=== PATIENT | female | born 1960 | race Caucasian/White ===

== ENCOUNTER 2020-01-08 10:46 | Emergency (ER) | payer BC, SELFPAY ==
--- NOTE | ~2020-01-08 | XR_ITS ---
EXAMINATION: XR ankle RT min 3V DATE: 01/08/2020 11:02 INDICATION: Right ankle deformity. Fall. TECHNIQUE: 3 views of right ankle were obtained. COMPARISON: None. FINDINGS: There is a comminuted fracture of distal fibula with medial aspect of the fracture line 2.9 cm proximal to the level of the tibial plafond. The main distal fracture fragment demonstrates 3 mm lateral displacement, 9 degrees lateral angulation, 2 mm posterior displacement, and 6 degrees seam stay stitcher ior angulation. There is an oblique fracture of medial malleolus. The distal fracture fragment demons trates 5 mm medial displacement and 7 mm anterior displacement. There is a coronal fracture of seam stay stitcher ior malleolus with 3 mm offset at the articular surface. There is lateral subluxation of talus with r espect to distal tibia. The talar dome is normal. There is ankle soft tissue swelling. IMPRESSION: 1. Fractures of distal fibula, medial malleolus, and posterior malleolus. Reviewed, dictated and finalized at location A. D COORDINATOR
--- NOTE | ~2020-01-08 | XR_ITS ---
EXAMINATION: XR ankle RT min 3V DATE: 01/08/2020 11:44 INDICATION: Right ankle fracture status post reduction. TECHNIQUE: 3 views of right ankle were obtained. COMPARISON: Right ankle radiographs at 10:58 AM FINDINGS: There is a comminuted fracture of distal fibula with medial aspect of the fracture line to 0.5 cm proximal to the level of the tibial plafond. The main distal fracture fragment demonstrates im paction, 9 degrees lateral angulation, 2 mm lateral displacement, and 5 degrees posterior angulation. There is an oblique fracture of medial malleolus. The main distal fracture distal fracture fragment demonstrates 10 mm medial displacement. There is a fracture of posterior malleolus in near-anatomic a lignment. The talar dome is normal. There is ankle soft tissue swelling. Cast material is noted. IMPRESSION: 1. Comminuted fracture of distal fibula and fractures of the medial and posterior malleoli with impro vement in alignment. Reviewed, dictated and finalized at location A. R PRODUCTS MACHINE OPERATOR IMPRESSION: 1. Comminuted fracture of distal fibula and fractures of the medial and posteri or malleoli with improvement in alignment.
--- NOTE | ~2020-01-08 | XR_ITS ---
EXAMINATION: XR tibia fibula RT 2V DATE: 01/08/2020 11:02 INDICATION: Right lower limb deformity. Fall. TECHNIQUE: 2 views of right tibia and fibula on 3 radiographs were obtained. COMPARISON: Right ankle radiographs 01/08/2020 FINDINGS: There is a comminuted fracture of distal fibula. There are fractures of the medial and post erior malleoli. There is normal bone alignment at the ankle joint. There is mild osteoarthritis of pa tellofemoral compartment. No knee joint effusion. IMPRESSION: 1. Comminuted fracture of distal fibula and fractures of the medial and posterior malleoli, which are better described on the ankle radiographs. 2. Mild right knee osteoarthritis. Reviewed, dictated and finalized at location A. COAT SEWER IMPRESSION: 1. Comminuted fracture of distal fibula and fractures of the medial and posteri or malleoli, which are better described on the ankle radiographs. 2. Mild right knee osteoarthritis.
[2020-01-08 10:44] VITALS: BP 159/92; PULSE 86; RESP 18; TEMP 36.6; O2SAT 100
[2020-01-08] MEDS: SODIUM CHLORIDE 0.9% IV 1,000 ML 999 ML IV CONT (11:00)
[2020-01-08] MEDS: ONDANSETRON INJ 4 MG/2 ML VIAL IV PUSH (11:03)
[2020-01-08] MEDS: HYDROMORPHONE HCL 1 MG/ML INJ IV PUSH ×2 (11:06→11:31)
[2020-01-08 11:34] VITALS: BP 144/85; PULSE 82; RESP 18; O2SAT 95
--- NOTE | 2020-01-08 11:42 | ED.FALL ---
HPI - Fall General Chief Complaint: Fall Stated Complaint: fall/right ankle pain Time Seen by Provider: 01/08/20 10:51 Source: patient, family and EMS Mode of arrival: EMS Limitations: no limitations History of Present Illness HPI Narrative: Patient is an 59-year-old female who presents to emergency department for evaluation of ankle injury that occurred just prior to arrival misstepped while ambulating injuring the ankle noting that she now has moderate aching pain of the ankle joint worse with any activity or movement patient presents per EMS. Patient denies other injuries or complaints or any radicular symptoms or paresthesias Related Data Allergies Allergy/AdvReac Type Severity Reaction Status Date / Time Penicillins Allergy Unknown Hives Verified 01/08/20 10:49 Review of Systems Review of Systems: All systems reviewed & are unremarkable except as noted in HPI and below PMFSH Family History Family History (Updated 11/19/17 @ 15:14 by DOCTOR UNKNOWN) Grandparent Asthma Family history of malignant neoplasm of brain Father Family history of Alzheimer's disease Family history of coronary artery disease Social History Social History Smoking status: Former smoker Alcohol intake: current Exam Narrative: Exam Narrative: GENERAL: Well-appearing, well-nourished, and in no acute distress. HEAD: Normocephalic, atraumatic. EYES: PERRLA and EOMI. ENT: Nares clear, no rhinorrhea or epistaxis. Mucous membranes moist. CHEST: Clear to auscultation. No respiratory distress. No wheezes rales or rhonchi HEART: Regular rate and rhythm. No murmur heard. Normal peripheral pulses. EXTREMITIES: Bruising swelling and tenderness involving the right ankle joint SKIN: Warm, dry, no rash. NEURO: No focal deficits. Alert and oriented x3. Neurovascularly intact PSYCH: Normal mood and affect. Course Consultations Consultation #1: Discussed case with orthopedic surgery who will follow the patient in clinic Date: 01/08/20 Vital Signs Vital signs: Vital Signs Temperature 97.9 F 01/08/20 10:44 Pulse Rate 86 01/08/20 10:44 Respiratory Rate 18 01/08/20 10:44 Blood Pressure 159/92 H 01/08/20 10:44 Pulse Oximetry 100 01/08/20 10:44 Temperature 97.9 F 01/08/20 10:44 Pulse Rate 82 01/08/20 11:34 Respiratory Rate 18 01/08/20 11:34 Blood Pressure 144/85 H 01/08/20 11:34 Pulse Oximetry 95 01/08/20 11:34 Procedures Orthopedic Fracture Reduction Fracture #1: Fracture Reduction date: 01/08/20 Fracture Reduction time: 11:44 Time Out Performed: Yes Side: right Fracture Reduction Location: tibia Analgesia: other Pre-Procedure Neuro Vascular Exam: normal Technique: direct manipulation Post Reduction X-rays Demonstrate: acceptable reduction Post-reduction neuro exam: intact Post-reduction vascular exam: intact Splint Applied: Yes Patient Tolerated Procedure: well Orthopedic Splinting/Casting Injury #1: Splinting/Casting Date: 01/08/20 Splinting/Casting Time: 11:44 Lower Extremity Injury Location: lower leg Lower Extremity Immobilizer: posterior splint and stirrup splint Splint: customized in ED OCL: stirrup Pre-Procedure Neuro Vascular Exam: normal Post-Procedure Neuro Vascular Exam: normal Other Orthopedic Equipment: crutches MDM - Fall Imaging Data Radiologist's impression: ITS Impressions Ankle X-Ray 01/08/20 11:09 IMPRESSION: 1. Fractures of distal fibula, medial malleolus, and posterior malleolus. Tibia/Fibula X-Ray 01/08/20 11:13 IMPRESSION: 1. Comminuted fracture of distal fibula and fractures of the medial and posterior malleoli, which are better described on the ankle radiographs. 2. Mild right knee osteoarthritis. Discharge Plan Discharge Clinical Impression: Ankle
[2020-01-08 12:07] VITALS: TEMP 36.6
[2020-01-08 12:23] VITALS: BP 130/71; PULSE 70; RESP 18; O2SAT 96
[2020-01-08 13:07] VITALS: TEMP 36.6
[2020-01-08 14:08] VITALS: BP 96/42; PULSE 70; RESP 18; O2SAT 99
--- NOTE | 2020-01-08 14:09 | PC.NURSE ---
Patient refused crutches at this time.
== END 2020-01-08 14:09 | disposition home or self-care (01) ==
PROVIDERS: Emergency Provider Emergency Medicine; PCP Family Medicine
DX: S82.831A Other fracture of upper and lower end of right fibula, initial encounter for closed fracture (principal); S82.51XA Displaced fracture of medial malleolus of right tibia, initial encounter for closed fracture; Z87.891 Personal history of nicotine dependence; M17.11 Unilateral primary osteoarthritis, right knee; X50.9XXA Other and unspecified overexertion or strenuous movements or postures, initial encounter
CPT/HCPCS: 27762; 27788; 73590; 73610; 96374; 96375; 99285; J1170; J2405; J7030

== ENCOUNTER 2020-01-17 00:23 | Day surgery (SDC) | payer BC, SELFPAY ==
[2020-01-11 10:34] VITALS: BMI 33.2
[2020-01-17] VITALS (7 sets, daily range): BP systolic 122–163; BP diastolic 70–82; PULSE 83–98; RESP 12–20; TEMP 36.8–36.9; O2SAT 96–100
--- NOTE | ~2020-01-17 | XR_ITS ---
EXAMINATION: XR surgery orthopedic EXAM DATE: 01/17/2020 13:50 INDICATION: Right ankle fracture. TECHNIQUE: Fluoroscopy used during right ankle open reduction internal fixation performed by Dr. Micky Yoder MD. The DAP for this procedure was 0.02 mGym2.cGycm2. FINDINGS: There is a fibular plate with supporting screws, 2 screws through the medial malleolus, an d a right tibial distal metaphyseal plate with supporting screws. Hardware overlies expected position on these images. Correlate with procedure note. IMPRESSION: Fluoroscopy used during right ankle ORIF. Reviewed, dictated and finalized at location A.
[2020-01-17] MEDS: LACTATED RINGERS 1,000 ML 30 ML IV CONT ×2 (09:45→13:53)
--- NOTE | 2020-01-17 09:53 | P.PNAN_ITS ---
Anes - Initial Pre Proc Eval Procedure: Operation Date: 01/17/20 11:00 Proposed Procedures p Open Reduction Internal Fixation Right Ankle Fracture - Nate Yoder MD Date/Time: 01/17/20 09:53 Surgeon: Nate Yoder MD Pre Op Diagnosis: Right Trimallolar Ankle Fracture Patient Data Age: 59 Gender: F Height: 5 ft Weight: 77.11 kg Allergies Allergy/AdvReac Type Severity Reaction Status Date / Time Penicillins Allergy Unknown Hives Verified 01/11/20 10:36 Home Medications Medication Instructions Recorded Confirmed Type sertraline 25 mg tablet 25 mg PO DAILY #90 tablet 11/18/19 01/17/20 Rx hydrochlorothiazide 25 mg tablet 25 mg PO DAILY #90 tablet 11/23/19 01/17/20 Rx hydrocodone-acetaminophen 1 tablet PO Q6H PRN #20 tablet 01/08/20 01/17/20 Rx acetaminophen [Tylenol Arthritis 650 mg PO Q6H PRN 01/11/20 01/17/20 History Pain] aspirin 81 mg PO DAILY 01/11/20 01/17/20 History bimatoprost 0.01 % eye drops 1 drop EACH EYE DAILY 01/11/20 01/17/20 History brimonidine 0.2 %-timolol 0.5 % 1 drop EACH EYE Q12H 01/11/20 01/17/20 History eye drops clindamycin HCl 300 mg capsule 300 mg PO Q6H 01/11/20 01/17/20 History ibuprofen [Advil] 600 mg PO Q6H PRN 01/11/20 01/17/20 History losartan 100 mg tablet 100 mg PO DAILY #90 tablet 01/14/20 Rx Patient hx anesthesia problems: none Family hx anesthesia problems: none PMFSH Past Medical History Medical History (Updated 01/17/20 @ 09:53 by Alfredo Centeno MD) Anxiety Depression Hypertension Lung cancer Surgical History Surgical History History of section 1985 History of hysterectomy 2013-[place] History of lobectomy of lung 2015 History of sinus surgery 2002 Family History Family History Grandparent Asthma Family history of malignant neoplasm of brain Father Family history of Alzheimer's disease Family history of coronary artery disease Social History Social History Smoking status: Former smoker Alcohol intake: current Additional occupation/education comments: [employer] Gender identity (if verbalized by the patient): Female Anes - Eval Final PreProcedure Day of Procedure 01/17/20 09:53 Patient weight: obese Heart: regular rate and rhythm Lungs: decreased breath sounds Airway: Mallampati scale class II Neurological: alert and oriented Last oral intake: >/= 8 hours ASA classification: III Emergent: no Anesthetic plan: proceed Anesthesia type and monitoring: general LMA and standard monitoring Informed Consent: The patient's anesthetic plan and its attendant risks and benefits were discussed with the patient/family/POA. Questions were solicited and answers provided to the satisfaction of the patient/family/POA.
--- NOTE | 2020-01-17 09:58 | SUR.PREOP ---
0925- spoke with jatin slaughter in dr. yoder room. Asked if Dr. Yoder would like pt dressing off of right ankle. jatin Slaughter stated yes.
[2020-01-17 10:10] LABS: Blood Urea Nitrogen 28 mg/dL (7-17); Calcium 9.4 mg/dL (8.4-10.2); Carbon Dioxide 27 mmol/L (22-30); Chloride 103 mmol/L (98-107); Estimated CRCL calculation 45 ml/min; Estimated Glomerular Filt Rate 51; Glucose 122 mg/dL (65-105); Potassium 4.1 mmol/L (3.4-5.0); Sodium 139 mmol/L (137-145)
--- NOTE | 2020-01-17 10:53 | SUR.PREOP ---
1045- pt updated that DR. BRAVO RUNNING ABOUT A HOUR BEHIND SCHEDULE. DAUGHTER AND MOTHER IN ROOM.
--- NOTE | 2020-01-17 11:24 | WPDHPUPDATE1 ---
History and Physical Update Update Date/Time: 01/17/20 11:24 History and Physical has been reviewed, including an updated exam of the patient. There are NO changes in the patient's condition. Risks, benefits, and alternatives have been discussed and questions answered. Patient agrees to proceed with procedure.
--- NOTE | 2020-01-17 12:06 | SUR.PREOP ---
1200- spoke with DR MURCIA ABOUT STAT EKG ORDERED. HE STATED HE LOOKED AT EKG FROM 05/2019 AND NO NEED FOR A REPEAT.
[2020-01-17] MEDS: CLINDAMYCIN 900 MG/NS 50 ML 900 MG/50 ML PIGGYBACK 50 MG IVPB (12:09)
[2020-01-17] MEDS: ceFAZolin SODIUM 1 GM VIAL IV PUSH (12:35)
--- NOTE | 2020-01-17 14:15 | PM.PROC ---
Procedure Note - Detailed Date of procedure: 01/17/20 Pre-op diagnosis: Right Trimallolar Ankle Fracture Post-op diagnosis: same Procedure performed: ORIF right trimalleolar ankle fracture Description of procedure: Patient was identified proper side identified. Her dressing was taken down in the preop holding area and the skin inspected. The area of blistering noted last week was inspected and noted to be unremarkable. The anesthesia team performed a right lower extremity block. She was taken the operating room and transferred to the OR table placing her supine taking care to pad her torso and extremities after general anesthetic induction and intubation, a nonsterile tourniquet was placed high in the right thigh. Right lower extremities prepped draped free in usual sterile fashion. Extremities exsanguinated and tourniquet was inflated to 300 mmHg remaining up for about 65 minutes. Longitudinal incision was made medially over the medial malleolus subcutaneous tissue was RO sharply dissected full thickness down to the fracture site taking care to protect neurovascular structures. The fracture site was identified in able to be cleared of debris then reduced anatomically securing it with 24.0 mm cannulated screws and also a three hole 1/3 semi tubular antiglide plate was applied. This gave a really nice a anatomic reduction to the medial malleolus the wound is irrigated with sterile antibiotic solution skin edges reapproximated with three 0 nylon suture. Attention was turned the lateral side and when inspecting this fluoroscopically it was highly comminuted but in good alignment so care was taken not to disrupt the remaining periosteum. A four hole distal fibular locking plate was then applied to the fibula under fluoroscopic visualization stabilized the fracture. Once this was accomplished the ankle mortise was assessed and noted to be stable and the talus was positioned anatomically on the mortise lateral wound was irrigated with sterile antibiotic solution. Skin edges were reapproximated with 2-0 strata fix and then kayla for the skin. Sterile dressing was applied tourniquet was released. A well padded stirrup type ankle splint was applied the ankle in a neutral position. She was awakened, extubated and taken to recovery room in stable condition. There were no known intraoperative complications. Estimated blood loss was negligible. She received perioperative antibiotics. Anesthesia: GLMA Surgeon: Nate Yoder MD Claims Supervisor: Magalys Newell Estimated blood loss (mL): 5 Tourniquet time (min): 65 Drains: No Packing: No Pathology: none sent Complications: No immediate complications Condition: stable Disposition: PACU
--- NOTE | 2020-01-17 14:58 | SUR.PHASEII ---
1455: RN clarified with Dr. Yoder if he wanted patient to take 81mg aspirin instead of/ or in addition to Ecotrin. He said either or is sufficient enough and no need to take both.
== END 2020-01-17 15:30 | disposition home or self-care (01) ==
PROVIDERS: PCP Family Medicine; Visit Provider Orthopaedic Surgery
PROC: (CPT 27822; principal; 2020-01-17 11:00)
DX: S82.851A Displaced trimalleolar fracture of right lower leg, initial encounter for closed fracture (principal); W19.XXXA Unspecified fall, initial encounter; I10 Essential (primary) hypertension; F41.8 Other specified anxiety disorders; Z79.82 Long term (current) use of aspirin; Z85.118 Personal history of other malignant neoplasm of bronchus and lung; Z90.2 Acquired absence of lung [part of]; Z87.891 Personal history of nicotine dependence; E66.9 Obesity, unspecified; Z68.33 Body mass index [BMI] 33.0-33.9, adult
CPT/HCPCS: 27822; 36415; 80048; 86850; 86900; 86901; C1713; C1769; J0690; J1100; J1200; J2250; J2405; J2704; J3010; J7120

== ENCOUNTER 2020-04-13 08:00 | Outpatient (RCR) | payer BC, SELFPAY ==
--- NOTE | 2020-03-07 09:31 | PTOPEVAL ---
INITIAL PHYSICAL THERAPY EVALUATION and PLAN OF CARE Thank you for referring Wendy Land to [facility]. She will be seen in PT 2x/wk x 5 wks. Please review, sign, date and return this plan of care PURA. I agree with and certify that the following plan of care is medically necessary. Referring Physician Date Admitting Provider: Attending Provider: Nate Yoder MD Referring Provider: *PT Outpatient Evaluation Start: 03/07/20 08:12 Freq: Status: Active Protocol: Document 03/07/20 08:05 DEONDRE (Rec: 03/07/20 09:31 DEONDRE [id number]) Therapy Assessment Status Assessment Status Assessment Status Evaluation Outpatient Past Medical History Past Medical History Source of Past Medical History Patient Neurological History Hx Neurological Disorders No Significant History Cardiovascular History Hx Hypertension Yes Respiratory History Hx Chest Surgery Yes: RT LOBECTOMY FOR LUNG CA 2014 Gastrointestinal History Hx Gastrointestinal Disorders No Significant History Genitourinary History Hx Genitourinary Disorders No Significant History Musculoskeletal History Hx Fractures Yes: RT ANKLE FX Hematological History Hx Hematological Disorders No Significant History Endocrine History Hx Endocrine Disorders No Significant History HEENT History Hx Glaucoma Yes Hx Sinus Problems Yes: SINUS SURGERY Hx Dental Problems Yes: PERMANENT CROWNS Hx Other HEENT Disorders Yes: PATTERN DYSTROPHY Integumentary History Hx Eczema Yes Reproductive History Hx Section Yes: X2 Hx Hysterectomy Yes: 2014 Psychosocial History Hx Anxiety Yes Hx Depression Yes Pain History History of Any Previous or Ongoing No Significant History Instance of Pain Anesthesia History Hx Anesthesia Reactions No Significant History Evaluation Information Problem Diagnosis Displaced trimalleolar fx of R LE Onset 01/08/2020 Subjective Information R foot/shoe hit threshold, Query Text:As Reported By Patient/ fell, R foot was really floppy Family ORIF 01/17/2020 Casted - NWB - casted removed 02/29/2020 - went into walking boot Initially with wt bearing - increase discomfort. Sore next day once able to put wt on R foot With wt bearing - feels medial joint pain Hurts to put foot flat With
--- NOTE | 2020-04-13 09:36 | PTOPEVAL ---
PHYSICAL THERAPY DISCHARGE SUMMARY Thank you for referring Wendy Land to [facility]. She was seen for 11 visits. Goals have been met. Thank you for this referral - Geraldine was a pleasure to work with. I agree with Geraldine's discharge from PT. Referring Physician Date Admitting Provider: Attending Provider: Nate Yoder MD Referring Provider: *PT Outpatient Evaluation Start: 03/07/20 08:12 Freq: Status: Active Protocol: Document 04/13/20 08:00 DEONDRE (Rec: 04/13/20 09:35 DEONDRE [email or web address]) Therapy Assessment Status Assessment Status Assessment Status Discharge Evaluation Information Problem Subjective Information Geraldine reports that she is able Query Text:As Reported By Patient/ to do everything - just needs Family to be slow and careful - especially on the basement stairs. Will still have the toe pain with toe extension - especially the big toe - with plantarflexion activities/ motion. Pain Assessment Timing of Pain Assessment Timing of Pain Assessment Assessment Pain Scale Pain Scale Used Numeric (1 - 10) Self Report Pain Assessment Right Ankle(s) Reported Pain Level 0 Lowest Pain Intensity 0 Greatest Pain Intensity 2 Pain Score Pain Score 0: Self Report Lower Extremity Range of Motion Ankle/Foot Range of Motion Right Ankle Dorsiflextion With Knee Extension 5 Range of Motion - Active Ankle Dorsiflextion With Knee Flexed 8 Range of Motion - Active Ankle Plantarflexion Range of Motion - 50 Active Query Text: Ankle Eversion Range of Motion - Active 45 Ankle Inversion Range of Motion - Active 25 Lower Extremity Muscle Strength Testing Ankle Strength Right Ankle Dorsiflexion Strength 5 Normal Ankle Plantarflexion Strength 4 Good Ankle Eversion Strength 5 Normal Ankle Inversion Strength 5 Normal Extremity Circumference Assessment Circumference Assessment Location Right Site Descriptor (Jenks) figure of 8 Circumference Comments R 51 cm Gait Assessment Gait Pattern Assessment Other Gait Observations increased symmetry with stance /swing phases - very mild to no deviation with R LE Stair Climbing Assessment Stair Climbing Assessment Stair Climbing Comments increase use of hands especially with descending stairs - decreased R ankle dorsiflexion when R LE is in s
== END 2020-04-13 14:08 | disposition home or self-care (01) ==
LOC: ANHPT 08:00
PROVIDERS: PCP Family Medicine; Visit Provider Orthopaedic Surgery
DX: S82.851D Displaced trimalleolar fracture of right lower leg, subsequent encounter for closed fracture with routine healing (principal)
CPT/HCPCS: 97110; 97140; 97161

== ENCOUNTER 2023-04-02 11:39 | Inpatient (IN) | payer BC, SELFPAY ==
[2023-04-02] VITALS (47 sets, daily range): BP systolic 114–154; BP diastolic 52–111; PULSE 66–151; RESP 15–37; TEMP 36.6–38.3; O2SAT 91–97; BMI 22.5
--- NOTE | ~2023-04-02 | XR_ITS ---
EXAMINATION: XR chest 1V portable Exam Date/Time: 04/02/2023 14:25 CDT HISTORY: Cough NVD HX LUNG CA Comparison: 06/21/2019. RESULT: Lines, tubes, and devices: None. Lungs and pleura: Slight rotation to the to the right. Considerable opacification of the left hemitho rax, with slight left hemithorax volume loss. Blunting of the lateral costophrenic angle. Persistent lung aeration in the left upper lobe and medial lower lobe. Cardiomediastinal silhouette: Partially obscured, grossly stable. Other: No acute osseous or upper abdominal finding. IMPRESSION: Extensive left lower lobe consolidation/atelectasis. Possible pleural effusion or pleural/chest wall mass. A central pulmonary mass with postobstructive consolidation should also be considered. Comparison to outside studies would be helpful and consider a lateral view of the chest for further c haracterization. Reviewed, dictated and finalized at location K. IMPRESSION: Extensive left lower lobe consolidation/atelectasis. Possible pleural effusion or pleural/chest wall mass. A central pulmonary mass with postobstructive conso lidation should also be considered. Comparison to outside studies would be helpful and consider a lateral view of t he chest for further characterization.
--- NOTE | ~2023-04-02 | CT_ITS ---
EXAMINATION: CT diagnostic chest wo con DATE: 04/02/2023 15:26 INDICATION: History of lung cancer. Pneumonia. TECHNIQUE: Computed tomography (CT) of the chest was performed without intravenous contrast. The dose -length product was 299.16 mGy-cm. Automated exposure control and iterative reconstruction technique were employed. COMPARISON: Chest dated 04/02/2023 FINDINGS: Heart size normal. There is volume loss of the left thorax. Trace left pleural effusion. Th ere is extensive airspace consolidation of the left upper and lower lobe with air bronchograms, consi stent with pneumonia. No pneumothorax. Calcified granuloma present right lower lobe. There is superio r endplate compression fractures of T11 and T12, most likely chronic. There is mediastinal lymph node enlargement, likely reactive. IMPRESSION: 1. Extensive left upper and lower lobe pneumonia. 2: Small left pleural effusion. Reviewed, dictated and finalized at location B.
--- NOTE | ~2023-04-02 | CT_ITS ---
EXAMINATION: CT brain wo con DATE: 04/02/2023 15:23 INDICATION: Status post fall. Head trauma. TECHNIQUE: Computed tomography (CT) of the head was performed without intravenous contrast. The dose- length product was 605.33 mGy-cm. Automated exposure control and iterative reconstruction technique w ere employed. COMPARISON: CT dated 05/17/2019 FINDINGS: Brain parenchymal volume is normal for age. Normal hutchins-white differentiation. No ventricul omegaly or midline shift. Basilar cisterns are patent. Paranasal sinuses and mastoids are pneumatized . No depressed skull fractures. Midline sagittal images demonstrate a normal corpus callosum and cran iovertebral junction. There are scattered mild periventricular and subcortical white matter changes, most likely related to small vessel ischemic disease (microangiopathy). IMPRESSION: 1. No acute intracranial abnormality 2: Chronic age-related findings. Reviewed, dictated and finalized at location B.
--- NOTE | ~2023-04-02 | CT_ITS ---
EXAMINATION: CT cervical spine wo con DATE: 04/02/2023 15:23 INDICATION: Fall with head injury TECHNIQUE: Computed tomography (CT) of the cervical spine was performed without intravenous contrast. Automated exposure control and iterative reconstruction technique were employed. The dose-length pro duct was 431.91 mGy-cm. COMPARISON: 07/10/2017 FINDINGS: Unchanged mild upper cervical dextrocurvature. There is nonfocal reversal of the normal cervical lord osis which may be positional with the patient's head supported by a rolled up blanket. No spondylolis thesis or facet subluxation. Vertebral body heights are normal. No fracture. Mild disc height loss at C4-C5 and C5-C6. Unchanged tiny focus of calcification along the posterior longitudinal ligament at the level of the inferior endplate of C4 resulting in only minimal central canal stenosis. Moderate f acet osteoarthritis on the right at C2-C3 and bilaterally at C3-C4 with mild facet osteoarthritis at several additional levels on both the left and right. There is also multilevel minimal to mild uncove rtebral osteoarthritis. This contributes to only minimal neural foraminal stenosis at a few levels on the left and right. Cervical soft tissues are unremarkable. Posterior layering small left pleural ef fusion. IMPRESSION: 1. Mild cervical spondylosis. No acute osseous abnormality. Reviewed, dictated and finalized at location A.
--- NOTE | 2023-04-02 11:57 | ECG_ITS ---
Measurements Intervals [place] Rate: 145 P: 7 CO: 152 QRS: 73 QRSD: 77 T: 47 QT: 279 QTc: 434 Interpretive Statements SINUS TACHYCARDIA, POSSIBLE ATRIAL FLUTTER LOW QRS VOLTAGE IN PRECORDIAL LEADS ABNORMAL ECG COMPARED TO ECG 05/17/2019 21:26:19 SINUS TACHYCARDIA, POSSIBLE ATRIAL FLUTTER NOW PRESENT Electronically Signed On 04-02-2023 12:08:37 CDT by Darrian Kwan D.O.
[2023-04-02 12:17] LABS: Basophils Percent Auto 0.5 % (0.2-1.2); Eosinophils Percent Auto 0.3 % (0-4.4); Hematocrit 32.5 % (37.0-47.0); Hemoglobin 11.4 g/dL (12.0-15.0); Immature Granulocyte Absolute 0.09 K/mm3 (0.00-0.031); Immature Granulocyte Percent A 1.2 % (0-0.5); Lymphocytes Absolute Auto 0.56 K/mm3 (0.9-3.2); Lymphocytes Percent Auto 7.2 % (18.3-44.2); Mean Corpuscular HGB Conc 35.1 g/dl (32-36); Mean Corpuscular Hemoglobin 31.7 pg (26-34); Mean Corpuscular Volume 90.3 fl (80-100); Mean Platelet Volume 9.5 fl (7.4-10.4); Monocytes Absolute Auto 0.4 K/mm3 (0.1-0.6); Monocytes Percent Auto 4.7 % (2.6-8.5); Neutrophils Absolute Auto 6.7 K/mm3 (1.3-6.7); Neutrophils Percent Auto 86.1 % (45.5-73.1); Platelet Count Result 159 k/mm3 (150-375); Red Cell Distribution Width 13.6 % (11.5-14.5); White Blood Count 7.7 K/mm3 (4.5-10.0)
[2023-04-02 12:24] LABS: Alanine Aminotransferase 30 U/L (6-35); Albumin Level 4.1 g/dL (3.5-5.1); Alkaline Phosphatase 82 U/L (38-126); Anion Gap 15 mmol/L (8-16); Aspartate Amino Transferase 42 U/L (14-36); Bilirubin,Total 0.6 mg/dL (0.2-1.3); Blood Urea Nitrogen 21 mg/dL (7-17); Calcium 8.8 mg/dL (8.4-10.2); Carbon Dioxide 20 mmol/L (22-30); Chloride 86 mmol/L (98-107); Estimated CRCL calculation 32 ml/min; Estimated Glomerular Filt Rate 46; Glucose 150 mg/dL (65-110); Lipase 74 U/L (23-300); Potassium 3.4 mmol/L (3.4-5.0); Sodium 121 mmol/L (137-145)
--- NOTE | 2023-04-02 12:42 | PC.NURSE ---
Pt is wheeled into ER via wheelchair c/o stomach flu like symptoms. States symptoms started Friday. States she has been dealing with n/v/d. Denies any pain. Pt states she threw up 2 recently, with the most recent one being just water. Family states that pt has been confused. Pt at this time is AOx3. States that she feels SOB that also started on Friday. States she was febrile at home, but today pt is afebrile. States that she feels dehydrated and wants IV fluids. Hx of Lung cancer that is in remission and HTN. States she took advil this morning with little relief. States she is starting naproxen at home. States she had a BM this morning that was loose.
--- NOTE | 2023-04-02 14:11 | ED.CHESTPAIN ---
HPI - Chest Pain General Chief Complaint: Chest Pain Stated Complaint: N/V/D sent from dr. burgos Time Seen by Provider: 04/02/23 14:07 Source: patient Limitations: no limitations History of Present Illness HPI narrative: Patient is 62 years old white female came to the emergency room with the chief complaint of body aches, fever, coughing for the last 6 days, lately been vomiting. Patient was seen by her family physician yesterday and was told to go to the ED for IV fluid. Patient could not do it yesterday because she was severely tired. Patient had history of lung cancer 2014, status post lobectomy, never been treated with chemotherapy or radiation therapy, was told by her oncologist at [facility] that she does need any treatment anymore. Patient main complaint at this time is fever and coughing. Patient is DNR, history of hypertension, does not take antiplatelet or anticoagulant medication. The family is telling me that patient been confused off and on today. Related Data Home Medications Medication Instructions Recorded Confirmed bimatoprost 0.01 % eye drops 1 drop ophthalmic (eye) DAILY 01/11/20 04/01/23 ([place]) brimonidine 0.2 %-timolol 0.5 % 1 drop ophthalmic (eye) Q12H 01/11/20 04/01/23 eye drops ([place]) ascorbic acid (vitamin C) 1,000 mg 1 g PO DAILY 01/28/22 04/01/23 tablet [id number] tablet tablet PO .QD 01/28/22 04/01/23 dorzolamide 2 % eye drops 1 drp EACH EYE TID 07/22/22 04/01/23 cholecalciferol (vitamin D3) 25 5,000 unit PO DAILY 02/03/23 04/01/23 mcg (1,000 unit) capsule Allergies Allergy/AdvReac Type Severity Reaction Status Date / Time Penicillins Allergy Unknown Hives Verified 04/02/23 12:41 Review of Systems Review of Systems: All systems reviewed & are unremarkable except as noted in HPI and below PMFSH Past Medical History Medical History Anxiety CKD (chronic kidney disease) stage 3, GFR 30-59 ml/min Depression Hx of cancer of lung (~2014) Follows with Dr Morgansztern - oncology at [facility]. No chemo/radiation. Hypertension Macular degeneration of both eyes Vision loss, bilateral Surgical History Surgical History History of section (~1984) History of hysterectomy (~2013) [place] History of lobectomy of lung (~09/26/15) Right middle lobe removed History of sinus surgery (~2002) Trimalleolar fracture of right ankle (~01/2020) ORIF Dr Yoder Family History Family History Grandparent Asthma Family history of malignant neoplasm of brain Father Family history of Alzheimer's disease Family history of coronary artery disease Social History Social History Social History: Patient is , has 2 adult children. She lives alone with her dog, she has a home in [place]. 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 30 pack-year smoker, she quit in 2012. Smoking packs per day: 1 Smoking cigarettes per day: 20.0 Years smoked: 30 Smoking pack-years: 30.00 Smoking status: Former smoker Tobacco type: cigarettes Smoking end date: 11/10/12 Alcohol intake: current Alcohol use details: Moderate Substance use: never Substance use type: does not use Lack of Transportation: No Lack of Food: Never True Current Housing: I Have Housing Concerned About Future Housing: No Difficulty Paying Gas/Electric Bills: No Difficulty Paying for Meds: No Currently Unemployed: No Education: High School Diploma/GED Difficulty w/ Childcare or Family Care: No Living arrangements: alone Occupation/Education: occupation Additional occupation/education comments: [employer] Gender identity (if verbalized by the patient): Female
[2023-04-02] MEDS: ONDANSETRON INJ 4 MG/2 ML VIAL IV PUSH (14:46)
[2023-04-02] MEDS: SODIUM CHLORIDE 0.9% IV 1,000 ML 999 ML IV CONT (14:46)
--- NOTE | 2023-04-02 14:54 | PC.NURSE ---
EDWINA, daughter Chanel [phone]
--- NOTE | 2023-04-02 15:15 | PC.NURSE ---
RN receives a call from CT that while attempting to obtain a CT, pt fell and hit her head on the CT table. technical services representative obtaining orders. ERP orders for a head and neck CT. Reported orders to CT.
--- NOTE | 2023-04-02 15:31 | PC.NURSE ---
Pt's daughter called and she is the POA and states that pt is a full code.
--- NOTE | 2023-04-02 15:32 | PC.NURSE ---
Pt's POA and daughter, Chanel Land, wants to be notified with any new information. [phone]
[2023-04-02 16:03] LABS: Appearance Urine Cloudy (Clear); Bacteria Urine None Seen /hpf; Bilirubin Urine Negative (Negative); Blood Urine 1+ (Negative); Color Urine Yellow (Yellow); Glucose Urine UA Negative (Negative); Ketones Urine 1+ mg/dL (Negative); Leukocyte Esterase Ur Negative LEU/UL (Negative); Nitrate Urine Negative (Negative); Protein Urine 3+ mg/dL (Negative); Specific Grav Ur 1.021 (1.001-1.035); Squamous Epithelial Cell Urine Few /hpf (Few); WBC Urine 0-5 /hpf
[2023-04-02 16:05] LABS: INR 0.8; Prothrombin Time 11.4 Seconds (11.1-14.7)
[2023-04-02 16:06] LABS: Partial Thromboplastin Time 33.7 SECONDS (22.3-36.8)
[2023-04-02 16:07] LABS: Add Urine Microscopic? YES
[2023-04-02] MEDS: ACETAMINOPHEN 325 MG TABLET 650 MG PO (16:26)
--- NOTE | 2023-04-02 16:40 | ECG_ITS ---
Measurements Intervals [place] Rate: 108 P: -17 HI: 174 QRS: 69 QRSD: 86 T: 28 QT: 342 QTc: 459 Interpretive Statements SINUS TACHYCARDIA LOW QRS VOLTAGE IN PRECORDIAL LEADS ABNORMAL ECG COMPARED TO ECG 04/02/2023 12:00:56 HEART RATE HAS DECREASED Electronically Signed On 04-02-2023 18:57:09 CDT by Darrian Kwan D.O.
[2023-04-02 16:41] LABS: CRP 36.1 mg/dL (<1.0)
[2023-04-02 16:48] LABS: Alveolar/Arterial O2 Gradient 60.8 mmHg; Base Excess ABG -1.3 mEq/l (+/-2.0); Fractional Inspired Oxygen 21 %; HCO3 ABG 20.6 mEq/l (22.0-26.0); Oxyhemoglobin 90.2 % THb (90.0-100.0); PCO2 ABG 26.1 mmHg (35.0-45.0); PO2 ABG 57.7 mmHg (80.0-100.0); PO2 FiO2 Ratio Arterial Blood 2.75 %
[2023-04-02] MEDS: AZITHROMYCIN 500 MG/NS 250 ML 500 MG/250 ML BAG 250 MG IVPB (16:48)
[2023-04-02 16:49] LABS: Device ROOM AIR; Modified Allen's Test Pass; Site Drawn RIGHT RADIAL; pH ABG 7.515 (7.350-7.450)
[2023-04-02 17:00] LABS: Sodium 122 mmol/L (137-145)
[2023-04-02] MEDS: SODIUM CHLORIDE 3% 500 ML 30 ML IV CONT (17:52)
[2023-04-02 18:05] LABS: Thyroid Stimulating Hormone Reflex 0.232 uIU/mL (0.465-4.68)
--- NOTE | 2023-04-02 18:14 | PC.NURSE ---
ERP asks RN how much 3% Saline Solution pt has received. RN updates ERP and he states when pt has received 10mls of IV solution to stop the drip and hold.
[2023-04-02 18:25] LABS: Creatinine Urine 163.6 mg/dL
[2023-04-02 18:59] LABS: Sodium Urine Random < 5 meq/L
[2023-04-02] MEDS: SODIUM CHLORIDE 0.9% IV 1,000 ML 100 ML IV CONT (19:00)
[2023-04-02 19:27] LABS: Total Triiodothyronine (T3) 0.58 NG/ML (0.97-1.69)
--- NOTE | 2023-04-02 19:40 | PM.IMHP ---
H&P: HPI History of Present Illness Date/Time: 04/02/23 19:40 Chief Complaint: 62 years old with past medical history of lung cancer status post lobectomy presented to the hospital with body aches associated with fever intermittent complete associated with chills multiple times a day also complains of cough shortness of breath patient had episodes of confusion chest x-ray showed positive consolidation CT scan of the chest was positive for pneumonia sodium was 122 ECG was equivocal for a flutter repeat EKG shows sinus tachycardia patient was started on empiric IV antibiotic blood culture was sent nephrology was consulted sodium every 6 hours started on IV hydration Review of Systems Review of Systems: 12 system review was done negative except above PMFSH Past Medical History Medical History Anxiety CKD (chronic kidney disease) stage 3, GFR 30-59 ml/min Depression Hx of cancer of lung (~2014) Follows with Dr Adamtern - oncology at [facility]. No chemo/radiation. Hypertension Macular degeneration of both eyes Vision loss, bilateral Surgical History Surgical History History of section (~1984) History of hysterectomy (~2013) Jennifer History of lobectomy of lung (~09/26/15) Right middle lobe removed History of sinus surgery (~2002) Trimalleolar fracture of right ankle (~01/2020) ORIF Dr Yoder Family History Family History Grandparent Asthma Family history of malignant neoplasm of brain Father Family history of Alzheimer's disease Family history of coronary artery disease Social History Social History Social History: Patient is , has 2 adult children. She lives alone with her dog, she has a home in [place]. 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 30 pack-year smoker, she quit in 2012. Smoking packs per day: 1 Smoking cigarettes per day: 20.0 Years smoked: 30 Smoking pack-years: 30.00 Smoking status: Former smoker Tobacco type: cigarettes Smoking end date: 11/10/12 Alcohol intake: current Alcohol use details: Moderate Substance use: never Substance use type: does not use Lack of Transportation: No Lack of Food: Never True Current Housing: I Have Housing Concerned About Future Housing: No Difficulty Paying Gas/Electric Bills: No Difficulty Paying for Meds: No Currently Unemployed: No Education: High School Diploma/GED Difficulty w/ Childcare or Family Care: No Living arrangements: alone Occupation/Education: occupation Additional occupation/education comments: [employer] Gender identity (if verbalized by the patient): Female Agree to blood products: Yes Meds Home Medications and Allergies Home Medications Medication Instructions Recorded Confirmed Type bimatoprost 0.01 % eye drops 1 drop ophthalmic (eye) DAILY 01/11/20 04/01/23 History (Lumigan) brimonidine 0.2 %-timolol 0.5 % 1 drop ophthalmic (eye) Q12H 01/11/20 04/01/23 History eye drops (Combigan) ascorbic acid (vitamin C) 1,000 mg 1 g PO DAILY 01/28/22 04/01/23 History tablet vyoarvx-lidnhunxa-kzso tablet tablet PO .QD 01/28/22 04/01/23 History dorzolamide 2 % eye drops 1 drp EACH EYE TID 07/22/22 04/01/23 History hydrochlorothiazide 25 mg tablet 25 mg PO DAILY #90 tabs 07/22/22 04/01/23 Rx losartan 100 mg tablet 100 mg PO DAILY #90 tabs 07/22/22 04/01/23 Rx sertraline 50 mg tablet 50 mg PO DAILY #90 tabs 07/22/22 04/01/23 Rx cholecalciferol (vitamin D3) 25 5,000 unit PO DAILY 02/03/23 04/01/23 History mcg (1,000 unit) capsule metoprolol succinate 25 mg 12.5 mg PO DAILY #90 tabs 02/10/23 04/01/23 Rx tablet,extended release 24 hr ondansetron 4 mg dis
[2023-04-02] MEDS: ALBUTEROL SULFATE NEB 2.5 MG/3 ML INH INHALATION (20:15)
[2023-04-02 20:23] LABS: Sodium 124 mmol/L (137-145)
[2023-04-02] MEDS: ENOXAPARIN 40 MG/0.4 ML SYRINGE SUB-Q (20:36)
[2023-04-02 20:39] LABS: Troponin I < 0.012 ng/mL (0.000-0.034)
--- NOTE | 2023-04-02 21:08 | ADMGEN ---
This patient, Wendy Land, was admitted to IMU Room 203-01 [id number]. Patient/family oriented to hospital policies and general routines including ID bracelet, bed and alarms, visiting hours, pain management, procedures, bathroom and other care routines, personal items, smoking policy, room service/diet, and visiting hours. Information on how to activate the Rapid Response Team has been discussed. Patient/Family are encouraged to report perceived risks to care and to ask questions if they do not understand what they are told or what they should do.
[2023-04-02 22:49] LABS: Influenza A QL RT-PCR Negative (Negative); Influenza B QL RT-PCR Negative (Negative); RSV RNA, RT-PCR Negative (Negative); SARS-CoV-2 RNA PCR Negative (Negative)
[2023-04-02 23:15] LABS: Sodium 127 mmol/L (137-145)
[2023-04-02] MEDS: FAMOTIDINE 20 MG TABLET PO (23:33)
[2023-04-02] MEDS: guaiFENesin 12 HR 600 MG TABCR PO (23:33)
[2023-04-03] VITALS (20 sets, daily range): BP systolic 127–142; BP diastolic 51–67; PULSE 77–119; RESP 16–24; TEMP 36.4–37.6; O2SAT 89–97
[2023-04-03] MEDS: ALBUTEROL SULFATE NEB 2.5 MG/3 ML INH INHALATION ×4 (01:49→20:25)
[2023-04-03 02:20] LABS: Alanine Aminotransferase 31 U/L (6-35); Albumin Level 3.5 g/dL (3.5-5.1); Alkaline Phosphatase 65 U/L (38-126); Anion Gap 10 mmol/L (8-16); Aspartate Amino Transferase 54 U/L (14-36); Bilirubin,Total 0.5 mg/dL (0.2-1.3); Blood Urea Nitrogen 17 mg/dL (7-17); Calcium 8.2 mg/dL (8.4-10.2); Carbon Dioxide 21 mmol/L (22-30); Chloride 94 mmol/L (98-107); Estimated CRCL calculation 37 ml/min; Estimated Glomerular Filt Rate 56; Glucose 107 mg/dL (65-110); Potassium 3.3 mmol/L (3.4-5.0); Sodium 125 mmol/L (137-145)
[2023-04-03 02:21] LABS: Troponin I < 0.012 ng/mL (0.000-0.034)
[2023-04-03 02:23] LABS: Hematocrit 28.7 % (37.0-47.0); Hemoglobin 10.2 g/dL (12.0-15.0); Mean Corpuscular HGB Conc 35.5 g/dl (32-36); Mean Corpuscular Hemoglobin 32.4 pg (26-34); Mean Corpuscular Volume 91.1 fl (80-100); Red Blood Count 3.15 M/mm3 (4.2-5.4)
[2023-04-03 02:24] LABS: Basophils Percent Auto 0.5 % (0.2-1.2); Immature Granulocyte Absolute 0.02 K/mm3 (0.00-0.031); Immature Granulocyte Percent A 0.5 % (0-0.5); Lymphocytes Percent Auto 13.3 % (18.3-44.2); Mean Platelet Volume 9.3 fl (7.4-10.4); Monocytes Percent Auto 5.8 % (2.6-8.5); Neutrophils Percent Auto 79.9 % (45.5-73.1); Platelet Count Result 119 k/mm3 (150-375); Red Cell Distribution Width 13.8 % (11.5-14.5)
[2023-04-03 02:25] LABS: Lymphocytes Absolute Auto 0.53 K/mm3 (0.9-3.2); Monocytes Absolute Auto 0.2 K/mm3 (0.1-0.6); Neutrophils Absolute Auto 3.2 K/mm3 (1.3-6.7)
[2023-04-03 09:36] LABS: Sodium 125 mmol/L (137-145)
[2023-04-03] MEDS: guaiFENesin 12 HR 600 MG TABCR PO ×2 (11:05→20:27)
[2023-04-03] MEDS: FAMOTIDINE 20 MG TABLET PO ×2 (11:05→20:27)
[2023-04-03] MEDS: SODIUM CHLORIDE 0.9% IV 1,000 ML 75 ML IV CONT (14:02)
[2023-04-03] MEDS: TIMOLOL MALEATE 0.5% OP SOLN 5 ML BOTTLE 1 DROP EACH EYE ×2 (14:03→20:26)
[2023-04-03] MEDS: DORZOLAMIDE HCL 2% OPHTH DROPS 1 DROP EACH EYE ×2 (14:04→17:59)
[2023-04-03] MEDS: BRIMONIDINE TARTRATE 0.2% OP SOLN 5 ML BTL 1 DROP EACH EYE ×2 (14:04→20:26)
[2023-04-03 14:12] LABS: Urea Random Urine 984 MG/DL
--- NOTE | 2023-04-03 14:12 | PM.CNNEP ---
Assessment and Plan Assessment and plan (1) Hyponatremia: Code(s): E87.1 - Hypo-osmolality and hyponatremia Status: Acute Assessment and Plan: normal sodium level 2 months ago admission sodium 121 unclear etiology at this time multiple risk factors noted: pneumonia history of lung cancer (however, in remission since 2014) history of lobectomy SSRI use (sertraline) thiazide diuretic use (HCTZ) holding HCTZ and zoloft s/p bolus of 3% saline by ER evaluation to date: CT of head negative TSH low but FT4 okay urine electrolytes suggest prerenal azotemia goal of correction is 6 - 8meq/L per 24 hours check cortisol, SPEP, UPEP; follow-up on serum/urine osmolality restart normal saline follow trend of repeat sodium levels (2) Community acquired pneumonia: Qualifiers: Laterality: left Lung location: lower lobe of lung Qualified Code(s): J18.9 - Pneumonia, unspecified organism Code(s): J18.9 - Pneumonia, unspecified organism Status: Acute Assessment and Plan: as suggested by admission imaging on antibiotic therapy follow culture data follow respiratory status (3) Altered mental status: Code(s): R41.82 - Altered mental status, unspecified Status: Acute Assessment and Plan: due to infection and low sodium level (?) clinically better at this time follow mentation (4) Hx of cancer of lung: Onset Date: ~2014 Code(s): Z85.118 - Personal history of other malignant neoplasm of bronchus and lung Status: Acute Assessment and Plan: s/p lobectomy and in remission since 2014 I will continue follow patient with you while she remains hospitalized to make further recommendations during her hospital course. Thank you for allowing me to participate in the care of this patient. History of Present Illness Reason for Consult Consult date: 04/03/23 Reason for consult: hyponatremia Chief Complaint Chief complaint: Community Acquired Pneumonia/Hyponatremia/KIA History of Present Illness Narrative: The patient is a 62-year-old female with a past medical history as outlined below who presented to [facility] Emergency room yesterday evening with complaints of body aches, fevers, vomiting, and cough. She apparently saw her primary care physician the day before yesterday with the same complaints it was felt that she probably had some type of viral illness but given her symptoms and progressive worsening of them, it was recommended that she come to the ER for further assessment and possibly IV fluids. Unfortunately, she was unable to do so at that time but came yesterday evening instead. Her family reports that she has had on and off confusion for the last 24 hr as well. Workup and evaluation in the emergency room demonstrated the patient to be hemodynamically stable and her mentation seemed to be appropriate as well. Routine blood test as a worsen if a kid for hyponatremia with a sodium level 121 but with no other critical electrolyte abnormalities or significant leukocytosis. Apparently, a CT scan of her chest was ordered and on route to imaging, she became acutely confused disoriented and lost her balance and apparently fell. Along with a CT of her chest a CT of her head was done as well to rule out any type of trauma or pre-existing brain pathology. The CT of her head was negative but the CT of her chest did demonstrate evidence of pneumonia. Given her hyponatremia, she was given a L of normal saline but with the aforementioned acute confusion, she did receive a bolus of 3% saline on the assumption that the hyponatremia was partly responsible for this. Appropriate cultures were obtained and she was started on IV antibiotic therapy for her pneumonia as well as IV fluids and subsequently admitted to the hospital for further evaluation and therapy. Since admission, her sodium level has improved with IV fluid resu
[2023-04-03 15:02] LABS: Sodium 123 mmol/L (137-145)
--- NOTE | 2023-04-03 16:09 | WPDPN ---
Progress Note: A&P Assessment and Plan (1) Hx of cancer of lung: Onset Date: ~2014 Code(s): Z85.118 - Personal history of other malignant neoplasm of bronchus and lung Status: Acute Assessment and Plan: status post lobectomy in remission since 2014 monitor 04/03/2023 interval history: Patient is found to have pneumonia and being treated azithromycin and ceftriaxone, patient states feeling little better compared to when she arrived cough and shortness of breath has improved, patient is also found to have hyponatremia most likely secondary to SIADH as patient has history of pneumonia and and lung CA, patient is being gently hydrated and will monitor patient's sodium, patient also had a cardiac echo shows preserved LV function with grade 1 diastolic dysfunction will monitor this patient being hydrated, once clinically stable will have a PT OT evaluate the patient. (2) Macular degeneration of both eyes: Code(s): H35.30 - Unspecified macular degeneration Status: Acute Assessment and Plan: resume home medication pending confirmation of home meds (3) Community acquired pneumonia: Qualifiers: Laterality: left Lung location: lower lobe of lung Qualified Code(s): J18.9 - Pneumonia, unspecified organism Code(s): J18.9 - Pneumonia, unspecified organism Status: Acute Assessment and Plan: reviewed CBC CMP started nebulizer treat give IV antibiotics if no improvement consider switching IV antibiotic to vanc and Zosyn currently patient on Rocephin azithromycin patient condition improved in the ER follow culture results (4) Acute hyponatremia: Code(s): E87.1 - Hypo-osmolality and hyponatremia Status: Acute Assessment and Plan: started on IV hydration monitor sodium every 6 hours goal of sodium to improve by 1 point every 3 hours and 9 point in 24 hours nephrology consulted (5) KIA (acute kidney injury): Code(s): N17.9 - Acute kidney failure, unspecified Status: Acute Assessment and Plan: acute and of chronic renal failure stage 3 avoid nephrotoxic medication most likely related to pneumonia and dehydration give IV fluid (6) Acute metabolic encephalopathy: Code(s): G93.41 - Metabolic encephalopathy Status: Acute Assessment and Plan: reviewed CT scan of the head and cervical spine no significant finding most likely related to pneumonia and dehydration continue IV antibiotics significantly improved (7) Abnormal EKG: Code(s): R94.31 - Abnormal electrocardiogram [ECG] [EKG] Status: Acute Assessment and Plan: 1st EKG concern for a flutter repeat EKG shows sinus tachycardia will get troponin and tele monitor Subjective Date/time seen: 04/03/23 16:09 Interval history: Chief Complaint: Cough shortness of breath, fever and chills HPI 62 years old with past medical history of lung cancer status post lobectomy presented to the hospital with body aches associated with fever intermittent complete associated with chills multiple times a day also complains of cough shortness of breath patient had episodes of confusion? chest x-ray showed positive consolidation CT scan of the chest was positive for pneumonia sodium was 122 ECG was equivocal for a flutter repeat EKG shows sinus tachycardia patient was started on empiric IV antibiotic blood culture was sent nephrology was consulted sodium every 6 hours started on IV hydration 04/03/2023 interval history: Patient is found to have pneumonia and being treated azithromycin and ceftriaxone, patient states feeling little better compared to when she arrived cough and shortness of breath has improved, patient is also found to have hyponatremia most likely secondary to SIADH as patient has history of pneumonia and and lung CA, patient is being gently hydrated and will monitor patient's sodium, patient also had a cardiac echo shows preserved LV function with grad
[2023-04-03] MEDS: AZITHROMYCIN 500 MG/NS 250 ML 500 MG/250 ML BAG 250 MG IVPB (17:58)
[2023-04-03 18:33] LABS: Anion Gap 11 mmol/L (8-16); Blood Urea Nitrogen 12 mg/dL (7-17); Calcium 8.4 mg/dL (8.4-10.2); Carbon Dioxide 23 mmol/L (22-30); Chloride 91 mmol/L (98-107); Estimated CRCL calculation 46 ml/min; Estimated Glomerular Filt Rate > 60; Glucose 109 mg/dL (65-110); Potassium 3.3 mmol/L (3.4-5.0); Sodium 125 mmol/L (137-145)
--- NOTE | 2023-04-03 18:39 | PC.NURSE ---
Called Dr. Shore with 17:55 sodium level. Recheck sodium level at 22:00. Call dr Shore with sodium results.
--- NOTE | 2023-04-03 19:39 | ECHO_ITS ---
Patient Info Name: Wendy Land Age: 62 years : 1960 Gender: Female Ht: 60 in Wt: 150 lbs BSA: 1.72 m2 HR: 99 bpm BP: 129 / 58 mmHg Heart Rhythm: Sinus Rhythm Technical Quality: Fair Exam Date: 04/03/2023 10:51 AM Exam Location: [facility] Card Pulmonary Patient Status: Inpatient Admit Date: 04/02/2023 Staff Ordering Physician: Sheldon Rodriguez M.A., MD Pigment Processor: Paris Barnhart RDCS Attending Provider: Delroy Villanueva MD Referring Physician: Javad JUNIOR; Exam Type: CA echo doppler color flow Study Info Indications - syncope Complete two-dimensional, color flow and Doppler transthoracic echocardiogram is performed. Summary 1. Complete two-dimensional, color flow and Doppler transthoracic echocardiogram is performed. 2. Left ventricular chamber dimension is normal. 3. Left ventricular systolic function is normal, estimated at 60-65%. 4. There is mild concentric increased left ventricular wall thickness. 5. The left ventricular diastolic function is grade I diastolic dysfunction. 6. E/e '10 is mildly elevated. 7. No pulmonary hypertension, estimated pulmonary arterial systolic pressure is 20 mmHg. Left Ventricle E/e '10 is mildly elevated. Left ventricular chamber dimension is normal. Left ventricular systolic function is normal, estimated at 60-65%. There is mild concentric increased left ventricular wall thickness. The left ventricular diastolic function is grade I diastolic dysfunction. Right Ventricle Right ventricular systolic function is normal and with normal TAPSE 2.9 cm. Right ventricular chamber dimension is normal. Left Atria Left atrial chamber dimension is normal. Right Atria Right atrial chamber dimension is normal. Aortic Valve The aortic valve is trileaflet. There is no aortic valve stenosis. There is no aortic valve regurgitation. Pulmonic Valve There is no pulmonic regurgitation. Mitral Valve There is no mitral valve stenosis. There is no mitral valve regurgitation. Tricuspid Valve There is no tricuspid valve regurgitation. No pulmonary hypertension, estimated pulmonary arterial systolic pressure is 20 mmHg. Pericardium/Pleural There is no pericardial effusion. Inferior Vena Cava Normal inferior vena cava with >50% collapse upon inspiration consistent with normal right atrial pressure, 5 mmHg. Aorta The aortic root size at the sinus of Valsalva is normal. Left Ventricular Outflow Tract Name Value Normal LVOT 2D LVOT Diameter 2.2 cm LVOT Doppler LVOT Peak Gradient 3 mmHg LVOT Mean Gradient 1 mmHg LVOT VTI 16 cm LVOT VTI/AV VTI Ratio 0.6 LVOT Stroke Volume 63 ml LVOT CO 5.3 l/min LVOT CI 3.1 l/min/m2 Pulmonic Valve Name Value Normal RVOT Doppler RVOT Peak Gradient
[2023-04-03] MEDS: LATANOPROST 0.005% OP SOLN 2.5 ML BTL 1 DROP EACH EYE (20:26)
[2023-04-03 22:36] LABS: Sodium 128 mmol/L (137-145)
[2023-04-04] VITALS (24 sets, daily range): BP systolic 104–140; BP diastolic 57–93; PULSE 54–107; RESP 16–20; TEMP 36.1–36.6; O2SAT 89–100
[2023-04-04] MEDS: ALBUTEROL SULFATE NEB 2.5 MG/3 ML INH INHALATION ×4 (02:19→20:25)
[2023-04-04 04:23] LABS: Basophils Percent Auto 0.4 % (0.2-1.2); Hematocrit 27.9 % (37.0-47.0); Hemoglobin 9.3 g/dL (12.0-15.0); Immature Granulocyte Absolute 0.01 K/mm3 (0.00-0.031); Immature Granulocyte Percent A 0.4 % (0-0.5); Lymphocytes Absolute Auto 0.66 K/mm3 (0.9-3.2); Lymphocytes Percent Auto 25.3 % (18.3-44.2); Mean Corpuscular HGB Conc 33.3 g/dl (32-36); Mean Corpuscular Hemoglobin 31.5 pg (26-34); Mean Corpuscular Volume 94.6 fl (80-100); Mean Platelet Volume 9.7 fl (7.4-10.4); Monocytes Absolute Auto 0.3 K/mm3 (0.1-0.6); Monocytes Percent Auto 12.3 % (2.6-8.5); Neutrophils Absolute Auto 1.6 K/mm3 (1.3-6.7); Neutrophils Percent Auto 61.6 % (45.5-73.1); Platelet Count Result 108 k/mm3 (150-375); Red Blood Count 2.95 M/mm3 (4.2-5.4); Red Cell Distribution Width 13.8 % (11.5-14.5); White Blood Count 2.6 K/mm3 (4.5-10.0)
[2023-04-04 04:35] LABS: Alanine Aminotransferase 64 U/L (6-35); Albumin Level 3.1 g/dL (3.5-5.1); Alkaline Phosphatase 61 U/L (38-126); Anion Gap 6 mmol/L (8-16); Aspartate Amino Transferase 115 U/L (14-36); Bilirubin,Total 0.4 mg/dL (0.2-1.3); Blood Urea Nitrogen 10 mg/dL (7-17); Calcium 8.2 mg/dL (8.4-10.2); Carbon Dioxide 27 mmol/L (22-30); Chloride 98 mmol/L (98-107); Estimated CRCL calculation 41 ml/min; Estimated Glomerular Filt Rate > 60; Glucose 99 mg/dL (65-110); Magnesium 1.8 mg/dL (1.6-2.3); Sodium 131 mmol/L (137-145)
[2023-04-04] MEDS: guaiFENesin 12 HR 600 MG TABCR PO ×2 (09:49→20:15)
[2023-04-04] MEDS: METOPROLOL SUCCINATE EXT REL 12.5 MG TABCR PO (09:49)
[2023-04-04] MEDS: LOSARTAN POTASSIUM 100 MG TABLET PO (09:49)
[2023-04-04] MEDS: TIMOLOL MALEATE 0.5% OP SOLN 5 ML BOTTLE 1 DROP EACH EYE ×2 (09:49→20:15)
[2023-04-04] MEDS: DORZOLAMIDE HCL 2% OPHTH DROPS 1 DROP EACH EYE ×3 (09:50→16:35)
[2023-04-04] MEDS: CHOLECALCIFEROL 1,000 UNITS TABLET 5000 UNITS PO (09:50)
[2023-04-04] MEDS: FAMOTIDINE 20 MG TABLET PO ×2 (09:50→20:15)
--- NOTE | 2023-04-04 09:50 | P.PNNP_ITS ---
Progress Note: A&P Assessment and Plan (1) Hyponatremia: Code(s): E87.1 - Hypo-osmolality and hyponatremia Status: Acute Assessment and Plan: * normal sodium level two months ago * admission sodium 121 * unclear etiology at this time * multiple risk factors noted: * pneumonia * history of lung cancer (however, in remission since 2014) * history of lobectomy * SSRI use (sertraline) * thiazide diuretic use (HCTZ) * holding HCTZ currentl;y * s/p bolus of 3% saline by ER * evaluation to date: * CT of head negative * TSH low but FT4 okay * urine electrolytes suggest prerenal azotemia * goal of correction is 6 - 8meq/L per 24 hours - this was achieved * check cortisol, SPEP, UPEP; follow-up on serum/urine osmolality * holding further IVFs for now * follow trend of repeat sodium levels (2) Community acquired pneumonia: Qualifiers: Laterality: left Lung location: lower lobe of lung Qualified Code(s): J18.9 - Pneumonia, unspecified organism Code(s): J18.9 - Pneumonia, unspecified organism Status: Acute Assessment and Plan: * as suggested by admission imaging * on antibiotic therapy * follow culture data * follow respiratory status (3) Altered mental status: Code(s): R41.82 - Altered mental status, unspecified Status: Acute Assessment and Plan: * due to infection and low sodium level (?) * clinically better at this time * follow mentation (4) Hx of cancer of lung: Onset Date: ~2014 Code(s): Z85.118 - Personal history of other malignant neoplasm of bronchus and lung Status: Acute Assessment and Plan: * s/p lobectomy and in remission since 2014 Will continue to follow. Subjective Date/time seen: 04/04/23 09:50 Interval history: Follow-up regarding acute hyponatremia. She appears to be doing reasonably well at this time; no apparent distress n oted; sodium level has slowly improved with ongoing interventions/therapy; no other issues/events overnight or earlier thsi morning; daughter at bedside and we discussed the situation. Exam Narrative: General: WD/WN female in NAD Heart: normal S1 and S2; no rub Lungs: clear to auscultation Abdomen: soft, nontender, nondistended, positive bowel sounds Extremities: no cyanosis or clubbing; no edema Skin: warm and dry Objective Data Vital Signs Vital Signs: Vital Signs Temp Pulse Resp BP Pulse Ox O2 Del Method 04/04/23 09:30 82 04/04/23 08:00 70 04/04/23 09:49 77 04/04/23 08:00 97 F L 76 16 140/76 98 04/04/23 08:50 61 20 04/04/23 08:40 67 20 04/04/23 06:00 70 04/04/23 04:00 70 04/04/23 04:00 97.6 F 70 20 122/57 L 100 04/04/23 02:00 72 04/04/23 02:25 78 18 04/04/23 02:19 76 18 04/04/23 00:00 73 04/04/23 00:00 97.5 F L 54 L 20 128/62 95 04/03/23 22:00 77 04/03/23 20:00 89 04/03/23 20:00 97.7 F 89 20 127/51 L 94 04/03/23 20:27 88 18 04/03/23 18:00 92 Intake/Output Intake/Output: Intake & Output 04/01/23 04/02/23 04/03/23 04/04/23 23:59 23:59 23:59 23
--- NOTE | 2023-04-04 09:50 | PM.PNNEP ---
Progress Note: A&P Assessment and Plan (1) Hyponatremia: Code(s): E87.1 - Hypo-osmolality and hyponatremia Status: Acute Assessment and Plan: normal sodium level two months ago admission sodium 121 unclear etiology at this time multiple risk factors noted: pneumonia history of lung cancer (however, in remission since 2014) history of lobectomy SSRI use (sertraline) thiazide diuretic use (HCTZ) holding HCTZ currentl;y s/p bolus of 3% saline by ER evaluation to date: CT of head negative TSH low but FT4 okay urine electrolytes suggest prerenal azotemia goal of correction is 6 - 8meq/L per 24 hours - this was achieved check cortisol, SPEP, UPEP; follow-up on serum/urine osmolality holding further IVFs for now follow trend of repeat sodium levels (2) Community acquired pneumonia: Qualifiers: Laterality: left Lung location: lower lobe of lung Qualified Code(s): J18.9 - Pneumonia, unspecified organism Code(s): J18.9 - Pneumonia, unspecified organism Status: Acute Assessment and Plan: as suggested by admission imaging on antibiotic therapy follow culture data follow respiratory status (3) Altered mental status: Code(s): R41.82 - Altered mental status, unspecified Status: Acute Assessment and Plan: due to infection and low sodium level (?) clinically better at this time follow mentation (4) Hx of cancer of lung: Onset Date: ~2014 Code(s): Z85.118 - Personal history of other malignant neoplasm of bronchus and lung Status: Acute Assessment and Plan: s/p lobectomy and in remission since 2014 Will continue to follow. Subjective Date/time seen: 04/04/23 09:50 Interval history: Follow-up regarding acute hyponatremia. She appears to be doing reasonably well at this time; no apparent distress noted; sodium level has slowly improved with ongoing interventions/therapy; no other issues/events overnight or earlier thsi morning; daughter at bedside and we discussed the situation. Exam Narrative: General: WD/WN female in NAD Heart: normal S1 and S2; no rub Lungs: clear to auscultation Abdomen: soft, nontender, nondistended, positive bowel sounds Extremities: no cyanosis or clubbing; no edema Skin: warm and dry Objective Data Vital Signs Vital Signs: Vital Signs Temp Pulse Resp BP Pulse Ox O2 Del Method 04/04/23 09:30 82 04/04/23 08:00 70 04/04/23 09:49 77 04/04/23 08:00 97 F L 76 16 140/76 98 04/04/23 08:50 61 20 04/04/23 08:40 67 20 04/04/23 06:00 70 04/04/23 04:00 70 04/04/23 04:00 97.6 F 70 20 122/57 L 100 04/04/23 02:00 72 04/04/23 02:25 78 18 04/04/23 02:19 76 18 04/04/23 00:00 73 04/04/23 00:00 97.5 F L 54 L 20 128/62 95 04/03/23 22:00 77 04/03/23 20:00 89 04/03/23 20:00 97.7 F 89 20 127/51 L 94 04/03/23 20:27 88 18 04/03/23 18:00 92 Intake/Output Intake/Output: Intake & Output 04/01/23 04/02/23 04/03/23 04/04/23 23:59 23:59 23:59 23:59 Intake Total 1310 4225 1240 Output Total 700 200 Balance 1310 3525 1040 Meds/Results Medications: Active Medications Generic Name Dose Route Start Last Admin Trade Name Freq PRN Reason Stop Dose Admin Acetaminophen 650 mg 04/02/23 19:38 Acetaminophen 325 Mg Tablet PO Q6H PRN Mild Pain (1-3) Hydrocodone Bitart/Acetaminophen 1 tab 04/02/23 19:38 Hydrocodone/Acetaminophen (*Crx) 5-325 Mg Tablet PO Q6H PRN Pain Rated 4-6 Albuterol 2.5 mg 04/02/23 20:00 04/04/23 14:07 Albuterol Sulfate Neb 2.5 Mg/3 Ml Inh INHALATION 2.5 mg Q6HRT LILA Administration Ascorbic Acid 1,000 mg 04/04/23 09:00 04/04/23 09:51 Ascorbic Acid 500 Mg Tablet PO 1,000 mg DAILY LILA Administration Brimonidine Tartrate 1 drop 04/03/23 14:
[2023-04-04] MEDS: BRIMONIDINE TARTRATE 0.2% OP SOLN 5 ML BTL 1 DROP EACH EYE ×2 (09:51→20:15)
[2023-04-04] MEDS: POTASSIUM CHLORIDE 20 MEQ TABLET 40 MEQ PO (09:51)
[2023-04-04] MEDS: ASCORBIC ACID 500 MG TABLET 1000 MG PO (09:51)
[2023-04-04 11:56] LABS: Anion Gap 6 mmol/L (8-16); Blood Urea Nitrogen 11 mg/dL (7-17); Calcium 8.7 mg/dL (8.4-10.2); Carbon Dioxide 28 mmol/L (22-30); Chloride 99 mmol/L (98-107); Estimated CRCL calculation 46 ml/min; Estimated Glomerular Filt Rate > 60; Glucose 112 mg/dL (65-110); Potassium 3.3 mmol/L (3.4-5.0); Sodium 133 mmol/L (137-145)
--- NOTE | 2023-04-04 12:02 | WPDPN ---
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 (2) Macular degeneration of both eyes: Code(s): H35.30 - Unspecified macular degeneration Status: Acute Assessment and Plan: resume home medication pending confirmation of home meds (3) Community acquired pneumonia: Qualifiers: Laterality: left Lung location: lower lobe of lung Qualified Code(s): J18.9 - Pneumonia, unspecified organism Code(s): J18.9 - Pneumonia, unspecified organism Status: Acute Assessment and Plan: reviewed CBC CMP started nebulizer treat give IV antibiotics if no improvement consider switching IV antibiotic to vanc and Zosyn currently patient on Rocephin azithromycin patient condition improved in the ER follow culture results (4) Acute hyponatremia: Code(s): E87.1 - Hypo-osmolality and hyponatremia Status: Acute Assessment and Plan: started on IV hydration monitor sodium every 6 hours goal of sodium to improve by 1 point every 3 hours and 9 point in 24 hours nephrology consulted (5) KIA (acute kidney injury): Code(s): N17.9 - Acute kidney failure, unspecified Status: Acute Assessment and Plan: acute and of chronic renal failure stage 3 avoid nephrotoxic medication most likely related to pneumonia and dehydration give IV fluid (6) Acute metabolic encephalopathy: Code(s): G93.41 - Metabolic encephalopathy Status: Acute Assessment and Plan: reviewed CT scan of the head and cervical spine no significant finding most likely related to pneumonia and dehydration continue IV antibiotics significantly improved (7) Abnormal EKG: Code(s): R94.31 - Abnormal electrocardiogram [ECG] [EKG] Status: Acute Assessment and Plan: 1st EKG concern for a flutter repeat EKG shows sinus tachycardia will get troponin and tele monitor Subjective Date/time seen: 04/04/23 12:02 Interval history: Chief Complaint: Cough shortness of breath, fever and chills HPI 62 years old with past medical history of lung cancer status post lobectomy presented to the hospital with body aches associated with fever intermittent complete associated with chills multiple times a day also complains of cough shortness of breath patient had episodes of confusion? 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
[2023-04-04] MEDS: LATANOPROST 0.005% OP SOLN 2.5 ML BTL 1 DROP EACH EYE (12:06)
[2023-04-04] MEDS: SERTRALINE HCL 50 MG TABLET PO (13:27)
--- NOTE | 2023-04-04 14:10 | PCCCNOTE ---
On 04/04/23, the student, [Radha Syed], provided care and completed [facility] documentation on this patient. I have reviewed the student's documentation and agree with the findings.
[2023-04-04] MEDS: AZITHROMYCIN 500 MG/NS 250 ML 500 MG/250 ML BAG 250 MG IVPB (16:33)
--- NOTE | 2023-04-04 18:53 | PC.NURSE ---
This patient, Wendy Land, was received from IMU on 04/04/23 at 1853. Patient/family oriented to unit policies and routines
--- NOTE | 2023-04-04 18:57 | PC.NURSE ---
This patient, eWndy Land, was transferred to [facility] on 04/04/23 at 1857. Personal belongings sent with patient. Report given to MAIKOL Urias. Appropriate documentation sent with patient.
[2023-04-04 19:10] LABS: Creatinine Urine 84.2 mg/dL; Total Protein Urine Random 58 mg/dL; Ur Ttl Prot Creatinine Ratio 0.69 mg/mg (0-0.20)
--- NOTE | 2023-04-04 19:40 | PC.NURSE ---
This patient, Wendy Land, was transferred to [facility] Surg Room 323-01 from IMU 203. Patient/family oriented to hospital policies and general routines including ID bracelet, bed and alarms, visiting hours, pain management, procedures, bathroom and other care routines, personal items, smoking policy, room service/diet, and visiting hours. Information on how to activate the Rapid Response Team has been discussed. Patient/Family are encouraged to report perceived risks to care and to ask questions if they do not understand what they are told or what they should do.
[2023-04-05] VITALS (8 sets, daily range): BP systolic 144; BP diastolic 68; PULSE 70–82; RESP 18–20; TEMP 36.4; O2SAT 94–96
[2023-04-05] MEDS: ALBUTEROL SULFATE NEB 2.5 MG/3 ML INH INHALATION ×2 (02:45→08:09)
[2023-04-05 07:15] LABS: Basophils Percent Auto 0.5 % (0.2-1.2); Eosinophils Percent Auto 0.5 % (0-4.4); Hematocrit 29.4 % (37.0-47.0); Immature Granulocyte Absolute 0.03 K/mm3 (0.00-0.031); Immature Granulocyte Percent A 0.8 % (0-0.5); Lymphocytes Percent Auto 20.6 % (18.3-44.2); Mean Corpuscular Hemoglobin 31.6 pg (26-34); Monocytes Absolute Auto 0.3 K/mm3 (0.1-0.6); Monocytes Percent Auto 8.8 % (2.6-8.5); Neutrophils Absolute Auto 2.7 K/mm3 (1.3-6.7); Neutrophils Percent Auto 68.8 % (45.5-73.1); Platelet Count Result 131 k/mm3 (150-375); Red Blood Count 3.16 M/mm3 (4.2-5.4); Red Cell Distribution Width 13.8 % (11.5-14.5); White Blood Count 3.9 K/mm3 (4.5-10.0)
[2023-04-05 07:27] LABS: Alanine Aminotransferase 98 U/L (6-35); Alkaline Phosphatase 63 U/L (38-126); Anion Gap 9 mmol/L (8-16); Aspartate Amino Transferase 124 U/L (14-36); Bilirubin,Total 0.4 mg/dL (0.2-1.3); Blood Urea Nitrogen 9 mg/dL (7-17); Calcium 8.6 mg/dL (8.4-10.2); Carbon Dioxide 26 mmol/L (22-30); Chloride 99 mmol/L (98-107); Estimated CRCL calculation 52 ml/min; Estimated Glomerular Filt Rate > 60; Glucose 96 mg/dL (65-110); Magnesium 1.5 mg/dL (1.6-2.3); Potassium 3.2 mmol/L (3.4-5.0); Sodium 134 mmol/L (137-145)
[2023-04-05] MEDS: TIMOLOL MALEATE 0.5% OP SOLN 5 ML BOTTLE 1 DROP EACH EYE (08:03)
[2023-04-05] MEDS: LATANOPROST 0.005% OP SOLN 2.5 ML BTL 1 DROP EACH EYE (08:04)
[2023-04-05] MEDS: DORZOLAMIDE HCL 2% OPHTH DROPS 1 DROP EACH EYE (08:04)
[2023-04-05] MEDS: FAMOTIDINE 20 MG TABLET PO (08:04)
[2023-04-05] MEDS: BRIMONIDINE TARTRATE 0.2% OP SOLN 5 ML BTL 1 DROP EACH EYE (08:04)
[2023-04-05] MEDS: guaiFENesin 12 HR 600 MG TABCR PO (08:04)
[2023-04-05] MEDS: METOPROLOL SUCCINATE EXT REL 12.5 MG TABCR PO (08:05)
[2023-04-05] MEDS: LOSARTAN POTASSIUM 100 MG TABLET PO (08:05)
[2023-04-05] MEDS: SERTRALINE HCL 50 MG TABLET PO (08:05)
[2023-04-05] MEDS: ASCORBIC ACID 500 MG TABLET 1000 MG PO (08:05)
[2023-04-05] MEDS: CHOLECALCIFEROL 1,000 UNITS TABLET 5000 UNITS PO (08:06)
[2023-04-05] MEDS: POTASSIUM CHLORIDE 20 MEQ TABLET 40 MEQ PO (09:23)
[2023-04-05] MEDS: MAGNESIUM SULF 2 GM/WATER 50ML 2 GM/50 ML BAG IVPB (09:23)
--- NOTE | 2023-04-05 09:48 | P.PNNP_ITS ---
Progress Note: A&P Assessment and Plan (1) Hyponatremia: Code(s): E87.1 - Hypo-osmolality and hyponatremia Status: Acute Assessment and Plan: * improving since admission * normal sodium level two months ago * admission sodium 121 * suspect more related to volume depletion given favorable response of normal saline IVFs * multiple risk factors noted: * pneumonia * history of lung cancer (however, in remission since 2014) * history of lobectomy * SSRI use (sertraline) * thiazide diuretic use (HCTZ) * holding HCTZ currently * s/p bolus of 3% saline by ER * evaluation to date: * CT of head negative * TSH low but FT4 okay; cortisol okahy * urine electrolytes suggest prerenal azotemia * goal of correction is 6 - 8meq/L per 24 hours - this has been achieved * follow-up on SPEP, UPEP as well as serum/urine osmolality * holding further IVFs for now * follow trend of repeat sodium levels (2) Community acquired pneumonia: Qualifiers: Laterality: left Lung location: lower lobe of lung Qualified Code(s): J18.9 - Pneumonia, unspecified organism Code(s): J18.9 - Pneumonia, unspecified organism Status: Acute Assessment and Plan: * as suggested by admission imaging * on antibiotic therapy * follow culture data * follow respiratory status (3) Altered mental status: Code(s): R41.82 - Altered mental status, unspecified Status: Acute Assessment and Plan: * due to infection and low sodium level (?) * clinically better at this time * follow mentation (4) Hx of cancer of lung: Onset Date: ~2014 Code(s): Z85.118 - Personal history of other malignant neoplasm of bronchus and lung Status: Acute Assessment and Plan: * s/p lobectomy and in remission since 2014 Will continue to follow. Subjective Date/time seen: 04/05/23 09:48 Interval history: Follow-up regarding acute hyponatremia. Sodium levels continue to improve with ongoing therapy/interventions; eating and drinking reasonably well; no apparent distress noted; no issues/events overnight or earlier this morning; overal, states she is feeling quite well at the time of my visit. Exam Narrative: General: WD/WN female in NAD Heart: normal S1 and S2; no rub Lungs: clear to auscultation Abdomen: soft, nontender, nondistended, positive bowel sounds Extremities: no cyanosis or clubbing; no edema Skin: warm and intact Objective Data Vital Signs Vital Signs: Vital Signs Temp Pulse Resp BP Pulse Ox O2 Del Method 04/05/23 08:00 Room Air 04/05/23 08:00 70 04/05/23 08:18 82 18 04/05/23 08:09 94 Room Air 04/05/23 08:09 78 18 04/05/23 08:05 73 04/05/23 06:00 97.6 F 73 20 144/68 H 96 04/05/23 04:00 81 04/05/23 02:45 79 18 04/05/23 00:00 80 04/04/23 22:28 107 H 04/04/23 21:48 98 F 100 20 104/93 H 89 L 04/04/23 20:00 98 F 100 20 104/93 H 89 L 04/04/23 20:00 93 Room Air 04/04/23 20:37 93 Room Air 04/04/23 20:36 78 18 04/04/23 20:25 77 18 04/04/23 18:00 84 04/04/23 16:00 77 04/04/23 14:00 99 04/04/23 14:18 72 18
--- NOTE | 2023-04-05 09:48 | PM.PNNEP ---
Progress Note: A&P Assessment and Plan (1) Hyponatremia: Code(s): E87.1 - Hypo-osmolality and hyponatremia Status: Acute Assessment and Plan: improving since admission normal sodium level two months ago admission sodium 121 suspect more related to volume depletion given favorable response of normal saline IVFs multiple risk factors noted: pneumonia history of lung cancer (however, in remission since 2014) history of lobectomy SSRI use (sertraline) thiazide diuretic use (HCTZ) holding HCTZ currently s/p bolus of 3% saline by ER evaluation to date: CT of head negative TSH low but FT4 okay; cortisol okahy urine electrolytes suggest prerenal azotemia goal of correction is 6 - 8meq/L per 24 hours - this has been achieved follow-up on SPEP, UPEP as well as serum/urine osmolality holding further IVFs for now follow trend of repeat sodium levels (2) Community acquired pneumonia: Qualifiers: Laterality: left Lung location: lower lobe of lung Qualified Code(s): J18.9 - Pneumonia, unspecified organism Code(s): J18.9 - Pneumonia, unspecified organism Status: Acute Assessment and Plan: as suggested by admission imaging on antibiotic therapy follow culture data follow respiratory status (3) Altered mental status: Code(s): R41.82 - Altered mental status, unspecified Status: Acute Assessment and Plan: due to infection and low sodium level (?) clinically better at this time follow mentation (4) Hx of cancer of lung: Onset Date: ~2014 Code(s): Z85.118 - Personal history of other malignant neoplasm of bronchus and lung Status: Acute Assessment and Plan: s/p lobectomy and in remission since 2014 Will continue to follow. Subjective Date/time seen: 04/05/23 09:48 Interval history: Follow-up regarding acute hyponatremia. Sodium levels continue to improve with ongoing therapy/interventions; eating and drinking reasonably well; no apparent distress noted; no issues/events overnight or earlier this morning; overal, states she is feeling quite well at the time of my visit. Exam Narrative: General: WD/WN female in NAD Heart: normal S1 and S2; no rub Lungs: clear to auscultation Abdomen: soft, nontender, nondistended, positive bowel sounds Extremities: no cyanosis or clubbing; no edema Skin: warm and intact Objective Data Vital Signs Vital Signs: Vital Signs Temp Pulse Resp BP Pulse Ox O2 Del Method 04/05/23 08:00 Room Air 04/05/23 08:00 70 04/05/23 08:18 82 18 04/05/23 08:09 94 Room Air 04/05/23 08:09 78 18 04/05/23 08:05 73 04/05/23 06:00 97.6 F 73 20 144/68 H 96 04/05/23 04:00 81 04/05/23 02:45 79 18 04/05/23 00:00 80 04/04/23 22:28 107 H 04/04/23 21:48 98 F 100 20 104/93 H 89 L 04/04/23 20:00 98 F 100 20 104/93 H 89 L 04/04/23 20:00 93 Room Air 04/04/23 20:37 93 Room Air 04/04/23 20:36 78 18 04/04/23 20:25 77 18 04/04/23 18:00 84 04/04/23 16:00 77 04/04/23 14:00 99 04/04/23 14:18 72 18 04/04/23 14:11 91 Room Air 04/04/23 14:07 75 18 04/04/23 12:00 79 Intake/Output Intake/Output: Intake & Output 04/02/23 04/03/23 04/04/23 04/05/23 23:59 23:59 23:59 23:59 Intake Total 1310 4225 2580 490 Output Total 700 400 Balance 1310 3525 2180 490 Meds/Results Radiology Results: ITS Impressions Chest X-Ray 04/02/23 14:38 IMPRESSION: Extensive left lower lobe consolidation/atelectasis. Possible pleural effusion or pleural/chest wall mass. A central pulmonary mass with postobstructive consolidation should also be considered. Comparison to outside studies would be helpful and consider a lateral view of the chest for further characterization. Head CT 04/02/23 15:29 IMPRESSIO
--- NOTE | 2023-04-05 09:58 | PM.DS ---
DS: Admitting Diagnosis Discharge Date 04/05/2023 Admitting Diagnosis Cough, shortness of breath and fever DS: Discharge Diagnosis Discharge Diagnosis (1) Hx of cancer of lung: Onset Date: ~2014 Code(s): Z85.118 - Personal history of other malignant neoplasm of bronchus and lung Status: Acute Assessment and Plan: status post lobectomy in remission since 2014 monitor 04/04/2023 interval history: Patient is found to have pneumonia and being treated azithromycin and ceftriaxone, patient states feeling little better compared to when she arrived cough and shortness of breath has improved, patient is also found to have 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 (2) Macular degeneration of both eyes: Code(s): H35.30 - Unspecified macular degeneration Status: Acute Assessment and Plan: resume home medication pending confirmation of home meds (3) Community acquired pneumonia: Qualifiers: Laterality: left Lung location: lower lobe of lung Qualified Code(s): J18.9 - Pneumonia, unspecified organism Code(s): J18.9 - Pneumonia, unspecified organism Status: Acute Assessment and Plan: reviewed CBC CMP started nebulizer treat give IV antibiotics if no improvement consider switching IV antibiotic to vanc and Zosyn currently patient on Rocephin azithromycin patient condition improved in the ER follow culture results (4) Acute hyponatremia: Code(s): E87.1 - Hypo-osmolality and hyponatremia Status: Acute Assessment and Plan: started on IV hydration monitor sodium every 6 hours goal of sodium to improve by 1 point every 3 hours and 9 point in 24 hours nephrology consulted (5) KIA (acute kidney injury): Code(s): N17.9 - Acute kidney failure, unspecified Status: Acute Assessment and Plan: acute and of chronic renal failure stage 3 avoid nephrotoxic medication most likely related to pneumonia and dehydration give IV fluid (6) Acute metabolic encephalopathy: Code(s): G93.41 - Metabolic encephalopathy Status: Acute Assessment and Plan: reviewed CT scan of the head and cervical spine no significant finding most likely related to pneumonia and dehydration continue IV antibiotics significantly improved (7) Abnormal EKG: Code(s): R94.31 - Abnormal electrocardiogram [ECG] [EKG] Status: Acute Assessment and Plan: 1st EKG concern for a flutter repeat EKG shows sinus tachycardia will get troponin and tele monitor DS: Summary Hospital Course Reason for hospitalization: Chief Complaint: 62 years old with past medical history of lung cancer status post lobectomy presented to the hospital with body aches associated with fever intermittent complete associated with chills multiple times a day also complains of cough shortness of breath patient had episodes of confusion? chest x-ray showed positive consolidation CT scan of the chest was positive for pneumonia sodium was 122 ECG was equivocal for a flutter repeat EKG shows sinus tachycardia patient was started on empiric IV antibiotic blood culture was sent nephrology was consulted sodium every 6 hours started on IV hydration Hospital Course: ?Patient is found to have pneumonia and being treated azithromycin and ceftriaxone, patient states feeling little better compared to when she arrived cough and shortness of breath has improved, patient is also found to have hyponatremia most likely secondary to SIADH as patient has history of pneumonia and and lung CA, patient is being gently hydrated her sodium is trending u
[2023-04-05] MEDS: MAGNESIUM OXIDE 400 MG TABLET PO (10:00)
[2023-04-06 11:38] LABS: Osmolality, Urine 548 mOsm/kg (50-1200)
[2023-04-10 14:19] LABS: Creatinine, Random Urine 87 mg/dL (20-275); Total Protein/Creatinine Ratio 874 mg/g creat (24-184)
[2023-04-10 16:36] LABS: Albumin 2.4 g/dL (3.8-4.8); Alpha 1 Globulin 0.6 g/dL (0.2-0.3); Beta 1 Globulin 0.4 g/dL (0.4-0.6); Gamma Globulin 0.8 g/dL (0.8-1.7); Protein, Total 5.5 g/dL (6.1-8.1)
== END 2023-04-05 10:32 | disposition home or self-care (01) | DRG 193 ==
LOC: ANHED 16:15 → ANHIMU 04-03 09:11 → ANH3MEDSUR 04-05 09:57 → ANHIMU 04-08 14:23
PROVIDERS: Emergency Medicine; Internal Medicine; Internal Medicine Nephrology; Physician Assistant; Admitting Provider Internal Medicine; Emergency Provider Emergency Medicine; PCP Family Medicine; Visit Provider Family Medicine
DX: J18.9 Pneumonia, unspecified organism (principal); G93.41 Metabolic encephalopathy; E87.1 Hypo-osmolality and hyponatremia; N17.9 Acute kidney failure, unspecified; I12.9 Hypertensive chronic kidney disease with stage 1 through stage 4 chronic kidney disease, or unspecified chronic kidney disease; N18.30 Chronic kidney disease, stage 3 unspecified; H35.30 Unspecified macular degeneration; R94.31 Abnormal electrocardiogram [ECG] [EKG]; F32.A Depression, unspecified; F41.9 Anxiety disorder, unspecified; Z20.822 Contact with and (suspected) exposure to COVID-19; Z85.118 Personal history of other malignant neoplasm of bronchus and lung; Z87.891 Personal history of nicotine dependence; W19.XXXA Unspecified fall, initial encounter
CPT/HCPCS: 36415; 36600; 70450; 71045; 71250; 72125; 80048; 80053; 81001; 81025; 81050; 82533; 82570; 82805; 83605; 83690; 83735; 83930; 83935; 84155; 84156; 84165; 84166; 84295; 84300; 84439; 84443; 84480; 84484; 84540; 85025; 85610; 85730; 86140; 87040; 87637; 93005; 93306; 94640; 96361; 96365; 96367; 96375; 99285; A9270; J0456; J0696; J1650; J2405; J3475; J7030; J7131

== ENCOUNTER 2023-04-08 10:00 | Outpatient (CLI) | payer BC, SELFPAY ==
[2023-04-08 10:49] LABS: Anion Gap 10 mmol/L (8-16); Blood Urea Nitrogen 10 mg/dL (7-17); Calcium 9.7 mg/dL (8.4-10.2); Carbon Dioxide 25 mmol/L (22-30); Chloride 104 mmol/L (98-107); Estimated Glomerular Filt Rate > 60; Glucose 107 mg/dL (65-110); Magnesium 1.6 mg/dL (1.6-2.3); Sodium 139 mmol/L (137-145)
== END 2023-04-08 10:01 | disposition home or self-care (01) ==
LOC: ANHLAB 10:01
PROVIDERS: PCP Family Medicine; Visit Provider Family Medicine
DX: E87.1 Hypo-osmolality and hyponatremia (principal)
CPT/HCPCS: 36415; 80048; 83735

== ENCOUNTER → 2023-04-21 13:19 | Outpatient (CLI) | payer BC, SELFPAY ==
--- NOTE | ~2023-04-21 | MM_ITS ---
EXAMINATION: MM screening cheyanne BI w rachid HISTORY: Screening mammogram TECHNIQUE: Craniocaudal and mediolateral oblique 3-D tomosynthesis images were obtained and synthetic 2-D images were generated. CAD analysis was submitted and interpreted. COMPARISON: No prior mammogram is available for comparison at this institution. BREAST PARENCHYMAL COMPOSITION: There are scattered areas of fibroglandular density. FINDINGS: There is no evidence of suspicious mass, calcification, or architectural distortion to sugg est malignancy in either breast. There has been no suspicious interval change. IMPRESSION: 1. No mammographic evidence of malignancy. 2. Recommend routine screening mammography in one year. BI-RADS Category 1: Negative Reviewed, dictated and finalized at location A.
== END ==
PROVIDERS: PCP Family Medicine; Visit Provider Nurse Practitioner Family
DX: Z12.31 Encounter for screening mammogram for malignant neoplasm of breast (principal)
CPT/HCPCS: 77063; 77067

== ENCOUNTER → 2023-05-19 14:29 | Outpatient (CLI) | payer BC, SELFPAY ==
--- NOTE | ~2023-05-19 | XR_ITS ---
EXAMINATION: XR humerus RT DATE: 05/19/2023 14:44 INDICATION: Right humerus fracture. TECHNIQUE: 2 views of right humerus were obtained. COMPARISON: Right humerus radiographs 04/16/2023 FINDINGS: There is oblique fracture of proximal humeral diaphysis. The distal fracture fragment demon strates 14 degrees lateral angulation, 18 degrees posterior angulation, and 14 mm shortening. Nonbrid ging callus formation is noted. The glenohumeral joint is normal. There is mild osteoarthritis of acr omioclavicular joint. IMPRESSION: 1. Healing oblique fracture of proximal humeral diaphysis. Reviewed, dictated and finalized at location E.
== END ==
PROVIDERS: PCP Family Medicine; Visit Provider Family Medicine
DX: S42.301D Unspecified fracture of shaft of humerus, right arm, subsequent encounter for fracture with routine healing (principal); X58.XXXD Exposure to other specified factors, subsequent encounter
CPT/HCPCS: 73060

== ENCOUNTER 2023-08-27 14:46 | Outpatient (CLI) | payer BC, SELFPAY ==
[2023-08-27 18:54] LABS: Basophils Absolute Auto 0.1 K/mm3 (0.0-0.1); Basophils Percent Auto 0.8 % (0.2-1.2); Eosinophils Absolute Auto 0.1 K/mm3 (0-0.3); Eosinophils Percent Auto 1.8 % (0-4.4); Hematocrit 35.8 % (37.0-47.0); Hemoglobin 11.6 g/dL (12.0-15.0); Immature Granulocyte Absolute 0.01 K/mm3 (0.00-0.031); Immature Granulocyte Percent A 0.2 % (0-0.5); Lymphocytes Absolute Auto 3.21 K/mm3 (0.9-3.2); Lymphocytes Percent Auto 49.2 % (18.3-44.2); Mean Corpuscular HGB Conc 32.4 g/dl (32-36); Mean Corpuscular Hemoglobin 32.2 pg (26-34); Mean Corpuscular Volume 99.4 fl (80-100); Mean Platelet Volume 10.6 fl (7.4-10.4); Monocytes Absolute Auto 0.5 K/mm3 (0.1-0.6); Monocytes Percent Auto 7.5 % (2.6-8.5); Neutrophils Absolute Auto 2.7 K/mm3 (1.3-6.7); Neutrophils Percent Auto 40.5 % (45.5-73.1); Platelet Count Result 148 k/mm3 (150-375); Red Cell Distribution Width 14.3 % (11.5-14.5); White Blood Count 6.5 K/mm3 (4.5-10.0)
[2023-08-27 19:59] LABS: Alanine Aminotransferase 48 U/L (6-35); Albumin Level 4.8 g/dL (3.5-5.1); Alkaline Phosphatase 62 U/L (38-126); Anion Gap 11 mmol/L (8-16); Aspartate Amino Transferase 47 U/L (14-36); Bilirubin,Total 0.5 mg/dL (0.2-1.3); Blood Urea Nitrogen 17 mg/dL (7-17); Carbon Dioxide 28 mmol/L (22-30); Chloride 99 mmol/L (98-107); Estimated Glomerular Filt Rate > 60; Glucose 102 mg/dL (65-110); Sodium 138 mmol/L (137-145)
== END 2023-08-27 14:47 | disposition home or self-care (01) ==
LOC: ANHGOSHLAB 14:47
PROVIDERS: PCP Family Medicine; Visit Provider Family Medicine
DX: I10 Essential (primary) hypertension (principal); D64.9 Anemia, unspecified; R79.89 Other specified abnormal findings of blood chemistry
CPT/HCPCS: 36415; 80053; 84443; 85025

== ENCOUNTER → 2023-11-05 13:19 | Outpatient (CLI) | payer BC, SELFPAY ==
--- NOTE | ~2023-11-05 | XR_ITS ---
EXAMINATION: XR chest 2V DATE: 11/05/2023 13:42 INDICATION: Localized swelling, mass and lump, right side. TECHNIQUE: Frontal and lateral views of the chest were obtained. COMPARISON: Chest single view 04/02/2023 FINDINGS: There is no pneumonia, pleural effusion, or pneumothorax. The heart size is normal. There i s an old healed fracture of right humerus. There is mild chronic anterior wedging of lower thoracic v ertebral bodies. IMPRESSION: 1. No acute cardiopulmonary disease. Reviewed, dictated and finalized at location E. [employer]
== END ==
PROVIDERS: PCP Family Medicine; Visit Provider Nurse Practitioner Family
DX: R22.2 Localized swelling, mass and lump, trunk (principal); Z85.118 Personal history of other malignant neoplasm of bronchus and lung
CPT/HCPCS: 71046

== ENCOUNTER 2024-04-15 07:53 | Outpatient (CLI) | payer BC, SELFPAY ==
[2024-04-15 20:29] LABS: Basophils Absolute Auto 0.1 K/mm3 (0.0-0.1); Basophils Percent Auto 1.1 % (0.2-1.2); Eosinophils Absolute Auto 0.1 K/mm3 (0-0.3); Eosinophils Percent Auto 1.8 % (0-4.4); Hematocrit 35.4 % (37.0-47.0); Immature Granulocyte Absolute 0.01 K/mm3 (0.00-0.031); Immature Granulocyte Percent A 0.1 % (0-0.5); Lymphocytes Absolute Auto 2.82 K/mm3 (0.9-3.2); Lymphocytes Percent Auto 38.1 % (18.3-44.2); Mean Corpuscular HGB Conc 31.1 g/dl (32-36); Mean Corpuscular Hemoglobin 32.9 pg (26-34); Mean Platelet Volume 10.3 fl (7.4-10.4); Monocytes Absolute Auto 0.8 K/mm3 (0.1-0.6); Monocytes Percent Auto 10.1 % (2.6-8.5); Neutrophils Absolute Auto 3.6 K/mm3 (1.3-6.7); Neutrophils Percent Auto 48.8 % (45.5-73.1); Platelet Count Result 183 k/mm3 (150-375); Red Blood Count 3.34 M/mm3 (4.2-5.4); Red Cell Distribution Width 15.8 % (11.5-14.5); White Blood Count 7.4 K/mm3 (4.5-10.0)
[2024-04-15 21:09] LABS: Anisocytosis 1+; Hypochromasia 1+; Platelet Estimate Adequate (Adequate); Schistocytes None Seen
[2024-04-15 22:15] LABS: LDL Cholesterol Direct 91 mg/dL
[2024-04-15 22:27] LABS: Alanine Aminotransferase 28 U/L (6-35); Albumin Level 4.9 g/dL (3.5-5.1); Alkaline Phosphatase 66 U/L (38-126); Anion Gap 11 mmol/L (4-12); Aspartate Amino Transferase 37 U/L (14-36); Bilirubin,Total 0.5 mg/dL (0.2-1.3); Blood Urea Nitrogen 13 mg/dL (7-17); Calcium 9.9 mg/dL (8.4-10.2); Carbon Dioxide 26 mmol/L (22-30); Chloride 100 mmol/L (98-107); Cholesterol 250 mg/dL (0-200); Estimated Glomerular Filt Rate > 60; Glucose 103 mg/dL (65-110); Potassium 4.2 mmol/L (3.4-5.0); Sodium 137 mmol/L (137-145); Triglycerides 86 mg/dL (<150)
[2024-04-15 22:50] LABS: HDL Direct 129 mg/dL
[2024-04-16 00:11] LABS: Thyroid Stimulating Hormone Reflex 0.823 uIU/mL (0.465-4.68)
[2024-04-16 02:44] LABS: Hemoglobin A1C 4.5 % (<5.7)
[2024-04-16 02:54] LABS: Iron 54 ug/dL (37-170)
[2024-04-16 03:03] LABS: Percent Iron Saturation 16 % (20-50)
== END 2024-04-15 07:54 | disposition home or self-care (01) ==
LOC: ANHGOSHLAB 07:54
PROVIDERS: PCP Family Medicine; Visit Provider Family Medicine
DX: Z00.00 Encounter for general adult medical examination without abnormal findings (principal); D64.9 Anemia, unspecified; E78.5 Hyperlipidemia, unspecified; R73.9 Hyperglycemia, unspecified; E55.9 Vitamin D deficiency, unspecified; E87.1 Hypo-osmolality and hyponatremia; Z13.29 Encounter for screening for other suspected endocrine disorder; I10 Essential (primary) hypertension
CPT/HCPCS: 36415; 80053; 80061; 82306; 82728; 83036; 83540; 83550; 84443; 85025

== ENCOUNTER 2024-04-26 12:37 | Outpatient (CLI) | payer BC, SELFPAY ==
--- NOTE | ~2024-04-26 | CT_ITS ---
EXAMINATION:CT lung screening DATE: 04/26/2024 13:04 INDICATION: Personal history of nicotine dependence. Smoker who quit 9 years ago with 34 pack year hi story. TECHNIQUE: Computed tomography (CT) of the chest was performed without intravenous contrast. Automate d exposure control and iterative reconstruction technique were employed. The dose-length product (DLP ) was 82.28 mGy-cm. COMPARISON: Chest CT 04/02/2023, CT abdomen and pelvis 05/18/2019 FINDINGS: There is mild emphysema. There are changes of right middle lobectomy. There is mild scarrin g in paraspinal right lower lobe. A calcified right lung nodule is consistent with old granulomatous disease. There is mild atelectasis bilaterally. There is a stable 5 mm nodule in right lower lobe. Th ere is a new 6 mm nodule in right lower lobe. No pleural effusion. The heart size is normal. There ar e coronary artery calcifications. No pericardial effusion. There is mild atrophy of left kidney. Ther e is moderate left hydronephrosis. IMPRESSION: 1. Lung-RADS category 4A: Suspicious. Noncontrast low-dose chest CT is recommended in 3 months. 2. Chronic moderate left hydronephrosis. Mild left kidney atrophy. Reviewed, dictated and finalized at location E. IMPRESSION: 1. Lung-RADS category 4A: Suspicious. Noncontrast low-dose chest CT is recommen ded in 3 months. 2. Chronic moderate left hydronephrosis. Mild left kidney atrophy.
== END 2024-04-26 12:38 ==
PROVIDERS: PCP Family Medicine; Visit Provider Family Medicine
DX: Z12.2 Encounter for screening for malignant neoplasm of respiratory organs (principal); N13.30 Unspecified hydronephrosis; N26.1 Atrophy of kidney (terminal); Z87.891 Personal history of nicotine dependence
CPT/HCPCS: 71271

== ENCOUNTER 2024-09-29 10:26 | Outpatient (CLI) | payer BC, SELFPAY ==
--- NOTE | ~2024-09-29 | MM_ITS ---
EXAMINATION: MM screening cheyanne BI w rachid HISTORY: Screening mammogram TECHNIQUE: Craniocaudal and mediolateral oblique 3-D tomosynthesis images were obtained and synthetic 2-D images were generated. CAD analysis was submitted and interpreted. COMPARISON: 04/21/2023 BREAST PARENCHYMAL COMPOSITION:Dense: The breasts are heterogeneously dense, which may obscure small masses. FINDINGS: Possible developing subcentimeter low-density mass in the lower right breast. Stable parenc hymal appearance of the left breast. No suspicious microcalcifications in either breast. IMPRESSION: Possible small developing right breast mass at the lower aspect. Spot compression views and possibly ultrasound are recommended for further evaluation. BI-RADS Category 0: Incomplete: Needs additional imaging evaluation. Reviewed, dictated and finalized at location . F CONSULTANT IMPRESSION: Possible small developing right breast mass at the lower aspect. Spot compress ion views and possibly ultrasound are recommended for further evaluation. BI-RADS Category 0: Incomplete: Needs additional imaging evaluation.
== END 2024-09-29 10:27 | disposition home or self-care (01) ==
LOC: MICIMG 10:26
PROVIDERS: PCP Family Medicine; Visit Provider Family Medicine
DX: Z12.31 Encounter for screening mammogram for malignant neoplasm of breast (principal); R92.8 Other abnormal and inconclusive findings on diagnostic imaging of breast
CPT/HCPCS: 77063; 77067

== ENCOUNTER 2025-02-21 10:27 | Outpatient (CLI) | payer BC, SELFPAY ==
[2025-02-21 11:01] LABS: Immature Reticulocyte Fraction 3.3 % (3.0-15.9); Reticulocyte Percent 1.62 % (0.7-4.3); Reticulocytes Absolute 0.06 10^6/uL (0.02-0.10)
[2025-02-21 11:13] LABS: Alanine Aminotransferase 79 U/L (6-35); Albumin Level 5.1 g/dL (3.5-5.1); Alkaline Phosphatase 88 U/L (38-126); Anion Gap 25 mmol/L (4-12); Aspartate Amino Transferase 113 U/L (14-36); Bilirubin,Total 0.7 mg/dL (0.2-1.3); Blood Urea Nitrogen 17 mg/dL (7-17); Calcium 9.9 mg/dL (8.4-10.2); Carbon Dioxide 19 mmol/L (22-30); Chloride 81 mmol/L (98-107); Estimated Glomerular Filt Rate 48; Glucose 82 mg/dL (65-110); Potassium 4.6 mmol/L (3.4-5.0); Sodium 125 mmol/L (137-145)
--- OUTSIDE RECORDS SUMMARY | 2025-02-21 11:50 | XMS_ITS | Encounter Summary ---
Author Organization [facility] Address [address] [place] [address] Phone Care Team Providers Care Air Pollution Engineer Name Role Phone Chino Mora MD Primary Care Provider Kameron Jeff MD Unavailable Kameron Jeff MD Unavailable [phone] Constantin Kumar MD Unavailable [phone] Encounter Details Date Type Department Care Team (Late st Contact Info) Description 04/27/2024 Telephone [facility] Oncology [address] [facility] 7[address] [place] [address] Bettye Su Social History Tobacco Use Types Packs/Day Years Used Date Smoking Tobacco: Former Smokeless Tobacco: Never Alcohol Use Standard Drinks/Week Comments Yes 0 (1 standard drink = 0.6 oz pur e alcohol) Comments Unknown Sex and Gender Information Value Date Recorded Sex Assigned at Not on file 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 Gender Identity Not on file Sexual Orientation Not on file documented as of this encounter Plan of Treatment Not on file documented as of this encounter Visit Diagnoses Not on filedocumented in this encounter Care Teams Air Pollution Engineer Relationship Specialty Start Date End Date Chino Mora MD PCP - General Family Practice 01/02/21 Kameron Jeff MD [address] [place] [address] Medical Oncologist/Ip Counsel Medical Oncology 01/02/21 Kameron Jeff MD [address] [facility], [address] [place] [address] Medical Oncologist/Ip Counsel Medical Oncology 04/28/24 Constantin Kumar MD [address] [place] [address] Medical Oncologist/Ip Counsel Medical Oncology 02/01/25 documented as of this encounter
--- OUTSIDE RECORDS SUMMARY | 2025-02-21 11:50 | XMS_ITS | Referral Summary ---
Author Organization [facility] Address [address] [place] [address] Care Team Providers Care Software Support Specialist Name Role Phone Chino Mora MD Primary Care Provider Kameron Jeff MD Unavailable Kameron Jeff MD Unavailable [phone] Constantin Kumar MD Unavailable [phone] Encounters Date Type Department Care Team Description 02/16/2025 12:30 PM CDT Lab [facility] - Lab Collection [address] [place] [address] 6 [place] [address] Extranodal marginal zone B-cell lymphoma 02/16/2025 12:00 PM CDT Lab [facility] [address] [place] [address] 6 [place] [address] Arrived 02/16/2025 1:00 PM CDT Office Visit [facility] [address] [place] [address] 6 [place] [phone] Constantin Kumar MD Extranodal marginal zone B-cell lymphoma (Primary Dx); Lymphoma involving lung (HCC); Anemia, unspecified type 02/01/2025 11:00 AM CDT Office Visit [facility] [address] [place] [address] Floor 5 [place] [address] Adalberto Ngo MD Lymphoma involving lung (HCC) (Primary Dx) 01/13/2025 9:56 AM RURAL ELECTRIFICATION ENGINEER - 01/17/2025 1:31 PM CDT Hospital Encounter [facility] [address] [place] [address] Adalberto Ngo MD Lung nodule Discharge Disposition: Discharge to home or self care 01/14/2025 Orders Only [facility] Floor 5 [place] [phone] Adalberto Ngo MD Lung nodule (Primary Dx) 01/13/2025 1:05 PM RURAL ELECTRIFICATION ENGINEER - 01/13/2025 6:15 PM RURAL ELECTRIFICATION ENGINEER Surgery [facility] Operating Room [address] [place] [phone] Adalberto Ngo MD XI ROBOTIC LOBECTOMY RIGHT LOWER LOBE 01/13/2025 1:53 PM RURAL ELECTRIFICATION ENGINEER Anesthesia Event [facility] Operating Room [address] [place] [phone] Halima Olson MD Montgomery, Andrea J., NP 01/12/2025 Telephone [facility] Floor 5 [place] [phone] Lukas Francis NP 12/30/2024 Orders Only [facility] [address] [place] [address] Floor 5 [place] [phone] Lukas Francis NP Gingivitis (Primary Dx) 12/30/2024 8:30 AM RURAL ELECTRIFICATION ENGINEER Lab [facility] [address] [place] [address] [address] [place] [address] Preoperative testing 12/30/2024 8:01 AM RURAL ELECTRIFICATION ENGINEER - 12/30/2024 11:59 PM RURAL ELECTRIFICATION ENGINEER Hospital Encounter [facility] Radiology at [address] [address] Lung nodule Discharge Disposition: Discharge to home or self care 12/30/2024 8:00 AM RURAL ELECTRIFICATION ENGINEER Pre-Admission Testing [facility] Pre Anesthesia Testing [address] [place] [address] Preoperative testing (Primary Dx) 12/10/2024 Telephone [facility] [address] [place] [address] Leatha Ferro RN 12/06/2024 Orders Only [facility] [address] [facility] Floor 5 [place] [address] Lukas Francis NP Lung nodule (Primary Dx) 12/06/2024 9:30 AM RURAL ELECTRIFICATION ENGINEER Office Visit [facility] [address] [place] [address] Adalberto Ngo MD Malignant neoplasm of middle lobe of right lung (HCC) (Primary Dx); Lung nodule; Primary cancer of right middle lobe of lung (HCC) from Last 3 Months Allergies Active Allergy Reactions Criticality Noted Date Comments Penicillins Hives Medium 07/01/2015 Medications losartan (COZAAR) 100 mg tabletIndication s:hypertension Take 1 tablet (100 mg total) by mouth every morning 0 01/27/20 19 Active bimatoprost (LUMIGAN) 0.03 % ophthalmic dropsIndications :ocular hypertension Administer 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 eyes every morning Active Combigan 0.2-0.5 % ophthalmic solutionIndicati ons:ocular hypertension Administer 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 eyes care consultant before breakfast 06/25/20 20 Active hydroCHLOROthiaz kaden (HYDRODIURIL) 25 mg tabletIndication s:hypertension Take 1 tablet (25 mg total) by mouth every morning 05/09/20 20 Active sertraline (ZOLOFT) 100 mg tabletIndication s:Anxiety with Depression Take 1 tablet (100 mg total) by mouth every morning Active dorzolamide (TRUSOPT) 2 % ophthalmic solutionIndicati ons:ocular hypertension Administer 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 eyes 2 (two) times a day 07/04/20 24 Active metoprolol XL (TOPROL-XL) 25 mg extended release tabletIndication s:hypertension Take 0.5 tablets (12.5 mg total) by mouth every morning 10/08/20 24 Active ascorbic acid (vitamin C) 1,000 mg tabletIndication s:supplement Take 1 tablet (1,000 mg total) by mouth every morning Active magnesium oxide 400 mg magnesium capsuleIndicatio ns:supplement Take 1 capsule by mouth every morning Active cholecalciferol (Vitamin D3) 2000 unit tabletIndication s:Vitamin D Deficiency Take 1 tablet (2,000 Units total) by mouth every morning Active acetaminophen 500 mg capsule Take 2 capsules (1,000 mg total) by mouth every 6 (six) hours 01/18/20 25 Active oxyCODONE (ROXICODONE) 5 mg immediate release tabletIndication s:Pain Take 1 tablet (5 mg total) by mouth every 4 (four) hours as needed for pain 20 tablet 01/18/20 25 025 Discontinu ed(Therapy completed) methocarbamoL (ROBAXIN) 750 mg tabletIndication s:Muscle Spasm Take 1 tablet (750 mg total) by mouth 3 (three) times a day for 5 days 15 tablet 01/18/20 25 025 sertraline (ZOLOFT) 50 mg tablet Take 1 tablet (50 mg total) by mouth daily 01/02/20 25 025 Discontinu ed(Therapy completed) Active Problems Patient Care Coordination No te Formatting of this note migh t be different from the original. This is a 63 year old female presenting to us at the request of Dr. Kameron Jeff for an evaluation of a newly diagnosed lung cancer. She has a history significant for severe macular degeneration, uterine cyst status post hysterectomy and hypertension. She is a former smoker. She also has a history significant for stage I B adenocarcinoma that was treated with a right middle lobectomy on 09/26/2015 pathology showed a visceral pleural involvement, negative surgical margins and no lymph node involvement. Patient was followed on surveillance since that time and was discharged from the oncology clinic in December of 2020. Her primary care provider ordered a CT scan that was performed on 04/26/2024 that showed 3 subcentimeter lung nodules in the right lower lobe including a stable 0.5 cm, a calcified lesion and a new 0.6 cm nodule. She has had several CT scans since then. Her last CT was performed on 10/20/2024. This showed postsurgical changes of a right middle lobectomy, unchanged. There has been interval increase in size in the solid soft tissue nodule with lobulated margins in the right lower lobe, which now measures 1.1 cm in greatest dimension. Additional 6 mm pulmonary nodule. Calcified granuloma in the posterior right lower lobe, unchanged. There is a proximally 4 mm area of focal peribronchial thickening is additionally indeterminate but may represent a prominent intrapulmonary lymph node. Scattered ground-glass opacity and tree-in-bud nodularity in the posterior left lung and lingula likely represent sequela of infectious bronchiolitis. Scattered hypoattenuating lesions in the imaged liver too small to characterize. She underwent a PET scan on 10/27/2024. Again seen is a 1.1 cm right lower lobe solid pulmonary nodule with an SUV of 2.8. Unchanged 6 mm right lower lobe pulmonary nodule. Evaluation of the previously noted focal peribronchial thickening is limited due to respiratory motion artifact. Minimally FDG avid lingular ground-glass opacities. The most FDG avid lesion in the right lower lobe pulmonary nodule, has a maximum SUV of 2.8 and is 1.1 x 0.8 cm. Postsurgical changes from a right middle lobectomy. Healing right anterior 4th, 5th and 6th rib fractures. Healing left 4th through 8th rib fractures. Healed right proximal humerus fracture. Chronic diverticulosis. She underwent pulmonary function testing on 11/22/2024. Her FEV1 is 102 % of predicted, TLC is 115% of predicted and DLCO was 64% of predicted. She is here for further surgical evaluation and discussion. 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 She has central geographic atrophy which is unusual for her age. She also has surrounding deposits which appeared drusen oil but also have confluent characteristics suggestive of pseudo patella form or moses like material. This is why of classified it under the spectrum of pattern dystrophy as it has clearly features suggestive of a genetic macular dystrophy. Does not have any evidence of choroidal neovascularization. She reports having an aunt with macular degeneration but no family members with known history of macular dystrophy Assessment & Plan (07/25/2020 10:02 AM CDT): Bilateral subretinal deposits with central GA OU Peripapillary sparing OU No h/o PPS Discussed genetic testing Assessment & Plan (02/09/2019 12:19 PM CDT): Remote h/o antiVEGF, there is loss of the vitelliform material with atrophy OS > OD No CNV OU Needs low vision eval Ocular hypertension, bilateral 02/09/2019 Assessment & Plan (07/25/2020 10:03 AM CDT): can follow locally Assessment & Plan (02/09/2019 12:19 PM CDT): DR Rivero in [facility] evaluating Vitreous syneresis of both eyes 02/09/2019 Age-related cataract 07/18/2017 Exudative age-related macular degeneration 07/18 Axillary lymphadenopathy 06/10/2016 Retroperitoneal lymphadenopathy 06/10/2016 Lung nodule 07/01/2015 Overview (12/06/2024): New and growing lung nodule in the RLL with mild FDG avidity. Adjacent lesion in the RLL is smaller and not apparently growing. Assessment & Plan (01/16/2025 7:47 AM CDT): -s/p RLL lobectomy w/ Ngo -CT removed yesterday, f/u CXR looked good -pain: multimodal POPMs, PRN oxy, dIVP -DVT PPX: Daily lovenox, SCDs -PT to eval and treat -on regular diet -voiding ok -wean O2 as able Pneumonia 07/01/2015 Resolved Problems Problem Noted Date Diagnosed Date Resolved Date Malignant neoplasm of middle lobe of right lung 10/13/2015 12/06/2024 Overview (12/06/2024): Resected 10 years ago. 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 Histoplasmosis 10/13/2015 12/06/2024 Immunizations Immunization Administration Dates Next Due Influenza, Quadrivalent, Spl it, Intramuscular 09/16/2019 Influenza, Quadrivalent, Spl it, Preservative Free, Intramuscular 07/03/2020,09/16/2019,09/13/2018,09/12 Tdap 05/03/2020 Social History Tobacco Use Types Packs/Day Years Used Date Smoking Tobacco: Former Cigarettes Q uit: 1973 Passive Smoke Exposure: Past Smokeless Tobacco: Never Tobacco Cessation:Counseling Given: Not Answered Alcohol Use Standard Drinks/Week Comments Yes 0 (1 standard drink = 0.6 oz pur e alcohol) AUDIT-C Answer Date Recorded Q1: How often do you have a drink containing alcohol? 4 or more times a week 01/13/2025 Q2: How many drinks containi ng alcohol do you have on a typical day when you are drinking? 1 or 2 Q3: How often do you have si x or more drinks on one occasion? Never 01/13/2025 Personal Safety Answer Date Recorded Have you ever been in or are you currently in a harmful physical or emotional relationship or is someone making you feel afraid or unsafe? Denies 01/13/2025 Comments No Sex and Gender Information Value Date Recorded Sex Assigned at Not on file Legal Sex Female 11:57 PM RURAL ELECTRIFICATION ENGINEER Gender Identity Not on file Sexual Orientation Not on file Last Filed Vital Signs Vital Sign Reading Time Taken Comments Blood Pressure 111/72 02/16/2025 12:06 PM CDT Pulse 103 02/16/2025 12:06 PM CDT Temperature 36.9 C (98.4 F) 02/16/2025 12:06 PM CDT Respiratory Rate 18 02/16/2025 12:0 6 PM CDT Oxygen Saturation 100% 02/16/2025 12: 06 PM CDT Inhaled Oxygen Concentration - - Weight 57.1 kg (125 lb 12.8 oz) 025 12:06 PM CDT Height 152.4 cm (5') 01/13/2025 8:25 PM RURAL ELECTRIFICATION ENGINEER Body Mass Index 24.57 01/13/2025 8:25 PM RURAL ELECTRIFICATION ENGINEER Plan of Treatment Not on file Procedures Procedure Name Priority Date/Time Associated Diagnosis Comments IMMUNOTYPING Routine 02/16/2025 11:58 AM CDT Extranodal marginal zone B-cell lymphoma EGFR Routine 02/16/2025 11:58 AM CDT Extranodal marginal zone B-cell lymphoma DIFFERENTIAL AUTO Routine 02/16/2025 11: 58 AM CDT Extranodal marginal zone B-cell lymphoma BETA 2 MICROGLOBULIN SERUM Routine 02/16/2025 11:58 AM CDT Extranodal marginal zone B-cell lymphoma CBC WITH AUTO DIFFERENTIAL Routine 02/16/2025 11:58 AM CDT Extranodal marginal zone B-cell lymphoma COMPREHENSIVE METABOLIC PANEL Routine 02/16/2025 11:58 AM CDT Extranodal marginal zone B-cell lymphoma LACTATE DEHYDROGENASE Routine 02/16/2025 11:58 AM CDT Extranodal marginal zone B-cell lymphoma PROTEIN ELECTROPHORESIS, WITH REFLEX, SERUM Routine 02/16/2025 11:58 AM CDT Extranodal marginal zone B-cell lymphoma HEPATITIS B CORE ANTIBODY, TOTAL Routine 02/16/2025 11:58 AM CDT Extranodal marginal zone B-cell lymphoma HEPATITIS B SURFACE ANTIBODY (IMMUNE STATUS) Routine 02/16/2025 11:58 AM CDT Extranodal marginal zone B-cell lymphoma HEPATITIS B SURFACE ANTIGEN Routine 02/16/2025 11:58 AM CDT Extranodal marginal zone B-cell lymphoma HEPATITIS C ANTIBODY Routine 02/16/2025 11:58 AM CDT Extranodal marginal zone B-cell lymphoma HIV 1/2 ANTIBODY PLUS P24 ANTIGEN Routine 02/16/2025 11:58 AM CDT Extranodal marginal zone B-cell lymphoma PEP THERAPY Routine 01/16/2025 8:00 AM CDT EGFR Timed 01/15/2025 11:18 PM RURAL ELECTRIFICATION ENGINEER BASIC METABOLIC PANEL Timed 01/15/2025 11:18 PM RURAL ELECTRIFICATION ENGINEER SODIUM, URINE, RANDOM Routine 01/15/2025 9:10 PM RURAL ELECTRIFICATION ENGINEER OSMOLALITY, BLOOD Timed 01/15/2025 9:0 9 PM RURAL ELECTRIFICATION ENGINEER PEP THERAPY Routine 01/15/2025 8:00 PM RURAL ELECTRIFICATION ENGINEER URINALYSIS, MICROSCOPIC ONLY Routine 01/15/2025 6:55 PM RURAL ELECTRIFICATION ENGINEER URINALYSIS AND REFLEX TO MICROSCOPIC AND CULTURE Routine 01/15/2025 6:55 PM RURAL ELECTRIFICATION ENGINEER EGFR Timed 01/15/2025 6:28 PM RURAL ELECTRIFICATION ENGINEER PHOSPHORUS Timed 01/15/2025 6:28 PM RURAL ELECTRIFICATION ENGINEER MAGNESIUM Timed 01/15/2025 6:28 PM RURAL ELECTRIFICATION ENGINEER BASIC METABOLIC PANEL Timed 01/15/2025 6:28 PM RURAL ELECTRIFICATION ENGINEER CBC WITHOUT DIFFERENTIAL Timed 01/15/2025 6:28 PM RURAL ELECTRIFICATION ENGINEER XR CHEST PA LATERAL 2 VIEWS Timed 01/15/2025 4:29 PM RURAL ELECTRIFICATION ENGINEER PEP THERAPY Routine 01/15/2025 3:39 PM RURAL ELECTRIFICATION ENGINEER PEP THERAPY Routine 01/15/2025 3:39 PM RURAL ELECTRIFICATION ENGINEER PEP THERAPY Routine 01/15/2025 3:39 PM RURAL ELECTRIFICATION ENGINEER RESPIRATORY PATHOGEN PANEL Routine 01/15/2025 1:18 PM RURAL ELECTRIFICATION ENGINEER CHEST PHYSIO THERAPY Routine 01/15/2025 11:01 AM RURAL ELECTRIFICATION ENGINEER XR CHEST 1 VIEW IP Routine 01/15/2025 5:07 AM RURAL ELECTRIFICATION ENGINEER EGFR Routine 01/14/2025 8:34 PM RURAL ELECTRIFICATION ENGINEER CBC WITHOUT DIFFERENTIAL Routine 01/14/2025 8:34 PM RURAL ELECTRIFICATION ENGINEER BASIC METABOLIC PANEL Routine 01/14/2025 8:34 PM RURAL ELECTRIFICATION ENGINEER ECG 12-LEAD Routine 01/14/2025 11:55 AM RURAL ELECTRIFICATION ENGINEER EGFR Timed 01/13/2025 8:46 PM RURAL ELECTRIFICATION ENGINEER BASIC METABOLIC PANEL Timed 01/13/2025 8:46 PM RURAL ELECTRIFICATION ENGINEER CBC WITHOUT DIFFERENTIAL Timed 01/13/2025 8:46 PM RURAL ELECTRIFICATION ENGINEER XR CHEST 1 VIEW ED Urgent/IP Urgent 01/13/2025 6:35 PM RURAL ELECTRIFICATION ENGINEER CYTOGENETICS Routine 01/13/2025 5:02 PM RURAL ELECTRIFICATION ENGINEER SURGICAL PATHOLOGY Routine 01/13/2025 2: 59 PM RURAL ELECTRIFICATION ENGINEER Lung nodule PERIPHERAL LINE Routine 01/13/2025 2:28 PM RURAL ELECTRIFICATION ENGINEER ANESTHESIA INTUBATION Routine 01/13/2025 2:25 PM RURAL ELECTRIFICATION ENGINEER XI ROBOTIC LOBECTOMY 01/13/2025 1:55 PM RURAL ELECTRIFICATION ENGINEER Lung nodule B CHECK SAMPLE STAT 01/13/2025 1:37 PM RURAL ELECTRIFICATION ENGINEER CT CHEST WO CONTRAST Schedule PURA, Read PURA (Appt Today, Awaiting Results) 12/30/2024 9:01 AM RURAL ELECTRIFICATION ENGINEER Lung nodule EGFR Routine 12/30/2024 8:47 AM RURAL ELECTRIFICATION ENGINEER Preoperative testing BASIC METABOLIC PANEL Routine 12/30/2024 8:47 AM RURAL ELECTRIFICATION ENGINEER Preoperative testing CBC WITHOUT DIFFERENTIAL Routine 12/30/2024 8:47 AM RURAL ELECTRIFICATION ENGINEER Preoperative testing TYPE AND SCREEN 14 DAY Routine 12/30/2024 8:47 AM RURAL ELECTRIFICATION ENGINEER Preoperative testing from Last 3 Months Results * Immunotyping, serum with interpretation (02/16/2025 11:58 AM CDT) Immunosubtraction Please see comment Comment: NO PARAPROTEIN DETECTED Reviewed and signed by Matthew Coffman MD, PhD 02/18/2025 Blood 02/16/2025 11:5 8 AM CDT 02/16/2025 4:31 PM CDT Narrative [facility] - 02/19/2025 8:55 AM CDT Reflex Immunotyping, Ser Heather Lidia Rene LAB BLOOD ORDE RABLES Final Result [facility] Department [place] [address] * (ABNORMAL) eGFR (02/16/2025 11:58 AM CDT) Pathologist [facility] eGFR 52(L) >=60 mL/min/1. 73 m2 Comment: Interpretive Data Reference Interval Normal >/= 90 mL/min/1.73m2 Mildly decreased* 60 - 89 mL/min/1.73m2 Mildly to moderately decreased 45 - 59 mL/min/1.73m2 Moderately to severely decreased 30 - 44 mL/min/1.73m2 Severely decreased 15 - 29 mL/min/1.73m2 Kidney Failure < 15 mL/min/1.73m2 *Relative to young adult level Estimated glomerular filtration rate is determined by the 2020 CKD-EPI equation recommended by the National Kidney Foundation (A Unifying Approach to GFR Estimation: Recommendations of the NKF-ASK Task Force on Reassessing the Inclusion of Race in Diagnosing Kidney Disease, JASN 2020). The CKD-EPI equation should not be used for patients with unstable renal function and has not been validated in children and those over 70. Current interpretive data was last reviewed 2021. Blood 02/16/2025 11:5 8 AM CDT 02/16/2025 12:24 PM CDT Heather Rene HOMOGENIZER OPERATOR LAB BLOOD ORDE RABLES Final Result [facility] Department [place] [address] * (ABNORMAL) Differential, auto (02/16/2025 11:58 AM CDT) Neutrophil abs 7.85(H) 1.50 - 6.50 K/cumm Comment:Testing performed by : [facility], [address] [place] [address] Lymphocyte abs 2.28 0.80 - 3.30 K/cumm CERNER [facility]J Comment:Testing performed by : [facility], [address] [place] [address] Monocyte abs 0.74 0.20 - 0.80 K/cumm [facility]ER [facility]J Comment:Testing performed by : [facility], [address] [place] [address] Eosinophil abs 0.01 0.00 - 0.50 K/cumm CERNER [facility]J Comment:Testing performed by : [facility], [address] [place] [address] Basophil abs 0.06 0.00 - 0.10 K/cumm [facility]ER [facility]J Comment:Testing performed by : [facility], [address] [place] [phone] Neutrophil pct 71.8 % [facility]ER [facility] Comment: Interpretive Data Percent cell count reference ranges are not reported, since discordance with absolute values may lead to misinterpretation of CBC data. Current Interpretive Data was last revised on 2018. Testing performed by: [facility], [address] [place] [phone] Lymphocyte pct 20.8 % [facility] Comment: Interpretive Data Percent cell count reference ranges are not reported, since discordance with absolute values may lead to misinterpretation of CBC data. Current Interpretive Data was last revised on 2018. Testing performed by: [facility], [address] [place] [phone] Monocyte pct 6.7 % [facility] Comment: Interpretive Data Percent cell count reference ranges are not reported, since discordance with absolute values may lead to misinterpretation of CBC data. Current Interpretive Data was last revised on 2018. Testing performed by: [facility], [address] [place] [phone] Eosinophil pct 0.1 % [facility] Comment: Interpretive Data Percent cell count reference ranges are not reported, since discordance with absolute values may lead to misinterpretation of CBC data. Current Interpretive Data was last revised on 2018. Testing performed by: [facility], [address] [place] [phone] Basophil pct 0.5 % [facility] Comment: Interpretive Data Percent cell count reference ranges are not reported, since discordance with absolute values may lead to misinterpretation of CBC data. Current Interpretive Data was last revised on 2018. Testing performed by: [facility], [address] [place] [phone] Blood 02/16/2025 11:5 8 AM CDT 02/16/2025 12:15 PM CDT Heather Rene HOMOGENIZER OPERATOR LAB BLOOD ORDE RABLES Final Result [facility] Department [place] [address] * HIV 1/2 Antibody plus p24 Antigen Blood (02/16/2025 11:58 AM CDT) HIV 1/2 ab + p24 ag Nonreactive Nonreactive Comment:Nonreactive for HIV- 1 antigen and HIV-1/HIV-2 antibodies. No laboratory evidence of HIV infection. If acute HIV infection is suspected, consider testing for HIV-1 RNA. Current interpretive data was last revised on 22. Blood 02/16/2025 11:5 8 AM CDT 02/16/2025 1:02 PM CDT Heather Rene HOMOGENIZER OPERATOR LAB MICROBIOLO GY - GENERAL ORDERABLES Final Result [facility] Department [place] [address] * (ABNORMAL) CBC with auto differential (02/16/2025 11:58 AM CDT) WBC 10.93(H) 3.80 - 9.90 K/cumm Comment:Testing performed by : [facility], [address] [place] [address] Hgb 11.6(L) 11.9 - 15.5 g/dL [facility] Comment:Testing performed by : [facility], [address] [place] [address] Hct 34.7(L) 35.6 - 45.5 % CERLIANNA [facility]A Comment:Testing performed by : [facility], [address] [place] [address] Plt 208 150 - 400 K/cumm CERLIANNA GURROLA Comment:Testing performed by : [facility], [address] [place] [address] MPV 7.1 6.8 - 10.4 fL CERLIANNA BJ Comment:Testing performed by : [facility], [address] [place] [address] RBC 3.71(L) 3.90 - 5.20 M/cumm CERLIANNA BJ Comment:Testing performed by : [facility], [address] [place] [address] MCV 93.5 81.3 - 96.4 fL CERLIANNA BJ Comment:Testing performed by : [facility], [address] [place] [address] MCH 31.4 27.1 - 33.3 pg CERLIANNA BJ Comment:Testing performed by : [facility], [address] [place] [address] MCHC 33.5 32.3 - 35.7 g/dL CERLIANNA BJ Comment:Testing performed by : [facility], [address] [place] [address] RDW CV 16.5(H) 11.1 - 14.9 % [facility] Comment:Testing performed by : [facility], [address] [place] [phone] NRBC abs 0.00 0.00 - 0.01 K/cumm [facility] Comment:Testing performed by : [facility] [facility], [address] [place] [id number] Blood 02/16/2025 11:5 8 AM CDT 02/16/2025 12:15 PM CDT Heather Rene HOMOGENIZER OPERATOR LAB BLOOD ORDE RABLES Final Result Performing Organization Address City/[facility] Co de Phone Number [facility] Department [place] [address] * Hepatitis C antibody Blood (02/16/2025 11:58 AM CDT) Hep C Ab Nonreactive Nonreactive Comment:Antibodies to HCV no t detected. Does NOT exclude the possibility of recent exposure to HCV. Current interpretive data was last revised on 22 Blood 02/16/2025 11:5 8 AM CDT 02/16/2025 1:02 PM CDT Heather Rene HOMOGENIZER OPERATOR LAB MICROBIOLO GY - GENERAL ORDERABLES Final Result Performing Organization Address City/[facility]/ZIP Co de Phone Number [facility] Department [place] [address] * Hepatitis B core antibody, total Blood (02/16/2025 11:58 AM CDT) Hep B core IgG/IgM Nonreactive Nonreactive Blood 02/16/2025 11:5 8 AM CDT 02/16/2025 1:02 PM CDT Heather Lidia Rene HOMOGENIZER OPERATOR LAB MICROBIOLO GY - GENERAL ORDERABLES Final Result Performing Organization Address [facility] de Phone Number [facility] [place] [address] * Hepatitis B surface antibody (immune status) Blood (02/16/2025 11:58 AM CDT) Pathologist [facility] HBsAb (immune status) Nonreactive Comment:This result is consi stent with a lack of immunity to Hepatitis B Virus when used in the setting of routine screening. Current interpretative data was last revised on 22 Blood 02/16/2025 11:5 8 AM CDT 02/16/2025 1:02 PM CDT Heather Rene NP LAB MICROBIOLO GY - GENERAL ORDERABLES Final Result Performing Organization Address [facility] de Phone Number [facility] [place] [address] * Hepatitis B Surface Antigen Blood (02/16/2025 11:58 AM CDT) [facility] HepBsAg Nonreactive Nonreactive Blood 02/16/2025 11:5 8 AM CDT 02/16/2025 1:02 PM CDT Heather Rene NP LAB MICROBIOLO GY - GENERAL ORDERABLES Final Result Performing Organization Address [facility] de Phone Number [facility] [place] [address] * (ABNORMAL) Protein electrophoresis with reflex, serum with interpretation (02/16/2025 11:58 AM CDT) [facility] Protein, sr 8.5(H) 6.2 - 8.2 g/dL Albumin 4.4 3.2 - 5.0 g/dL [facility] Alpha-1 globulin 0.5(H) 0.2 - 0.4 g/dL [facility] Alpha-2 globulin 0.9 0.5 - 1.0 g/dL [facility] Beta-1 globulin 0.6 0.3 - 0.6 g/dL [facility] Beta-2 globulin 0.6 0.2 - 0.6 g/dL [facility] Gamma globulin 1.4 0.5 - 1.7 g/dL [facility] SPEP interp Please see comment [facility] Comment: Possible abnormal restricted peak in gamma region See immunotyping for further information Reviewed and signed by Matthew Coffman MD, PhD 02/18/2025 Immunotyping See Immunotyping Results [facility] Blood 02/16/2025 11:5 8 AM CDT 02/16/2025 1:41 PM CDT Heather Lidia Rene LAB [facility] Final Result Performing Organization Address City/[facility]/ZIP Co de Phone Number [facility] Department of [place] [address] * Lactate dehydrogenase (LD) (02/16/2025 11:58 AM CDT) Pathologist [facility] Lactate dehydrogenase (LDH) 180 100 - 250 Units/L Blood 02/16/2025 11:5 8 AM CDT 02/16/2025 12:24 PM CDT [facility] Final Result Performing Organization Address City/State/[facility] Co de Phone Number [facility] Department of [place] [address] * (ABNORMAL) Beta 2 microglobulin, serum (02/16/2025 11:58 AM CDT) Pathologist [facility] Beta 2 Microglobulin, Serum 3.20(H) 1.00 - 2.50 mg/L Comment: Interpretive Data The Wang Beta-2 microglobulin assay procedure was used. Results from different manufacturers or methods may not be comparable. Serial testing should be performed using the same method. Blood 02/16/2025 11:5 8 AM CDT 02/16/2025 12:50 PM CDT Heather Yenickprabhu HOMOGENIZER OPERATOR LAB BLOOD ORDAlicia ANDERS Final Result [facility] Department [place] [address] * (ABNORMAL) Comprehensive metabolic panel (02/16/2025 11:58 AM CDT) Sodium 131(L) 135 - 145 mmol/L Potassium, pl 4.9 3.3 - 4.9 mmol/L [facility] Chloride 89(L) 97 - 110 mmol/L [facility] CO2 25 22 - 32 mmol/L [facility] Anion gap 17(H) 2 - 15 mmol/L [facility] BUN 18 6 - 25 mg/dL [facility] Creatinine 1.17(H) 0.60 - 1.10 mg/dL [facility] Glucose 123 70 - 199 mg/dL [facility] Comment: Interpretive Data Fasting glucose >/= 126 mg/dl is diagnostic for diabetes. Fasting is defined as no caloric intake for at least 8 hours. Fasting glucose between 100 mg/dl to 125 mg/dl is diagnostic of prediabetes. In a patient with classic symptoms of hyperglycemia or hyperglycemic crisis, a random glucose >/= 200 mg/dl is diagnostic for diabetes. In the absence of unequivocal hyperglycemia, results should be confirmed by repeat testing. The classification and Diagnosis of Diabetes Diabetes Care 2021; 46: S19-S40. Current interpretive data was last revised 2022. Calcium 10.1 8.5 - 10.3 mg/dL [facility] Bilirubin, total 0.8 0.1 - 1.2 mg/dL [facility] Protein, pl 8.9(H) 6.5 - 8.5 g/dL [facility] Albumin 4.7 3.5 - 5.0 g/dL [facility] Alk phos 93 40 - 130 Units/L [facility] ALT 23 7 - 45 Units/L [facility] AST 21 10 - 45 Units/L [facility] Blood 02/16/2025 11:5 8 AM CDT 02/16/2025 12:24 PM CDT Heather Rene NP LAB BLOOD ORDE CHAGO Final Result Performing Organization Address [facility] Co de Phone Number [facility] of [place] [address] * eGFR (01/15/2025 11:18 PM RURAL ELECTRIFICATION ENGINEER) eGFR 66 >=60 mL/min/1. 73 m2 Comment: Interpretive Data Reference Interval Normal >/= 90 mL/min/1.73m2 Mildly decreased* 60 - 89 mL/min/1.73m2 Mildly to moderately decreased 45 - 59 mL/min/1.73m2 Moderately to severely decreased 30 - 44 mL/min/1.73m2 Severely decreased 15 - 29 mL/min/1.73m2 Kidney Failure < 15 mL/min/1.73m2 *Relative to young adult level Estimated glomerular filtration rate is determined by the 2020 CKD-EPI equation recommended by the National Kidney Foundation (A Unifying Approach to GFR Estimation: Recommendations of the NKF-ASK Task Force on Reassessing the Inclusion of Race in Diagnosing Kidney Disease, JASN 2020). The CKD-EPI equation should not be used for patients with unstable renal function and has not been validated in children and those over 70. Current interpretive data was last reviewed 2021. Blood 01/15/2025 11:1 8 PM RURAL ELECTRIFICATION ENGINEER 01/15/2025 11:40 PM RURAL ELECTRIFICATION ENGINEER us Adalberto Ngo MD LAB BLOOD ORDERABLES Final Re sult Performing Organization Address City/[facility]/ZIP Co de Phone Number [facility] Department of [place] [address] * (ABNORMAL) Basic metabolic panel (01/15/2025 11:18 PM RURAL ELECTRIFICATION ENGINEER) Sodium 138 135 - 145 mmol/L Potassium, pl 3.3 3.3 - 4.9 mmol/L [facility] Chloride 105 97 - 110 mmol/L [facility] Comment:Repeated and Verifie d CO2 24 22 - 32 mmol/L [facility] Anion gap 9 2 - 15 mmol/L [facility] Comment:Repeated and Verifie d BUN 20 6 - 25 mg/dL [facility] Creatinine 0.97 0.60 - 1.10 mg/dL [facility] Glucose 109 70 - 199 mg/dL [facility] Comment: Interpretive Data Fasting glucose >/= 126 mg/dl is diagnostic for diabetes. Fasting is defined as no caloric intake for at least 8 hours. Fasting glucose between 100 mg/dl to 125 mg/dl is diagnostic of prediabetes. In a patient with classic symptoms of hyperglycemia or hyperglycemic crisis, a random glucose >/= 200 mg/dl is diagnostic for diabetes. In the absence of unequivocal hyperglycemia, results should be confirmed by repeat testing. The classification and Diagnosis of Diabetes Diabetes Care 2021; 46: S19-S40. Current interpretive data was last revised 2022. Calcium 7.6(L) 8.5 - 10.3 mg/dL [facility] Blood 01/15/2025 11:1 8 PM RURAL ELECTRIFICATION ENGINEER 01/15/2025 11:40 PM RURAL ELECTRIFICATION ENGINEER us Adalberto Ngo MD LAB BLOOD ORDERABLES Final Re sult Performing Organization Address [facility] Co de Phone Number [facility] One [facility] Department [place] [address] * Sodium, urine, random (01/15/2025 9:10 PM RURAL ELECTRIFICATION ENGINEER) Sodium, ur <20 mmol/L Comment: Interpretive Data No reference range established. Current interpretive data was last revised 2019. Urine 01/15/2025 9:10 PM RURAL ELECTRIFICATION ENGINEER 01/15/2025 9:22 PM RURAL ELECTRIFICATION ENGINEER us Adalberto Ngo MD LAB URINE ORDERABLES Final Re sult [facility] Department [place] [address] * Osmolality, blood (01/15/2025 9:09 PM RURAL ELECTRIFICATION ENGINEER) Osmo 280 275 - 300 mOsm/kg Blood 01/15/2025 9:09 PM RURAL ELECTRIFICATION ENGINEER 01/15/2025 9:23 PM RURAL ELECTRIFICATION ENGINEER Chris Khan MD LAB BLOOD ORDERABLES Final Resul t [facility] [place] [address] * (ABNORMAL) Urinalysis reflex to microscopic and culture Urine (01/15/2025 6:55 PM RURAL ELECTRIFICATION ENGINEER) Pathologist [facility] Color, ur Straw Yellow Clarity, ur Clear Clear [facility] Specific gravity, ur 1.014 1.003 - 1.030 [facility] pH, urine 6.0 [facility] Comment: Interpretive Data U rine pH is affected by diet, medications, systemic acid-base disturbances, and renal tubular function. pH may affect urinary stone formation. For example, urine pH below 6.0 may help reduce the tendency for calcium phosphate stones and pH greater than 6.0 may reduce the tendency for uric acid stone formation. Source: [facility] Current Interpretive Data was last revised on 2017 Protein, ur ql 1+(A) Negative [facility] Glucose, ur ql Negative Negative [facility] Ketones, ur Negative Negative [facility] Bilirubin, ur Negative Negative [facility] Blood, ur Negative Negative [facility] Urobilinogen, ur <2.0 <2.0 mg/dL [facility] Nitrite, ur Negative Negative [facility] Leukocyte esterase, ur Negative Negative [facility] UA reflex comment Reflex to microscopic UA will be performed. [facility] Urine 01/15/2025 6:55 PM RURAL ELECTRIFICATION ENGINEER 01/15/2025 7:01 PM RURAL ELECTRIFICATION ENGINEER Adalberto Ngo MD LAB MICROBIOLOGY - GENERAL OR DERABLES Final Result Performing Organization Address [facility] Co de Phone Number [facility] [place] [address] * Urinalysis, microscopic only (01/15/2025 6:55 PM RURAL ELECTRIFICATION ENGINEER) WBC, ur 0-5 0 - 5 /HPF RBC, ur 0-2 0 - 2 /HPF [facility] Epithelial cells, squamous, ur 1-5 0 - 5 /HPF [facility] Culture Reflex Comment Reflex conditions for urine culture (WBC >10) not met. [facility] Urine 01/15/2025 6:55 PM RURAL ELECTRIFICATION ENGINEER 01/15/2025 7:01 PM RURAL ELECTRIFICATION ENGINEER us Adalberto Ngo MD LAB URINE ORDERABLES Final Re sult Performing Organization Address [facility] de Phone Number [facility] Department [place] [address] * (ABNORMAL) eGFR (01/15/2025 6:28 PM RURAL ELECTRIFICATION ENGINEER) eGFR 51(L) >=60 mL/min/1. 73 m2 Comment: Interpretive Data Reference Interval Normal >/= 90 mL/min/1.73m2 Mildly decreased* 60 - 89 mL/min/1.73m2 Mildly to moderately decreased 45 - 59 mL/min/1.73m2 Moderately to severely decreased 30 - 44 mL/min/1.73m2 Severely decreased 15 - 29 mL/min/1.73m2 Kidney Failure < 15 mL/min/1.73m2 *Relative to young adult level Estimated glomerular filtration rate is determined by the 2020 CKD-EPI equation recommended by the National Kidney Foundation (A Unifying Approach to GFR Estimation: Recommendations of the NKF-ASK Task Force on Reassessing the Inclusion of Race in Diagnosing Kidney Disease, JASN 2020). The CKD-EPI equation should not be used for patients with unstable renal function and has not been validated in children and those over 70. Current interpretive data was last reviewed 2021. Blood 01/15/2025 6:28 PM RURAL ELECTRIFICATION ENGINEER 01/15/2025 6:47 PM RURAL ELECTRIFICATION ENGINEER us Adalberto Ngo MD LAB BLOOD ORDERABLES Final Re sult Performing Organization Address [facility] Co de Phone Number [facility] Department [place] [address] * (ABNORMAL) CBC without differential (01/15/2025 6:28 PM RURAL ELECTRIFICATION ENGINEER) WBC 10.4(H) 3.8 - 9.9 K/cumm Hgb 9.3(L) 11.9 - 15.5 g/dL [facility] Hct 27.7(L) 35.6 - 45.5 % [facility] Plt 165 150 - 400 K/cumm [facility] MPV 9.4 9.1 - 12.3 fL [facility] RBC 2.75(L) 3.90 - 5.20 M/cumm [facility] MCV 100.7(H) 81.3 - 96.4 fL [facility] MCH 33.8(H) 27.1 - 33.3 pg [facility] MCHC 33.6 32.3 - 35.7 g/dL [facility] RDW CV 13.7 11.1 - 14.9 % [facility] RDW SD 50.2(H) 35.7 - 48.1 fL [facility] NRBC abs 0.00 0.00 - 0.01 K/cumm [facility] Blood 01/15/2025 6:28 PM RURAL ELECTRIFICATION ENGINEER 01/15/2025 6:47 PM RURAL ELECTRIFICATION ENGINEER us Adalberto Ngo MD LAB BLOOD ORDERABLES Final Re sult Performing Organization Address [facility] Co de Phone Number [facility] of [place] [address] * Phosphorus (01/15/2025 6:28 PM RURAL ELECTRIFICATION ENGINEER) Phosphorus, pl 2.7 2.3 - 4.5 mg/dL Blood 01/15/2025 6:28 PM RURAL ELECTRIFICATION ENGINEER 01/15/2025 6:47 PM RURAL ELECTRIFICATION ENGINEER Adalberto Ngo MD LAB BLOOD ORDERABLES Final Re sult Performing Organization Address City/[facility]/ZIP Co de Phone Number [facility] [place] [address] * Magnesium (01/15/2025 6:28 PM RURAL ELECTRIFICATION ENGINEER) Pathologist [facility] Magnesium 1.7 1.4 - 2.5 mg/dL Blood 01/15/2025 6:28 PM RURAL ELECTRIFICATION ENGINEER 01/15/2025 6:47 PM RURAL ELECTRIFICATION ENGINEER Adalberto Ngo MD LAB BLOOD ORDERABLES Final Re sult Performing Organization Address [facility] de Phone Number [facility] [place] [address] * (ABNORMAL) Basic metabolic panel (01/15/2025 6:28 PM RURAL ELECTRIFICATION ENGINEER) Pathologist [facility] Sodium 130(L) 135 - 145 mmol/L Potassium, pl 4.0 3.3 - 4.9 mmol/L [facility] Chloride 94(L) 97 - 110 mmol/L [facility] CO2 25 22 - 32 mmol/L [facility] Anion gap 11 2 - 15 mmol/L [facility] BUN 23 6 - 25 mg/dL [facility] Creatinine 1.19(H) 0.60 - 1.10 mg/dL [facility] Glucose 140 70 - 199 mg/dL [facility] Comment: Interpretive Data Fasting glucose >/= 126 mg/dl is diagnostic for diabetes. Fasting is defined as no caloric intake for at least 8 hours. Fasting glucose between 100 mg/dl to 125 mg/dl is diagnostic of prediabetes. In a patient with classic symptoms of hyperglycemia or hyperglycemic crisis, a random glucose >/= 200 mg/dl is diagnostic for diabetes. In the absence of unequivocal hyperglycemia, results should be confirmed by repeat testing. The classification and Diagnosis of Diabetes Diabetes Care 2021; 46: S19-S40. Current interpretive data was last revised 2022. Calcium 8.6 8.5 - 10.3 mg/dL [facility] Blood 01/15/2025 6:28 PM RURAL ELECTRIFICATION ENGINEER 01/15/2025 6:47 PM RURAL ELECTRIFICATION ENGINEER Adalberto Ngo MD LAB BLOOD ORDERABLES Final Re sult [facility] Department [place] [address] * XR Chest Pa Lateral 2 Views (01/15/2025 4:29 PM RURAL ELECTRIFICATION ENGINEER) Anatomical Region Laterality Modality Body, Chest N/A Computed Radiogr aphy 01/15/2025 10:0 8 PM RURAL ELECTRIFICATION ENGINEER Impressions 01/15/2025 10:08 PM RURAL ELECTRIFICATION ENGINEER There has been removal of a right-sided chest tube. 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 There is persistent elevation of the right hemidiaphragm. There is a new small right pleural effusion with increased right basilar atelectasis. No pneumothorax is identified. The cardiomediastinal silhouette is unchanged. Electronically signed by: Luis F Knight M.D. Narrative 01/15/2025 10:08 PM RURAL ELECTRIFICATION ENGINEER EXAMINATION: XR CHEST PA LATERAL 2 VIEWS COMPARISON: 01/15/2025 4:51 AM Procedure Note Luis F Knight MD PhD - 01/15/2025 EXAMINATION: XR CHEST PA LATERAL 2 VIEWS COMPARISON: 01/15/2025 4:51 AM IMPRESSION: There has been removal of a right-sided chest tube. 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 There is persistent elevation of the right hemidiaphragm. There is a new small right pleural effusion with increased right basilar atelectasis. No pneumothorax is identified. The cardiomediastinal silhouette is unchanged. Electronically signed by: Luis F Nish Bugenhagen, M.D. us Adalberto Ngo MD IMG XR PROCEDURES Final Resul t * Respiratory pathogen panel Nasopharyngeal (01/15/2025 1:18 PM RURAL ELECTRIFICATION ENGINEER) Pathologist [facility] Influenza A RNA Not Detected Not Detected Influenza B RNA Not Detected Not Detected [facility] RSV RNA Not Detected Not Detected [facility] COVID-19 RNA Not Detected Not Detected [facility] Coronavirus 229E RNA Not Detected Not Detected [facility] Coronavirus HKU1 RNA Not Detected Not Detected [facility] Coronavirus NL63 RNA Not Detected Not Detected [facility] Coronavirus OC43 RNA Not Detected Not Detected [facility] Adenovirus DNA Not Detected Not Detected [facility] Metapneumovirus RNA Not Detected Not Detected [facility] Rhinovirus/Enterov irus RNA Not Detected Not Detected [facility] Parainfluenza 1 RNA Not Detected Not Detected [facility] Parainfluenza 2 RNA Not Detected Not Detected [facility] Parainfluenza 3 RNA Not Detected Not Detected [facility] Parainfluenza 4 RNA Not Detected Not Detected [facility] B. pertussis DNA Not Detected Not Detected [facility] B. parapertussis DNA Not Detected Not Detected [facility] C. pneumoniae DNA Not Detected Not Detected [facility] M. pneumoniae DNA Not Detected Not Detected [facility] Nasopharyngeal 01/15/2025 1: 18 PM RURAL ELECTRIFICATION ENGINEER 01/15/2025 1:47 PM RURAL ELECTRIFICATION ENGINEER Narrative [facility] - 01/15/2025 2:53 PM RURAL ELECTRIFICATION ENGINEER Is the Patient experiencing symptoms consistent with COVID?->No Surveillance testing for transplant patient?->No Interpretive Data The [employer] FilmArray Respiratory Panel (RP2.1) assay is a multiplexed real-time PCR based nucleic acid test capable of simultaneous qualitative detection and identification of multiple respiratory viral and bacterial nucleic acids, including SARS Coronavirus 2 (the causative agent of COVID-19). The following bacteria, viruses and virus subtypes can be identified using the FilmArray RP2.1 assay: Bordetella pertussis, Bordetella parapertussis, Chlamydia pneumoniae, Mycoplasma pneumoniae, Adenovirus, SARS Coronavirus 2, seasonal coronaviruses (Coronavirus HKU1, Coronavirus NL63, Coronavirus 229E, and Coronavirus OC43), Influenza A, Influenza A subtype H1, Influenza A subtype H3, Influenza A subtype 2009 H1, Influenza B, Metapneumovirus, Parainfluenza 1, Parainfluenza 2, Parainfluenza 3, Parainfluenza 4, RSV, Rhinovirus/Enterovirus. Due to the genetic similarity between human Rhinovirus and Enterovirus, the FilmArray RP2.1 assay cannot reliably differentiate them. Coronavirus OC43 may cross-react with some isolates of Coronavirus HKU1. A dual positive result may be due to cross-reactivity or may indicate a co- infection. The detection and identification of specific viral and bacterial nucleic acids from individuals exhibiting signs and symptoms of a respiratory infection aids in the diagnosis of respiratory infection if used in conjunction with other clinical and epidemiological information. The results of this test should not be used as the sole basis for diagnosis, treatment, or other management decisions. Negative results in the setting of a respiratory illness may be due to infection with pathogens that are not detected by this test. Positive results do not rule out infection/co-infection with other organisms. The agent(s) detected by the FilmArray RP2.1 may not be the definite cause of disease. Additional testing (lab, imaging, etc.) may be necessary when evaluating a patient with possible respiratory tract infection. The FilmArray RP2.1 assay has FDA clearance for testing of HOMOGENIZER OPERATOR swabs. The performance of additional specimen types has been assessed by the performing laboratory. The performance characteristics of this assay have been determined by [facility]. Current interpretive data was last revised on 22. Adalberto Ngo MD LAB MICROBIOLOGY - GENERAL OR DERABLES Final Result [facility] One [facility] Department [place] [address] * XR Chest 1 View (01/15/2025 5:07 AM RURAL ELECTRIFICATION ENGINEER) Anatomical Region Laterality Modality Body, Chest N/A Digital Radiogra phy 01/15/2025 7:40 AM RURAL ELECTRIFICATION ENGINEER Impressions 01/15/2025 7:50 AM RURAL ELECTRIFICATION ENGINEER The current study is compared with the prior radiograph dated 01/13/2025 6:25 PM The cardiomediastinal silhouette is stable. There remains slight prominence of the right paratracheal and right hilar region compatible with contusion/hematoma from recent surgery. 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 Interval elevation of the right hemidiaphragm. There is mild right basilar atelectasis, possibly with a small right pleural effusion. Lucency in the medial right lung base may represent a component of small right basilar pneumothorax. There is minimal left basilar atelectasis. The left lung is otherwise clear. No left pleural effusion. No left pneumothorax. Dictated by: Brian Altamirano MD The radiology attending physician has personally reviewed this study, and had reviewed and/or edited this written report and agrees with it. Electronically signed by: Geetha Ross M.D. Narrative 01/15/2025 7:50 AM RURAL ELECTRIFICATION ENGINEER EXAMINATION: 1 view chest radiograph Procedure Note Geetha Ross MD - 01/15/2025 EXAMINATION: 1 view chest radiograph IMPRESSION: The current study is compared with the prior radiograph dated 01/13/2025 6:25 PM The cardiomediastinal silhouette is stable. There remains slight prominence of the right paratracheal and right hilar region compatible with contusion/hematoma from recent surgery. 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 Interval elevation of the right hemidiaphragm. There is mild right basilar atelectasis, possibly with a small right pleural effusion. Lucency in the medial right lung base may represent a component of small right basilar pneumothorax. There is minimal left basilar atelectasis. The left lung is otherwise clear. No left pleural effusion. No left pneumothorax. Dictated by: Brian Altamirano MD The radiology attending physician has personally reviewed this study, and had reviewed and/or edited this written report and agrees with it. Electronically signed by: Geetha Ross M.D. Jeimy Jones HOMOGENIZER OPERATOR IMG XR PROCEDURES Final Result * (ABNORMAL) eGFR (01/14/2025 8:34 PM RURAL ELECTRIFICATION ENGINEER) [facility] eGFR 42(L) >=60 mL/min/1. 73 m2 Comment: Interpretive Data Reference Interval Normal >/= 90 mL/min/1.73m2 Mildly decreased* 60 - 89 mL/min/1.73m2 Mildly to moderately decreased 45 - 59 mL/min/1.73m2 Moderately to severely decreased 30 - 44 mL/min/1.73m2 Severely decreased 15 - 29 mL/min/1.73m2 Kidney Failure < 15 mL/min/1.73m2 *Relative to young adult level Estimated glomerular filtration rate is determined by the 2020 CKD-EPI equation recommended by the National Kidney Foundation (A Unifying Approach to GFR Estimation: Recommendations of the NKF-ASK Task Force on Reassessing the Inclusion of Race in Diagnosing Kidney Disease, JASN 2020). The CKD-EPI equation should not be used for patients with unstable renal function and has not been validated in children and those over 70. Current interpretive data was last reviewed 2021. Blood 01/14/2025 8:34 PM RURAL ELECTRIFICATION ENGINEER 01/14/2025 8:40 PM RURAL ELECTRIFICATION ENGINEER us Jeimy Jones HOMOGENIZER OPERATOR LAB BLOOD ORDERABLES [facility] Result [facility] Department [place] [address] * (ABNORMAL) CBC without differential (01/14/2025 8:34 PM RURAL ELECTRIFICATION ENGINEER) WBC 9.7 3.8 - 9.9 K/cumm Hgb 9.8(L) 11.9 - 15.5 g/dL [facility] Hct 29.9(L) 35.6 - 45.5 % [facility] Plt 144(L) 150 - 400 K/cumm [facility] MPV 9.4 9.1 - 12.3 fL [facility] RBC 2.95(L) 3.90 - 5.20 M/cumm [facility] MCV 101.4(H) 81.3 - 96.4 fL [facility] MCH 33.2 27.1 - 33.3 pg [facility] MCHC 32.8 32.3 - 35.7 g/dL [facility] RDW CV 14.1 11.1 - 14.9 % [facility] RDW SD 51.8(H) 35.7 - 48.1 fL [facility] NRBC abs 0.00 0.00 - 0.01 K/cumm [facility] Blood 01/14/2025 8:34 PM RURAL ELECTRIFICATION ENGINEER 01/14/2025 8:40 PM RURAL ELECTRIFICATION ENGINEER Jeimy Jones HOMOGENIZER OPERATOR LAB BLOOD ORDERABLES nal Result [facility] One [facility] Department [place] [address] * (ABNORMAL) Basic metabolic panel (01/14/2025 8:34 PM RURAL ELECTRIFICATION ENGINEER) Sodium 133(L) 135 - 145 mmol/L Potassium, pl 4.2 3.3 - 4.9 mmol/L [facility] Chloride 97 97 - 110 mmol/L [facility] CO2 25 22 - 32 mmol/L [facility] Anion gap 11 2 - 15 mmol/L [facility] BUN 21 6 - 25 mg/dL [facility] Creatinine 1.40(H) 0.60 - 1.10 mg/dL [facility] Glucose 141 70 - 199 mg/dL [facility] Comment: Interpretive Data Fasting glucose >/= 126 mg/dl is diagnostic for diabetes. Fasting is defined as no caloric intake for at least 8 hours. Fasting glucose between 100 mg/dl to 125 mg/dl is diagnostic of prediabetes. In a patient with classic symptoms of hyperglycemia or hyperglycemic crisis, a random glucose >/= 200 mg/dl is diagnostic for diabetes. In the absence of unequivocal hyperglycemia, results should be confirmed by repeat testing. The classification and Diagnosis of Diabetes Diabetes Care 2021; 46: S19-S40. Current interpretive data was last revised 2022. Calcium 9.0 8.5 - 10.3 mg/dL [facility] Blood 01/14/2025 8:34 PM RURAL ELECTRIFICATION ENGINEER 01/14/2025 8:40 PM RURAL ELECTRIFICATION ENGINEER Jeimy Jones NP LAB BLOOD ORDERABLES Fi nal Result [facility] One [facility] Department [place] [address] * ECG 12 lead (01/14/2025 11:55 AM RURAL ELECTRIFICATION ENGINEER) Ventricular Rate EKG/Min 85 BPM [facility] Atrial Rate 85 BPM [facility] NE-Interval (MSEC) 178 ms [facility] QRS-Interval (MSEC) 78 ms [facility] QT-Interval (MSEC) 382 ms [facility] QTc 454 ms [facility] P [place] 52 degrees [facility] R [place] 41 degrees [facility] T [place] 35 degrees [facility] Diagnosis Normal sinus rhythm Low voltage QRS Nonspecific ST abnormality Abnormal ECG No previous ECGs available Confirmed by LORENZO REYES M.D ([id number]) on 01/17/2025 7:21:58 PM [facility] 01/14/2025 11:5 5 AM RURAL ELECTRIFICATION ENGINEER 01/17/2025 7:21 PM CDT Jeimy Jones HOMOGENIZER OPERATOR ECG ORDERABLES Final R esult [facility] * eGFR (01/13/2025 8:46 PM RURAL ELECTRIFICATION ENGINEER) eGFR 79 >=60 mL/min/1. 73 m2 Comment: Interpretive Data Reference Interval Normal >/= 90 mL/min/1.73m2 Mildly decreased* 60 - 89 mL/min/1.73m2 Mildly to moderately decreased 45 - 59 mL/min/1.73m2 Moderately to severely decreased 30 - 44 mL/min/1.73m2 Severely decreased 15 - 29 mL/min/1.73m2 Kidney Failure < 15 mL/min/1.73m2 *Relative to young adult level Estimated glomerular filtration rate is determined by the 2020 CKD-EPI equation recommended by the National Kidney Foundation (A Unifying Approach to GFR Estimation: Recommendations of the NKF-ASK Task Force on Reassessing the Inclusion of Race in Diagnosing Kidney Disease, JASN 2020). The CKD-EPI equation should not be used for patients with unstable renal function and has not been validated in children and those over 70. Current interpretive data was last reviewed 2021. Blood 01/13/2025 8:46 PM RURAL ELECTRIFICATION ENGINEER 01/13/2025 8:58 PM RURAL ELECTRIFICATION ENGINEER us Adalberto Ngo MD LAB BLOOD ORDERABLES Final Re sult Performing Organization Address City/[facility]/ZIP Co de Phone Number [facility] Department [place] [address] * (ABNORMAL) CBC without differential (01/13/2025 8:46 PM RURAL ELECTRIFICATION ENGINEER) WBC 8.6 3.8 - 9.9 K/cumm Hgb 10.6(L) 11.9 - 15.5 g/dL [facility] Hct 32.5(L) 35.6 - 45.5 % [facility] Plt 144(L) 150 - 400 K/cumm [facility] MPV 9.4 9.1 - 12.3 fL [facility] RBC 3.23(L) 3.90 - 5.20 M/cumm [facility] MCV 100.6(H) 81.3 - 96.4 fL [facility] MCH 32.8 27.1 - 33.3 pg [facility] MCHC 32.6 32.3 - 35.7 g/dL [facility] RDW CV 14.2 11.1 - 14.9 % [facility] RDW SD 51.8(H) 35.7 - 48.1 fL [facility] NRBC abs 0.00 0.00 - 0.01 K/cumm [facility] Blood 01/13/2025 8:46 PM RURAL ELECTRIFICATION ENGINEER 01/13/2025 8:58 PM RURAL ELECTRIFICATION ENGINEER us Adalberto Ngo MD LAB BLOOD ORDERABLES Final Re sult Performing Organization Address City/[facility]/ZIP Co de Phone Number [facility] Department [place] [address] * Basic metabolic panel (01/13/2025 8:46 PM RURAL ELECTRIFICATION ENGINEER) Sodium 138 135 - 145 mmol/L Potassium, pl 4.3 3.3 - 4.9 mmol/L [facility] Chloride 99 97 - 110 mmol/L [facility] CO2 25 22 - 32 mmol/L [facility] Anion gap 14 2 - 15 mmol/L [facility] BUN 17 6 - 25 mg/dL [facility] Creatinine 0.83 0.60 - 1.10 mg/dL [facility] Glucose 163 70 - 199 mg/dL [facility] Comment: Interpretive Data Fasting glucose >/= 126 mg/dl is diagnostic for diabetes. Fasting is defined as no caloric intake for at least 8 hours. Fasting glucose between 100 mg/dl to 125 mg/dl is diagnostic of prediabetes. In a patient with classic symptoms of hyperglycemia or hyperglycemic crisis, a random glucose >/= 200 mg/dl is diagnostic for diabetes. In the absence of unequivocal hyperglycemia, results should be confirmed by repeat testing. The classification and Diagnosis of Diabetes Diabetes Care 2021; 46: S19-S40. Current interpretive data was last revised 2022. Calcium 9.0 8.5 - 10.3 mg/dL [facility] Blood 01/13/2025 8:46 PM RURAL ELECTRIFICATION ENGINEER 01/13/2025 8:58 PM RURAL ELECTRIFICATION ENGINEER us Adalberto Ngo MD LAB BLOOD ORDERABLES Final Re sult [facility] Department [place] [address] * XR Chest 1 View - in ICU (01/13/2025 6:35 PM RURAL ELECTRIFICATION ENGINEER) Anatomical Region Laterality Modality Body, Chest N/A Digital Radiogra phy 01/14/2025 9:57 AM RURAL ELECTRIFICATION ENGINEER Impressions 01/14/2025 2:16 PM RURAL ELECTRIFICATION ENGINEER Findings of right lower lobectomy. Right chest tube is in place with possible minuscule right apical pneumothorax. No right effusion.Linear scarring in the left lower lobe. No left effusion or pneumothorax. Unchanged cardiomediastinal silhouette. Dictated by: Rita Ellison MD The radiology attending physician has personally reviewed this study, and had reviewed and/or edited this written report and agrees with it. Electronically signed by: Supa Vu M.D. Narrative 01/14/2025 2:16 PM RURAL ELECTRIFICATION ENGINEER EXAMINATION: XR CHEST 1 VIEW HISTORY: postop COMPARISON:CT on 12/30/2024 Procedure Note Supa Vu MD - 01/14/2025 EXAMINATION: XR CHEST 1 VIEW HISTORY: postop COMPARISON:CT on 12/30/2024 IMPRESSION: Findings of right lower lobectomy. Right chest tube is in place with possible minuscule right apical pneumothorax. No right effusion.Linear scarring in the left lower lobe. No left effusion or pneumothorax. Unchanged cardiomediastinal silhouette. Dictated by: Rita Ellison MD The radiology attending physician has personally reviewed this study, and had reviewed and/or edited this written report and agrees with it. Electronically signed by: Supa Vu M.D. us Adalberto Ngo MD IMG XR PROCEDURES Final Resul t * Cytogenetics (01/13/2025 5:02 PM RURAL ELECTRIFICATION ENGINEER) Miscellaneous 01/13/2025 5:0 2 PM RURAL ELECTRIFICATION ENGINEER 01/20/2025 2:09 PM CDT Narrative 01/24/2025 4:35 PM CDT EPIC results best viewed via link to PDF [facility] Department of Pathol [address] [place] [id number] Patient Information Name: AP LAND Gender: F : 1960 (Age: 64) Tissue: FFPE FISH Visit Information Hospital #: [id number] Facility: [facility] Service: [facility] Location: [place] [address] Patient Type: [facility] Inpatient Specimen Information: Culture #: [id number] Date Collected: 01/13/2025 Date Accessioned: 01/21/2025 Date Ordered: 01/20/2025 Physician(s): Adalberto Ngo M.D. Processing: FFPE FISH - lung, right lower lobe Indication: The patient is a 64-year-old woman with history of lung cancer of the right middle lobe. She has new and growing pulmonary nodules in the right lower lobe. Operative procedure: Right lower lobe lobectomy and lymph node sampling Specimen Quality: Adequate FISH: FFPE CLINICAL REPORT PARAFFIN EMBEDDED FISH Fluorescence In-situ hybridization (FISH) Results: Specimen # [id number] POSITIVE - FISH result for IGH gene rearrangement nuc bindu (3'IGHx2~3,5'IGHx2~3)(3'IGH con 5'IGH)x1[35/200]/(3'IGHx1,5'IGHx1~2)(3'IGH con 5'IGH)x0[3/200] Chromosome analysis and Fluorescence In Situ Hybridization (FISH) analysis are performed using the [employer] Imaging System. Comments IGH -BA FISH FISH was performed utilizing Vysis IGH (14q32) Dual Color, Break Apart Rearrangement probe set ([employer], [place], [place]). 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 The above test was developed and its performance characteristics determined by [facility]. It has not been cleared or approved by the FDA. The laboratory is regulated under CLIA as qualified to perform high- complexity testing. This test is used for clinical purposes. It should not be regarded as investigational or for research. Note: The interphase nuclei analyzed in this case were obtained in the area(s) designated on a marked H&E stained slide, provided by the ordering pathologist. Report Electronically Reviewed and Signed Out By Sedrick Reese M.D. Date Reported: 01/24/2025 us Adalberto Ngo MD LAB GENETIC TESTING Final Res ult * Surgical pathology (01/13/2025 2:59 PM RURAL ELECTRIFICATION ENGINEER) Tissue specimen (specimen) (Lymph Node, Single excision) 01/13/2025 2:59 PM RURAL ELECTRIFICATION ENGINEER Tissue specimen (specimen) (Lymph node, dissection/region al resection) 01/13/2025 3:22 PM RURAL ELECTRIFICATION ENGINEER Tissue specimen (specimen) (Lymph node, dissection/region al resection) 01/13/2025 3:26 PM RURAL ELECTRIFICATION ENGINEER Tissue specimen (specimen) (Lymph Node, Single excision) 01/13/2025 3:27 PM RURAL ELECTRIFICATION ENGINEER Tissue specimen (specimen) (Lymph Node, Single excision) 01/13/2025 3:30 PM RURAL ELECTRIFICATION ENGINEER Tissue specimen (specimen) (Lymph Node, Single excision) 01/13/2025 3:43 PM RURAL ELECTRIFICATION ENGINEER Tissue specimen (specimen) (Lymph Node, Single excision) 01/13/2025 3:58 PM RURAL ELECTRIFICATION ENGINEER Tissue specimen (specimen) (Lymph Node, Single excision) 01/13/2025 4:41 PM RURAL ELECTRIFICATION ENGINEER Tissue specimen (specimen) (Lung, total / lobe / segmental, tumor) 01/13/2025 5:02 PM RURAL ELECTRIFICATION ENGINEER Narrative PATHOLOGY [facility] - 01/24/2025 5:24 PM CDT EPIC results best viewed via link to PDF [facility] of [place] [address] Note to Patients: This report may contain a detailed description of human tissue sent by a health care provider to the laboratory for pathologic evaluation. The content of this report is essential for diagnosis and may provide important critical findings. This information may be unfamiliar to patients to review without a medical professional present. It is advised that the patient review this report in the presence of a health care provider who can answer questions and explain the details. SURGICAL PATHOLOGY REPORT FINAL WITH ADDENDUM Patient Name: AP LAND Gender: F : 1960 (Age: 64) Address: [address] [place] [id number] Hospital #: [id number] Taken:01/13/2025 Received:01/14/2025 Reported: 01/24/2025 Patient Type: [facility] Inpatient Service: Cardiothoracic Location: [place] [address] Physician(s): Adalberto F. Ngo, M.D. MD Adalberto Turcios M.D. Diagnosis: A. Lymph node, level 9, dissection - No evidence of malignancy in three lymph nodes (0/3) B. Lymph node, level 7 bundle, dissection - No evidence of malignancy in six lymph nodes (0/6) C. Lymph node, level 10 bundle, dissection - No evidence of malignancy in two lymph nodes (0/2) D. Lymph node, level 11, excision - No evidence of malignancy in one lymph node (0/1) E. Lymph node, level 11B, excision - Benign fragment of blood and fibrin - No evidence of malignancy F. Lymph node, level 4R, excision - No evidence of malignancy in one lymph node (0/1) - Hyalinized granuloma G. Lymph node, level 11C, excision - No evidence of malignancy in one lymph node (0/1) H. Lymph node, level 12, excision - No evidence of malignancy in two lymph nodes (0/2) - Hyalinized granuloma I. Lung, right lower lobe, lobectomy (IFR1- IFR2) - Findings most consistent with low grade B-cell lymphoma (see comment) - No evidence of malignancy in four lymph nodes (0/4) - No evidence of carcinoma 01/18/2025 15:47 By this signature, I attest that the above diagnosis is based upon my personal examination of the slides(and/or other material indicated in the diagnosis). Clifford Samson M.D. Report Electronically Reviewed and Signed Out By Clifford Samson M.D. 01/24/2025 17:23:59 Diagnosis Comment Sections of the lung show an atypical lymphoid infiltrate with B-cell predominance. Studies for B-cell clonality (IGH-BA by FISH ) are positive for IGH gene rearrangement. 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 The surgical pathology part was reviewed by Dr Osman Main, who agrees with the above interpretation. Intraoperative Consultation: Frozen Section Diagnosis IFR1..IFR2: Right lower lobe - Lymphoid aggregates with giant cells favor granuloma - No evidence of malignancy By Liana Yin M.D. Gross Consultation I: Right lower lobe Received fresh for intraoperative consult is a 215 g lung lobe measuring 19 x 12 x 2 cm. Palpation reveals three possible nodules. Surface of the two largest nodules were inked blue. Two nodules measures 1.1 x 1 cm and 0.6 x 0.4 cm. The 3rd nodule was calcified. Representatively submitted per surgeon's request as IFR1- largest nodule, rep, IFR2- smaller nodule. By Liana Yin M.D. Microscopic Description and Comment: Microscopic examination substantiates the above cited diagnosis. Permanent sections confirm the frozen section diagnosis. Histology: Hematoxylin and eosin sections show lung parenchyma with an ill-defined lymphoid proliferation with vaguely nodular morphology, comprised of a small to medium sized mature appearing lymphocytes and plasma cells, in a background of fibrosis. There is no evidence of necrosis, apoptosis, or overt large cells. An intraparenchymal lymph node (I10) appears histologically unremarkable with scattered follicles and normal intrafollicular T-cell zone. There are no large cells, apoptosis, or necrosis. Immunohistochemistry: Immunohistochemical stains (with appropriate controls) were performed on block I5 to further characterize the parenchymal lymphoid infiltrate, and assess the cellularity. CD19, CD20, and PAX5 highlights B-cell predominance within the infiltrate with no aberrant co-expression of BCL-2 or CD43 in the B-cells. CD21 and CD23 highlight expanded follicular dendritic cell meshwworks. CD138 is positive in scattered plasma cells that are polytypic by kappa and lambda BINDU studies (kappa:lambda ratio of 1:1). CD3, CD5, CD43, and BCL-2 all highlight admixed small, mature T-cells. Cyclin D1, CD10 and BCL6 are negative. Total IgG4/IgG ratio is not increased. Additional immunohistochemical stains (with appropriate controls) were performed on I10 to further characterize the intraparenchymal lymph node and shows a normal immunophenotype. CD20 highlights scattered unremarkable follicles. CD3, CD43 and BCL2 are co- expressed in interfollicular small T-cells. Fluorescence in-situ hybridization: Ancillary fluorescence in-situ hybridization (FISH) testing for IGH- BA was performed and is positive for IGH gene rearrangement. Liana Junior M.D., PhD History: The patient is a 64-year-old woman with history of lung cancer of the right middle lobe. She has a new and growing pulmonary nodules in the right lower lobe. Operative procedure: Right lower lobe lobectomy and lymph node sampling Specimen(s) Received: A: Level 9 lymph node B: Level 7 sub carinal lymph node bundle C: Level 10 lymph node bundle D: Level 11 lymph node E: Level 11 b lymph node F: 4 r level G: Level 11 c H: Level 12 lymph node I: Right lower lobe Gross Description: Received in nine formalin jars labeled with the patient's identifiers. A. Labeled level 9 Lymph node is a 1.6 x 0.4 x 0.2 cm pink-red lymph node entirely submitted within A1. Jar 0. B. Labeled level 7 Subcarinal lymph node bundle is a hutchins-brown lymph node bundle that measures 4.2 x 2.3 x 0.6 cm. On palpation, five putative lymph nodes are identified that range from 0.3-.6 cm. Bundled fragments are submitted between B1-B3. Jar 0 C. Labeled level 10 Lymph node bundle is a 1.8 x 1.0 x 0.2 cm pink-dark brown fragment of tissue. One putative lymph node is identified that measures 0.6 x 0.2 cm. The tissue is submitted entirely within C1. Jar 0 D. Labeled level 11 lymph node are two fragments of tissue that range from 0.5- 0.6 cm. One hutchins-chamberlain lymph node is identified that measures 0.5 x 0.3 x 0.1 cm. Both fragments are submitted entirely within D1. Jar 0 E. Labeled level 11 B lymph node is a scant fragment of black tissue that measures 0.4 x 0.2 by less than 0.1 cm. Entirely submitted within E1. Jar 0 F. Labeled 4R level is a fragmented fibrofatty tissue that ranges 2.5 x 1.3 x 1.1 cm in aggregate. Three putative lymph node fragments are identified that range from 0.6-1.2 cm. Entirely submitted within F1. Jar 1 G. Labeled level 11 C is a 0.5 x 0.3 x 0.2 cm hutchins-black lymph node periods entirely submitted within G1. Jar 0 H. Labeled level 12 Lymph node is a 0.6 x 0.5 x 0.3 cm hutchins-black lymph node. Entirely submitted within H1. Jar 0. I. Labeled right lower lobe is a previously described, measured, and sampled lung lobe. The visceral pleura is pink-chamberlain/dark brown/blue, smooth and glistening. There are three black silk sutures outlining the areas of concern, with blue ink corresponding the two largest nodules. There is a Y shaped bronchial vascular margin, that measures greater than 4 cm in length, that is carefully removed. Adjacent, is a 5.2 cm linear parenchymal staple margin (inked black). After removing the hilar margin, one putative lymph node is identified that measures 0.3 x 0.2 cm. Sectioning through lung reveals three nodules. The first is the largest well-circumscribed nodule is white-pink, previously measured as 1.1 x 1.0 x 0.5 cm. It is located greater than 4.2 cm away from bronchovascular margin, greater than 5.0 cm away from parenchymal margin. The second nodule that is previously measured as 0.6 x 0.4 x 0.1 cm is identified, and is located roughly 8.5 cm away from nodule 1, and is located at least 7.0 cm away from bronchovascular margin and at least 5 cm away from parenchymal margin. The third nodule is identified and measures 0.4 x 0.3 x 0.2 cm and is calcified. The third nodule is in between nodules one and two, and is located at least 5.5 cm away from bronchial vascular margin and 4 cm away from parenchymal margin. Additional intrapulmonary lymph nodes are identified that range from 0.5-0.8 cm. The rest of the lung parenchyma is red-brown and unremarkable. Also within the container are two frozen section cassettes labeled a IFR1-IFR2. I1 IFR1 frozen section remnant of largest nodule I2 IFR2 frozen section remnant of smaller nodule I3 Bronchovascular margin, shaved I4 Putative hilar lymph node I5-I6 Largest nodule (#1), entirely submitted I7 Second nodule (#2), entirely submitted I8 Third calcified nodule (#3), entirely submitted after decalcification I I9-I10 Intrapulmonary lymph nodes (I9-two lymph nodes, I10-one lymph node) I11 Uninvolved lung parenchyma Jar 2. juro/01/14/2025 15:25 Gross Resident:Rita Mcbride D.O. By this signature, I attest that the above diagnosis is based upon my personal examination of the slides(and/or other material). Rafael Lund M.D. Addenda/Procedures Addendum Ordered:3/18/2025Status:Signed OutAddendum Complete:01/25/2025y:Salvador Marx MDAddendum Signed Out:01/25/2025 Addendum Diagnosis A digital scan of the original reference lab report will begin on page two of this addendum. By this signature, I attest that the above diagnosis is based upon my personal examination of the slides(and/or other material indicated in the diagnosis). Salvador Marx MDReport Electronically Reviewed and Signed Out By Salvador Marx MD 01/25/2025 21:36:05 The performance characteristics of some immunohistochemical stains, fluorescence in-situ hybridization tests and immunophenotyping by flow cytometry cited in this report (if any) were determined by the Surgical Pathology and Flow Cytometry Departments at [facility] as part of an ongoing quality control tech program and in compliance with federally mandated regulations drawn from the Clinical Laboratory Improvement Act of 1988 (CLIA '88). Some of these tests rely on the use of analyte specific reagents and are subject to specific labeling requirements by the US Food and Drug Administration. Such diagnostic tests may only be performed in a facility that is certified by the Department of Health and Human Services as a high complexity laboratory under CLIA '88. The FDA has determined that such clearance or approval is not necessary. This test is used for clinical purposes. It should not be regarded as investigational or for research. Nevertheless, federal rules concerning the medical use of analyte specific reagents require that the following disclaimer be attached to the report: This test was developed and its performance characteristics determined by the Surgical Pathology and Flow Cytometry Departments of [facility]. It has not been cleared or approved by the U. S. Food and Drug Administration. IMAGES AND SCANNED DOCUMENTS, IF INCLUDED, ONLY VIEWABLE IN PDF VERSION OF REPORT us Adalberto Ngo MD LAB PATHOLOGY ORDERABLES Salma roy Result PATHOLOGY [facility] 3rd Floor [place], [place] [phone] * Peripheral IV Catheter (01/13/2025 2:28 PM RURAL ELECTRIFICATION ENGINEER) Narrative Monie Segura MD - 01/13/2025 2:28 PM RURAL ELECTRIFICATION ENGINEER Monie Segura MD 01/13/2025 2:39 PM Peripheral IV Catheter Patient location: OR Staff: Supervising provider: Kelsie Padilla MD Placed by: Resident: Monie Segura MD Preprocedure prep: Prep solution: alcohol PPE: gloves and provider hat/mask PIV line: Laterality: right Site: hand Catheter size: 18 g Technique: direct visualization and palpatation Number of attempts: 1 Assessment: Events: patient tolerated procedure well with no complications us Monie Nagel MD ANESTHESIA ORDERABLES Final Result * Airway (01/13/2025 2:25 PM RURAL ELECTRIFICATION ENGINEER) Narrative Monie Segura MD - 01/13/2025 2:25 PM RURAL ELECTRIFICATION ENGINEER Monie Segura MD 01/13/2025 2:37 PM Airway Patient location: OR Urgency: elective Indications for airway management: anesthesia Difficult airway: no Staff: Supervising provider: Kelsie Padilla MD Placed by: Resident: Monie Segura MD Emergent airway documentation: Risks and benefits discussed: yes Consent obtained: yes Consent given by: patient Airway prep: Preoxygenated: yes Patient position: sniffing Mask difficulty assessment: 1 - vent by mask Sedation level during airway: GA Final airway details: Final airway type: endotracheal airway Tube type: ETT - double lumen left ETT double lumen: 35 fr Technique used for successful ETT placement: video laryngoscopy Devices/Methods used in placement: stylet Insertion site: oral Blade type: Karla Video blade type: Davies Blade size: 3 Cormack-Lehane (video): grade I - full view of glottis Placement verified by: auscultation and CO2 detection Airway secured with: silk tape Number of attempts: 1 Planned trial extubation: yes us Monie Nagel MD ANESTHESIA ORDERABLES Final Result * Check Sample (01/13/2025 1:37 PM RURAL ELECTRIFICATION ENGINEER) ABO Rh A Negative [facility] OTHER 01/13/2025 1:37 PM RURAL ELECTRIFICATION ENGINEER 01/13/2025 1:47 PM RURAL ELECTRIFICATION ENGINEER us Adalberto Ngo MD LAB BLOOD ORDERABLES Final Re sult MICHELLE [facility] One [facility] Department [place] [address] [facility] * CT chest without contrast (12/30/2024 9:01 AM RURAL ELECTRIFICATION ENGINEER) Anatomical Region Laterality Modality Body N/A Computed Tomogra phy 12/30/2024 9:29 AM RURAL ELECTRIFICATION ENGINEER Impressions 12/30/2024 9:47 AM RURAL ELECTRIFICATION ENGINEER 1. Unchanged spiculated microlobulated 1.1 cm right lower lobe nodule, which was hypermetabolic on the prior PET/CT and is suspicious for malignancy. 2. Additional 0.5 cm right lower lobe nodule is also unchanged compared to 10/27/2024 but is new compared to 2020. Dictated by: Marco A Acharya MD The radiology attending physician has personally reviewed this study, and had reviewed and/or edited this written report and agrees with it. Electronically signed by: Wood Whatley M.D. 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 Right lower lobe pulmonary nodule seen on prior imaging. TECHNIQUE: Transaxial computed tomographic images of the chest were obtained without intravenous contrast according to the standard protocol. COMPARISON: PET/CT 10/27/2024 FINDINGS: Spiculated and microlobulated 1.1 cm right lower lobe nodule, unchanged in size compared to 10/27/2024. This nodule was hypermetabolic on the prior PET/CT. 0.7 cm right lower lobe ground glass nodule located more peripherally to the previously mentioned nodule, stable in size dating back to 2016 and likely benign (series 4, image 74). 0.5 cm right lower lobe solid nodule, stable in size to 10/27/2024 but which appears new compared to 2020 (series 4, image 111). No suspicious left-sided pulmonary nodule. No pleural effusion. No pneumothorax. Normal heart size. Coronary artery calcifications. No pericardial effusion. The supraclavicular, axillary, or mediastinal lymphadenopathy. 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 No suspicious osseous lesion. Degenerative disc disease. Mild anterior wedging of lower thoracic vertebral body, unchanged. Procedure Note Wood Whatley MD - 12/30/2024 EXAMINATION: Computed tomography of the chest without intravenous contrast HISTORY: History of right middle lobe adenocarcinoma status post right middle lobectomy in 2015. Right lower lobe pulmonary nodule seen on prior imaging. TECHNIQUE: Transaxial computed tomographic images of the chest were obtained without intravenous contrast according to the standard protocol. COMPARISON: PET/CT 10/27/2024 FINDINGS: Spiculated and microlobulated 1.1 cm right lower lobe nodule, unchanged in size compared to 10/27/2024. This nodule was hypermetabolic on the prior PET/CT. 0.7 cm right lower lobe ground glass nodule located more peripherally to the previously mentioned nodule, stable in size dating back to 2015 and likely benign (series 4, image 74). 0.5 cm right lower lobe solid nodule, stable in size to 10/27/2024 but which appears new compared to 2020 (series 4, image 111). No suspicious left-sided pulmonary nodule. No pleural effusion. No pneumothorax. Normal heart size. Coronary artery calcifications. No pericardial effusion. The supraclavicular, axillary, or mediastinal lymphadenopathy. 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 No suspicious osseous lesion. Degenerative disc disease. Mild anterior wedging of lower thoracic vertebral body, unchanged. IMPRESSION: 1. Unchanged spiculated microlobulated 1.1 cm right lower lobe nodule, which was hypermetabolic on the prior PET/CT and is suspicious for malignancy. 2. Additional 0.5 cm right lower lobe nodule is also unchanged compared to 10/27/2024 but is new compared to 2020. Dictated by: Marco A Acharya MD The radiology attending physician has personally reviewed this study, and had reviewed and/or edited this written report and agrees with it. Electronically signed by: Wood Whatley M.D. us Lukas Francis HOMOGENIZER OPERATOR IMG CT PROCEDURES Final Res ult * TYPE AND SCREEN 14 DAY (12/30/2024 8:47 AM RURAL ELECTRIFICATION ENGINEER) ABO Rh A Negative Zohra, indirect Negative [facility] Blood 12/30/2024 8:47 AM RURAL ELECTRIFICATION ENGINEER 12/30/2024 11:57 AM RURAL ELECTRIFICATION ENGINEER Narrative MICHELLE GURROLA - 12/30/2024 12:49 PM RURAL ELECTRIFICATION ENGINEER Has the patient had Daratumumab or Isatuximab in the past 6 months?->Unknown Is this test being ordered in advance for a procedure?->Yes Expected date of procedure:->01/04/25 Has the patient been transfused in the past 3 months?->No Has the patient been in the past 3 months?->No Cathy Jerez HOMOGENIZER OPERATOR LAB BLOOD BANK TEST ORDER AMANDA Final Result [facility] One [facility] Department [place] [address] * eGFR (12/30/2024 8:47 AM RURAL ELECTRIFICATION ENGINEER) eGFR 79 >=60 mL/min/1. 73 m2 Comment: Interpretive Data Reference Interval Normal >/= 90 mL/min/1.73m2 Mildly decreased* 60 - 89 mL/min/1.73m2 Mildly to moderately decreased 45 - 59 mL/min/1.73m2 Moderately to severely decreased 30 - 44 mL/min/1.73m2 Severely decreased 15 - 29 mL/min/1.73m2 Kidney Failure < 15 mL/min/1.73m2 *Relative to young adult level Estimated glomerular filtration rate is determined by the 2020 CKD-EPI equation recommended by the National Kidney Foundation (A Unifying Approach to GFR Estimation: Recommendations of the NKF-ASK Task Force on Reassessing the Inclusion of Race in Diagnosing Kidney Disease, JASN 2020). The CKD-EPI equation should not be used for patients with unstable renal function and has not been validated in children and those over 70. Current interpretive data was last reviewed 2021. Blood 12/30/2024 8:47 AM RURAL ELECTRIFICATION ENGINEER 12/30/2024 12:11 PM RURAL ELECTRIFICATION ENGINEER Cathy Jerez HOMOGENIZER OPERATOR LAB BLOOD ORDERABLES Salma l Result Performing Organization Address [facility]/ZIP Co de Phone Number [facility] Department of [place] [address] * (ABNORMAL) CBC without differential (12/30/2024 8:47 AM RURAL ELECTRIFICATION ENGINEER) [facility] WBC 6.1 3.8 - 9.9 K/cumm Hgb 11.4(L) 11.9 - 15.5 g/dL [facility] Hct 35.1(L) 35.6 - 45.5 % [facility] Plt 158 150 - 400 K/cumm [facility] MPV 9.6 9.1 - 12.3 fL [facility] RBC 3.45(L) 3.90 - 5.20 M/cumm [facility] MCV 101.7(H) 81.3 - 96.4 fL [facility] MCH 33.0 27.1 - 33.3 pg [facility] MCHC 32.5 32.3 - 35.7 g/dL [facility] RDW CV 14.4 11.1 - 14.9 % [facility] RDW SD 53.6(H) 35.7 - 48.1 fL [facility] NRBC abs 0.00 0.00 - 0.01 K/cumm [facility] Blood 12/30/2024 8:47 AM RURAL ELECTRIFICATION ENGINEER 12/30/2024 11:54 AM RURAL ELECTRIFICATION ENGINEER Cathy Jerez HOMOGENIZER OPERATOR LAB BLOOD ORDERABLES Salma l Result Performing Organization Address City/[facility]/ZIP Co de Phone Number [facility] of [place] [address] * Basic metabolic panel (12/30/2024 8:47 AM RURAL ELECTRIFICATION ENGINEER) Pathologist [facility] Sodium 141 135 - 145 mmol/L Potassium, pl 4.2 3.3 - 4.9 mmol/L [facility] Chloride 102 97 - 110 mmol/L [facility] CO2 27 22 - 32 mmol/L [facility] Anion gap 12 2 - 15 mmol/L [facility] BUN 19 6 - 25 mg/dL [facility] Creatinine 0.83 0.60 - 1.10 mg/dL [facility] Glucose 104 70 - 199 mg/dL [facility] Comment: Interpretive Data Fasting glucose >/= 126 mg/dl is diagnostic for diabetes. Fasting is defined as no caloric intake for at least 8 hours. Fasting glucose between 100 mg/dl to 125 mg/dl is diagnostic of prediabetes. In a patient with classic symptoms of hyperglycemia or hyperglycemic crisis, a random glucose >/= 200 mg/dl is diagnostic for diabetes. In the absence of unequivocal hyperglycemia, results should be confirmed by repeat testing. The classification and Diagnosis of Diabetes Diabetes Care 202; 46: S19-S40. Current interpretive data was last revised 2022. Calcium 10.0 8.5 - 10.3 mg/dL [facility] Blood 12/30/2024 8:47 AM RURAL ELECTRIFICATION ENGINEER 12/30/2024 11:55 AM RURAL ELECTRIFICATION ENGINEER Cathy Jerez NP LAB BLOOD ORDERABLES Salma roy Result [facility] Department [place] [address] from Last 3 Months Insurance [facility] Address: 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 Expl anation ADVANCE DIRECTIVE 01/13/2025 1:36 PM Power of Stretcher Helper-Medical * Full Code (Latest Code Status on File) Date Activated Date Inactivated Comments 01/13/2025 8:21 PM 01/17/2025 5:31 PM Healthcare Agents on File Name Relationship Healthcare Agent [facility] Communication Chanel Land Daughter Health Care Agent Care Teams Software Support Specialist Relationship Specialty Start Date End Date Chino Mora MD PCP - General Family Practice 01/02/21 Kameron Jeff MD [address] [place] [address] Medical Oncologist/Cleaner Industrial Medical Oncology 01/02/21 Kameron Jeff MD [address] DIV IM MEDICAL ONCOLOGY, [address] [place] [address] Medical Oncologist/Cleaner Industrial Medical Oncology 04/28/24 Constantin Kumar MD [address] [place] [address] Medical Oncologist/Cleaner Industrial Medical Oncology 02/01/25
--- OUTSIDE RECORDS SUMMARY | 2025-02-21 11:50 | XMS_ITS | Encounter Summary ---
Author Organization [facility] Address [address] [place] [address] Phone Care Team Providers Care Auto Vinyl Top Installer Name Role Phone Chino Mora MD Primary Care Provider Kameron Jeff MD Unavailable Kameron Jeff MD Unavailable [phone] Constantin Kumar MD Unavailable [phone] Encounter Details Date Type Department Care Team (Latest Contact Info) Description 09/29/2024 Orders Only [facility] Scanning, Provider Social History Tobacco Use Types Packs/Day Years Used Date Smoking Tobacco: Former Passive Smoke Exposure: Past Smokeless Tobacco: Never Alcohol Use Standard Drinks/Week Comments Yes 0 (1 standard drink = 0.6 oz pur e alcohol) Comments Unknown Sex and Gender Information Value Date Recorded Sex Assigned at Not on file Legal Sex Female 11:57 PM 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 Gender Identity Not on file Sexual Orientation Not on file documented as of this encounter Plan of Treatment Not on file documented as of this encounter Procedures Procedure Name Priority Date/Time Associated Diagnosis Comments SCAN - RADIOLOGY/IMAGING 09/29/2024 documented in this encounter Results * SCAN - RADIOLOGY/IMAGING (09/29/2024) Anatomical Region Laterality Modality Other us Provider Scanning Final Result documented in this encounter Visit Diagnoses Not on filedocumented in this encounter Care Teams Auto Vinyl Top Installer Relationship Specialty Start Date End Date Chino Mora MD PCP - General Family Practice 01/02/21 Kameron Jeff MD [address] [place] [address] Medical Oncologist/Obstetrics/Gynecology Nurse Medical Oncology 01/02/21 Kameron Jeff MD [email or web address] DIV IM MEDICAL ONCOLOGY, [address] [place] [address] Medical Oncologist/Obstetrics/Gynecology Nurse Medical Oncology 04/28/24 Constantin Kumar MD [email or web address] [place] [address] Medical Oncologist/Obstetrics/Gynecology Nurse Medical Oncology 02/01/25 documented as of this encounter
--- OUTSIDE RECORDS SUMMARY | 2025-02-21 11:50 | XMS_ITS | Clinical Summary ---
Author Organization [facility] Address [address] [place] [address] Care Team Providers Care Biodiesel Process Control Technician Name Role Phone Chino Mora MD Primary Care Provider Kameron Jeff MD Unavailable Kameron Jeff MD Unavailable Constantin Kumar MD Unavailable [phone] Allergies Active Allergy Reactions Criticality Noted Date Comments Penicillins Hives Medium 07/01/2015 Medications losartan (COZAAR) 100 mg tabletIndication s:hypertension Take 1 tablet (100 mg total) by mouth every morning 0 01/27/20 19 Active bimatoprost (LUMIGAN) 0.03 % ophthalmic dropsIndications :ocular hypertension Administer 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 eyes every morning Active Combigan 0.2-0.5 % ophthalmic solutionIndicati ons:ocular hypertension Administer 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 eyes monkey breeder before breakfast 06/25/20 20 Active hydroCHLOROthiaz kaden [...] (02/09/2019 12:19 PM CDT): DR Rivero in [facility] evaluating Vitreous syneresis of both eyes 02/09/2019 [...] 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 Histoplasmosis 10/13/2015 12/06/2024 Encounters Date Type Department Care Team Description 02/16/2025 1:00 PM CDT Office Visit [facility] Oncology [address] [place] [address] 6 [place] [address] Constantin Kumar MD Extranodal marginal zone B-cell lymphoma (Primary Dx); Lymphoma involving lung (HCC); Anemia, unspecified type 02/16/2025 12:30 PM CDT Lab [facility] - Lab Collection [address] [place] [address] Floor 6 [place] [address] Extranodal marginal zone B-cell lymphoma 02/16/2025 12:00 PM CDT Lab [facility] Oncology Lab [address] [place] [address] 6 [place] [address] Arrived 02/01/2025 11:00 AM CDT Office Visit [facility] Surgery [address] [place] [address] Floor 5 [place] [address] Adalberto Ngo MD Lymphoma involving lung (HCC) (Primary Dx) 01/14/2025 Orders Only [facility] Surgery [address] [place] [address] 5 [place] [address] Adalberto Ngo MD Lung nodule (Primary Dx) 01/13/2025 1:53 PM ROBOTIC WELD TECHNICIAN Anesthesia Event [facility] Operating Room [address] [place] [address] Halima Olson MD Montgomery, Andrea J., NP 01/13/2025 1:05 PM ROBOTIC WELD TECHNICIAN - 01/13/2025 6:15 PM ROBOTIC WELD TECHNICIAN Surgery [facility] Operating Room [address] [place] [address] Adalberto Ngo MD XI ROBOTIC LOBECTOMY RIGHT LOWER LOBE 01/13/2025 9:56 AM ROBOTIC WELD TECHNICIAN - 01/17/2025 1:31 PM CDT Hospital Encounter [facility] [address] [place] [address] Adalberto Ngo MD Lung nodule Discharge Disposition: Discharge to home or self care 01/12/2025 Telephone [facility] Surgery [address] [facility] 5 [place] [address] Lukas Francis NP 12/30/2024 8:30 AM ROBOTIC WELD TECHNICIAN Lab [facility] [address] [facility] [address] [place] [address] Preoperative testing 12/30/2024 8:01 AM ROBOTIC WELD TECHNICIAN - 12/30/2024 11:59 PM ROBOTIC WELD TECHNICIAN Hospital Encounter [facility] Radiology at [facility] [address] [place] [address] Lung nodule Discharge Disposition: Discharge to home or self care 12/30/2024 8:00 AM ROBOTIC WELD TECHNICIAN Pre-Admission Testing [facility] Pre Anesthesia Testing [address] [place] [address] Preoperative testing (Primary Dx) 12/30/2024 Orders Only [facility] Surgery [address] [place] [phone] Lukas Francis, REMI Gingivitis (Primary Dx) 12/10/2024 Telephone [facility] Oncology [address] [place] [phone] Leatha Ferro RN 12/06/2024 9:30 AM ROBOTIC WELD TECHNICIAN Office Visit [facility] Surgery [address] [place] [phone] Adalberto Ngo MD Malignant neoplasm of middle lobe of right lung (HCC) (Primary Dx); Lung nodule; Primary cancer of right middle lobe of lung (HCC) 12/06/2024 Orders Only [facility] Surgery [address] [place] [address] 5 [place] [address] Lukas Francis NP Lung nodule (Primary Dx) from Last 3 Months Immunizations Immunization Administration Dates Next Due Influenza, Quadrivalent, Spl it, Intramuscular 09/16/2019 Influenza, Quadrivalent, Spl it, Preservative Free, Intramuscular 07/03/2020,09/16/2019,09/13/2018,09/12 Tdap 05/03/2020 Surgical History Surgery Date Site/Laterality Comments ANKLE SURGERY Right Broken/shattered right ankle, now with hardware s/p surgical repair LUNG SURGERY 11/10/2014 - 11/09/2015 Right R middle lobectomy BRONCHOSCOPY 11/10/2014 - 11/09/2015 HYSTERECTOMY SINUS SURGERY SECTION x2 Medical History Medical History Date Comments Hypertension Histoplasmosis 10/13/2015 Malignant neoplasm of middle lobe of right lung (HCC) 10/13/2015 Glaucoma Family History Medical History Relation Name Comments Brain tumor Brother 1 Family history of malignant neoplasm of brain - (Added by TW Conv) Glaucoma Brother 1 Lung cancer Brother 1 No Known Problems Brother 2 brain tumor Brother 3 Alzheimer's disease Father Glaucoma Father Heart disease Father altzheimers Father glaucoma Father Hypertension Mother brain tumor Mother Macular degeneration Mother's Sister Glaucoma Sister heart issues Sister Relation Name Status Comments Brother 1 Brother 2 Alive Brother 3 Alive Father Mother Alive Mother's Sister Sister Alive Social History Tobacco Use Types Packs/Day Years [...] on file Legal Sex Female 11:57 PM ROBOTIC WELD TECHNICIAN Gender Identity Not on file Sexual Orientation Not on file Obstetrics History Last Filed Vital Signs Vital Sign Reading [...] Height 152.4 cm (5') 01/13/2025 8:25 PM ROBOTIC WELD TECHNICIAN Body Mass Index 24.57 01/13/2025 8:25 PM ROBOTIC WELD TECHNICIAN Plan of Treatment Health Maintenance Due Date Last Done Comments Breast Cancer Screening-Mammogram 1961 Colon Cancer Screening-Colonoscopy 1961 Depression Screening 1961 Regular Well Visit/Exam 18-64 1979 Pneumococcal vaccine <65 (1 of 2 - PCV) 1980 Zoster Vaccine (1 of 2) 1980 Influenza Vaccine (Season Ended) 2025 07/03/2020, 09/16/2019, 09/16/2019, Additional history exists DTaP/Tdap/Td Vaccine (2 - Td or Tdap) 05/03/2030 05/03/2020 Hepatitis B Screening Completed 02/16/2025 Hepatitis C Screening Completed 02/16/2025 Procedures Procedure Name Priority Date/Time Associated Diagnosis [...] AM CDT EGFR Timed 01/15/2025 11:18 PM ROBOTIC WELD TECHNICIAN BASIC METABOLIC PANEL Timed 01/15/2025 11:18 PM ROBOTIC WELD TECHNICIAN SODIUM, URINE, RANDOM Routine 01/15/2025 9:10 PM ROBOTIC WELD TECHNICIAN OSMOLALITY, BLOOD Timed 01/15/2025 9:0 9 PM ROBOTIC WELD TECHNICIAN PEP THERAPY Routine 01/15/2025 8:00 PM ROBOTIC WELD TECHNICIAN URINALYSIS, MICROSCOPIC ONLY Routine 01/15/2025 6:55 PM ROBOTIC WELD TECHNICIAN URINALYSIS AND REFLEX TO MICROSCOPIC AND CULTURE Routine 01/15/2025 6:55 PM ROBOTIC WELD TECHNICIAN EGFR Timed 01/15/2025 6:28 PM ROBOTIC WELD TECHNICIAN PHOSPHORUS Timed 01/15/2025 6:28 PM ROBOTIC WELD TECHNICIAN MAGNESIUM Timed 01/15/2025 6:28 PM ROBOTIC WELD TECHNICIAN BASIC METABOLIC PANEL Timed 01/15/2025 6:28 PM ROBOTIC WELD TECHNICIAN CBC WITHOUT DIFFERENTIAL Timed 01/15/2025 6:28 PM ROBOTIC WELD TECHNICIAN XR CHEST PA LATERAL 2 VIEWS Timed 01/15/2025 4:29 PM ROBOTIC WELD TECHNICIAN PEP THERAPY Routine 01/15/2025 3:39 PM ROBOTIC WELD TECHNICIAN PEP THERAPY Routine 01/15/2025 3:39 PM ROBOTIC WELD TECHNICIAN PEP THERAPY Routine 01/15/2025 3:39 PM ROBOTIC WELD TECHNICIAN RESPIRATORY PATHOGEN PANEL Routine 01/15/2025 1:18 PM ROBOTIC WELD TECHNICIAN CHEST PHYSIO THERAPY Routine 01/15/2025 11:01 AM ROBOTIC WELD TECHNICIAN XR CHEST 1 VIEW IP Routine 01/15/2025 5:07 AM ROBOTIC WELD TECHNICIAN EGFR Routine 01/14/2025 8:34 PM ROBOTIC WELD TECHNICIAN CBC WITHOUT DIFFERENTIAL Routine 01/14/2025 8:34 PM ROBOTIC WELD TECHNICIAN BASIC METABOLIC PANEL Routine 01/14/2025 8:34 PM ROBOTIC WELD TECHNICIAN ECG 12-LEAD Routine 01/14/2025 11:55 AM ROBOTIC WELD TECHNICIAN EGFR Timed 01/13/2025 8:46 PM ROBOTIC WELD TECHNICIAN BASIC METABOLIC PANEL Timed 01/13/2025 8:46 PM ROBOTIC WELD TECHNICIAN CBC WITHOUT DIFFERENTIAL Timed 01/13/2025 8:46 PM ROBOTIC WELD TECHNICIAN XR CHEST 1 VIEW ED Urgent/IP Urgent 01/13/2025 6:35 PM ROBOTIC WELD TECHNICIAN CYTOGENETICS Routine 01/13/2025 5:02 PM ROBOTIC WELD TECHNICIAN SURGICAL PATHOLOGY Routine 01/13/2025 2: 59 PM ROBOTIC WELD TECHNICIAN Lung nodule PERIPHERAL LINE Routine 01/13/2025 2:28 PM ROBOTIC WELD TECHNICIAN ANESTHESIA INTUBATION Routine 01/13/2025 2:25 PM ROBOTIC WELD TECHNICIAN XI ROBOTIC LOBECTOMY 01/13/2025 1:55 PM ROBOTIC WELD TECHNICIAN Lung nodule B CHECK SAMPLE STAT 01/13/2025 1:[address] CHEST WO CONTRAST Schedule PURA, Read PURA (Appt Today, Awaiting Results) 12/30/2024 9:01 AM ROBOTIC WELD TECHNICIAN Lung nodule EGFR Routine 12/30/2024 8:47 AM ROBOTIC WELD TECHNICIAN Preoperative testing BASIC METABOLIC PANEL Routine 12/30/2024 8:47 AM ROBOTIC WELD TECHNICIAN Preoperative testing CBC WITHOUT DIFFERENTIAL Routine 12/30/2024 8:47 AM ROBOTIC WELD TECHNICIAN Preoperative testing TYPE AND SCREEN 14 DAY Routine 12/30/2024 8:47 AM ROBOTIC WELD TECHNICIAN Preoperative testing from Last 3 Months Results * Immunotyping, serum with interpretation (02/16/2025 11:58 AM CDT) Immunosubtraction Please see comment Comment: NO PARAPROTEIN DETECTED Reviewed and signed by Matthew Coffman MD, PhD 02/18/2025 Blood 02/16/2025 11:5 8 AM CDT 02/16/2025 4:31 PM CDT Narrative MICHELLE GURROLA - 02/19/2025 8:55 AM CDT Reflex Immunotyping, Ser Heather Rene NP LAB BLOOD ORDE CHAGO Final Result MICHELLE GURROLA [facility] [place] [address] * (ABNORMAL) eGFR (02/16/2025 11:58 AM CDT) [...] CDT 02/16/2025 12:24 PM CDT Heather Rene WATER MANAGER LAB BLOOD ARI ANDERS Final Result MICHELLE GURROLA [facility] [place] [address] * (ABNORMAL) Differential, auto (02/16/2025 11:58 AM CDT) Pathologist [facility] Neutrophil abs 7.85(H) 1.50 - 6.50 K/cumm Comment:Testing performed by : [facility] Heme Lab, [address] [place] [phone] Lymphocyte abs 2.28 0.80 - 3.30 K/cumm [facility] Comment:Testing performed by : [facility]e [facility], [address] [place] [phone] Monocyte abs 0.74 0.20 - 0.80 K/cumm [facility] Comment:Testing performed by : [facility] Heme Lab, [address] [place] [phone] Eosinophil abs 0.01 0.00 - 0.50 K/cumm [facility] Comment:Testing performed by : [facility] Heme Lab, [address] [place] [phone] Basophil abs 0.06 0.00 - 0.10 K/cumm [facility] Comment:Testing performed by : [facility]e Lab, [address] [place] [phone] Neutrophil pct 71.8 % [facility] Comment: Interpretive Data Percent cell count reference ranges are not reported, since discordance with absolute values may lead to misinterpretation of CBC data. Current Interpretive Data was last revised on 2018. Testing performed by: [facility], [address] [place] [phone] Lymphocyte pct 20.8 % [facility] Comment: Interpretive Data Percent cell count reference ranges are not reported, since discordance with absolute values may lead to misinterpretation of CBC data. Current Interpretive Data was last revised on 2018. Testing performed by: [facility] Heme Lab, [address] [place] [phone] Monocyte pct 6.7 % [facility] Comment: Interpretive Data Percent cell count reference ranges are not reported, since discordance with absolute values may lead to misinterpretation of CBC data. Current Interpretive Data was last revised on 2018. Testing performed by: [facility]e Lab, [address] [place] [phone] Eosinophil pct 0.1 % [facility] Comment: Interpretive Data Percent cell count reference ranges are not reported, since discordance with absolute values may lead to misinterpretation of CBC data. Current Interpretive Data was last revised on 2018. Testing performed by: [facility] Heme Lab, [address] [place] [phone] Basophil pct 0.5 % [facility] Comment: Interpretive Data Percent cell count reference ranges are not reported, since discordance with absolute values may lead to misinterpretation of CBC data. Current Interpretive Data was last revised on 2018. Testing performed by: [facility] Heme Lab, [address] [place] [phone] Blood 02/16/2025 11:5 8 AM CDT 02/16/2025 12:15 PM CDT [facility] Lidia Rene LAB BLOOD ORDE RABLES Final Result Performing Organization Address [facility] Co de Phone Number [facility] [place] [address] * HIV 1/2 Antibody plus p24 Antigen Blood (02/16/2025 11:58 AM CDT) Pathologist [facility] HIV 1/2 ab + p24 ag Nonreactive Nonreactive Comment:Nonreactive for HIV- 1 antigen and HIV-1/HIV-2 antibodies. No laboratory evidence of HIV infection. If acute HIV infection is suspected, consider testing for HIV-1 RNA. Current interpretive data was last revised on 22. Blood 02/16/2025 11:5 8 AM CDT 02/16/2025 1:02 PM CDT Heather Lidia Rene LAB MICROBIOLO GY - GENERAL ORDERABLES Final Result Performing Organization Address [facility] Co de Phone Number [facility] [place] [address] * (ABNORMAL) CBC with auto differential (02/16/2025 11:58 AM CDT) Pathologist [facility] WBC 10.93(H) 3.80 - 9.90 K/cumm Comment:Testing performed by : [facility] Heme Lab, [address] [place] [phone] Hgb 11.6(L) 11.9 - 15.5 g/dL [facility] Comment:Testing performed by : [facility] Heme Lab, [address] [place], [place] [phone] Hct 34.7(L) 35.6 - 45.5 % [facility] Comment:Testing performed by : [facility] Heme Lab, [address] [place], [place] [phone] Plt 208 150 - 400 K/cumm [facility] Comment:Testing performed by : [facility] Heme Lab, [address] [place], [place] [phone] MPV 7.1 6.8 - 10.4 fL [facility] Comment:Testing performed by : [facility]e Lab, [address] [place], [place] [phone] RBC 3.71(L) 3.90 - 5.20 M/cumm [facility] Comment:Testing performed by : [facility]e Lab, [address] [place], [place] [phone] MCV 93.5 81.3 - 96.4 fL [facility] Comment:Testing performed by : [facility]e Lab, [address] [place], [place] [phone] MCH 31.4 27.1 - 33.3 pg [facility] Comment:Testing performed by : [facility] Heme Lab, [address] [place] [address] MCHC 33.5 32.3 - 35.7 g/dL [facility] Comment:Testing performed by : [facility]e Lab, [address] [place] [address] RDW CV 16.5(H) 11.1 - 14.9 % [facility] Comment:Testing performed by : [facility]e Lab, [address] [place] [address] NRBC abs 0.00 0.00 - 0.01 K/cumm [facility] Comment:Testing performed by : [facility]e Lab, [address] [place] [address] Blood 02/16/2025 11:5 8 AM CDT 02/16/2025 12:15 PM CDT Heather Muñozmidt LAB BLOOD ORDE RABLES Final Result Performing Organization Address [facility] Co de Phone Number [facility] [place] [address] * Hepatitis C antibody Blood (02/16/2025 11:58 AM CDT) Pathologist [facility] Hep C Ab Nonreactive Nonreactive Comment:Antibodies to HCV no t detected. Does NOT exclude the possibility of recent exposure to HCV. Current interpretive data was last revised on 22 Blood 02/16/2025 11:5 8 AM CDT 02/16/2025 1:02 PM CDT Heather Lidia Rene LAB MICROBIOLO GY - GENERAL ORDERABLES Final Result Performing Organization Address [facility] Co de Phone Number [facility] [place] [address] * Hepatitis B core antibody, total Blood (02/16/2025 11:58 AM CDT) Pathologist [facility] Hep B core IgG/IgM Nonreactive Nonreactive Blood 02/16/2025 11:5 8 AM CDT 02/16/2025 1:02 PM CDT Heather Lidia Rene LAB MICROBIOLO GY - GENERAL ORDERABLES Final Result Performing Organization Address [facility] Co de Phone Number [facility] [place] [address] * Hepatitis B surface antibody (immune status) Blood (02/16/2025 11:58 AM CDT) Pathologist [facility] HBsAb (immune status) Nonreactive Comment:This result is consi stent with a lack of immunity to Hepatitis B Virus when used in the setting of routine screening. Current interpretative data was last revised on 22 Blood 02/16/2025 11:5 8 AM CDT 02/16/2025 1:02 PM CDT Heather Rene WATER MANAGER LAB MICROBIOLO GY - GENERAL ORDERABLES Final Result [facility] Department [place] [address] * Hepatitis B Surface Antigen Blood (02/16/2025 11:58 AM CDT) [facility] HepBsAg Nonreactive Nonreactive Blood 02/16/2025 11:5 8 AM CDT 02/16/2025 1:02 PM CDT Heather Lidia Rene WATER MANAGER LAB MICROBIOLO GY - GENERAL ORDERABLES Final Result Performing Organization Address [facility] de Phone Number [facility] [place] [address] * (ABNORMAL) Protein electrophoresis with reflex, serum with interpretation (02/16/2025 11:58 AM CDT) [facility] Protein, sr 8.5(H) 6.2 - 8.2 g/dL Albumin 4.4 3.2 - 5.0 g/dL [facility] Alpha-1 globulin 0.5(H) 0.2 - 0.4 g/dL [facility] Alpha-2 globulin 0.9 0.5 - 1.0 g/dL [facility] Beta-1 globulin 0.6 0.3 - 0.6 g/dL [facility] Beta-2 globulin 0.6 0.2 - 0.6 g/dL [facility] Gamma globulin 1.4 0.5 - 1.7 g/dL [facility] SPEP interp Please see comment [facility] Comment: Possible abnormal restricted peak in gamma region See immunotyping for further information Reviewed and signed by Matthew Coffman MD, PhD 02/18/2025 Immunotyping See Immunotyping Results [facility] Blood 02/16/2025 11:5 8 AM CDT 02/16/2025 1:41 PM CDT Heather Murillo Ridgeandrewjudith WATER MANAGER LAB BLOOD ORDE CHAGO Final Result Performing Organization Address [facility] de Phone Number [facility] [place] [address] * Lactate dehydrogenase (LD) (02/16/2025 11:58 AM CDT) Lactate dehydrogenase (LDH) 180 100 - 250 Units/L Blood 02/16/2025 11:5 8 AM CDT 02/16/2025 12:24 PM CDT Heather Murillo Ridgesixtoprabhu LAB BLOOD ORDE CHAGO Final Result Performing Organization Address [facility] [place] [address] * (ABNORMAL) Beta 2 microglobulin, serum (02/16/2025 11:58 AM CDT) Beta 2 Microglobulin, Serum 3.20(H) 1.00 - 2.50 mg/L Comment: Interpretive Data The Wang Beta-2 microglobulin assay procedure was used. Results from different manufacturers or methods may not be comparable. Serial testing should be performed using the same method. Blood 02/16/2025 11:5 8 AM CDT 02/16/2025 12:50 PM CDT Heather Murillo Ridgesixtoprabhu LAB BLOOD ORDE CHAGO Final Result Performing Organization Address [facility] [place] [address] * (ABNORMAL) Comprehensive metabolic panel (02/16/2025 11:58 AM CDT) Sodium 131(L) 135 - 145 mmol/L Potassium, pl 4.9 3.3 - 4.9 mmol/L [facility] Chloride 89(L) 97 - 110 mmol/L [facility] CO2 25 22 - 32 mmol/L [facility] Anion gap 17(H) 2 - 15 mmol/L [facility] BUN 18 6 - 25 mg/dL [facility] Creatinine 1.17(H) 0.60 - 1.10 mg/dL [facility] Glucose 123 70 - 199 mg/dL [facility] Comment: Interpretive Data Fasting glucose >/= 126 [...] 2022. Calcium 10.1 8.5 - 10.3 mg/dL [facility] Bilirubin, total 0.8 0.1 - 1.2 mg/dL [facility] Protein, pl 8.9(H) 6.5 - 8.5 g/dL [facility] Albumin 4.7 3.5 - 5.0 g/dL [facility] Alk phos 93 40 - 130 Units/L [facility] ALT 23 7 - 45 Units/L [facility] AST 21 10 - 45 Units/L [facility] Blood 02/16/2025 11:5 8 AM CDT 02/16/2025 12:24 PM CDT Heather Rene NP LAB BLOOD ORDAlicia ANDERS Final Result [facility] [place] [address] * eGFR (01/15/2025 11:18 PM ROBOTIC WELD TECHNICIAN) Pathologist [facility] eGFR 66 >=60 mL/min/1. 73 m2 Comment: [...] reviewed 2021. Blood 01/15/2025 11:1 8 PM ROBOTIC WELD TECHNICIAN 01/15/2025 11:40 PM ROBOTIC WELD TECHNICIAN us Adalberto Ngo MD LAB BLOOD ORDERABLES Final Re sult [facility] [place] [address] * (ABNORMAL) Basic metabolic panel (01/15/2025 11:18 PM ROBOTIC WELD TECHNICIAN) [facility] Sodium 138 135 - 145 mmol/L Potassium, pl 3.3 3.3 - 4.9 mmol/L [facility] Chloride 105 97 - 110 mmol/L [facility] Comment:Repeated and Verifie d CO2 24 22 - 32 mmol/L [facility] Anion gap 9 2 - 15 mmol/L [facility] Comment:Repeated and Verifie d BUN 20 6 - 25 mg/dL [facility] Creatinine 0.97 0.60 - 1.10 mg/dL [facility] Glucose 109 70 - 199 mg/dL [facility] Comment: Interpretive Data Fasting glucose >/= 126 [...] 2022. Calcium 7.6(L) 8.5 - 10.3 mg/dL [facility] Blood 01/15/2025 11:1 8 PM ROBOTIC WELD TECHNICIAN 01/15/2025 11:40 PM ROBOTIC WELD TECHNICIAN us Adalberto Ngo MD LAB BLOOD ORDERABLES Final Re sult Performing Organization Address [facility] de Phone Number [facility] [place] [address] * Sodium, urine, random (01/15/2025 9:10 PM ROBOTIC WELD TECHNICIAN) Sodium, ur <20 mmol/L Comment: Interpretive Data No reference range established. Current interpretive data was last revised 2019. Urine 01/15/2025 9:10 PM ROBOTIC WELD TECHNICIAN 01/15/2025 9:22 PM ROBOTIC WELD TECHNICIAN us Adalberto Ngo MD LAB URINE ORDERABLES Final Re sult Performing Organization Address [facility] de Phone Number [facility] [place] [address] * Osmolality, blood (01/15/2025 9:09 PM ROBOTIC WELD TECHNICIAN) Osmo 280 275 - 300 mOsm/kg Blood 01/15/2025 9:09 PM ROBOTIC WELD TECHNICIAN 01/15/2025 9:23 PM ROBOTIC WELD TECHNICIAN us Chris Khan MD LAB BLOOD ORDERABLES Final Resul t Performing Organization Address [facility]/ZIP Co de Phone Number [facility] [facility] [place] [address] * (ABNORMAL) Urinalysis reflex to microscopic and culture Urine (01/15/2025 6:55 PM ROBOTIC WELD TECHNICIAN) Color, ur Straw Yellow Clarity, ur Clear Clear [facility] Specific gravity, ur 1.014 1.003 - 1.030 [facility] pH, urine 6.0 [facility] Comment: Interpretive Data U rine pH is affected by diet, medications, systemic acid-base disturbances, and renal tubular function. pH may affect urinary stone formation. For example, urine pH below 6.0 may help reduce the tendency for calcium phosphate stones and pH greater than 6.0 may reduce the tendency for uric acid stone formation. Source: [facility] Current Interpretive Data was last revised on 2017 Protein, ur ql 1+(A) Negative [facility] Glucose, ur ql Negative Negative [facility] Ketones, ur Negative Negative [facility] Bilirubin, ur Negative Negative [facility] Blood, ur Negative Negative [facility] Urobilinogen, ur <2.0 <2.0 mg/dL [facility] Nitrite, ur Negative Negative [facility] Leukocyte esterase, ur Negative Negative [facility] UA reflex comment Reflex to microscopic UA will be performed. [facility] Urine 01/15/2025 6:55 PM ROBOTIC WELD TECHNICIAN 01/15/2025 7:01 PM ROBOTIC WELD TECHNICIAN Adalberto Ngo MD LAB MICROBIOLOGY - GENERAL OR DERABLES Final Result [facility] [place] [address] * Urinalysis, microscopic only (01/15/2025 6:55 PM ROBOTIC WELD TECHNICIAN) WBC, ur 0-5 0 - 5 /HPF RBC, ur 0-2 0 - 2 /HPF [facility] Epithelial cells, squamous, ur 1-5 0 - 5 /HPF [facility] Culture Reflex Comment Reflex conditions for urine culture (WBC >10) not met. [facility] Urine 01/15/2025 6:55 PM ROBOTIC WELD TECHNICIAN 01/15/2025 7:01 PM ROBOTIC WELD TECHNICIAN Adalberto Ngo MD LAB URINE ORDERABLES Final Re sult Performing Organization Address [facility] Co de Phone Number [facility] [place] [address] * (ABNORMAL) eGFR (01/15/2025 6:28 PM ROBOTIC WELD TECHNICIAN) eGFR 51(L) >=60 mL/min/1. 73 m2 Comment: [...] last reviewed 2021. Blood 01/15/2025 6:28 PM ROBOTIC WELD TECHNICIAN 01/15/2025 6:47 PM ROBOTIC WELD TECHNICIAN Adalberto gNo MD LAB BLOOD ORDERABLES Final Re sult Performing Organization Address City/[facility]/ZIP Co de Phone Number [facility] [place] [address] * (ABNORMAL) CBC without differential (01/15/2025 6:28 PM ROBOTIC WELD TECHNICIAN) WBC 10.4(H) 3.8 - 9.9 K/cumm Hgb 9.3(L) 11.9 - 15.5 g/dL [facility] Hct 27.7(L) 35.6 - 45.5 % [facility] Plt 165 150 - 400 K/cumm [facility] MPV 9.4 9.1 - 12.3 fL [facility] RBC 2.75(L) 3.90 - 5.20 M/cumm [facility] MCV 100.7(H) 81.3 - 96.4 fL [facility] MCH 33.8(H) 27.1 - 33.3 pg [facility] MCHC 33.6 32.3 - 35.7 g/dL [facility] RDW CV 13.7 11.1 - 14.9 % [facility] RDW SD 50.2(H) 35.7 - 48.1 fL [facility] NRBC abs 0.00 0.00 - 0.01 K/cumm [facility] Blood 01/15/2025 6:28 PM ROBOTIC WELD TECHNICIAN 01/15/2025 6:47 PM ROBOTIC WELD TECHNICIAN Adalberto Ngo MD LAB BLOOD ORDERABLES Final Re sult Performing Organization Address City/[facility] Co de Phone Number [facility] [place] [place] [address] * Phosphorus (01/15/2025 6:28 PM ROBOTIC WELD TECHNICIAN) Phosphorus, pl 2.7 2.3 - 4.5 mg/dL Blood 01/15/2025 6:28 PM ROBOTIC WELD TECHNICIAN 01/15/2025 6:47 PM ROBOTIC WELD TECHNICIAN Adalberto Ngo MD LAB BLOOD ORDERABLES Final Re sult [facility] [place] [address] * Magnesium (01/15/2025 6:28 PM ROBOTIC WELD TECHNICIAN) Magnesium 1.7 1.4 - 2.5 mg/dL Blood 01/15/2025 6:28 PM ROBOTIC WELD TECHNICIAN 01/15/2025 6:47 PM ROBOTIC WELD TECHNICIAN Adalberto Ngo MD LAB BLOOD ORDERABLES Final Re sult [facility] [place] [address] * (ABNORMAL) Basic metabolic panel (01/15/2025 6:28 PM ROBOTIC WELD TECHNICIAN) [facility] Sodium 130(L) 135 - 145 mmol/L Potassium, pl 4.0 3.3 - 4.9 mmol/L [facility] Chloride 94(L) 97 - 110 mmol/L [facility] CO2 25 22 - 32 mmol/L [facility] Anion gap 11 2 - 15 mmol/L [facility] BUN 23 6 - 25 mg/dL [facility] Creatinine 1.19(H) 0.60 - 1.10 mg/dL [facility] Glucose 140 70 - 199 mg/dL [facility] Comment: Interpretive Data Fasting glucose >/= 126 [...] 2022. Calcium 8.6 8.5 - 10.3 mg/dL [facility] Blood 01/15/2025 6:28 PM ROBOTIC WELD TECHNICIAN 01/15/2025 6:47 PM ROBOTIC WELD TECHNICIAN Adalberto Ngo MD LAB BLOOD ORDERABLES Final Re sult Performing Organization Address City/[facility]/ZIP Co de Phone Number [facility] [place] [address] * XR Chest Pa Lateral 2 Views (01/15/2025 4:29 PM ROBOTIC WELD TECHNICIAN) Anatomical Region Laterality Modality Body, Chest N/A Computed Radiogr aphy 01/15/2025 10:0 8 PM ROBOTIC WELD TECHNICIAN Impressions 01/15/2025 10:08 PM ROBOTIC WELD TECHNICIAN There has been removal of a right-sided chest tube. 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 There is persistent elevation of the right hemidiaphragm. There is a new small right pleural effusion with increased right basilar atelectasis. No pneumothorax is identified. The cardiomediastinal silhouette is unchanged. Electronically signed by: Luis F Knight M.D. Narrative 01/15/2025 10:08 PM ROBOTIC WELD TECHNICIAN EXAMINATION: XR CHEST PA LATERAL 2 VIEWS [...] Electronically signed by: Luis F Knight M.D. Adalberto Ngo MD IM XR PROCEDURES Final Resul t * Respiratory pathogen panel Nasopharyngeal (01/15/2025 1:18 PM ROBOTIC WELD TECHNICIAN) Influenza A RNA Not Detected Not Detected Influenza B RNA Not Detected Not Detected [facility] RSV RNA Not Detected Not Detected [facility] COVID-19 RNA Not Detected Not Detected [facility] Coronavirus 229E RNA Not Detected Not Detected [facility] Coronavirus HKU1 RNA Not Detected Not Detected [facility] Coronavirus NL63 RNA Not Detected Not Detected [facility] Coronavirus OC43 RNA Not Detected Not Detected [facility] Adenovirus DNA Not Detected Not Detected [facility] Metapneumovirus RNA Not Detected Not Detected [facility] Rhinovirus/Enterov irus RNA Not Detected Not Detected [facility] Parainfluenza 1 RNA Not Detected Not Detected [facility] Parainfluenza 2 RNA Not Detected Not Detected [facility] Parainfluenza 3 RNA Not Detected Not Detected [facility] Parainfluenza 4 RNA Not Detected Not Detected [facility] B. pertussis DNA Not Detected Not Detected [facility] B. parapertussis DNA Not Detected Not Detected [facility] C. pneumoniae DNA Not Detected Not Detected [facility] M. pneumoniae DNA Not Detected Not Detected [facility] Nasopharyngeal 01/15/2025 1: 18 PM ROBOTIC WELD TECHNICIAN 01/15/2025 1:47 PM ROBOTIC WELD TECHNICIAN Narrative [facility] - 01/15/2025 2:53 PM ROBOTIC WELD TECHNICIAN Is the Patient experiencing symptoms consistent with COVID?->No Surveillance testing for transplant patient?->No Interpretive Data [employer] FilmArray Respiratory Panel (RP2.1) assay is a [...] assay has FDA clearance for testing of WATER MANAGER swabs. The performance of additional specimen types has been assessed by the performing laboratory. The performance characteristics of this assay have been determined by [facility] Molecular Infectious Disease Laboratory. Current interpretive data was last revised on 22. us Adalberto Ngo MD LAB MICROBIOLOGY - GENERAL OR DERABLES Final Result [facility] [place] [address] * XR Chest 1 View (01/15/2025 5:07 AM ROBOTIC WELD TECHNICIAN) Anatomical Region Laterality Modality Body, Chest N/A Digital Radiogra phy 01/15/2025 7:40 AM ROBOTIC WELD TECHNICIAN Impressions 01/15/2025 7:50 AM ROBOTIC WELD TECHNICIAN The current study is compared with the [...] Geetha Ross M.D. Narrative 01/15/2025 7:50 AM ROBOTIC WELD TECHNICIAN EXAMINATION: 1 view chest radiograph Procedure Note [...] signed by: Geetha Ross M.D. Jeimy Jones WATER MANAGER IMG XR PROCEDURES Final Result * (ABNORMAL) eGFR (01/14/2025 8:34 PM ROBOTIC WELD TECHNICIAN) eGFR 42(L) >=60 mL/min/1. 73 m2 Comment: [...] last reviewed 2021. Blood 01/14/2025 8:34 PM ROBOTIC WELD TECHNICIAN 01/14/2025 8:40 PM ROBOTIC WELD TECHNICIAN Jeimy Jones WATER MANAGER LAB BLOOD ORDERABLES Fi nal Result Performing Organization Address City/[facility]/ZIP Co de Phone Number [facility] [place] [address] * (ABNORMAL) CBC without differential (01/14/2025 8:34 PM ROBOTIC WELD TECHNICIAN) WBC 9.7 3.8 - 9.9 K/cumm Hgb 9.8(L) 11.9 - 15.5 g/dL [facility] Hct 29.9(L) 35.6 - 45.5 % [facility] Plt 144(L) 150 - 400 K/cumm [facility] MPV 9.4 9.1 - 12.3 fL [facility] RBC 2.95(L) 3.90 - 5.20 M/cumm [facility] MCV 101.4(H) 81.3 - 96.4 fL [facility] MCH 33.2 27.1 - 33.3 pg [facility] MCHC 32.8 32.3 - 35.7 g/dL [facility] RDW CV 14.1 11.1 - 14.9 % [facility] RDW SD 51.8(H) 35.7 - 48.1 fL [facility] NRBC abs 0.00 0.00 - 0.01 K/cumm [facility] Blood 01/14/2025 8:34 PM ROBOTIC WELD TECHNICIAN 01/14/2025 8:40 PM ROBOTIC WELD TECHNICIAN Jeimy Jones WATER MANAGER LAB BLOOD ORDERABLES Fi nal Result Performing Organization Address City/[facility]/ZIP Co de Phone Number [facility] [place] [address] * (ABNORMAL) Basic metabolic panel (01/14/2025 8:34 PM ROBOTIC WELD TECHNICIAN) Sodium 133(L) 135 - 145 mmol/L Potassium, pl 4.2 3.3 - 4.9 mmol/L [facility] Chloride 97 97 - 110 mmol/L [facility] CO2 25 22 - 32 mmol/L [facility] Anion gap 11 2 - 15 mmol/L [facility] BUN 21 6 - 25 mg/dL [facility] Creatinine 1.40(H) 0.60 - 1.10 mg/dL [facility] Glucose 141 70 - 199 mg/dL [facility] Comment: Interpretive Data Fasting glucose >/= 126 [...] 2022. Calcium 9.0 8.5 - 10.3 mg/dL [facility] Blood 01/14/2025 8:34 PM ROBOTIC WELD TECHNICIAN 01/14/2025 8:40 PM ROBOTIC WELD TECHNICIAN Jeimy Jones WATER MANAGER LAB BLOOD ORDERABLES Fi nal Result [facility] [place] [address] * ECG 12 lead (01/14/2025 11:55 AM ROBOTIC WELD TECHNICIAN) Ventricular Rate EKG/Min 85 BPM [facility] Atrial Rate [address] [facility] MI-Interval (MSEC) [address] [facility] QRS-Interval (MSEC) [address] [facility] QT-Interval (MSEC) 382 ms [facility] QTc 454 ms [facility] P [place] 52 degrees [facility] R [place] 41 degrees [facility] T [place] 35 degrees [facility] Diagnosis Normal sinus rhythm Low voltage QRS Nonspecific ST abnormality Abnormal ECG No previous ECGs available Confirmed by LORENZO REYES M.D ([id number]) on 01/17/2025 7:21:58 PM [facility] 01/14/2025 11:5 5 AM ROBOTIC WELD TECHNICIAN 01/17/2025 7:21 PM CDT us Jeimy Jones WATER MANAGER ECG ORDERABLES Final R esult [facility] * eGFR (01/13/2025 8:46 PM ROBOTIC WELD TECHNICIAN) eGFR 79 >=60 mL/min/1. 73 m2 Comment: [...] last reviewed 2021. Blood 01/13/2025 8:46 PM ROBOTIC WELD TECHNICIAN 01/13/2025 8:58 PM ROBOTIC WELD TECHNICIAN us Adalberto Ngo MD LAB BLOOD ORDERABLES Final Re sult [facility] [place] [address] * (ABNORMAL) CBC without differential (01/13/2025 8:46 PM ROBOTIC WELD TECHNICIAN) [facility] WBC 8.6 3.8 - 9.9 K/cumm Hgb 10.6(L) 11.9 - 15.5 g/dL [facility] Hct 32.5(L) 35.6 - 45.5 % [facility] Plt 144(L) 150 - 400 K/cumm [facility] MPV 9.4 9.1 - 12.3 fL [facility] RBC 3.23(L) 3.90 - 5.20 M/cumm [facility] MCV 100.6(H) 81.3 - 96.4 fL [facility] MCH 32.8 27.1 - 33.3 pg [facility] MCHC 32.6 32.3 - 35.7 g/dL [facility] RDW CV 14.2 11.1 - 14.9 % [facility] RDW SD 51.8(H) 35.7 - 48.1 fL [facility] NRBC abs 0.00 0.00 - 0.01 K/cumm [facility] Blood 01/13/2025 8:46 PM ROBOTIC WELD TECHNICIAN 01/13/2025 8:58 PM ROBOTIC WELD TECHNICIAN us Adalberto Ngo MD LAB BLOOD ORDERABLES Final Re sult [facility] [place] [address] * Basic metabolic panel (01/13/2025 8:46 PM ROBOTIC WELD TECHNICIAN) [facility] Sodium 138 135 - 145 mmol/L Potassium, pl 4.3 3.3 - 4.9 mmol/L [facility] Chloride 99 97 - 110 mmol/L [facility] CO2 25 22 - 32 mmol/L [facility] Anion gap 14 2 - 15 mmol/L [facility] BUN 17 6 - 25 mg/dL [facility] Creatinine 0.83 0.60 - 1.10 mg/dL [facility] Glucose 163 70 - 199 mg/dL [facility] Comment: Interpretive Data Fasting glucose >/= 126 [...] 2022. Calcium 9.0 8.5 - 10.3 mg/dL [facility] Blood 01/13/2025 8:46 PM ROBOTIC WELD TECHNICIAN 01/13/2025 8:58 PM ROBOTIC WELD TECHNICIAN us Adalberto Ngo MD LAB BLOOD ORDERABLES Final Re sult [facility] [place] [address] * XR Chest 1 View - in ICU (01/13/2025 6:35 PM ROBOTIC WELD TECHNICIAN) Anatomical Region Laterality Modality Body, Chest N/A Digital Radiogra phy 01/14/2025 9:57 AM ROBOTIC WELD TECHNICIAN Impressions 01/14/2025 2:16 PM ROBOTIC WELD TECHNICIAN Findings of right lower lobectomy. Right chest [...] Supa Vu M.D. Narrative 01/14/2025 2:16 PM ROBOTIC WELD TECHNICIAN EXAMINATION: XR CHEST 1 VIEW HISTORY: postop [...] Resul t * Cytogenetics (01/13/2025 5:02 PM ROBOTIC WELD TECHNICIAN) Miscellaneous 01/13/2025 5:0 2 PM ROBOTIC WELD TECHNICIAN 01/20/2025 2:09 PM CDT Narrative 01/24/2025 4:35 PM CDT EPIC results best viewed via link to PDF [facility] Department of Pathol [address] [place] [id number] Patient Information Name: AP LAND Gender: F : 1960 (Age: 64) Tissue: FFPE FISH Visit Information Hospital #: [id number] Facility: [facility] Service: [facility] Location: [place] [address] Patient Type: [facility] Inpatient Specimen Information: Culture #: [id number] Date Collected: 01/13/2025 Date Accessioned: 01/21/2025 Date [...] Fluorescence In-situ hybridization (FISH) Results: Specimen # [id number] POSITIVE - FISH result for IGH gene rearrangement nuc bindu (3'IGHx2~3,5'IGHx2~3)(3'IGH con 5'IGH)x1[35/200]/(3'IGHx1,5'IGHx1~2)(3'IGH con 5'IGH)x0[3/200] Chromosome analysis and Fluorescence In Situ Hybridization (FISH) analysis are performed using the [employer] Cytovision Imaging System. Comments IGH -BA FISH FISH was performed utilizing [employer] IGH (14q32) Dual Color, Break Apart Rearrangement probe set ([employer], [place], [place]). 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 The above test was developed and its performance characteristics determined by [facility] [employer]. It has not been [...] ult * Surgical pathology (01/13/2025 2:59 PM ROBOTIC WELD TECHNICIAN) Tissue specimen (specimen) (Lymph Node, Single excision) 01/13/2025 2:59 PM ROBOTIC WELD TECHNICIAN Tissue specimen (specimen) (Lymph node, dissection/region al resection) 01/13/2025 3:22 PM ROBOTIC WELD TECHNICIAN Tissue specimen (specimen) (Lymph node, dissection/region al resection) 01/13/2025 3:26 PM ROBOTIC WELD TECHNICIAN Tissue specimen (specimen) (Lymph Node, Single excision) 01/13/2025 3:27 PM ROBOTIC WELD TECHNICIAN Tissue specimen (specimen) (Lymph Node, Single excision) 01/13/2025 3:30 PM ROBOTIC WELD TECHNICIAN Tissue specimen (specimen) (Lymph Node, Single excision) 01/13/2025 3:43 PM ROBOTIC WELD TECHNICIAN Tissue specimen (specimen) (Lymph Node, Single excision) 01/13/2025 3:58 PM ROBOTIC WELD TECHNICIAN Tissue specimen (specimen) (Lymph Node, Single excision) 01/13/2025 4:41 PM ROBOTIC WELD TECHNICIAN Tissue specimen (specimen) (Lung, total / lobe / segmental, tumor) 01/13/2025 5:02 PM ROBOTIC WELD TECHNICIAN Narrative PATHOLOGY [facility] - 01/24/2025 5:24 PM CDT EPIC results best viewed via link to PDF [facility] [place] [address] Note to Patients: This report may contain [...] Gender: F : 1960 (Age: 64) Address: [address] [place], [place] [id number] Hospital #: [id number] Taken:01/13/2025 Received:01/14/2025 Reported: 01/24/2025 Patient Type: [facility] Inpatient Service: Cardiothoracic Location: [place] [address] Physician(s): Rafael Ortega MD Bryan F. Meyers, M.D. Diagnosis: A. Lymph node, level 9, [...] nodes (0/4) - No evidence of carcinoma ma01/18/2025 15:47 By this signature, I attest that [...] other material). Rafael Lund M.D. Addenda/Procedures Addendum Ordered:01/25/2025Status:Signed OutAddendum Complete:01/25/2025y:Salvador Marx MDAddendum Signed Out:01/25/2025 Addendum [...] Surgical Pathology and Flow Cytometry Departments at [facility] as part of an ongoing housing quality standard inspector program and in compliance with federally mandated [...] Surgical Pathology and Flow Cytometry Departments of [facility]. It has not been cleared or approved by the U. S. Food and Drug Administration. IMAGES AND SCANNED DOCUMENTS, IF INCLUDED, ONLY VIEWABLE IN PDF VERSION OF REPORT us Adalberto Ngo MD LAB PATHOLOGY ORDERABLES Salma roy Result PATHOLOGY [facility] [address] Floor [place], [place] [phone] * Peripheral IV Catheter (01/13/2025 2:28 PM ROBOTIC WELD TECHNICIAN) Narrative Monie Segura MD - 01/13/2025 2:28 PM ROBOTIC WELD TECHNICIAN Monie Segura MD 01/13/2025 2:39 PM Peripheral IV Catheter Patient location: OR Staff: Supervising provider: Kelsie Padilla MD Placed by: Resident: Monie Segura MD Preprocedure prep: Prep solution: alcohol PPE: gloves and provider hat/mask PIV line: Laterality: right Site: hand Catheter size: 18 g Technique: direct visualization and palpatation Number of attempts: 1 Assessment: Events: patient tolerated procedure well with no complications Monie Nagel MD ANESTHESIA ORDERABLES Final Result * Airway (01/13/2025 2:25 PM ROBOTIC WELD TECHNICIAN) Narrative Monie Segura MD - 01/13/2025 2:25 PM ROBOTIC WELD TECHNICIAN Monie Segura MD 01/13/2025 2:37 PM Airway [...] oral Blade type: Karla Video blade type: Mapluck Blade size: 3 Cormack-Lehane (video): grade I - full view of glottis Placement verified by: auscultation and CO2 detection Airway secured with: silk tape Number of attempts: 1 Planned trial extubation: yes us Monie Nagel MD ANESTHESIA ORDERABLES Final Result * Check Sample (01/13/2025 1:37 PM ROBOTIC WELD TECHNICIAN) ABO Rh A Negative [facility] OTHER 01/13/2025 1:37 PM ROBOTIC WELD TECHNICIAN 01/13/2025 1:47 PM ROBOTIC WELD TECHNICIAN us Adalberto Ngo MD LAB BLOOD ORDERABLES Final Re sult [facility] Department [place] [address] [facility] * CT chest without contrast (12/30/2024 9:01 AM ROBOTIC WELD TECHNICIAN) Anatomical Region Laterality Modality Body N/A Computed Tomogra phy 12/30/2024 9:29 AM ROBOTIC WELD TECHNICIAN Impressions 12/30/2024 9:47 AM ROBOTIC WELD TECHNICIAN 1. Unchanged spiculated microlobulated 1.1 cm right [...] Wood Whatley M.D. Narrative 12/30/2024 9:47 AM ROBOTIC WELD TECHNICIAN EXAMINATION: Computed tomography of the chest without [...] 10/27/2024 but which appears new compared to 202 (series 4, image 111). No suspicious left-sided [...] to 10/27/2024 but is new compared to 202. Dictated by: Marco A Acharya MD The radiology attending physician has personally reviewed this study, and had reviewed and/or edited this written report and agrees with it. Electronically signed by: Wood Whatley M.D. us Lukas Francis WATER MANAGER IMG CT PROCEDURES Final Res ult * TYPE AND SCREEN 14 DAY (12/30/2024 8:47 AM ROBOTIC WELD TECHNICIAN) ABO Rh A Negative Zohra, indirect Negative [facility] Blood 12/30/2024 8:47 AM ROBOTIC WELD TECHNICIAN 12/30/2024 11:57 AM ROBOTIC WELD TECHNICIAN Narrative MICHELLE [facility] - 12/30/2024 12:49 PM ROBOTIC WELD TECHNICIAN Has the patient had Daratumumab or Isatuximab in the past 6 months?->Unknown Is this test being ordered in advance for a procedure?->Yes Expected date of procedure:->01/04/25 Has the patient been transfused in the past 3 months?->No Has the patient been in the past 3 months?->No Cathy Jerez NP LAB BLOOD BANK TEST ORDER AMANDA Final Result Performing Organization Address [facility] de Phone Number [facility] [place] [address] * eGFR (12/30/2024 8:47 AM ROBOTIC WELD TECHNICIAN) Pathologist [facility] eGFR 79 >=60 mL/min/1. 73 m2 Comment: [...] last reviewed 2021. Blood 12/30/2024 8:47 AM ROBOTIC WELD TECHNICIAN 12/30/2024 12:11 PM ROBOTIC WELD TECHNICIAN Cathy Jerez NP LAB BLOOD ORDERABLES Salma l Result Performing Organization Address [facility] [place] [address] * (ABNORMAL) CBC without differential (12/30/2024 8:47 AM ROBOTIC WELD TECHNICIAN) [facility] WBC 6.1 3.8 - 9.9 K/cumm Hgb 11.4(L) 11.9 - 15.5 g/dL [facility] Hct 35.1(L) 35.6 - 45.5 % [facility] Plt 158 150 - 400 K/cumm [facility] MPV 9.6 9.1 - 12.3 fL [facility] RBC 3.45(L) 3.90 - 5.20 M/cumm [facility] MCV 101.7(H) 81.3 - 96.4 fL [facility] MCH 33.0 27.1 - 33.3 pg [facility] MCHC 32.5 32.3 - 35.7 g/dL [facility] RDW CV 14.4 11.1 - 14.9 % [facility] RDW SD 53.6(H) 35.7 - 48.1 fL [facility] NRBC abs 0.00 0.00 - 0.01 K/cumm [facility] Blood 12/30/2024 8:47 AM ROBOTIC WELD TECHNICIAN 12/30/2024 11:54 AM ROBOTIC WELD TECHNICIAN Cathy Jerez WATER MANAGER LAB BLOOD ORDERABLES Salma roy Result [facility] [place] [address] * Basic metabolic panel (12/30/2024 8:47 AM ROBOTIC WELD TECHNICIAN) Pathologist [facility] Sodium 141 135 - 145 mmol/L Potassium, pl 4.2 3.3 - 4.9 mmol/L [facility] Chloride 102 97 - 110 mmol/L [facility] CO2 27 22 - 32 mmol/L [facility] Anion gap 12 2 - 15 mmol/L [facility] BUN 19 6 - 25 mg/dL [facility] Creatinine 0.83 0.60 - 1.10 mg/dL [facility] Glucose 104 70 - 199 mg/dL [facility] Comment: Interpretive Data Fasting glucose >/= 126 [...] 2022. Calcium 10.0 8.5 - 10.3 mg/dL [facility] Blood 12/30/2024 8:47 AM ROBOTIC WELD TECHNICIAN 12/30/2024 11:55 AM ROBOTIC WELD TECHNICIAN us Cathy Jerez WATER MANAGER LAB BLOOD ORDERABLES Salma l Result [facility] [place] [address] from Last 3 Months Insurance [employer] ANTHEM ACCESS BLUE [employer] OOS BLUE ACCESS OOS Advance Directives For more information, please contact: [phone] Documents on File Type Date Recorded Patient Relief Pharmacist Expl anation ADVANCE DIRECTIVE 01/13/2025 1:36 PM Power of Php Architect-Medical * Full Code (Latest Code Status on File) Date Activated Date Inactivated Comments 01/13/2025 8:21 PM 01/17/2025 5:31 PM Healthcare Agents on File Name Relationship Healthcare Agent Relationshi p Communication Chanel Land Daughter Health Care Agent Care Teams Biodiesel Process Control Technician Relationship Specialty Start Date End Date Chino Mora MD PCP - General Family Practice 01/02/21 Kameron Jeff MD [address] [place] [address] Medical Oncologist/Head Screen Worker Medical Oncology 01/02/21 Kameron Jeff MD [address] DIV IM MEDICAL ONCOLOGY, [address], [address] [place] [address] Medical Oncologist/Head Screen Worker Medical Oncology 04/28/24 Constantin Kumar MD [address] [place] [address] Medical Oncologist/Head Screen Worker Medical Oncology 02/01/25
--- OUTSIDE RECORDS SUMMARY | 2025-02-21 11:50 | XMS_ITS ---
Author Organization [facility] Address [address] [place] [address] Care Team Providers Care Laborer Livestock Name Role Phone Chino Mora MD Primary Care Provider Kameron Jeff MD Unavailable [phone] Kameron Jeff MD Unavailable [phone] Constantin Kumar MD Unavailable [phone] Active Problems Patient Care Coordination No te [...] (02/09/2019 12:19 PM CDT): DR Rivero in [facility] evaluating Vitreous syneresis of both eyes 02/09/2019 [...] ok -wean O2 as able Pneumonia 07/01/2015 Current Treatment and Therapy Plans No current plan information found. Past Treatment and Therapy Plans No past plan information found. Lifetime Dose Tracking * Chemical Lifetime Dose Automatic Entry Manual Entr y DLP 1,872 mGycm 1,872 mGycm 0 mGycm Resolved Problems Problem Noted Date Diagnosed Date Resolved Date Malignant neoplasm of middle lobe of right lung 10/13/2015 12/06/2024 Overview (12/06/2024): Resected 10 years ago. 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 Histoplasmosis 10/13/2015 12/06/2024
[2025-02-23 02:43] LABS: Haptoglobin 165 mg/dL (43-212)
== END 2025-02-21 10:28 | disposition home or self-care (01) ==
PROVIDERS: PCP Family Medicine
DX: D64.9 Anemia, unspecified (principal); C85.99 Non-Hodgkin lymphoma, unspecified, extranodal and solid organ sites; C88.40 Extranodal marginal zone B-cell lymphoma of mucosa-associated lymphoid tissue [MALT-lymphoma] not having achieved remission
CPT/HCPCS: 36415; 80053; 83010; 85046

== ENCOUNTER 2025-02-25 10:48 | Inpatient (IN) | payer BC, SELFPAY ==
[2025-02-25] VITALS (13 sets, daily range): BP systolic 110–137; BP diastolic 59–81; PULSE 75–104; RESP 16–18; TEMP 36.6–36.8; O2SAT 98–100; BMI 24.4
--- NOTE | ~2025-02-25 | CT_ITS ---
Non-contrast Head CT History: Altered mental status COMPARISON: 04/02/2023 Technique: Axial non-contrast imaging of the brain was performed. Dose reduction technique was used on this scan by utilizing automated exposure control and iterative reconstruction technique. The dose -length product (DLP) was 605.33 mGy-cm. Findings: There is no evidence of intracranial hemorrhage, mass lesion, or acute infarct. Brain par enchyma appears normal. The ventricles and subarachnoid spaces are normal in size. The calvarium ap pears normal. The visualized paranasal sinuses and mastoid air cells are clear. Impression: No significant abnormality seen. Reviewed, dictated and finalized at location . Impression: No significant abnormality seen.
--- NOTE | ~2025-02-25 | CT_ITS ---
EXAMINATION: CT chest abdomen pelvis wo con DATE: 02/25/2025 14:43 INDICATION: Hyponatremia TECHNIQUE: Computed tomography (CT) of the chest, abdomen, and pelvis was performed with 100 mL Omnip aque-350 intravenous contrast. Automated exposure control and iterative reconstruction technique were employed. The dose-length product was 292.27 mGy-cm. COMPARISON: FINDINGS: CHEST CT: Volume loss in the right hemithorax with postoperative change of prior right middle lobectomy and mor e recent right lower lobectomy new since the prior study. Small right pleural effusion. Small band of discoid atelectasis and unchanged 3 mm nodule in the anterobasilar segment of the left lower. No new or enlarging pulmonary nodules. No pneumonia, pulmonary edema or left-sided pleural effusion. Heart size is normal. Atherosclerotic coronary artery calcification. No pericardial effusion. Vascular is n ormal in caliber. No pathologically enlarged thoracic lymphadenopathy. And moderate to severe thoraci c spondylosis with chronic T11 compression fracture with 20% anterior vertebral body height loss. ABDOMEN/PELVIS CT: Diffuse hepatic steatosis. Gallbladder, spleen, pancreas, bilateral adrenal glands and right kidney a re normal. Chronic left UPJ obstruction with obstructing stone or mass and with moderate hydronephros is which has been present dating back to CT dated 05/18/2019. Likely secondary unchanged mild left ena l atrophy. There is mild distal predominant colonic diverticulosis without adjacent from trace strand ing to suggest appendicitis. Small bowel and appendix are normal. Bladder is normal. The uterus is no t identified and has likely been surgically resected. No free intraperitoneal gas or fluid. No pathol ogically enlarged abdominal or pelvic lymphadenopathy. Mild lumbar spondylosis. IMPRESSION: 1. Prior right middle lobectomy with interval right lower lobectomy and new small right pleural effus ion. No other acute cardiopulmonary disease. 2. Diffuse hepatic steatosis. 3. Chronic left UPJ obstruction with unchanged mild left renal atrophy and moderate hydronephrosis. 4. Mild diverticulosis. Reviewed, dictated and finalized at location A. IMPRESSION: 1. Prior right middle lobectomy with interval right lower lobectomy and new sma ll right pleural effusion. No other acute cardiopulmonary disease. 2. Diffuse hepatic steatosis. 3. Chronic left UPJ obstruction with unchanged mild left renal atrophy and mode rate hydronephrosis. 4. Mild diverticulosis.
--- OUTSIDE RECORDS SUMMARY | 2025-02-25 10:53 | XMS_ITS | Encounter Summary ---
Author Organization [facility] Address [address] [place] [address] Phone Care Team Providers Care Door Fitter Name Role Phone Chino Mora MD Primary Care Provider Kameron Jfef MD Unavailable [phone] Kameron Jeff MD Unavailable [phone] Constantin Kumar MD Unavailable [phone] Encounter Details Date Type Department Care Team (Late st Contact Info) Description 04/27/2024 Telephone [facility] Oncology [address] [facility] 7th [place] [address] Bettye Su Social History Tobacco Use Types Packs/Day Years Used Date Smoking Tobacco: Former Smokeless Tobacco: Never Alcohol Use Standard Drinks/Week Comments Yes 0 (1 standard drink = 0.6 oz pur e alcohol) Comments Unknown Sex and Gender Information Value Date Recorded Sex Assigned at Not on file Legal Sex Female 11:57 PM 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 AND 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 Gender Identity Not on file Sexual Orientation Not on file documented as of this encounter Plan of Treatment Not on file documented as of this encounter Visit Diagnoses Not on filedocumented in this encounter Care Teams Door Fitter Relationship Specialty Start Date End Date Chino Mora MD PCP - General Family Practice 01/02/21 Kameron Jeff MD [address] [place] [address] Medical Oncologist/Assembler Erector Medical Oncology 01/02/21 Kameron Jeff MD [address] IM MEDICAL ONCOLOGY, [address] [place] [address] Medical Oncologist/Assembler Erector Medical Oncology 04/28/24 Constantin Kumar MD [address] [place] [address] Medical Oncologist/Assembler Erector Medical Oncology 02/01/25 documented as of this encounter
--- OUTSIDE RECORDS SUMMARY | 2025-02-25 10:53 | XMS_ITS | Clinical Summary ---
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 Name Role Phone Chino Mora MD Primary Care Provider Kameron Jeff MD Unavailable Kameron Jeff MD Unavailable Constantin Kumar MD Unavailable [phone] Allergies Active Allergy Reactions Criticality Noted Date Comments Penicillins Hives Medium 07/01/2015 Medications losartan (COZAAR) 100 mg tabletIndication s:hypertension Take 1 tablet (100 mg total) by mouth every morning 0 9 Active bimatoprost (LUMIGAN) 0.03 % ophthalmic dropsIndications :ocular hypertension Administer 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 eyes every morning Active Combigan 0.2-0.5 % ophthalmic solutionIndicati ons:ocular hypertension Administer 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 eyes 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 0 Active hydroCHLOROthiaz kaden (HYDRODIURIL) 25 mg tabletIndication s:hypertension Take 1 tablet (25 mg total) by mouth every morning 0 Active sertraline (ZOLOFT) 100 mg tabletIndication s:Anxiety with Depression Take 1 tablet (100 mg total) by mouth every morning Active dorzolamide (TRUSOPT) 2 % ophthalmic solutionIndicati ons:ocular hypertension Administer 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 eyes 2 (two) times a day 4 Active metoprolol XL (TOPROL-XL) 25 mg extended release tabletIndication s:hypertension Take 0.5 tablets (12.5 mg total) by mouth every morning 4 Active ascorbic acid (vitamin C) 1,000 mg [...] total) by mouth every 6 (six) hours 5 Active oxyCODONE (ROXICODONE) 5 mg immediate release tabletIndication s:Pain Take 1 tablet (5 mg total) by mouth every 4 (four) hours as needed for pain 20 tablet 5 025 Discontin ued(Thera py completed ) sertraline (ZOLOFT) 50 mg tablet Take 1 tablet (50 mg total) by mouth daily 5 025 Discontin ued(Thera py completed ) Active Problems Patient Care Coordination No te [...] (02/09/2019 12:19 PM CDT): DR Rivero in [facility] evaluating Vitreous syneresis of both eyes [...] Encounters Date Type Department Care Team Description 02/24/2025 Orders Only [facility] [address] [place] [phone] Constantin Kumar MD SIADH (syndrome of inappropriate ADH production) (Primary Dx) 02/24/2025 Telephone [facility] [address] [place] [phone] Radha White RN 02/23/2025 Documentation [facility] [address] [place] [phone] Alla Schreiber, [facility] 02/23/2025 Documentation [facility] [address] [place] [phone] Alla Schreiber, [facility] 02/16/2025 1:00 PM CDT Office Visit [facility] [address] [place] [phone] Constantin Kumar MD Extranodal marginal zone B-cell lymphoma (Primary Dx); Lymphoma involving lung (HCC); Anemia, unspecified type 02/16/2025 12:30 PM CDT Lab [facility] Center - Lab Collection [address] [place] [id number] Extranodal marginal zone B-cell lymphoma 02/16/2025 12:00 PM CDT Lab [facility] Lab [address] [place] [phone] 02/01/2025 11:00 AM CDT Office Visit [facility] [address] [place] [phone] Adalberto Ngo MD Lymphoma involving lung (HCC) (Primary Dx) 01/14/2025 Orders Only [facility] [address] [place] [phone] Adalberto Ngo MD Lung nodule (Primary Dx) 01/13/2025 1:53 PM FLAVOR MAKER Anesthesia Event [facility] Operating Room [address] [place] [address] Halima Olson MD Montgomery, Andrea J., NP 01/13/2025 1:05 PM FLAVOR MAKER - 01/13/2025 6:15 PM FLAVOR MAKER Surgery [facility] Operating Room [address] [place] [address] Adalberto Ngo MD XI ROBOTIC LOBECTOMY RIGHT LOWER LOBE 01/13/2025 9:56 AM FLAVOR MAKER - 01/17/2025 1:31 PM CDT Hospital Encounter [facility] [address] [place] [address] Adalberto Ngo MD Lung nodule Discharge Disposition: Discharge to home or self care 01/12/2025 Telephone [facility] Floor [address] [place] [address] Lukas Francis NP 12/30/2024 8:30 AM FLAVOR MAKER Lab [facility] [address] [place] [address] [address] [place] [address] Preoperative testing 12/30/2024 8:01 AM FLAVOR MAKER - 12/30/2024 11:59 PM FLAVOR MAKER Hospital Encounter [facility] Radiology at [facility] [address] [place] [address] Lung nodule Discharge Disposition: Discharge to home or self care 12/30/2024 8:00 AM FLAVOR MAKER Pre-Admission Testing [facility] Pre Anesthesia Testing [address] [place] [address] Preoperative testing (Primary Dx) 12/30/2024 Orders Only [facility] [address] [facility] Floor 5 [place] [address] Lukas Francis NP Gingivitis (Primary Dx) 12/10/2024 Telephone [facility] [address] [place] [address] Leatha Ferro RN 12/06/2024 9:30 AM FLAVOR MAKER Office Visit [facility] [address] [facility] [place] [address] Adalberto Ngo MD Malignant neoplasm of middle lobe of right lung (HCC) (Primary Dx); Lung nodule; Primary cancer of right middle lobe of lung (HCC) 12/06/2024 Orders Only [facility] [address] [facility] Floor [address] [place] [address] Lukas Francis NP Lung nodule (Primary Dx) [...] on file Legal Sex Female 11:57 PM FLAVOR MAKER Gender Identity Not on file Sexual Orientation [...] Height 152.4 cm (5') 01/13/2025 8:25 PM FLAVOR MAKER Body Mass Index 24.57 01/13/2025 8:25 PM FLAVOR MAKER Plan of Treatment Health Maintenance Due Date [...] AM CDT EGFR Timed 01/15/2025 11:18 PM FLAVOR MAKER BASIC METABOLIC PANEL Timed 01/15/2025 11:18 PM FLAVOR MAKER SODIUM, URINE, RANDOM Routine 01/15/2025 9:10 PM FLAVOR MAKER OSMOLALITY, BLOOD Timed 01/15/2025 9:0 9 PM FLAVOR MAKER PEP THERAPY Routine 01/15/2025 8:00 PM FLAVOR MAKER URINALYSIS, MICROSCOPIC ONLY Routine 01/15/2025 6:55 PM FLAVOR MAKER URINALYSIS AND REFLEX TO MICROSCOPIC AND CULTURE Routine 01/15/2025 6:55 PM FLAVOR MAKER EGFR Timed 01/15/2025 6:28 PM FLAVOR MAKER PHOSPHORUS Timed 01/15/2025 6:28 PM FLAVOR MAKER MAGNESIUM Timed 01/15/2025 6:28 PM FLAVOR MAKER BASIC METABOLIC PANEL Timed 01/15/2025 6:28 PM FLAVOR MAKER CBC WITHOUT DIFFERENTIAL Timed 01/15/2025 6:28 PM FLAVOR MAKER XR CHEST PA LATERAL 2 VIEWS Timed 01/15/2025 4:29 PM FLAVOR MAKER PEP THERAPY Routine 01/15/2025 3:39 PM FLAVOR MAKER PEP THERAPY Routine 01/15/2025 3:39 PM FLAVOR MAKER PEP THERAPY Routine 01/15/2025 3:39 PM FLAVOR MAKER RESPIRATORY PATHOGEN PANEL Routine 01/15/2025 1:18 PM FLAVOR MAKER CHEST PHYSIO THERAPY Routine 01/15/2025 11:01 AM FLAVOR MAKER XR CHEST 1 VIEW IP Routine 01/15/2025 5:07 AM FLAVOR MAKER EGFR Routine 01/14/2025 8:34 PM FLAVOR MAKER CBC WITHOUT DIFFERENTIAL Routine 01/14/2025 8:34 PM FLAVOR MAKER BASIC METABOLIC PANEL Routine 01/14/2025 8:34 PM FLAVOR MAKER ECG 12-LEAD Routine 01/14/2025 11:55 AM FLAVOR MAKER EGFR Timed 01/13/2025 8:46 PM FLAVOR MAKER BASIC METABOLIC PANEL Timed 01/13/2025 8:46 PM FLAVOR MAKER CBC WITHOUT DIFFERENTIAL Timed 01/13/2025 8:46 PM FLAVOR MAKER XR CHEST 1 VIEW ED Urgent/IP Urgent 01/13/2025 6:35 PM FLAVOR MAKER CYTOGENETICS Routine 01/13/2025 5:02 PM FLAVOR MAKER SURGICAL PATHOLOGY Routine 01/13/2025 2: 59 PM FLAVOR MAKER Lung nodule PERIPHERAL LINE Routine 01/13/2025 2:28 PM FLAVOR MAKER ANESTHESIA INTUBATION Routine 01/13/2025 2:25 PM FLAVOR MAKER XI ROBOTIC LOBECTOMY 01/13/2025 1:55 PM FLAVOR MAKER Lung nodule B CHECK SAMPLE STAT 01/13/2025 1:[address] CHEST WO CONTRAST Schedule PURA, Read PURA (Appt Today, Awaiting Results) 12/30/2024 9:01 AM FLAVOR MAKER Lung nodule EGFR Routine 12/30/2024 8:47 AM FLAVOR MAKER Preoperative testing BASIC METABOLIC PANEL Routine 12/30/2024 8:47 AM FLAVOR MAKER Preoperative testing CBC WITHOUT DIFFERENTIAL Routine 12/30/2024 8:47 AM FLAVOR MAKER Preoperative testing TYPE AND SCREEN 14 DAY Routine 12/30/2024 8:47 AM FLAVOR MAKER Preoperative testing from Last 3 Months Results * Immunotyping, serum with interpretation (02/16/2025 11:58 AM CDT) Immunosubtraction Please see comment Comment: NO PARAPROTEIN DETECTED Reviewed and signed by Matthew Coffman MD, PhD 02/18/2025 Blood 02/16/2025 11:5 8 AM CDT 02/16/2025 4:31 PM CDT Narrative [facility] - 02/19/2025 8:55 AM CDT Reflex Immunotyping, Ser Heather Lidia Rene LAB BLOOD ORDE RABLES Final Result [facility] Department [place] [address] * (ABNORMAL) eGFR (02/16/2025 11:58 AM CDT) eGFR 52(L) >=60 mL/min/1. 73 m2 Comment: [...] CDT 02/16/2025 12:24 PM CDT Heather Rene [facility] LAB BLOOD ORDE RABLES Final Result [facility] Department [place] [address] * (ABNORMAL) Differential, auto (02/16/2025 11:58 AM CDT) Neutrophil abs 7.85(H) 1.50 - 6.50 K/cumm Comment:Testing performed by : [facility], [address] [place], [place] [id number] Lymphocyte abs 2.28 0.80 - 3.30 K/cumm [facility] Comment:Testing performed by : [facility], [address] [place] [address] Monocyte abs 0.74 0.20 - 0.80 K/cumm [facility] Comment:Testing performed by : [facility], [address] [place], [place] [id number] Eosinophil abs 0.01 0.00 - 0.50 K/cumm [facility] Comment:Testing performed by : [facility], [address] [place] [address] Basophil abs 0.06 0.00 - 0.10 K/cumm [facility] Comment:Testing performed by : [facility], [address] [place] [address] Neutrophil pct 71.8 % [facility] Comment: Interpretive Data Percent cell count reference ranges are not reported, since discordance with absolute values may lead to misinterpretation of CBC data. Current Interpretive Data was last revised on 2018. Testing performed by: [facility], [address] [place] [phone] Lymphocyte pct 20.8 % [facility] Comment: Interpretive Data Percent cell count reference ranges are not reported, since discordance with absolute values may lead to misinterpretation of CBC data. Current Interpretive Data was last revised on 2018. Testing performed by: [facility], [address] [place] [address] Monocyte pct 6.7 % [facility] Comment: Interpretive Data Percent cell count reference ranges are not reported, since discordance with absolute values may lead to misinterpretation of CBC data. Current Interpretive Data was last revised on 2018. Testing performed by: [facility], [address] [place] [phone] Eosinophil pct 0.1 % [facility] Comment: Interpretive Data Percent cell count reference ranges are not reported, since discordance with absolute values may lead to misinterpretation of CBC data. Current Interpretive Data was last revised on 2018. Testing performed by: [facility], [address] [place] [phone] Basophil pct 0.5 % [facility] Comment: Interpretive Data Percent cell count reference ranges are not reported, since discordance with absolute values may lead to misinterpretation of CBC data. Current Interpretive Data was last revised on 2018. Testing performed by: [facility], [address] [place] [phone] Blood 02/16/2025 11:5 8 AM CDT 02/16/2025 12:15 PM CDT Heather Rene [facility] LAB BLOOD ORDE RABLES Final Result [facility] Department [place] [address] * HIV 1/2 Antibody plus p24 Antigen [...] 02/16/2025 1:02 PM CDT Heather Lidia Rene [facility] LAB MICROBIOLO GY - GENERAL ORDERABLES Final Result [facility] Department [place] [address] * (ABNORMAL) CBC with auto differential (02/16/2025 11:58 AM CDT) WBC 10.93(H) 3.80 - 9.90 K/cumm Comment:Testing performed by : [facility], [address] [place] [address] Hgb 11.6(L) 11.9 - 15.5 g/dL [facility] Comment:Testing performed by : [facility], [address] [place] [address] Hct 34.7(L) 35.6 - 45.5 % [facility] Comment:Testing performed by : [facility], [address] [place] [address] Plt 208 150 - 400 K/cumm [facility] Comment:Testing performed by : [facility], [address] [place] [address] MPV 7.1 6.8 - 10.4 fL [facility] Comment:Testing performed by : [facility], [address] [place] [address] RBC 3.71(L) 3.90 - 5.20 M/cumm [facility] Comment:Testing performed by : [facility], [address] [place] [address] MCV 93.5 81.3 - 96.4 fL [facility] Comment:Testing performed by : [facility], [address] [place] [address] MCH 31.4 27.1 - 33.3 pg [facility] Comment:Testing performed by : [facility], [address] [place] [address] MCHC 33.5 32.3 - 35.7 g/dL [facility] Comment:Testing performed by : [facility], [address] [place] [address] RDW CV 16.5(H) 11.1 - 14.9 % [facility] Comment:Testing performed by : [facility], [address] [place] [phone] NRBC abs 0.00 0.00 - 0.01 K/cumm [facility] Comment:Testing performed by : [facility], [address] [place] [phone] Blood 02/16/2025 11:5 8 AM CDT 02/16/2025 12:15 PM CDT Heather Rene [facility] LAB BLOOD ORDE RABLES Final Result Performing Organization Address City/[facility]/ZIP Co de Phone Number [facility] [place] [address] * Hepatitis C antibody Blood (02/16/2025 11:58 AM CDT) Hep C Ab Nonreactive Nonreactive Comment:Antibodies to HCV no t detected. Does NOT exclude the possibility of recent exposure to HCV. Current interpretive data was last revised on 22 Blood 02/16/2025 11:5 8 AM CDT 02/16/2025 1:02 PM CDT us Heather Rene [facility] LAB MICROBIOLO GY - GENERAL ORDERABLES Final Result Performing Organization Address City/[facility]/ZIP Co de Phone Number [facility] Department [place] [address] * Hepatitis B core antibody, total Blood (02/16/2025 11:58 AM CDT) Hep B core IgG/IgM Nonreactive Nonreactive Blood 02/16/2025 11:5 8 AM CDT 02/16/2025 1:02 PM CDT Heather Sabillonselsjudith [facility] LAB MICROBIOLO GY - GENERAL ORDERABLES Final Result [facility] [place] [address] * Hepatitis B surface antibody (immune status) Blood (02/16/2025 11:58 AM CDT) Pathologist [facility] HBsAb (immune status) Nonreactive Comment:This result is consi stent with a lack of immunity to Hepatitis B Virus when used in the setting of routine screening. Current interpretative data was last revised on 22 Blood 02/16/2025 11:5 8 AM CDT 02/16/2025 1:02 PM CDT Heather Rene [facility] LAB MICROBIOLO GY - GENERAL ORDERABLES Final Result Performing Organization Address [facility] de Phone Number [facility] [place] [address] * Hepatitis B Surface Antigen Blood (02/16/2025 11:58 AM CDT) [facility] HepBsAg Nonreactive Nonreactive Blood 02/16/2025 11:5 8 AM CDT 02/16/2025 1:02 PM CDT Heather Rene NP LAB MICROBIOLO GY - GENERAL ORDERABLES Final Result Performing Organization Address [facility] de Phone Number [facility] Department [place] [address] * (ABNORMAL) Protein electrophoresis with reflex, serum with interpretation (02/16/2025 11:58 AM CDT) [facility] Protein, sr 8.5(H) 6.2 - 8.2 g/dL Albumin 4.4 3.2 - 5.0 g/dL [facility] Alpha-1 globulin 0.5(H) 0.2 - 0.4 g/dL [facility] Alpha-2 globulin 0.9 0.5 - 1.0 g/dL [facility] Beta-1 globulin 0.6 0.3 - 0.6 g/dL [facility] Beta-2 globulin 0.6 0.2 - 0.6 g/dL [facility] Gamma globulin 1.4 0.5 - 1.7 g/dL [facility] SPEP interp Please see comment [facility] Comment: Possible abnormal restricted peak in gamma region See immunotyping for further information Reviewed and signed by Matthew Coffman MD, PhD 02/18/2025 Immunotyping See Immunotyping Results [facility] Blood 02/16/2025 11:5 8 AM CDT 02/16/2025 1:41 PM CDT Heather Lidia Rene [facility] Final Result Performing Organization Address City/[facility]/ZIP Co de Phone Number [facility] [place] [address] * Lactate dehydrogenase (LD) (02/16/2025 11:58 AM CDT) Lactate dehydrogenase (LDH) 180 100 - 250 Units/L Blood 02/16/2025 11:5 8 AM CDT 02/16/2025 12:24 PM CDT [facility] Final Result [facility] [place] [address] * (ABNORMAL) Beta 2 microglobulin, serum (02/16/2025 11:58 AM CDT) Beta 2 Microglobulin, Serum 3.20(H) 1.00 - 2.50 mg/L Comment: Interpretive Data The Wang Beta-2 microglobulin assay procedure was used. Results from different manufacturers or methods may not be comparable. Serial testing should be performed using the same method. Blood 02/16/2025 11:5 8 AM CDT 02/16/2025 12:50 PM CDT Heather Murillo Anju [facility] LAB BLOOD ORDAlicia ANDERS Final Result [facility] Department [place] [address] * (ABNORMAL) Comprehensive metabolic panel (02/16/2025 11:58 AM CDT) [facility] Sodium 131(L) 135 - 145 mmol/L Potassium, pl 4.9 3.3 - 4.9 mmol/L [facility] Chloride 89(L) 97 - 110 mmol/L [facility] CO2 25 22 - 32 mmol/L [facility] Anion gap 17(H) 2 - 15 mmol/L [facility] BUN 18 6 - 25 mg/dL [facility] Creatinine 1.17(H) 0.60 - 1.10 mg/dL [facility] Glucose 123 70 - 199 mg/dL [facility] Comment: Interpretive Data Fasting glucose >/= [...] Calcium 10.1 8.5 - 10.3 mg/dL [facility] Bilirubin, total 0.8 0.1 - 1.2 mg/dL [facility] Protein, pl 8.9(H) 6.5 - 8.5 g/dL [facility] Albumin 4.7 3.5 - 5.0 g/dL [facility] Alk phos 93 40 - 130 Units/L [facility] ALT 23 7 - 45 Units/L [facility] AST 21 10 - 45 Units/L [facility] Blood 02/16/2025 11:5 8 AM CDT 02/16/2025 12:24 PM CDT Heather Rene NP LAB BLOOD ORDE HCAGO Final Result Performing Organization Address [facility] Co de Phone Number [facility] [place] [address] * eGFR (01/15/2025 11:18 PM FLAVOR MAKER) eGFR 66 >=60 mL/min/1. 73 m2 Comment: [...] reviewed 2021. Blood 01/15/2025 11:1 8 PM FLAVOR MAKER 01/15/2025 11:40 PM FLAVOR MAKER us Adalberto Ngo MD LAB BLOOD ORDERABLES Final Re sult Performing Organization Address City/[facility]/ZIP Co de Phone Number [facility] Department [place] [address] * (ABNORMAL) Basic metabolic panel (01/15/2025 11:18 PM FLAVOR MAKER) Sodium 138 135 - 145 mmol/L Potassium, pl 3.3 3.3 - 4.9 mmol/L [facility] Chloride 105 97 - 110 mmol/L [facility] Comment:Repeated and Verifie d CO2 24 22 - 32 mmol/L [facility] Anion gap 9 2 - 15 mmol/L [facility] Comment:Repeated and Verifie d BUN 20 6 - 25 mg/dL [facility] Creatinine 0.97 0.60 - 1.10 mg/dL [facility] Glucose 109 70 - 199 mg/dL [facility] Comment: Interpretive Data Fasting glucose >/= [...] Calcium 7.6(L) 8.5 - 10.3 mg/dL [facility] Blood 01/15/2025 11:1 8 PM FLAVOR MAKER 01/15/2025 11:40 PM FLAVOR MAKER Adalberto Ngo MD LAB BLOOD ORDERABLES Final Re sult Performing Organization Address [facility] Co de Phone Number [facility] Department [place] [address] * Sodium, urine, random (01/15/2025 9:10 PM FLAVOR MAKER) Sodium, ur <20 mmol/L Comment: Interpretive Data No reference range established. Current interpretive data was last revised 2019. Urine 01/15/2025 9:10 PM FLAVOR MAKER 01/15/2025 9:22 PM FLAVOR MAKER Adalberto Ngo MD LAB URINE ORDERABLES Final Re sult [facility] [place] [address] * Osmolality, blood (01/15/2025 9:09 PM FLAVOR MAKER) Osmo 280 275 - 300 mOsm/kg Blood 01/15/2025 9:09 PM FLAVOR MAKER 01/15/2025 9:23 PM FLAVOR MAKER us Chris Khan MD LAB BLOOD ORDERABLES Final Resul t [facility] [place] [address] * (ABNORMAL) Urinalysis reflex to microscopic and culture Urine (01/15/2025 6:55 PM FLAVOR MAKER) Color, ur Straw Yellow Clarity, ur Clear Clear [facility] Specific gravity, ur 1.014 1.003 - 1.030 [facility] pH, urine 6.0 [facility] Comment: Interpretive Data U rine pH is affected by diet, medications, systemic acid-base disturbances, and renal tubular function. pH may affect urinary stone formation. For example, urine pH below 6.0 may help reduce the tendency for calcium phosphate stones and pH greater than 6.0 may reduce the tendency for uric acid stone formation. Source: [facility] Current Interpretive Data was last revised on 2017 Protein, ur ql 1+(A) Negative [facility] Glucose, ur ql Negative Negative [facility] Ketones, ur Negative Negative [facility] Bilirubin, ur Negative Negative [facility] Blood, ur Negative Negative [facility] Urobilinogen, ur <2.0 <2.0 mg/dL [facility] Nitrite, ur Negative Negative [facility] Leukocyte esterase, ur Negative Negative [facility] UA reflex comment Reflex to microscopic UA will be performed. [facility] Urine 01/15/2025 6:55 PM FLAVOR MAKER 01/15/2025 7:01 PM FLAVOR MAKER Adalberto Ngo MD LAB MICROBIOLOGY - GENERAL OR DERABLES Final Result Performing Organization Address [facility]/ZIP Co de Phone Number [facility] [place] [address] * Urinalysis, microscopic only (01/15/2025 6:55 PM FLAVOR MAKER) WBC, ur 0-5 0 - 5 /HPF RBC, ur 0-2 0 - 2 /HPF [facility] Epithelial cells, squamous, ur 1-5 0 - 5 /HPF [facility] Culture Reflex Comment Reflex conditions for urine culture (WBC >10) not met. [facility] Urine 01/15/2025 6:55 PM FLAVOR MAKER 01/15/2025 7:01 PM FLAVOR MAKER Adalberto Ngo MD LAB URINE ORDERABLES Final Re sult Performing Organization Address [facility] Co de Phone Number [facility] [place] [address] * (ABNORMAL) eGFR (01/15/2025 6:28 PM FLAVOR MAKER) eGFR 51(L) >=60 mL/min/1. 73 m2 Comment: [...] last reviewed 2021. Blood 01/15/2025 6:28 PM FLAVOR MAKER 01/15/2025 6:47 PM FLAVOR MAKER Adalberto Ngo MD LAB BLOOD ORDERABLES Final Re sult Performing Organization Address [facility] Co de Phone Number [facility] Department [place] [address] * (ABNORMAL) CBC without differential (01/15/2025 6:28 PM FLAVOR MAKER) WBC 10.4(H) 3.8 - 9.9 K/cumm Hgb 9.3(L) 11.9 - 15.5 g/dL [facility] Hct 27.7(L) 35.6 - 45.5 % [facility] Plt 165 150 - 400 K/cumm [facility] MPV 9.4 9.1 - 12.3 fL [facility] RBC 2.75(L) 3.90 - 5.20 M/cumm [facility] MCV 100.7(H) 81.3 - 96.4 fL [facility] MCH 33.8(H) 27.1 - 33.3 pg [facility] MCHC 33.6 32.3 - 35.7 g/dL [facility] RDW CV 13.7 11.1 - 14.9 % [facility] RDW SD 50.2(H) 35.7 - 48.1 fL [facility] NRBC abs 0.00 0.00 - 0.01 K/cumm [facility] Blood 01/15/2025 6:28 PM FLAVOR MAKER 01/15/2025 6:47 PM FLAVOR MAKER Adalberto Ngo MD LAB BLOOD ORDERABLES Final Re sult [facility] Department [place] [address] * Phosphorus (01/15/2025 6:28 PM FLAVOR MAKER) Phosphorus, pl 2.7 2.3 - 4.5 mg/dL Blood 01/15/2025 6:28 PM FLAVOR MAKER 01/15/2025 6:47 PM FLAVOR MAKER Adalberto Ngo MD LAB BLOOD ORDERABLES Final Re sult Performing Organization Address City/[facility] Co de Phone Number [facility] [place] [address] * Magnesium (01/15/2025 6:28 PM FLAVOR MAKER) [facility] Magnesium 1.7 1.4 - 2.5 mg/dL Blood 01/15/2025 6:28 PM FLAVOR MAKER 01/15/2025 6:47 PM FLAVOR MAKER Adalberto Ngo MD LAB BLOOD ORDERABLES Final Re sult Performing Organization Address [facility] de Phone Number [facility] [place] [address] * (ABNORMAL) Basic metabolic panel (01/15/2025 6:28 PM FLAVOR MAKER) [facility] Sodium 130(L) 135 - 145 mmol/L Potassium, pl 4.0 3.3 - 4.9 mmol/L [facility] Chloride 94(L) 97 - 110 mmol/L [facility] CO2 25 22 - 32 mmol/L [facility] Anion gap 11 2 - 15 mmol/L [facility] BUN 23 6 - 25 mg/dL [facility] Creatinine 1.19(H) 0.60 - 1.10 mg/dL [facility] Glucose 140 70 - 199 mg/dL [facility] Comment: Interpretive Data Fasting glucose >/= [...] Calcium 8.6 8.5 - 10.3 mg/dL [facility] Blood 01/15/2025 6:28 PM FLAVOR MAKER 01/15/2025 6:47 PM FLAVOR MAKER Adalberto Ngo MD LAB BLOOD ORDERABLES Final Re sult [facility] Department [place] [address] * XR Chest Pa Lateral 2 Views (01/15/2025 4:29 PM FLAVOR MAKER) Anatomical Region Laterality Modality Body, Chest N/A Computed Radiogr aphy 01/15/2025 10:0 8 PM FLAVOR MAKER Impressions 01/15/2025 10:08 PM FLAVOR MAKER There has been removal of a right-sided chest tube. 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 There is persistent elevation of the right hemidiaphragm. There is a new small right pleural effusion with increased right basilar atelectasis. No pneumothorax is identified. The cardiomediastinal silhouette is unchanged. Electronically signed by: Luis F Knight M.D. Narrative 01/15/2025 10:08 PM FLAVOR MAKER EXAMINATION: XR CHEST PA LATERAL 2 VIEWS [...] Electronically signed by: Luis F Knight M.D. us Adalberto Ngo MD IMG XR PROCEDURES Final Resul t * Respiratory pathogen panel Nasopharyngeal (01/15/2025 1:18 PM FLAVOR MAKER) Pathologist [facility] Influenza A RNA Not Detected Not Detected Influenza B RNA Not Detected Not Detected [facility] RSV RNA Not Detected Not Detected [facility] COVID-19 RNA Not Detected Not Detected [facility] Coronavirus 229E RNA Not Detected Not Detected [facility] Coronavirus HKU1 RNA Not Detected Not Detected [facility] Coronavirus NL63 RNA Not Detected Not Detected [facility] Coronavirus OC43 RNA Not Detected Not Detected [facility] Adenovirus DNA Not Detected Not Detected [facility] Metapneumovirus RNA Not Detected Not Detected [facility] Rhinovirus/Enterov irus RNA Not Detected Not Detected [facility] Parainfluenza 1 RNA Not Detected Not Detected [facility] Parainfluenza 2 RNA Not Detected Not Detected [facility] Parainfluenza 3 RNA Not Detected Not Detected [facility] Parainfluenza 4 RNA Not Detected Not Detected [facility] B. pertussis DNA Not Detected Not Detected [facility] B. parapertussis DNA Not Detected Not Detected [facility] C. pneumoniae DNA Not Detected Not Detected [facility] M. pneumoniae DNA Not Detected Not Detected [facility] Nasopharyngeal 01/15/2025 1: 18 PM FLAVOR MAKER 01/15/2025 1:47 PM FLAVOR MAKER Narrative [facility] - 01/15/2025 2:53 PM FLAVOR MAKER Is the Patient experiencing symptoms consistent with COVID?->No Surveillance testing for transplant patient?->No Interpretive Data The [employer] FilmArray Respiratory Panel (RP2.1) assay is a [...] assay has FDA clearance for testing of [facility] swabs. The performance of additional specimen types has been assessed by the performing laboratory. The performance characteristics of this assay have been determined by [facility] Molecular Infectious Disease Laboratory. Current interpretive data was last revised on 22. Adalberto Ngo MD LAB MICROBIOLOGY - GENERAL OR DERABLES Final Result [facility] Department [place] [address] * XR Chest 1 View (01/15/2025 5:07 AM FLAVOR MAKER) Anatomical Region Laterality Modality Body, Chest N/A Digital Radiogra phy 01/15/2025 7:40 AM FLAVOR MAKER Impressions 01/15/2025 7:50 AM FLAVOR MAKER The current study is compared with the [...] Geetha Ross M.D. Narrative 01/15/2025 7:50 AM FLAVOR MAKER EXAMINATION: 1 view chest radiograph Procedure Note [...] signed by: Geetha Ross M.D. Jeimy Jones NP IMG XR PROCEDURES Final Result * (ABNORMAL) eGFR (01/14/2025 8:34 PM FLAVOR MAKER) eGFR 42(L) >=60 mL/min/1. 73 m2 Comment: [...] last reviewed 2021. Blood 01/14/2025 8:34 PM FLAVOR MAKER 01/14/2025 8:40 PM FLAVOR MAKER us Jeimy Jones NP LAB BLOOD ORDERABLES nal Result [facility] Department [place] [address] * (ABNORMAL) CBC without differential (01/14/2025 8:34 PM FLAVOR MAKER) WBC 9.7 3.8 - 9.9 K/cumm Hgb 9.8(L) 11.9 - 15.5 g/dL [facility] Hct 29.9(L) 35.6 - 45.5 % [facility] Plt 144(L) 150 - 400 K/cumm [facility] MPV 9.4 9.1 - 12.3 fL [facility] RBC 2.95(L) 3.90 - 5.20 M/cumm [facility] MCV 101.4(H) 81.3 - 96.4 fL [facility] MCH 33.2 27.1 - 33.3 pg [facility] MCHC 32.8 32.3 - 35.7 g/dL [facility] RDW CV 14.1 11.1 - 14.9 % [facility] RDW SD 51.8(H) 35.7 - 48.1 fL [facility] NRBC abs 0.00 0.00 - 0.01 K/cumm [facility] Blood 01/14/2025 8:34 PM FLAVOR MAKER 01/14/2025 8:40 PM FLAVOR MAKER Jeimy Jones [facility] LAB BLOOD ORDERABLES Fi nal Result [facility] Department [place] [address] * (ABNORMAL) Basic metabolic panel (01/14/2025 8:34 PM FLAVOR MAKER) Sodium 133(L) 135 - 145 mmol/L Potassium, pl 4.2 3.3 - 4.9 mmol/L [facility] Chloride 97 97 - 110 mmol/L [facility] CO2 25 22 - 32 mmol/L [facility] Anion gap 11 2 - 15 mmol/L [facility] BUN 21 6 - 25 mg/dL [facility] Creatinine 1.40(H) 0.60 - 1.10 mg/dL [facility] Glucose 141 70 - 199 mg/dL [facility] Comment: Interpretive Data Fasting glucose >/= [...] Calcium 9.0 8.5 - 10.3 mg/dL [facility] Blood 01/14/2025 8:34 PM FLAVOR MAKER 01/14/2025 8:40 PM FLAVOR MAKER Jeimy Jones NP LAB BLOOD ORDERABLES Fi nal Result [facility] [place] [address] * ECG 12 lead (01/14/2025 11:55 AM FLAVOR MAKER) Ventricular Rate EKG/Min 85 BPM [facility] Atrial Rate 85 BPM [facility] FL-Interval (MSEC) 178 ms [facility] QRS-Interval (MSEC) 78 ms [facility] QT-Interval (MSEC) 382 ms [facility] QTc 454 ms [facility] P [place] 52 degrees [facility] R [place] 41 degrees [facility] T [place] 35 degrees [facility] Diagnosis Normal sinus rhythm Low voltage QRS Nonspecific ST abnormality Abnormal ECG No previous ECGs available Confirmed by LORENZO REYES M.D ([id number]) on 01/17/2025 7:21:58 PM [facility] 01/14/2025 11:5 5 AM FLAVOR MAKER 01/17/2025 7:21 PM CDT Jeimy Jones NP ECG ORDERABLES Final R esult Performing Organization Address City/[facility]/ZIP Co de Phone Number [facility] * eGFR (01/13/2025 8:46 PM FLAVOR MAKER) eGFR 79 >=60 mL/min/1. 73 m2 Comment: [...] last reviewed 2021. Blood 01/13/2025 8:46 PM FLAVOR MAKER 01/13/2025 8:58 PM FLAVOR MAKER Adalberto Ngo MD LAB BLOOD ORDERABLES Final Re sult Performing Organization Address City/[facility]/ZIP Co de Phone Number [facility] [place] [address] * (ABNORMAL) CBC without differential (01/13/2025 8:46 PM FLAVOR MAKER) WBC 8.6 3.8 - 9.9 K/cumm Hgb 10.6(L) 11.9 - 15.5 g/dL [facility] Hct 32.5(L) 35.6 - 45.5 % [facility] Plt 144(L) 150 - 400 K/cumm [facility] MPV 9.4 9.1 - 12.3 fL [facility] RBC 3.23(L) 3.90 - 5.20 M/cumm [facility] MCV 100.6(H) 81.3 - 96.4 fL [facility] MCH 32.8 27.1 - 33.3 pg [facility] MCHC 32.6 32.3 - 35.7 g/dL [facility] RDW CV 14.2 11.1 - 14.9 % [facility] RDW SD 51.8(H) 35.7 - 48.1 fL [facility] NRBC abs 0.00 0.00 - 0.01 K/cumm [facility] Blood 01/13/2025 8:46 PM FLAVOR MAKER 01/13/2025 8:58 PM FLAVOR MAKER Adalberto Ngo MD LAB BLOOD ORDERABLES Final Re sult [facility] Department [place] [address] * Basic metabolic panel (01/13/2025 8:46 PM FLAVOR MAKER) [facility] Signature Sodium 138 135 - 145 mmol/L Potassium, pl 4.3 3.3 - 4.9 mmol/L [facility] Chloride 99 97 - 110 mmol/L [facility] CO2 25 22 - 32 mmol/L [facility] Anion gap 14 2 - 15 mmol/L [facility] BUN 17 6 - 25 mg/dL [facility] Creatinine 0.83 0.60 - 1.10 mg/dL [facility] Glucose 163 70 - 199 mg/dL [facility] Comment: Interpretive Data Fasting glucose >/= [...] Calcium 9.0 8.5 - 10.3 mg/dL [facility] Blood 01/13/2025 8:46 PM FLAVOR MAKER 01/13/2025 8:58 PM FLAVOR MAKER us Adalberto Ngo MD LAB BLOOD ORDERABLES Final Re sult [facility] [place] [address] * XR Chest 1 View - in ICU (01/13/2025 6:35 PM FLAVOR MAKER) Anatomical Region Laterality Modality Body, Chest N/A Digital Radiogra phy 01/14/2025 9:57 AM FLAVOR MAKER Impressions 01/14/2025 2:16 PM FLAVOR MAKER Findings of right lower lobectomy. Right chest [...] Supa Vu M.D. Narrative 01/14/2025 2:16 PM FLAVOR MAKER EXAMINATION: XR CHEST 1 VIEW HISTORY: postop [...] Resul t * Cytogenetics (01/13/2025 5:02 PM FLAVOR MAKER) Miscellaneous 01/13/2025 5:0 2 PM FLAVOR MAKER 01/20/2025 2:09 PM CDT Narrative 01/24/2025 4:35 PM CDT [facility] results best viewed via link to PDF [facility] Department of Pathol [address] [place] [address] Patient Information Name: AP LAND Gender: F : 1960 (Age: 64) Tissue: FFPE FISH Visit Information Hospital #: [id number] Facility: [facility] Service: [facility] Location: [place] [address] Patient Type: [facility] Inpatient Specimen Information: Culture #: [id number] Date Collected: 01/13/2025 Date Accessioned: 01/21/2025 Date [...] Fluorescence In-situ hybridization (FISH) Results: Specimen # [id number] POSITIVE - FISH result for IGH gene rearrangement nuc bindu (3'IGHx2~3,5'IGHx2~3)(3'IGH con 5'IGH)x1[/200]/(3'IGHx1,5'IGHx1~2)(3'IGH con 5'IGH)x0[200] Chromosome analysis and Fluorescence In Situ Hybridization (FISH) analysis are performed using the [employer] Cont[employer] Imaging System. Comments IGH -BA FISH FISH was performed utilizing Vysis IGH (14q32) Dual Color, Break Apart Rearrangement probe set ([employer], [place], [place]). 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 The above test was developed and its performance characteristics determined by [facility]. It has not [...] ult * Surgical pathology (01/13/2025 2:59 PM FLAVOR MAKER) Tissue specimen (specimen) (Lymph Node, Single excision) 01/13/2025 2:59 PM FLAVOR MAKER Tissue specimen (specimen) (Lymph node, dissection/region al resection) 01/13/2025 3:22 PM FLAVOR MAKER Tissue specimen (specimen) (Lymph node, dissection/region al resection) 01/13/2025 3:26 PM FLAVOR MAKER Tissue specimen (specimen) (Lymph Node, Single excision) 01/13/2025 3:27 PM FLAVOR MAKER Tissue specimen (specimen) (Lymph Node, Single excision) 01/13/2025 3:30 PM FLAVOR MAKER Tissue specimen (specimen) (Lymph Node, Single excision) 01/13/2025 3:43 PM FLAVOR MAKER Tissue specimen (specimen) (Lymph Node, Single excision) 01/13/2025 3:58 PM FLAVOR MAKER Tissue specimen (specimen) (Lymph Node, Single excision) 01/13/2025 4:41 PM FLAVOR MAKER Tissue specimen (specimen) (Lung, total / lobe / segmental, tumor) 01/13/2025 5:02 PM FLAVOR MAKER Narrative PATHOLOGY [facility] - 01/24/2025 5:24 PM CDT EPIC results best viewed via link to PDF [facility] of [place] [address] Note to Patients: This report may contain [...] Gender: F : 1960 (Age: 64) Address: [address] [place] [id number] Hospital #: [id number] Taken:01/13/2025 Received:01/14/2025 Reported: 01/24/2025 Patient Type: [facility] Inpatient Service: Cardiothoracic Location: [place] [address] Physician(s): Rafael Ortega MD Adalberto F. Ngo, M.D. Diagnosis: A. Lymph node, level 9, [...] personal examination of the slides(and/or other material). Osman Akers M.D. Garrison Mccann M.D. Addenda/Procedures Addendum Ordered:01/25/2025Status:Signed OutAddendum Complete:01/25/2025y:Salvador Marx [...] Surgical Pathology and Flow Cytometry Departments at [facility] as part of an ongoing quality control program and in compliance with federally mandated [...] Surgical Pathology and Flow Cytometry Departments of [facility]. It has not been cleared or approved by the U. S. Food and Drug Administration. IMAGES AND SCANNED DOCUMENTS, IF INCLUDED, ONLY VIEWABLE IN PDF VERSION OF REPORT us Adalberto Ngo MD LAB PATHOLOGY ORDERABLES Salma roy Result PATHOLOGY [facility] 3rd Floor [place], [place] [phone] * Peripheral IV Catheter (01/13/2025 2:28 PM FLAVOR MAKER) Narrative Monie Segura MD - 01/13/2025 2:28 PM FLAVOR MAKER Monie Segura MD 01/13/2025 2:39 PM Peripheral [...] Final Result * Airway (01/13/2025 2:25 PM FLAVOR MAKER) Narrative Monie Segura MD - 01/13/2025 2:25 PM FLAVOR MAKER Monie Segura MD 01/13/2025 2:37 PM Airway [...] Result * Check Sample (01/13/2025 1:37 PM FLAVOR MAKER) ABO Rh A Negative [facility] OTHER 01/13/2025 1:37 PM FLAVOR MAKER 01/13/2025 1:47 PM FLAVOR MAKER Adalberto Ngo MD LAB BLOOD ORDERABLES Final Re sult [facility] Department [place] [address] [facility] * CT chest without contrast (12/30/2024 9:01 AM FLAVOR MAKER) Anatomical Region Laterality Modality Body N/A Computed Tomogra phy 12/30/2024 9:29 AM FLAVOR MAKER Impressions 12/30/2024 9:47 AM FLAVOR MAKER 1. Unchanged spiculated microlobulated 1.1 cm right lower lobe nodule, which was hypermetabolic on the prior PET/CT and is suspicious for malignancy. 2. Additional 0.5 cm right lower lobe nodule is also unchanged compared to 10/27/2024 but is new compared to 2020. Dictated by: Marco A Ahcarya MD The radiology attending physician has personally reviewed this study, and had reviewed and/or edited this written report and agrees with it. Electronically signed by: Wood Whatley M.D. Narrative 12/30/2024 9:47 AM FLAVOR MAKER EXAMINATION: Computed tomography of the chest without [...] by: Wood Whatley M.D. us Lukas Francis [facility] IMG CT PROCEDURES Final Res ult * TYPE AND SCREEN 14 DAY (12/30/2024 8:47 AM FLAVOR MAKER) ABO Rh A Negative Zohra, indirect Negative [facility] Blood 12/30/2024 8:47 AM FLAVOR MAKER 12/30/2024 11:57 AM FLAVOR MAKER Narrative [facility] - 12/30/2024 12:49 PM FLAVOR MAKER Has the patient had Daratumumab or Isatuximab in the past 6 months?->Unknown Is this test being ordered in advance for a procedure?->Yes Expected date of procedure:->01/04/25 Has the patient been transfused in the past 3 months?->No Has the patient been in the past 3 months?->No Cathy Jerez [facility] LAB BLOOD BANK TEST ORDER AMANDA Final Result [facility] [place] [address] * eGFR (12/30/2024 8:47 AM FLAVOR MAKER) eGFR 79 >=60 mL/min/1. 73 m2 Comment: [...] last reviewed 2021. Blood 12/30/2024 8:47 AM FLAVOR MAKER 12/30/2024 12:11 PM FLAVOR MAKER Cathy Jerez [facility] LAB BLOOD ORDERABLES Salma l Result Performing Organization Address [facility] Co de Phone Number [facility] [place] [address] * (ABNORMAL) CBC without differential (12/30/2024 8:47 AM FLAVOR MAKER) [facility] WBC 6.1 3.8 - 9.9 K/cumm Hgb 11.4(L) 11.9 - 15.5 g/dL [facility] Hct 35.1(L) 35.6 - 45.5 % [facility] Plt 158 150 - 400 K/cumm [facility] MPV 9.6 9.1 - 12.3 fL [facility] RBC 3.45(L) 3.90 - 5.20 M/cumm [facility] MCV 101.7(H) 81.3 - 96.4 fL [facility] MCH 33.0 27.1 - 33.3 pg [facility] MCHC 32.5 32.3 - 35.7 g/dL [facility] RDW CV 14.4 11.1 - 14.9 % [facility] RDW SD 53.6(H) 35.7 - 48.1 fL [facility] NRBC abs 0.00 0.00 - 0.01 K/cumm [facility] Blood 12/30/2024 8:47 AM FLAVOR MAKER 12/30/2024 11:54 AM FLAVOR MAKER Cathy Jerez [facility] LAB BLOOD ORDERABLES Salma l Result Performing Organization Address [facility]/ZIP Co de Phone Number [facility] [place] [address] * Basic metabolic panel (12/30/2024 8:47 AM FLAVOR MAKER) Pathologist [facility] Sodium 141 135 - 145 mmol/L Potassium, pl 4.2 3.3 - 4.9 mmol/L [facility] Chloride 102 97 - 110 mmol/L [facility] CO2 27 22 - 32 mmol/L [facility] Anion gap 12 2 - 15 mmol/L [facility] BUN 19 6 - 25 mg/dL [facility] Creatinine 0.83 0.60 - 1.10 mg/dL [facility] Glucose 104 70 - 199 mg/dL [facility] Comment: Interpretive Data Fasting glucose >/= [...] Calcium 10.0 8.5 - 10.3 mg/dL [facility] Blood 12/30/2024 8:47 AM FLAVOR MAKER 12/30/2024 11:55 AM FLAVOR MAKER us Cathy Jerez NP LAB BLOOD ORDERABLES Salma roy Result [facility] [place] [address] from Last 3 Months Insurance [employer]or[employer] OOS [facility] ACC[facility] [employer] ACCESS OOS [employer] ACCESS OOS Member Subscriber Plan / Payer (Ef fective 2020-Present) Name:Ap Land Relation to Subscriber:Self Name:Ap Land Payer ID:[id number] ([facility]) Type:SANDRA SYED Address: [facility] [address] [place] [id number] Advance Directives For more information, please contact: [phone] Documents on File Type Date Recorded Patient Management Technician Expl anation ADVANCE DIRECTIVE 01/13/2025 1:36 PM Power of Flight Superintendent-Medical * Full Code (Latest Code Status on File) Date Activated Date Inactivated Comments 01/13/2025 8:21 PM 01/17/2025 5:31 PM Healthcare Agents on File Name Relationship Healthcare Agent [facility] p Communication Chanel Land Daughter Health Care Agent Care Teams Marble Cutter Operator Relationship Specialty Start Date End Date Chino Mora MD PCP - General Family Practice 01/02/21 Kameron Jeff MD [address] [place] [address] Medical Oncologist/Web Page Developer Medical Oncology 01/02/21 Kameron Jeff MD [address] DIV IM MEDICAL ONCOLOGY, [address] [place] [address] Medical Oncologist/Web Page Developer Medical Oncology 04/28/24 Constantin Kumar MD [address] [place] [address] Medical Oncologist/Web Page Developer Medical Oncology 02/01/25
--- OUTSIDE RECORDS SUMMARY | 2025-02-25 10:53 | XMS_ITS ---
Author Organization [facility] Address [address] [place] [address] Care Team Providers Care Rotary Machine Operator Name Role Phone Chino Mora MD Primary Care Provider Kameron Jeff MD Unavailable [phone] Kameron Jeff MD Unavailable Constantin Kumar MD Unavailable [phone] Active Problems Patient Care Coordination No te [...] (02/09/2019 12:19 PM CDT): DR Rivero in [facility] evaluating Vitreous syneresis of both eyes [...]
--- OUTSIDE RECORDS SUMMARY | 2025-02-25 10:53 | XMS_ITS | Referral Summary ---
Author Organization [facility] Address [address] [place] [address] Care Team Providers Care Proc Tech Name Role Phone Chino Mora MD Primary Care Provider Kameron Jeff MD Unavailable [phone] Kameron Jeff MD Unavailable Constantin Kumar MD Unavailable [phone] Encounters Date Type Department Care Team Description 02/24/2025 Orders Only [facility] Oncology [address] [place] [phone] Constantin Kumar MD SIADH (syndrome of inappropriate ADH production) (Primary Dx) 02/24/2025 Telephone [facility] Oncology [address] [place] [phone] Radha White RN 02/23/2025 Documentation [facility] Oncology [address] [place] [address] [phone] Alla Schreiber RMA 02/23/2025 Documentation [facility] Oncology [address] [place] [phone] Alla Schreiber RMA 02/16/2025 12:30 PM CDT Lab [facility] - Lab Collection [facility] Floor [address] [place] [address] Extranodal marginal zone B-cell lymphoma 02/16/2025 12:00 PM CDT Lab [facility] Oncology Lab [address] [place] [phone] 02/16/2025 1:00 PM CDT Office Visit [facility] Oncology [address] [place] [phone] Constantin Kumar MD Extranodal marginal zone B-cell lymphoma (Primary Dx); Lymphoma involving lung (HCC); Anemia, unspecified type 02/01/2025 11:00 AM CDT Office Visit [facility] Surgery [address] [place] [phone] Adalberto Ngo MD Lymphoma involving lung (HCC) (Primary Dx) 01/13/2025 9:56 AM AUTOMATION ARCHITECT - 01/17/2025 1:31 PM CDT Hospital Encounter [address] [phone] Adalberto Ngo MD Lung nodule Discharge Disposition: Discharge to home or self care 01/14/2025 Orders Only [facility] Surgery [address] [place] [phone] Adalberto Ngo MD Lung nodule (Primary Dx) 01/13/2025 1:05 PM AUTOMATION ARCHITECT - 01/13/2025 6:15 PM AUTOMATION ARCHITECT Surgery [facility] Operating Room [address] [place] [address] Adalberto Ngo MD XI ROBOTIC LOBECTOMY RIGHT LOWER LOBE 01/13/2025 1:53 PM AUTOMATION ARCHITECT Anesthesia Event [facility] Operating Room [address] [place] [address] Halima Olson MD Montgomery, Andrea J., NP 01/12/2025 Telephone [facility] Surgery [address] [place] [phone] Lukas Francis NP 12/30/2024 Orders Only [facility] Surgery [address] [facility] Floor [address] [place] [phone] Lukas Francis NP Gingivitis (Primary Dx) 12/30/2024 8:30 AM AUTOMATION ARCHITECT Lab [facility] [address] [facility] [address] [place] [address] Preoperative testing 12/30/2024 8:01 AM AUTOMATION ARCHITECT - 12/30/2024 11:59 PM AUTOMATION ARCHITECT Hospital Encounter [facility] Radiology at [facility] [address] [place] [address] Lung nodule Discharge Disposition: Discharge to home or self care 12/30/2024 8:00 AM AUTOMATION ARCHITECT Pre-Admission Testing [facility] CAM Pre Anesthesia Testing [address] [place] [address] Preoperative testing (Primary Dx) 12/10/2024 Telephone [facility] Oncology [address] [place] [phone] Leatha Ferro RN 12/06/2024 Orders Only [facility] Surgery [address] [facility] Floor [address] [place] [phone] Lukas Francis NP Lung nodule (Primary Dx) 12/06/2024 9:30 AM AUTOMATION ARCHITECT Office Visit 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 0 Active hydroCHLOROthiaz kaden (HYDRODIURIL) [...] (02/09/2019 12:19 PM CDT): DR Rivero in [facility] evaluating Vitreous syneresis of both eyes [...] on file Legal Sex Female 11:57 PM AUTOMATION ARCHITECT Gender Identity Not on file Sexual Orientation [...] Height 152.4 cm (5') 01/13/2025 8:25 PM AUTOMATION ARCHITECT Body Mass Index 24.57 01/13/2025 8:25 PM AUTOMATION ARCHITECT Plan of Treatment Not on file Procedures [...] AM CDT EGFR Timed 01/15/2025 11:18 PM AUTOMATION ARCHITECT BASIC METABOLIC PANEL Timed 01/15/2025 11:18 PM AUTOMATION ARCHITECT SODIUM, URINE, RANDOM Routine 01/15/2025 9:10 PM AUTOMATION ARCHITECT OSMOLALITY, BLOOD Timed 01/15/2025 9:0 9 PM AUTOMATION ARCHITECT PEP THERAPY Routine 01/15/2025 8:00 PM AUTOMATION ARCHITECT URINALYSIS, MICROSCOPIC ONLY Routine 01/15/2025 6:55 PM AUTOMATION ARCHITECT URINALYSIS AND REFLEX TO MICROSCOPIC AND CULTURE Routine 01/15/2025 6:55 PM AUTOMATION ARCHITECT EGFR Timed 01/15/2025 6:28 PM AUTOMATION ARCHITECT PHOSPHORUS Timed 01/15/2025 6:28 PM AUTOMATION ARCHITECT MAGNESIUM Timed 01/15/2025 6:28 PM AUTOMATION ARCHITECT BASIC METABOLIC PANEL Timed 01/15/2025 6:28 PM AUTOMATION ARCHITECT CBC WITHOUT DIFFERENTIAL Timed 01/15/2025 6:28 PM AUTOMATION ARCHITECT XR CHEST PA LATERAL 2 VIEWS Timed 01/15/2025 4:29 PM AUTOMATION ARCHITECT PEP THERAPY Routine 01/15/2025 3:39 PM AUTOMATION ARCHITECT PEP THERAPY Routine 01/15/2025 3:39 PM AUTOMATION ARCHITECT PEP THERAPY Routine 01/15/2025 3:39 PM AUTOMATION ARCHITECT RESPIRATORY PATHOGEN PANEL Routine 01/15/2025 1:18 PM AUTOMATION ARCHITECT CHEST PHYSIO THERAPY Routine 01/15/2025 11:01 AM AUTOMATION ARCHITECT XR CHEST 1 VIEW IP Routine 01/15/2025 5:07 AM AUTOMATION ARCHITECT EGFR Routine 01/14/2025 8:34 PM AUTOMATION ARCHITECT CBC WITHOUT DIFFERENTIAL Routine 01/14/2025 8:34 PM AUTOMATION ARCHITECT BASIC METABOLIC PANEL Routine 01/14/2025 8:34 PM AUTOMATION ARCHITECT ECG 12-LEAD Routine 01/14/2025 11:55 AM AUTOMATION ARCHITECT EGFR Timed 01/13/2025 8:46 PM AUTOMATION ARCHITECT BASIC METABOLIC PANEL Timed 01/13/2025 8:46 PM AUTOMATION ARCHITECT CBC WITHOUT DIFFERENTIAL Timed 01/13/2025 8:46 PM AUTOMATION ARCHITECT XR CHEST 1 VIEW ED Urgent/IP Urgent 01/13/2025 6:35 PM AUTOMATION ARCHITECT CYTOGENETICS Routine 01/13/2025 5:02 PM AUTOMATION ARCHITECT SURGICAL PATHOLOGY Routine 01/13/2025 2: 59 PM AUTOMATION ARCHITECT Lung nodule PERIPHERAL LINE Routine 01/13/2025 2:28 PM AUTOMATION ARCHITECT ANESTHESIA INTUBATION Routine 01/13/2025 2:25 PM AUTOMATION ARCHITECT XI ROBOTIC LOBECTOMY 01/13/2025 1:55 PM AUTOMATION ARCHITECT Lung nodule B CHECK SAMPLE STAT 01/13/2025 1:[address] CHEST WO CONTRAST Schedule PURA, Read PURA (Appt Today, Awaiting Results) 12/30/2024 9:01 AM AUTOMATION ARCHITECT Lung nodule EGFR Routine 12/30/2024 8:47 AM AUTOMATION ARCHITECT Preoperative testing BASIC METABOLIC PANEL Routine 12/30/2024 8:47 AM AUTOMATION ARCHITECT Preoperative testing CBC WITHOUT DIFFERENTIAL Routine 12/30/2024 8:47 AM AUTOMATION ARCHITECT Preoperative testing TYPE AND SCREEN 14 DAY Routine 12/30/2024 8:47 AM AUTOMATION ARCHITECT Preoperative testing from Last 3 Months Results * Immunotyping, serum with interpretation (02/16/2025 11:58 AM CDT) Immunosubtraction Please see comment Comment: NO PARAPROTEIN DETECTED Reviewed and signed by Matthew Coffman MD, PhD 02/18/2025 Blood 02/16/2025 11:5 8 AM CDT 02/16/2025 4:31 PM CDT Narrative MICHELLE [facility] - 02/19/2025 8:55 AM CDT Reflex Immunotyping, Ser Heather Rene FUEL CELL TEST ENGINEER LAB BLOOD ARI ANDERS Final Result [facility] Department [place] [address] * (ABNORMAL) eGFR (02/16/2025 11:58 AM CDT) [...] Inclusion of Race in Diagnosing Kidney Disease, ELIZABETH 2020). The CKD-EPI equation should not be used for patients with unstable renal function and has not been validated in children and those over 70. Current interpretive data was last reviewed 2021. Blood 02/16/2025 11:5 8 AM CDT 02/16/2025 12:24 PM CDT Heather Rene FUEL CELL TEST ENGINEER LAB BLOOD ARI ANDERS Final Result [facility] Department [place] [address] * (ABNORMAL) Differential, auto (02/16/2025 11:58 AM CDT) Neutrophil abs 7.85(H) 1.50 - 6.50 K/cumm Comment:Testing performed by : [facility], [address] [place], [place] [phone] Lymphocyte abs 2.28 0.80 - 3.30 K/cumm CERNER BJ Comment:Testing performed by : [facility], [address] [place] [phone] Monocyte abs 0.74 0.20 - 0.80 K/cumm CERNER BJ Comment:Testing performed by : [facility], [address] [place] [address] Eosinophil abs 0.01 0.00 - 0.50 K/cumm CERNER BJ Comment:Testing performed by : [facility], [address] [place] [phone] Basophil abs 0.06 0.00 - 0.10 K/cumm CERNER BJ Comment:Testing performed by : [facility], [address] [place] [address] Neutrophil pct 71.8 % CERNER BJ Comment: Interpretive Data Percent cell count reference ranges are not reported, since discordance with absolute values may lead to misinterpretation of CBC data. Current Interpretive Data was last revised on 2018. Testing performed by: [facility], [address] [place] [phone] Lymphocyte pct 20.8 % CERLIANNA GURROLA Comment: Interpretive Data Percent cell count reference ranges are not reported, since discordance with absolute values may lead to misinterpretation of CBC data. Current Interpretive Data was last revised on 2018. Testing performed by: [facility], [address] [place] [phone] Monocyte pct 6.7 % CERLIANNA GURROLA Comment: Interpretive Data Percent cell count reference ranges are not reported, since discordance with absolute values may lead to misinterpretation of CBC data. Current Interpretive Data was last revised on 2018. Testing performed by: [facility], [address] [place] [phone] Eosinophil pct 0.1 % CERLIANNA GURROLA Comment: Interpretive Data Percent cell count reference ranges are not reported, since discordance with absolute values may lead to misinterpretation of CBC data. Current Interpretive Data was last revised on 2018. Testing performed by: [facility], [address] [place] [phone] Basophil pct 0.5 % MICHELLE GURROLA Comment: Interpretive Data Percent cell count reference ranges are not reported, since discordance with absolute values may lead to misinterpretation of CBC data. Current Interpretive Data was last revised on 2018. Testing performed by: [facility], [address] [place] [phone] Blood 02/16/2025 11:5 8 AM CDT 02/16/2025 12:15 PM CDT Heather Rene FUEL CELL TEST ENGINEER LAB BLOOD ORDE CHAGO Final Result MICHELLE [facility] Department [place] [address] * HIV 1/2 Antibody plus p24 Antigen [...] CDT 02/16/2025 1:02 PM CDT Heather Rene FUEL CELL TEST ENGINEER LAB MICROBIOLO GY - GENERAL ORDERABLES Final Result MICHELLE GURROLA [facility] Department [place] [address] * (ABNORMAL) CBC with auto differential (02/16/2025 11:58 AM CDT) WBC 10.93(H) 3.80 - 9.90 K/cumm Comment:Testing performed by : [facility], [address] [place] [address] Hgb 11.6(L) 11.9 - 15.5 g/dL CERLIANNA BJ Comment:Testing performed by : [facility], [address] [place] [address] Hct 34.7(L) 35.6 - 45.5 % CERLIANNA BJ Comment:Testing performed by : [facility], [address] [place] [address] Plt 208 150 - 400 K/cumm CERLIANNA BJ Comment:Testing performed by : [facility], [address] [place] [address] MPV 7.1 6.8 - 10.4 fL CERLIANNA BJ Comment:Testing performed by : [facility], [address] [place] [address] RBC 3.71(L) 3.90 - 5.20 M/cumm MICHELLE BJ Comment:Testing performed by : [facility], [address] [place] [address] MCV 93.5 81.3 - 96.4 fL [address] [facility] Comment:Testing performed by : [facility], [address] [place], [place] [phone] MCH 31.4 27.1 - 33.3 pg MICHELLE GURROLA Comment:Testing performed by : [facility], [address] [place], [place] [phone] MCHC 33.5 32.3 - 35.7 g/dL MICHELLE GURROLA Comment:Testing performed by : [facility], [address] [place], [place] [phone] RDW CV 16.5(H) 11.1 - 14.9 % MICHELLE [facility] Comment:Testing performed by : [facility], [address] [place], [place] [phone] NRBC abs 0.00 0.00 - 0.01 K/cumm MICHELLE [facility] Comment:Testing performed by : [facility], [address] [place], [place] [phone] Blood 02/16/2025 11:5 8 AM CDT 02/16/2025 12:15 PM CDT Heather Rene FUEL CELL TEST ENGINEER LAB BLOOD ORDE RABLES Final Result Performing Organization Address City/[facility]/ZIP Co de Phone Number [facility] Department [place] [address] * Hepatitis C antibody Blood (02/16/2025 11:58 AM CDT) Hep C Ab Nonreactive Nonreactive Comment:Antibodies to HCV no t detected. Does NOT exclude the possibility of recent exposure to HCV. Current interpretive data was last revised on 22 Blood 02/16/2025 11:5 8 AM CDT 02/16/2025 1:02 PM CDT Heather Lidia Rene FUEL CELL TEST ENGINEER LAB MICROBIOLO GY - GENERAL ORDERABLES Final Result CERNER [facility] [place] [address] * Hepatitis B core antibody, total Blood (02/16/2025 11:58 AM CDT) Hep B core IgG/IgM Nonreactive Nonreactive Blood 02/16/2025 11:5 8 AM CDT 02/16/2025 1:02 PM CDT Heather Murphyt FUEL CELL TEST ENGINEER LAB MICROBIOLO GY - GENERAL ORDERABLES Final Result Performing Organization Address City/[facility] [place] [address] * Hepatitis B surface antibody (immune status) Blood (02/16/2025 11:58 AM CDT) Pathologist [facility] HBsAb (immune status) Nonreactive Comment:This result is consi stent with a lack of immunity to Hepatitis B Virus when used in the setting of routine screening. Current interpretative data was last revised on 22 Blood 02/16/2025 11:5 8 AM CDT 02/16/2025 1:02 PM CDT Heather Mckeonlsgett FUEL CELL TEST ENGINEER LAB MICROBIOLO GY - GENERAL ORDERABLES Final Result Performing Organization Address [facility] Co de Phone Number MICHELLE [facility] [place] [address] * Hepatitis B Surface Antigen Blood (02/16/2025 11:58 AM CDT) HepBsAg Nonreactive Nonreactive Blood 02/16/2025 11:5 8 AM CDT 02/16/2025 1:02 PM CDT Heather Mckeonlsgett FUEL CELL TEST ENGINEER LAB MICROBIOLO GY - GENERAL ORDERABLES Final Result Performing Organization Address City/State/[facility] Co de Phone Number [facility] Department [place] [address] * (ABNORMAL) Protein electrophoresis with reflex, serum with interpretation (02/16/2025 11:58 AM CDT) Pathologist [facility] Protein, sr 8.5(H) 6.2 - 8.2 g/dL Albumin 4.4 3.2 - 5.0 g/dL [facility] Alpha-1 globulin 0.5(H) 0.2 - 0.4 g/dL [facility] Alpha-2 globulin 0.9 0.5 - 1.0 g/dL [facility] Beta-1 globulin 0.6 0.3 - 0.6 g/dL [facility] Beta-2 globulin 0.6 0.2 - 0.6 g/dL [facility] Gamma globulin 1.4 0.5 - 1.7 g/dL [facility] SPEP interp Please see comment [facility] Comment: Possible abnormal restricted peak in gamma region See immunotyping for further information Reviewed and signed by Matthew Coffman MD, PhD 02/18/2025 Immunotyping See Immunotyping Results [facility] Blood 02/16/2025 11:5 8 AM CDT 02/16/2025 1:41 PM CDT Heather Rene FUEL CELL TEST ENGINEER LAB BLOOD ORDE RABSITA Final Result Performing Organization Address City/[facility] de Phone Number [facility] Department [place] [address] * Lactate dehydrogenase (LD) (02/16/2025 11:58 AM CDT) [facility] Lactate dehydrogenase (LDH) 180 100 - 250 Units/L Blood 02/16/2025 11:5 8 AM CDT 02/16/2025 12:24 PM CDT Heather Lidia Rene LAB BLOOD ORDE RABLES Final Result [facility] [place] [address] * (ABNORMAL) Beta 2 microglobulin, serum (02/16/2025 11:58 AM CDT) Pathologist [facility] Beta 2 Microglobulin, Serum 3.20(H) 1.00 - 2.50 mg/L Comment: Interpretive Data The Wang Beta-2 microglobulin assay procedure was used. Results from different manufacturers or methods may not be comparable. Serial testing should be performed using the same method. Blood 02/16/2025 11:5 8 AM CDT 02/16/2025 12:50 PM CDT Heather Rene NP LAB BLOOD ARI ANDERS Final Result Performing Organization Address [facility] de Phone Number [facility] Department [place] [address] * (ABNORMAL) Comprehensive metabolic panel (02/16/2025 11:58 AM CDT) Pathologist [facility] Sodium 131(L) 135 - 145 mmol/L Potassium, pl 4.9 3.3 - 4.9 mmol/L [facility] Chloride 89(L) 97 - 110 mmol/L [facility] CO2 25 22 - 32 mmol/L [facility] Anion gap 17(H) 2 - 15 mmol/L [facility] BUN 18 6 - 25 mg/dL [facility] Creatinine 1.17(H) 0.60 - 1.10 mg/dL [facility] Glucose 123 70 - 199 mg/dL [facility] Comment: Interpretive Data Fasting glucose >/= [...] 2022. Calcium 10.1 8.5 - 10.3 mg/dL [facility] Bilirubin, total 0.8 0.1 - 1.2 mg/dL [facility] Protein, pl 8.9(H) 6.5 - 8.5 g/dL CERNER [facility] Albumin 4.7 3.5 - 5.0 g/dL [facility] Alk phos 93 40 - 130 Units/L CERNER BJ ALT 23 7 - 45 Units/L CERNER [facility]J AST 21 10 - 45 Units/L [facility] Blood 02/16/2025 11:5 8 AM CDT 02/16/2025 12:24 PM CDT Heather Rene FUEL CELL TEST ENGINEER LAB BLOOD ARI ANDERS Final Result [facility] Department [place] [address] * eGFR (01/15/2025 11:18 PM AUTOMATION ARCHITECT) eGFR 66 >=60 mL/min/1. 73 m2 Comment: [...] reviewed 2021. Blood 01/15/2025 11:1 8 PM AUTOMATION ARCHITECT 01/15/2025 11:40 PM AUTOMATION ARCHITECT Adalberto Ngo MD LAB BLOOD ORDERABLES Final Re sult [facility] Department [place] [address] * (ABNORMAL) Basic metabolic panel (01/15/2025 11:18 PM AUTOMATION ARCHITECT) [facility] Sodium 138 135 - 145 mmol/L Potassium, pl 3.3 3.3 - 4.9 mmol/L [facility] Chloride 105 97 - 110 mmol/L [facility] Comment:Repeated and Verifie d CO2 24 22 - 32 mmol/L [facility] Anion gap 9 2 - 15 mmol/L [facility] Comment:Repeated and Verifie d BUN 20 6 - 25 mg/dL [facility] Creatinine 0.97 0.60 - 1.10 mg/dL [facility] Glucose 109 70 - 199 mg/dL [facility] Comment: Interpretive Data Fasting glucose >/= [...] 2022. Calcium 7.6(L) 8.5 - 10.3 mg/dL [facility] Blood 01/15/2025 11:1 8 PM AUTOMATION ARCHITECT 01/15/2025 11:40 PM AUTOMATION ARCHITECT Adalberto Ngo MD LAB BLOOD ORDERABLES Final Re sult Performing Organization Address City/[facility]/ZIP Co de Phone Number [facility] Department [place] [address] * Sodium, urine, random (01/15/2025 9:10 PM AUTOMATION ARCHITECT) Pathologist [facility] Sodium, ur <20 mmol/L Comment: Interpretive Data No reference range established. Current interpretive data was last revised 2019. Urine 01/15/2025 9:10 PM AUTOMATION ARCHITECT 01/15/2025 9:22 PM AUTOMATION ARCHITECT us Adalberto Ngo MD LAB URINE ORDERABLES Final Re sult Performing Organization Address [facility]/ZIP Co de Phone Number [facility] [place] [address] * Osmolality, blood (01/15/2025 9:09 PM AUTOMATION ARCHITECT) Pathologist [facility] Osmo 280 275 - 300 mOsm/kg Blood 01/15/2025 9:09 PM AUTOMATION ARCHITECT 01/15/2025 9:23 PM AUTOMATION ARCHITECT us Chris Khan MD LAB BLOOD ORDERABLES Final Resul t Performing Organization Address [facility] Co de Phone Number [facility] [place] [address] * (ABNORMAL) Urinalysis reflex to microscopic and culture Urine (01/15/2025 6:55 PM AUTOMATION ARCHITECT) Pathologist [facility] Color, ur Straw Yellow Clarity, ur Clear Clear [facility] Specific gravity, ur 1.014 1.003 - 1.030 [facility] pH, urine 6.0 [facility] Comment: Interpretive Data U rine pH is affected by diet, medications, systemic acid-base disturbances, and renal tubular function. pH may affect urinary stone formation. For example, urine pH below 6.0 may help reduce the tendency for calcium phosphate stones and pH greater than 6.0 may reduce the tendency for uric acid stone formation. Source: [facility] [employer] Current Interpretive Data was last revised on 2017 Protein, ur ql 1+(A) Negative [facility] Glucose, ur ql Negative Negative [facility] Ketones, ur Negative Negative [facility] Bilirubin, ur Negative Negative [facility] Blood, ur Negative Negative [facility] Urobilinogen, ur <2.0 <2.0 mg/dL [facility] Nitrite, ur Negative Negative [facility] Leukocyte esterase, ur Negative Negative [facility] UA reflex comment Reflex to microscopic UA will be performed. [facility] Urine 01/15/2025 6:55 PM AUTOMATION ARCHITECT 01/15/2025 7:01 PM AUTOMATION ARCHITECT us Adalberto Ngo MD LAB MICROBIOLOGY - GENERAL OR DERABLES Final Result Performing Organization Address [facility] Co de Phone Number [facility] [place] [address] * Urinalysis, microscopic only (01/15/2025 6:55 PM AUTOMATION ARCHITECT) WBC, ur 0-5 0 - 5 /HPF RBC, ur 0-2 0 - 2 /HPF [facility] Epithelial cells, squamous, ur 1-5 0 - 5 /HPF [facility] Culture Reflex Comment Reflex conditions for urine culture (WBC >10) not met. [facility] Urine 01/15/2025 6:55 PM AUTOMATION ARCHITECT 01/15/2025 7:01 PM AUTOMATION ARCHITECT us Adalberto Ngo MD LAB URINE ORDERABLES Final Re sult Performing Organization Address [facility] Co de Phone Number [facility] Department [place] [address] * (ABNORMAL) eGFR (01/15/2025 6:28 PM AUTOMATION ARCHITECT) eGFR 51(L) >=60 mL/min/1. 73 m2 Comment: [...] of Race in Diagnosing Kidney Disease, JASN 202). The CKD-EPI equation should not be used for patients with unstable renal function and has not been validated in children and those over 70. Current interpretive data was last reviewed 2021. Blood 01/15/2025 6:28 PM AUTOMATION ARCHITECT 01/15/2025 6:47 PM AUTOMATION ARCHITECT us Adalberto Ngo MD LAB BLOOD ORDERABLES Final Re sult [facility] Department [place] [address] * (ABNORMAL) CBC without differential (01/15/2025 6:28 PM AUTOMATION ARCHITECT) WBC 10.4(H) 3.8 - 9.9 K/cumm Hgb 9.3(L) 11.9 - 15.5 g/dL [facility] Hct 27.7(L) 35.6 - 45.5 % [facility] Plt 165 150 - 400 K/cumm [facility] MPV 9.4 9.1 - 12.3 fL [facility] RBC 2.75(L) 3.90 - 5.20 M/cumm [facility] MCV 100.7(H) 81.3 - 96.4 fL [facility] MCH 33.8(H) 27.1 - 33.3 pg [facility] MCHC 33.6 32.3 - 35.7 g/dL [facility] RDW CV 13.7 11.1 - 14.9 % [facility] RDW SD 50.2(H) 35.7 - 48.1 fL [facility] NRBC abs 0.00 0.00 - 0.01 K/cumm [facility] Blood 01/15/2025 6:28 PM AUTOMATION ARCHITECT 01/15/2025 6:47 PM AUTOMATION ARCHITECT Adalberto Ngo MD LAB BLOOD ORDERABLES Final Re sult Performing Organization Address [facility] Co de Phone Number [facility] [place] [address] * Phosphorus (01/15/2025 6:28 PM AUTOMATION ARCHITECT) [facility] Phosphorus, pl 2.7 2.3 - 4.5 mg/dL Blood 01/15/2025 6:28 PM AUTOMATION ARCHITECT 01/15/2025 6:47 PM AUTOMATION ARCHITECT Adalberto Ngo MD LAB BLOOD ORDERABLES Final Re sult Performing Organization Address [facility] de Phone Number [facility] [place] [address] * Magnesium (01/15/2025 6:28 PM AUTOMATION ARCHITECT) [facility] Magnesium 1.7 1.4 - 2.5 mg/dL Blood 01/15/2025 6:28 PM AUTOMATION ARCHITECT 01/15/2025 6:47 PM AUTOMATION ARCHITECT Adalberto Ngo MD LAB BLOOD ORDERABLES Final Re sult Performing Organization Address [facility] [place] [address] * (ABNORMAL) Basic metabolic panel (01/15/2025 6:28 PM AUTOMATION ARCHITECT) [facility] Sodium 130(L) 135 - 145 mmol/L Potassium, pl 4.0 3.3 - 4.9 mmol/L [facility] Chloride 94(L) 97 - 110 mmol/L [facility] CO2 25 22 - 32 mmol/L [facility] Anion gap 11 2 - 15 mmol/L [facility] BUN 23 6 - 25 mg/dL [facility] Creatinine 1.19(H) 0.60 - 1.10 mg/dL [facility] Glucose 140 70 - 199 mg/dL [facility] Comment: Interpretive Data Fasting glucose >/= [...] 2022. Calcium 8.6 8.5 - 10.3 mg/dL [facility] Blood 01/15/2025 6:28 PM AUTOMATION ARCHITECT 01/15/2025 6:47 PM AUTOMATION ARCHITECT us Adalberto Ngo MD LAB BLOOD ORDERABLES Final Re sult [facility] Department [place] [address] * XR Chest Pa Lateral 2 Views (01/15/2025 4:29 PM AUTOMATION ARCHITECT) Anatomical Region Laterality Modality Body, Chest N/A Computed Radiogr aphy 01/15/2025 10:0 8 PM AUTOMATION ARCHITECT Impressions 01/15/2025 10:08 PM AUTOMATION ARCHITECT There has been removal of a right-sided chest tube. 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 There is persistent elevation of the right hemidiaphragm. There is a new small right pleural effusion with increased right basilar atelectasis. No pneumothorax is identified. The cardiomediastinal silhouette is unchanged. Electronically signed by: Luis F Knight M.D. Narrative 01/15/2025 10:08 PM AUTOMATION ARCHITECT EXAMINATION: XR CHEST PA LATERAL 2 VIEWS [...] Luis F Knight M.D. Adalberto Ngo MD IMG XR PROCEDURES Final Resul t * Respiratory pathogen panel Nasopharyngeal (01/15/2025 1:18 PM AUTOMATION ARCHITECT) Pathologist [facility] Influenza A RNA Not Detected Not Detected Influenza B RNA Not Detected Not Detected [facility] RSV RNA Not Detected Not Detected [facility] COVID-19 RNA Not Detected Not Detected [facility] Coronavirus 229E RNA Not Detected Not Detected [facility] Coronavirus HKU1 RNA Not Detected Not Detected [facility] Coronavirus NL63 RNA Not Detected Not Detected [facility] Coronavirus OC43 RNA Not Detected Not Detected [facility] Adenovirus DNA Not Detected Not Detected [facility] Metapneumovirus RNA Not Detected Not Detected [facility] Rhinovirus/Enterov irus RNA Not Detected Not Detected [facility] Parainfluenza 1 RNA Not Detected Not Detected [facility] Parainfluenza 2 RNA Not Detected Not Detected [facility] Parainfluenza 3 RNA Not Detected Not Detected [facility] Parainfluenza 4 RNA Not Detected Not Detected [facility] B. pertussis DNA Not Detected Not Detected [facility] B. parapertussis DNA Not Detected Not Detected [facility] C. pneumoniae DNA Not Detected Not Detected [facility] M. pneumoniae DNA Not Detected Not Detected [facility] Nasopharyngeal 01/15/2025 1: 18 PM AUTOMATION ARCHITECT 01/15/2025 1:47 PM AUTOMATION ARCHITECT Narrative [facility] - 01/15/2025 2:53 PM AUTOMATION ARCHITECT Is the Patient experiencing symptoms consistent with COVID?->No Surveillance testing for transplant patient?->No Interpretive Data The [employer] FilmArray Respiratory Panel (RP2.1) assay is a [...] assay has FDA clearance for testing of FUEL CELL TEST ENGINEER swabs. The performance of additional specimen types has been assessed by the performing laboratory. The performance characteristics of this assay have been determined by [facility] Molecular Infectious Disease Laboratory. Current interpretive data was last revised on 22. us Adalberto Ngo MD LAB MICROBIOLOGY - GENERAL OR DERABLES Final Result [facility] Department [place] [address] * XR Chest 1 View (01/15/2025 5:07 AM AUTOMATION ARCHITECT) Anatomical Region Laterality Modality Body, Chest N/A Digital Radiogra phy 01/15/2025 7:40 AM AUTOMATION ARCHITECT Impressions 01/15/2025 7:50 AM AUTOMATION ARCHITECT The current study is compared with the [...] Geetha Ross M.D. Narrative 01/15/2025 7:50 AM AUTOMATION ARCHITECT EXAMINATION: 1 view chest radiograph Procedure Note [...] Result * (ABNORMAL) eGFR (01/14/2025 8:34 PM AUTOMATION ARCHITECT) eGFR 42(L) >=60 mL/min/1. 73 m2 Comment: [...] last reviewed 2021. Blood 01/14/2025 8:34 PM AUTOMATION ARCHITECT 01/14/2025 8:40 PM AUTOMATION ARCHITECT Jeimy Jones NP LAB BLOOD ORDERABLES Fi nal Result [facility] [place] [address] * (ABNORMAL) CBC without differential (01/14/2025 8:34 PM AUTOMATION ARCHITECT) WBC 9.7 3.8 - 9.9 K/cumm Hgb 9.8(L) 11.9 - 15.5 g/dL [facility] Hct 29.9(L) 35.6 - 45.5 % [facility] Plt 144(L) 150 - 400 K/cumm [facility] MPV 9.4 9.1 - 12.3 fL [facility] RBC 2.95(L) 3.90 - 5.20 M/cumm [facility] MCV 101.4(H) 81.3 - 96.4 fL [facility] MCH 33.2 27.1 - 33.3 pg [facility] MCHC 32.8 32.3 - 35.7 g/dL [facility] RDW CV 14.1 11.1 - 14.9 % [facility] RDW SD 51.8(H) 35.7 - 48.1 fL [facility] NRBC abs 0.00 0.00 - 0.01 K/cumm [facility] Blood 01/14/2025 8:34 PM AUTOMATION ARCHITECT 01/14/2025 8:40 PM AUTOMATION ARCHITECT Jeimy Jones FUEL CELL TEST ENGINEER LAB BLOOD ORDERABLES nal Result [facility] Department [place] [address] * (ABNORMAL) Basic metabolic panel (01/14/2025 8:34 PM AUTOMATION ARCHITECT) Sodium 133(L) 135 - 145 mmol/L Potassium, pl 4.2 3.3 - 4.9 mmol/L [facility] Chloride 97 97 - 110 mmol/L [facility] CO2 25 22 - 32 mmol/L [facility] Anion gap 11 2 - 15 mmol/L [facility] BUN 21 6 - 25 mg/dL [facility] Creatinine 1.40(H) 0.60 - 1.10 mg/dL [facility] Glucose 141 70 - 199 mg/dL [facility] Comment: Interpretive Data Fasting glucose >/= [...] 2022. Calcium 9.0 8.5 - 10.3 mg/dL [facility] Blood 01/14/2025 8:34 PM AUTOMATION ARCHITECT 01/14/2025 8:40 PM AUTOMATION ARCHITECT Jeimy Jones NP LAB BLOOD ORDERABLES Fi nal Result Performing Organization Address [facility] Co de Phone Number [facility] Department [place] [address] * ECG 12 lead (01/14/2025 11:55 AM AUTOMATION ARCHITECT) Pathologist [facility] Ventricular Rate EKG/Min 85 BPM [facility] Atrial Rate 85 BPM [facility] OR-Interval (MSEC) 178 ms [facility] QRS-Interval (MSEC) 78 ms [facility] QT-Interval (MSEC) 382 ms [facility] QTc 454 ms [facility] P [place] 52 degrees [facility] R [place] 41 degrees [facility] T [place] 35 degrees [facility] Diagnosis Normal sinus rhythm Low voltage QRS Nonspecific ST abnormality Abnormal ECG No previous ECGs available Confirmed by LORENZO REYES M.D ([id number]) on 01/17/2025 7:21:58 PM [facility] 01/14/2025 11:5 5 AM AUTOMATION ARCHITECT 01/17/2025 7:21 PM CDT Jeimy Jones NP ECG ORDERABLES Final R esult Performing Organization Address [facility] Co de Phone Number [facility] * eGFR (01/13/2025 8:46 PM AUTOMATION ARCHITECT) eGFR 79 >=60 mL/min/1. 73 m2 Comment: [...] last reviewed 2021. Blood 01/13/2025 8:46 PM AUTOMATION ARCHITECT 01/13/2025 8:58 PM AUTOMATION ARCHITECT us Adalberto Ngo MD LAB BLOOD ORDERABLES Final Re sult [facility] Department [place] [address] * (ABNORMAL) CBC without differential (01/13/2025 8:46 PM AUTOMATION ARCHITECT) WBC 8.6 3.8 - 9.9 K/cumm Hgb 10.6(L) 11.9 - 15.5 g/dL [facility] Hct 32.5(L) 35.6 - 45.5 % [facility] Plt 144(L) 150 - 400 K/cumm [facility] MPV 9.4 9.1 - 12.3 fL [facility] RBC 3.23(L) 3.90 - 5.20 M/cumm [facility] MCV 100.6(H) 81.3 - 96.4 fL [facility] MCH 32.8 27.1 - 33.3 pg [facility] MCHC 32.6 32.3 - 35.7 g/dL [facility] RDW CV 14.2 11.1 - 14.9 % [facility] RDW SD 51.8(H) 35.7 - 48.1 fL [facility] NRBC abs 0.00 0.00 - 0.01 K/cumm [facility] Blood 01/13/2025 8:46 PM AUTOMATION ARCHITECT 01/13/2025 8:58 PM AUTOMATION ARCHITECT us Adalberto Ngo MD LAB BLOOD ORDERABLES Final Re sult [facility] Department [place] [address] * Basic metabolic panel (01/13/2025 8:46 PM AUTOMATION ARCHITECT) Sodium 138 135 - 145 mmol/L Potassium, pl 4.3 3.3 - 4.9 mmol/L [facility] Chloride 99 97 - 110 mmol/L [facility] CO2 25 22 - 32 mmol/L [facility] Anion gap 14 2 - 15 mmol/L [facility] BUN 17 6 - 25 mg/dL [facility] Creatinine 0.83 0.60 - 1.10 mg/dL [facility] Glucose 163 70 - 199 mg/dL [facility] Comment: Interpretive Data Fasting glucose >/= [...] 2022. Calcium 9.0 8.5 - 10.3 mg/dL [facility] Blood 01/13/2025 8:46 PM AUTOMATION ARCHITECT 01/13/2025 8:58 PM AUTOMATION ARCHITECT us Adalberto Ngo MD LAB BLOOD ORDERABLES Final Re sult [facility] Department [place] [address] * XR Chest 1 View - in ICU (01/13/2025 6:35 PM AUTOMATION ARCHITECT) Anatomical Region Laterality Modality Body, Chest N/A Digital Radiogra phy 01/14/2025 9:57 AM AUTOMATION ARCHITECT Impressions 01/14/2025 2:16 PM AUTOMATION ARCHITECT Findings of right lower lobectomy. Right chest [...] Supa Vu M.D. Narrative 01/14/2025 2:16 PM AUTOMATION ARCHITECT EXAMINATION: XR CHEST 1 VIEW HISTORY: postop [...] Resul t * Cytogenetics (01/13/2025 5:02 PM AUTOMATION ARCHITECT) Miscellaneous 01/13/2025 5:0 2 PM AUTOMATION ARCHITECT 01/20/2025 2:09 PM CDT Narrative 01/24/2025 4:35 PM CDT EPIC results best viewed via link to PDF [facility] [place] [address] Patient Information Name: AP LAND Gender: F : 1960 (Age: 64) Tissue: FFPE FISH Visit Information Hospital #: [id number] Facility: [facility] Service: [facility] Location: [place] [address] Patient Type: [facility] Inpatient Specimen Information: Culture #: [id number] Date Collected: 01/13/2025 Date Accessioned: 01/21/2025 Date [...] Fluorescence In-situ hybridization (FISH) Results: Specimen # [id number] I5 POSITIVE - FISH result for IGH gene rearrangement nuc bindu (3'IGHx2~3,5'IGHx2~3)(3'IGH con 5'IGH)x1[35/200]/(3'IGHx1,5'IGHx1~2)(3'IGH con 5'IGH)x0[3/200] Chromosome analysis and Fluorescence In Situ Hybridization (FISH) analysis are performed using the [employer] Electronic Imaging System. Comments IGH -BA FISH FISH was performed utilizing Vysis IGH (14q32) Dual Color, Break Apart Rearrangement probe set ([employer], [place], [place]). 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 The above test was developed and its performance characteristics determined by [facility] [employer]. It has not [...] By Sedrick Reese M.D. Date Reported: 01/24/2025 Adalberto Ngo MD LAB GENETIC TESTING Final Res ult * Surgical pathology (01/13/2025 2:59 PM AUTOMATION ARCHITECT) Tissue specimen (specimen) (Lymph Node, Single excision) 01/13/2025 2:59 PM AUTOMATION ARCHITECT Tissue specimen (specimen) (Lymph node, dissection/region al resection) 01/13/2025 3:22 PM AUTOMATION ARCHITECT Tissue specimen (specimen) (Lymph node, dissection/region al resection) 01/13/2025 3:26 PM AUTOMATION ARCHITECT Tissue specimen (specimen) (Lymph Node, Single excision) 01/13/2025 3:27 PM AUTOMATION ARCHITECT Tissue specimen (specimen) (Lymph Node, Single excision) 01/13/2025 3:30 PM AUTOMATION ARCHITECT Tissue specimen (specimen) (Lymph Node, Single excision) 01/13/2025 3:43 PM AUTOMATION ARCHITECT Tissue specimen (specimen) (Lymph Node, Single excision) 01/13/2025 3:58 PM AUTOMATION ARCHITECT Tissue specimen (specimen) (Lymph Node, Single excision) 01/13/2025 4:41 PM AUTOMATION ARCHITECT Tissue specimen (specimen) (Lung, total / lobe / segmental, tumor) 01/13/2025 5:02 PM AUTOMATION ARCHITECT Narrative PATHOLOGY [facility] - 01/24/2025 5:24 PM CDT EPIC results best viewed via link to PDF [facility] Renee Castillo Laboratory of Surgical Pathology [facility] [place] [address] Note to Patients: This report may contain [...] Gender: F : 1960 (Age: 64) Address: [address] [place] [id number] Hospital #: [id number] Taken:01/13/2025 Received:01/14/2025 Reported: 01/24/2025 Patient Type: [facility] Inpatient Service: Cardiothoracic Location: [place] [address] Physician(s): Rafael Ortega MD [facility] [employer], [...] nodes (0/4) - No evidence of carcinoma /01/18/2025 15:47 By this signature, I attest that [...] node) I11 Uninvolved lung parenchyma Jar 2. fredio/01/14/2025 15:25 Gross Resident:Rita Mcbride D.O. By this [...] Surgical Pathology and Flow Cytometry Departments at [facility] as part of an ongoing quality analyst/technical writer program and in compliance with federally mandated [...] Surgical Pathology and Flow Cytometry Departments of [facility]. It has not been cleared or approved by the U. S. Food and Drug Administration. IMAGES AND SCANNED DOCUMENTS, IF INCLUDED, ONLY VIEWABLE IN PDF VERSION OF REPORT us Adalberto Ngo MD LAB PATHOLOGY ORDERABLES Salma l Result PATHOLOGY [facility] 3rd Floor [place], [place] [phone] * Peripheral IV Catheter (01/13/2025 2:28 PM AUTOMATION ARCHITECT) Monie Main MD - 01/13/2025 2:28 PM AUTOMATION ARCHITECT Monie Segura MD 01/13/2025 2:39 PM Peripheral [...] Final Result * Airway (01/13/2025 2:25 PM AUTOMATION ARCHITECT) Monie Main MD - 01/13/2025 2:25 PM AUTOMATION ARCHITECT Monie Segura MD 01/13/2025 2:37 PM Airway [...] placement: stylet Insertion site: oral Blade type: Karal Video blade type: Davies Blade size: 3 Cormack-Lehane (video): grade I - full view of glottis Placement verified by: auscultation and CO2 detection Airway secured with: silk tape Number of attempts: 1 Planned trial extubation: yes us Monie Nagel MD ANESTHESIA ORDERABLES Final Result * Check Sample (01/13/2025 1:37 PM AUTOMATION ARCHITECT) ABO Rh A Negative [facility] HCLL OTHER 01/13/2025 1:37 PM AUTOMATION ARCHITECT 01/13/2025 1:47 PM AUTOMATION ARCHITECT us Adalberto Ngo MD LAB BLOOD ORDERABLES Final Re sult MICHELLE [facility] Department [place] [address] [facility] * CT chest without contrast (12/30/2024 9:01 AM AUTOMATION ARCHITECT) Anatomical Region Laterality Modality Body N/A Computed Tomogra phy 12/30/2024 9:29 AM AUTOMATION ARCHITECT Impressions 12/30/2024 9:47 AM AUTOMATION ARCHITECT 1. Unchanged spiculated microlobulated 1.1 cm right [...] Wood Whatley M.D. Narrative 12/30/2024 9:47 AM AUTOMATION ARCHITECT EXAMINATION: Computed tomography of the chest without [...] by: Wood Whatley M.D. us Lukas Francis FUEL CELL TEST ENGINEER IMG CT PROCEDURES Final Res ult * TYPE AND SCREEN 14 DAY (12/30/2024 8:47 AM AUTOMATION ARCHITECT) ABO Rh A Negative Zohra, indirect Negative [facility] Blood 12/30/2024 8:47 AM AUTOMATION ARCHITECT 12/30/2024 11:57 AM AUTOMATION ARCHITECT [facility] - 12/30/2024 12:49 PM AUTOMATION ARCHITECT Has the patient had Daratumumab or Isatuximab in the past 6 months?->Unknown Is this test being ordered in advance for a procedure?->Yes Expected date of procedure:->01/04/25 Has the patient been transfused in the past 3 months?->No Has the patient been in the past 3 months?->No Cathy Jerez FUEL CELL TEST ENGINEER LAB BLOOD BANK TEST ORDER AMANDA Final Result [facility] Department [place] [address] * eGFR (12/30/2024 8:47 AM AUTOMATION ARCHITECT) eGFR 79 >=60 mL/min/1. 73 m2 Comment: [...] last reviewed 2021. Blood 12/30/2024 8:47 AM AUTOMATION ARCHITECT 12/30/2024 12:11 PM AUTOMATION ARCHITECT us Cathy Jerez NP LAB BLOOD ORDERABLES Salma roy Result [facility] Department [place] [address] * (ABNORMAL) CBC without differential (12/30/2024 8:47 AM AUTOMATION ARCHITECT) WBC 6.1 3.8 - 9.9 K/cumm Hgb 11.4(L) 11.9 - 15.5 g/dL [facility] Hct 35.1(L) 35.6 - 45.5 % [facility] Plt 158 150 - 400 K/cumm [facility] MPV 9.6 9.1 - 12.3 fL [facility] RBC 3.45(L) 3.90 - 5.20 M/cumm [facility] MCV 101.7(H) 81.3 - 96.4 fL [facility] MCH 33.0 27.1 - 33.3 pg [facility] MCHC 32.5 32.3 - 35.7 g/dL [facility] RDW CV 14.4 11.1 - 14.9 % [facility] RDW SD 53.6(H) 35.7 - 48.1 fL [facility] NRBC abs 0.00 0.00 - 0.01 K/cumm [facility] Blood 12/30/2024 8:47 AM AUTOMATION ARCHITECT 12/30/2024 11:54 AM AUTOMATION ARCHITECT Cathy Jerez FUEL CELL TEST ENGINEER LAB BLOOD ORDERABLES Salma l Result Performing Organization Address [facility] Co de Phone Number [facility] Department [place] [address] * Basic metabolic panel (12/30/2024 8:47 AM AUTOMATION ARCHITECT) Sodium 141 135 - 145 mmol/L Potassium, pl 4.2 3.3 - 4.9 mmol/L [facility] Chloride 102 97 - 110 mmol/L [facility] CO2 27 22 - 32 mmol/L [facility] Anion gap 12 2 - 15 mmol/L [facility] BUN 19 6 - 25 mg/dL [facility] Creatinine 0.83 0.60 - 1.10 mg/dL [facility] Glucose 104 70 - 199 mg/dL [facility] Comment: Interpretive Data Fasting glucose >/= [...] 2022. Calcium 10.0 8.5 - 10.3 mg/dL [facility] Blood 12/30/2024 8:47 AM AUTOMATION ARCHITECT 12/30/2024 11:55 AM AUTOMATION ARCHITECT Cathy Jerez FUEL CELL TEST ENGINEER LAB BLOOD ORDERABLES Salma l Result Performing Organization Address [facility] Co de Phone Number [facility] Department [place] [address] from Last 3 Months Insurance BLUE ACCESS [facility] ANTH ACCESS BLUE [facility]ESS OOS [facility] Advance Directives For more information, please contact: [phone] Documents on File Type Date Recorded Patient Director College Expl anation ADVANCE DIRECTIVE 01/13/2025 1:36 PM Power of Cargo Station Worker-Medical * Full Code (Latest Code Status on File) Date Activated Date Inactivated Comments 01/13/2025 8:21 PM 01/17/2025 5:31 PM Healthcare Agents on File Name Relationship Healthcare Agent Relationshi p Communication Chanel Land Daughter Health Care Agent Care Teams Proc Tech Relationship Specialty Start Date End Date Chino Mora MD PCP - General Family Practice 01/02/21 Kameron Jeff MD [address] [place] [address] Medical Oncologist/Mold Injector Medical Oncology 01/02/21 Kameron Jeff MD [address] [address] [facility] IM MEDICAL ONCOLOGY, [address] [place] [address] Medical Oncologist/Mold Injector Medical Oncology 04/28/24 Constantin Kumar MD [address] [facility] [address] [place] [address] Medical Oncologist/Mold Injector Medical Oncology 02/01/25
--- OUTSIDE RECORDS SUMMARY | 2025-02-25 10:53 | XMS_ITS | Encounter Summary ---
Author Organization [facility] Address [address] [place] [address] Phone Care Team Providers Care Sheeting Puller Name Role Phone Chino Mora MD Primary Care Provider Kameron Jeff MD Unavailable Kameron Jeff MD Unavailable [phone] Constantin Kumar MD Unavailable [phone] Encounter Details Date Type Department Care Team (Late st Contact Info) Description 02/24/2025 Telephone [facility] Oncology [facility] [place] [address] [place] [address] Radha White RN Social History Tobacco Use Types Packs/Day Years [...] on file 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 Patient repeated her labs on Friday at [facility]. Results are below. She is feeling the same as when we saw her last week. Her biggest complaints are persistent depression and vomiting once aday since her admission in early January. She is currently drinking 14 oz of water a day. After discussing the results with Dr. 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 Per Dr. Kumar, patient should stop her hydrochlorothiazide. She should continue to limit her fluid intake and try to drink sodium rich fluids, like Gatorade, if possible. We will repeat a cmp at [facility] on Friday. I LVM for thepatient and asked that she return my call to confirm that she understood the information. documented in this encounter Plan of Treatment Not on file documented as of this encounter Visit Diagnoses Not on filedocumented in this encounter Care Teams Sheeting Puller Relationship Specialty Start Date End Date Chino Mora MD PCP - General Family Practice 01/02/21 Kameron Jeff MD [address] [place] [address] Medical Oncologist/Sample Grinder Medical Oncology 01/02/21 Kameron Jeff MD [address] [facility] DIV MEDICAL ONCOLOGY, [address], [address], [address] [place] [address] Medical Oncologist/Sample Grinder Medical Oncology 04/28/24 Constantin Kumar MD [address] [facility] [address] [place] [address] Medical Oncologist/Sample Grinder Medical Oncology 02/01/25 documented as of this encounter
--- OUTSIDE RECORDS SUMMARY | 2025-02-25 10:53 | XMS_ITS | Encounter Summary ---
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 Gender Identity Not on file Sexual [...] on filedocumented in this encounter Care Teams Youth Program Director Relationship Specialty Start Date End Date Chino Mora MD PCP - General Family Practice 01/02/21 Kameron Jeff MD [address] [place] [address] Medical Oncologist/Resource Manager Medical Oncology 01/02/21 Kameron Jeff MD [address] DIV IM MEDICAL ONCOLOGY, [address]ISS [address]A, 7B, [address] [place] [address] Medical Oncologist/Resource Manager Medical Oncology 04/28/24 Constantin Kumar MD [address] [place] [address] Medical Oncologist/Resource Manager Medical Oncology 02/01/25 documented as of this encounter
--- OUTSIDE RECORDS SUMMARY | 2025-02-25 10:53 | XMS_ITS | Encounter Summary ---
Author Organization [facility] Address [address] [place] [address] Phone Care Team Providers Care Hospital Housekeeper Name Role Phone Chino Mora MD Primary Care Provider Kameron Jeff MD Unavailable [phone] Kameron Jeff MD Unavailable Constantin Kumar MD Unavailable [phone] Encounter Details Date Type Department Care Team (Late st Contact Info) Description 02/24/2025 Orders Only [facility] Oncology [address] [facility] Floor 6 [place] [address] Constantin Kumar MD [address] [facility] [address] [place] [address] SIADH (syndrome of inappropriate ADH production) (Primary Dx) Social History Tobacco Use Types Packs/Day Years [...] on file 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 Gender Identity Not on file Sexual Orientation Not on file documented as of this encounter Plan of Treatment Scheduled Orders Name Type Priority Associated Diagnoses Orde r Schedule Comprehensive metabolic panel Lab STAT SIADH (syndrome of inappropriate ADH production) Expected: 02/28/2025, Expires: 02/24/2026 documented as of this encounter Visit Diagnoses Diagnosis SIADH (syndrome of inappropriate ADH production)- 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
--- NOTE | 2025-02-25 12:18 | PC.NURSE ---
Pt c/o dizziness with increase confusion. A/O x4 at this time
--- OUTSIDE RECORDS SUMMARY | 2025-02-25 12:21 | XMS_ITS | Encounter Summary ---
Author Organization [facility] Address [address] [place] [address] Phone Care Team Providers Care Clothing Man Name Role Phone Chino Mora MD Primary Care Provider Kameron Jeff MD Unavailable [phone] Kameron Jeff MD Unavailable [phone] Constantin Kumar MD Unavailable [phone] Encounter Details Date Type Department Care Team (Late st Contact Info) Description 02/24/2025 Orders Only [facility] Oncology [address] [facility] Floor 6 [place] [address] Constantin Kumar MD [address] [facility] [address] [place] [address] SIADH (syndrome of inappropriate ADH [...] on file 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 Gender Identity Not on file Sexual Orientation [...] neurohypophysis documented in this encounter Care Teams Clothing Man Relationship Specialty Start Date End Date Chino Mora MD PCP - General Family Practice 01/02/21 Kameron Jeff MD [address] [place] [address] Medical Oncologist/Ultimate Hoops Referee Medical Oncology 01/02/21 Kameron Jeff MD [address] DIV IM MEDICAL ONCOLOGY, [address]A, [address]B, [address] [place] [address] Medical Oncologist/Ultimate Hoops Referee Medical Oncology 04/28/24 Constantin Kumar MD [address] [place] [address] Medical Oncologist/Ultimate Hoops Referee Medical Oncology 02/01/25 documented as of this encounter
--- OUTSIDE RECORDS SUMMARY | 2025-02-25 12:21 | XMS_ITS ---
Author Organization [facility] Address [address] [place] [address] Care Team Providers Care Manager Reimbursement Name Role Phone Chino Mora MD Primary Care Provider Kameron Jeff MD Unavailable [phone] Kameron Jeff MD Unavailable Constantin Kumar MD Unavailable [phone] Active Problems Patient Care Coordination No te [...] (02/09/2019 12:19 PM CDT): DR Rivero in [facility] evaluating Vitreous syneresis of both eyes [...]
--- OUTSIDE RECORDS SUMMARY | 2025-02-25 12:21 | XMS_ITS | Encounter Summary ---
Author Organization [facility] Address [address] [place] [address] Phone Care Team Providers Care Hand Gluer And Slicer Name Role Phone Chino Mora MD Primary Care Provider Kameron Jeff MD Unavailable [phone] Kameron Jeff MD Unavailable [phone] Constantin Kumar MD Unavailable [phone] Encounter Details Date Type Department Care Team (Late st Contact Info) Description 04/27/2024 Telephone [facility] Oncology [address] [facility] 7th [place] [address] Bettye Su Social History Tobacco Use Types Packs/Day Years Used Date Smoking Tobacco: Former Smokeless Tobacco: Never Alcohol Use Standard Drinks/Week Comments Yes 0 (1 standard drink = 0.6 oz pur e alcohol) Comments Unknown Sex and Gender Information Value Date Recorded Sex Assigned at Not on file 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 Gender Identity Not on file Sexual Orientation Not on file documented as of this encounter Plan of Treatment Not on file documented as of this encounter Visit Diagnoses Not on filedocumented in this encounter Care Teams Hand Gluer And Slicer Relationship Specialty Start Date End Date Chino Mora MD PCP - General Family Practice 01/02/21 Kameron Jeff MD [address] [place] [address] Medical Oncologist/Emr Trainer Medical Oncology 01/02/21 Kameron Jeff MD [address] IM MEDICAL ONCOLOGY, [address]A, [address]B, [address] [place] [address] Medical Oncologist/Emr Trainer Medical Oncology 04/28/24 Constantin Kumar MD [address] [place] [address] Medical Oncologist/Emr Trainer Medical Oncology 02/01/25 documented as of this encounter
--- OUTSIDE RECORDS SUMMARY | 2025-02-25 12:21 | XMS_ITS | Encounter Summary ---
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 Gender Identity Not on file Sexual Orientation [...] on filedocumented in this encounter Care Teams Chicken Sexer Relationship Specialty Start Date End Date Chino Mora MD PCP - General Family Practice 01/02/21 Kameron Jeff MD [address] [place] [address] Medical Oncologist/Presser Machine Medical Oncology 01/02/21 Kameron Jeff MD [address] DIV IM MEDICAL ONCOLOGY, [address]A, [address], [address] [place] [address] Medical Oncologist/Presser Machine Medical Oncology 04/28/24 Constantin Kumar MD [address] [place] [address] Medical Oncologist/Presser Machine Medical Oncology 02/01/25 documented as of this encounter
--- OUTSIDE RECORDS SUMMARY | 2025-02-25 12:21 | XMS_ITS | Encounter Summary ---
Author Organization [facility] Address [address] [place] [address] Phone Care Team Providers Care Corporate Webmaster Name Role Phone Chino Mora MD Primary Care Provider Kameron Jeff MD Unavailable [phone] Kameron Jeff MD Unavailable [phone] Constantin Kumar MD Unavailable [phone] Encounter Details Date Type Department Care Team (Late st Contact Info) Description 02/25/2025 Telephone [facility] Oncology [address] [facility] Floor 6 [place] [address] Maggie Peralta, RN Social History Tobacco Use Types Packs/Day [...] on file 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 Results are in my note. She is feeling the same as when we saw her last week. Her biggest complaints are persistent depression and vomiting once a day since her admission in early January. She is currently drinking 14 oz of water a day. After discussing the results with Dr. 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 Per Dr. Kumar, patient should stop her hydrochlorothiazide. She should continue to limit her fluid intake and try to drink sodium rich fluids, like Gatorade, if possible. We will repeat a cmp at [facility] on Friday. I LVM for the patient and asked that she return my call to confirm that she understood the information. If she doesn't call back, can you reach out to her? documented in this encounter Plan of Treatment Not on file documented as of this encounter Visit Diagnoses Not on filedocumented in this encounter Care Teams Corporate Webmaster Relationship Specialty Start Date End Date Chino Mora MD PCP - General Family Practice 01/02/21 Kameron Jeff MD [address] [place] [address] Medical Oncologist/Phlebotomy Manager Medical Oncology 01/02/21 Kameron Jeff MD [address] [employer] DIV IM MEDICAL ONCOLOGY, [address]A, [address]B, [address] [place] [address] Medical Oncologist/Phlebotomy Manager Medical Oncology 04/28/24 Constantin Kumar MD [address] [place] [address] Medical Oncologist/Phlebotomy Manager Medical Oncology 02/01/25 documented as of this encounter
--- OUTSIDE RECORDS SUMMARY | 2025-02-25 12:21 | XMS_ITS | Clinical Summary ---
Author Organization [facility] Address [address] [place] [address] Care Team Providers Care Lead Business Systems Analyst Name Role Phone Chino Mora MD Primary Care Provider Kameron Jeff MD Unavailable Kameron Jeff MD Unavailable Constantin Kumar MD Unavailable [phone] Allergies Active Allergy Reactions Criticality Noted Date Comments Penicillins Hives Medium 07/01/2015 Medications losartan (COZAAR) 100 mg tabletIndication s:hypertension Take 1 tablet (100 mg total) by mouth every morning 0 9 Active bimatoprost (LUMIGAN) 0.03 % ophthalmic dropsIndications :ocular hypertension Administer 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 eyes every morning Active Combigan 0.2-0.5 % ophthalmic solutionIndicati ons:ocular hypertension Administer 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 eyes brim setter before breakfast 0 Active hydroCHLOROthiaz kaden (HYDRODIURIL) [...] 12:19 PM CDT): DR Rivero in [facility] evaluating Vitreous syneresis of both eyes [...] Encounters Date Type Department Care Team Description 02/25/2025 Telephone [facility] Oncology [address] [place] [phone] Maggie Peralta, RN 02/24/2025 Orders Only [facility] Oncology [address] [place] [phone] Constantin Kumar MD SIADH (syndrome of inappropriate ADH production) (Primary Dx) 02/24/2025 Telephone [facility] Oncology [address] [place] [address] 6 [place] [phone] Radha White, MAIKOL 02/23/2025 Documentation [facility] Oncology [address] [place] [phone] Alla Schreiber, [facility] 02/23/2025 Documentation [facility] Oncology [address] [place] [phone] Alla Schreiber, [facility] 02/16/2025 1:00 PM CDT Office Visit [facility] Oncology [address] [place] [phone] Constantin Kumar MD Extranodal marginal zone B-cell lymphoma (Primary Dx); Lymphoma involving lung (HCC); Anemia, unspecified type 02/16/2025 12:30 PM CDT Lab [facility] [place] - Lab Collection [address] [place] [phone] Extranodal marginal zone B-cell lymphoma 02/16/2025 12:00 PM CDT Lab [facility] Oncology Lab [address] [place] [phone] 02/01/2025 11:00 AM CDT Office Visit [facility] Surgery [address] [place] [phone] Adalberto Ngo MD Lymphoma involving lung (HCC) (Primary Dx) 01/14/2025 Orders Only [facility] Surgery [address] [place] [phone] Adalberto Ngo MD Lung nodule (Primary Dx) 01/13/2025 1:53 PM PAPER SEALER Anesthesia Event [facility] Operating Room [address] [place] [address] Halima Olson MD Montgomery, Andrea J., NP 01/13/2025 1:05 PM PAPER SEALER - 01/13/2025 6:15 PM PAPER SEALER Surgery [facility] Operating Room [address] [place] [phone] Adalberto Ngo MD XI ROBOTIC LOBECTOMY RIGHT LOWER LOBE 01/13/2025 9:56 AM PAPER SEALER - 01/17/2025 1:31 PM CDT Hospital Encounter [address] [phone] Adalberto Ngo MD Lung nodule Discharge Disposition: Discharge to home or self care 01/12/2025 Telephone [facility] Surgery [address] [place] [phone] Lukas Francis NP 12/30/2024 8:30 AM PAPER SEALER Lab [address] [place] [phone] Preoperative testing 12/30/2024 8:01 AM PAPER SEALER - 12/30/2024 11:59 PM PAPER SEALER Hospital Encounter [facility] Radiology at [facility] [address] [place] [address] Lung nodule Discharge Disposition: Discharge to home or self care 12/30/2024 8:00 AM PAPER SEALER Pre-Admission Testing [facility] Pre Anesthesia Testing [address] [place] [phone] Preoperative testing (Primary Dx) 12/30/2024 Orders Only [facility] Surgery [address] [place] [address] 5 [place] [phone] Lukas Francis NP Gingivitis (Primary Dx) 12/10/2024 Telephone [facility] Oncology [address] [place] [address] Leatha Ferro RN 12/06/2024 9:30 AM PAPER SEALER Office Visit [facility] Surgery [address] [place] [phone] Adalberto Ngo MD Malignant neoplasm of middle lobe of right lung (HCC) (Primary Dx); Lung nodule; Primary cancer of right middle lobe of lung (HCC) 12/06/2024 Orders Only [facility] Surgery [address] [facility] Floor 5 [place] [address] Lukas Francis NP Lung nodule (Primary Dx) [...] on file Legal Sex Female 11:57 PM PAPER SEALER Gender Identity Not on file Sexual Orientation [...] Height 152.4 cm (5') 01/13/2025 8:25 PM PAPER SEALER Body Mass Index 24.57 01/13/2025 8:25 PM PAPER SEALER Plan of Treatment Health Maintenance Due Date [...] AM CDT EGFR Timed 01/15/2025 11:18 PM PAPER SEALER BASIC METABOLIC PANEL Timed 01/15/2025 11:18 PM PAPER SEALER SODIUM, URINE, RANDOM Routine 01/15/2025 9:10 PM PAPER SEALER OSMOLALITY, BLOOD Timed 01/15/2025 9:0 9 PM PAPER SEALER PEP THERAPY Routine 01/15/2025 8:00 PM PAPER SEALER URINALYSIS, MICROSCOPIC ONLY Routine 01/15/2025 6:55 PM PAPER SEALER URINALYSIS AND REFLEX TO MICROSCOPIC AND CULTURE Routine 01/15/2025 6:55 PM PAPER SEALER EGFR Timed 01/15/2025 6:28 PM PAPER SEALER PHOSPHORUS Timed 01/15/2025 6:28 PM PAPER SEALER MAGNESIUM Timed 01/15/2025 6:28 PM PAPER SEALER BASIC METABOLIC PANEL Timed 01/15/2025 6:28 PM PAPER SEALER CBC WITHOUT DIFFERENTIAL Timed 01/15/2025 6:28 PM PAPER SEALER XR CHEST PA LATERAL 2 VIEWS Timed 01/15/2025 4:29 PM PAPER SEALER PEP THERAPY Routine 01/15/2025 3:39 PM PAPER SEALER PEP THERAPY Routine 01/15/2025 3:39 PM PAPER SEALER PEP THERAPY Routine 01/15/2025 3:39 PM PAPER SEALER RESPIRATORY PATHOGEN PANEL Routine 01/15/2025 1:18 PM PAPER SEALER CHEST PHYSIO THERAPY Routine 01/15/2025 11:01 AM PAPER SEALER XR CHEST 1 VIEW IP Routine 01/15/2025 5:07 AM PAPER SEALER EGFR Routine 01/14/2025 8:34 PM PAPER SEALER CBC WITHOUT DIFFERENTIAL Routine 01/14/2025 8:34 PM PAPER SEALER BASIC METABOLIC PANEL Routine 01/14/2025 8:34 PM PAPER SEALER ECG 12-LEAD Routine 01/14/2025 11:55 AM PAPER SEALER EGFR Timed 01/13/2025 8:46 PM PAPER SEALER BASIC METABOLIC PANEL Timed 01/13/2025 8:46 PM PAPER SEALER CBC WITHOUT DIFFERENTIAL Timed 01/13/2025 8:46 PM PAPER SEALER XR CHEST 1 VIEW ED Urgent/IP Urgent 01/13/2025 6:35 PM PAPER SEALER CYTOGENETICS Routine 01/13/2025 5:02 PM PAPER SEALER SURGICAL PATHOLOGY Routine 01/13/2025 2: 59 PM PAPER SEALER Lung nodule PERIPHERAL LINE Routine 01/13/2025 2:28 PM PAPER SEALER ANESTHESIA INTUBATION Routine 01/13/2025 2:25 PM PAPER SEALER XI ROBOTIC LOBECTOMY 01/13/2025 1:55 PM PAPER SEALER Lung nodule B CHECK SAMPLE STAT 01/13/2025 1:[address] CHEST WO CONTRAST Schedule PURA, Read PURA (Appt Today, Awaiting Results) 12/30/2024 9:01 AM PAPER SEALER Lung nodule EGFR Routine 12/30/2024 8:47 AM PAPER SEALER Preoperative testing BASIC METABOLIC PANEL Routine 12/30/2024 8:47 AM PAPER SEALER Preoperative testing CBC WITHOUT DIFFERENTIAL Routine 12/30/2024 8:47 AM PAPER SEALER Preoperative testing TYPE AND SCREEN 14 DAY Routine 12/30/2024 8:47 AM PAPER SEALER Preoperative testing from Last 3 Months Results * Immunotyping, serum with interpretation (02/16/2025 11:58 AM CDT) Immunosubtraction Please see comment Comment: NO PARAPROTEIN DETECTED Reviewed and signed by Matthew Coffman MD, PhD 02/18/2025 Blood 02/16/2025 11:5 8 AM CDT 02/16/2025 4:31 PM CDT Narrative [facility] - 02/19/2025 8:55 AM CDT Reflex Immunotyping, Ser Heather Rene BEN DAY ARTIST LAB BLOOD ORDAlicia ANDERS Final Result [facility] [place] [address] * (ABNORMAL) eGFR (02/16/2025 11:58 AM CDT) Pathologist [facility] eGFR 52(L) >=60 mL/min/1. 73 m2 Comment: [...] CDT 02/16/2025 12:24 PM CDT Heather Rene BEN DAY ARTIST LAB BLOOD ARI ANDERS Final Result [facility] [place] [address] * (ABNORMAL) Differential, auto (02/16/2025 11:58 AM CDT) Neutrophil abs 7.85(H) 1.50 - 6.50 K/cumm Comment:Testing performed by : [facility], [address] [place], [place] [phone] Lymphocyte abs 2.28 0.80 - 3.30 K/cumm [facility] Comment:Testing performed by : [facility], [address] [place], [place] [phone] Monocyte abs 0.74 0.20 - 0.80 K/cumm CERLIANNA GURROLA Comment:Testing performed by : [facility], [address] [place], [place] [phone] Eosinophil abs 0.01 0.00 - 0.50 K/cumm CERLIANNA GURROLA Comment:Testing performed by : [facility], [address] [place] [phone] Basophil abs 0.06 0.00 - 0.10 K/cumm CERNER BJ Comment:Testing performed by : [facility], [address] [place] [phone] Neutrophil pct 71.8 % [facility]ER BJ Comment: Interpretive Data Percent cell count reference ranges are not reported, since discordance with absolute values may lead to misinterpretation of CBC data. Current Interpretive Data was last revised on 2018. Testing performed by: [facility], [address] [place] [phone] Lymphocyte pct 20.8 % [facility]ER [facility]J Comment: Interpretive Data Percent cell count reference ranges are not reported, since discordance with absolute values may lead to misinterpretation of CBC data. Current Interpretive Data was last revised on 2018. Testing performed by: [facility], [address] [place] [address] Monocyte pct 6.7 % [facility] Comment: Interpretive Data Percent cell count reference ranges are not reported, since discordance with absolute values may lead to misinterpretation of CBC data. Current Interpretive Data was last revised on 2018. Testing performed by: [facility], [address] [place] [phone] Eosinophil pct 0.1 % [facility]HELLE GURROLA Comment: Interpretive Data Percent cell count reference ranges are not reported, since discordance with absolute values may lead to misinterpretation of CBC data. Current Interpretive Data was last revised on 2018. Testing performed by: [facility], [address] [place] [phone] Basophil pct 0.5 % [facility]LE GURROLA Comment: Interpretive Data Percent cell count reference ranges are not reported, since discordance with absolute values may lead to misinterpretation of CBC data. Current Interpretive Data was last revised on 2018. Testing performed by: [facility], [address] [place] [phone] Blood 02/16/2025 11:5 8 AM CDT 02/16/2025 12:15 PM CDT Heather Rene BEN DAY ARTIST LAB BLOOD ARI ANDERS Final Result [facility] [place] [address] * HIV 1/2 Antibody plus p24 Antigen [...] CDT 02/16/2025 1:02 PM CDT us Heather Murillo Anju BEN DAY ARTIST LAB MICROBIOLO GY - GENERAL ORDERABLES Final Result [facility] G[facility]OL[facility] [place] [address] * (ABNORMAL) CBC with auto differential (02/16/2025 11:58 AM CDT) WBC 10.93(H) 3.80 - 9.90 K/cumm Comment:Testing performed by : [facility], [address] [place] [address] Hgb 11.6(L) 11.9 - 15.5 g/dL CERLIANNA GURROLA Comment:Testing performed by : [facility], [address] [place] [address] Hct 34.7(L) 35.6 - 45.5 % CERLIANNA GURROLA Comment:Testing performed by : [facility], [address] [place] [address] Plt 208 150 - 400 K/cumm CERLIANNA GURROLA Comment:Testing performed by : [facility], [address] [place] [address] MPV 7.1 6.8 - 10.4 fL CERLIANNA BJ Comment:Testing performed by : [facility], [address] [place] [address] RBC 3.71(L) 3.90 - 5.20 M/cumm CERLIANNA BJ Comment:Testing performed by : [facility], [address] [place] [address] MCV 93.5 81.3 - 96.4 fL CERLIANNA BJ Comment:Testing performed by : [facility], [address] [place] [address] MCH 31.4 27.1 - 33.3 pg [facility]ERNER BJ Comment:Testing performed by : [facility], [address] [place] [address] MCHC 33.5 32.3 - 35.7 g/dL CERLIANNA BJ Comment:Testing performed by : [facility], [address] [place] [phone] RDW CV 16.5(H) 11.1 - 14.9 % [facility] Comment:Testing performed by : [facility], [address] [place] [phone] NRBC abs 0.00 0.00 - 0.01 K/cumm [facility] Comment:Testing performed by : [facility], [address] [place] [phone] Blood 02/16/2025 11:5 8 AM CDT 02/16/2025 12:15 PM CDT Heather Lidia Rene LAB BLOOD ORDE RABLES Final Result Performing Organization Address [facility] Co de Phone Number [facility] [place] [place] [address] * Hepatitis C antibody Blood (02/16/2025 11:58 AM CDT) Pathologist [facility] Hep C Ab Nonreactive Nonreactive Comment:Antibodies to HCV no t detected. Does NOT exclude the possibility of recent exposure to HCV. Current interpretive data was last revised on 22 Blood 02/16/2025 11:5 8 AM CDT 02/16/2025 1:02 PM CDT Heather Lidia Rene LAB MICROBIOLO GY - GENERAL ORDERABLES Final Result [facility] [place] [place] [address] * Hepatitis B core antibody, total Blood (02/16/2025 11:58 AM CDT) Pathologist [facility] Hep B core IgG/IgM Nonreactive Nonreactive Blood 02/16/2025 11:5 8 AM CDT 02/16/2025 1:02 PM CDT Heather Rene BEN DAY ARTIST LAB MICROBIOLO GY - GENERAL ORDERABLES Final Result Performing Organization Address [facility] de Phone Number [facility] [place] [address] * Hepatitis B surface antibody (immune status) Blood (02/16/2025 11:58 AM CDT) [facility] HBsAb (immune status) Nonreactive Comment:This result is consi stent with a lack of immunity to Hepatitis B Virus when used in the setting of routine screening. Current interpretative data was last revised on 22 Blood 02/16/2025 11:5 8 AM CDT 02/16/2025 1:02 PM CDT Heather Rene NP LAB MICROBIOLO GY - GENERAL ORDERABLES Final Result Performing Organization Address [facility] de Phone Number [facility] [place] [address] * Hepatitis B Surface Antigen Blood (02/16/2025 11:58 AM CDT) [facility] HepBsAg Nonreactive Nonreactive Blood 02/16/2025 11:5 8 AM CDT 02/16/2025 1:02 PM CDT Heather Rene BEN DAY ARTIST LAB MICROBIOLO GY - GENERAL ORDERABLES Final Result Performing Organization Address [facility] de Phone Number [facility] [place] [address] * (ABNORMAL) Protein electrophoresis with reflex, serum with interpretation (02/16/2025 11:58 AM CDT) [facility] Protein, sr 8.5(H) 6.2 - 8.2 g/dL Albumin 4.4 3.2 - 5.0 g/dL [facility] Alpha-1 globulin 0.5(H) 0.2 - 0.4 g/dL [facility] Alpha-2 globulin 0.9 0.5 - 1.0 g/dL [facility] Beta-1 globulin 0.6 0.3 - 0.6 g/dL [facility] Beta-2 globulin 0.6 0.2 - 0.6 g/dL [facility] Gamma globulin 1.4 0.5 - 1.7 g/dL [facility] SPEP interp Please see comment [facility] Comment: Possible abnormal restricted peak in gamma region See immunotyping for further information Reviewed and signed by Matthew Coffman MD, PhD 02/18/2025 Immunotyping See Immunotyping Results [facility] Blood 02/16/2025 11:5 8 AM CDT 02/16/2025 1:41 PM CDT [facility] Lidia Rene LAB [facility]LOOD [facility] Final Result [facility] [place] [place] [address] * Lactate dehydrogenase (LD) (02/16/2025 11:58 AM CDT) [facility] Lactate dehydrogenase (LDH) 180 100 - 250 Units/L Blood 02/16/2025 11:5 8 AM CDT 02/16/2025 12:24 PM CDT [facility] Final Result [facility] [place] [address] * (ABNORMAL) Beta 2 microglobulin, serum (02/16/2025 11:58 AM CDT) Pathologist [facility] Beta 2 Microglobulin, Serum 3.20(H) 1.00 - 2.50 mg/L Comment: Interpretive Data The Wang Beta-2 microglobulin assay procedure was used. Results from different manufacturers or methods may not be comparable. Serial testing should be performed using the same method. Blood 02/16/2025 11:5 8 AM CDT 02/16/2025 12:50 PM CDT Heather Rene NP LAB BLOOD ARI ANDERS Final Result [facility] [place] [address] * (ABNORMAL) Comprehensive metabolic panel (02/16/2025 11:58 AM CDT) Sodium 131(L) 135 - 145 mmol/L Potassium, pl 4.9 3.3 - 4.9 mmol/L [facility] Chloride 89(L) 97 - 110 mmol/L [facility] CO2 25 22 - 32 mmol/L [facility] Anion gap 17(H) 2 - 15 mmol/L [facility] BUN 18 6 - 25 mg/dL [facility] Creatinine 1.17(H) 0.60 - 1.10 mg/dL [facility] Glucose 123 70 - 199 mg/dL [facility] Comment: Interpretive Data Fasting glucose >/= 126 [...] 2022. Calcium 10.1 8.5 - 10.3 mg/dL [facility] Bilirubin, total 0.8 0.1 - 1.2 mg/dL [facility] Protein, pl 8.9(H) 6.5 - 8.5 g/dL [facility] Albumin 4.7 3.5 - 5.0 g/dL [facility] Alk phos 93 40 - 130 Units/L [facility] ALT 23 7 - 45 Units/L [facility] AST 21 10 - 45 Units/L [facility] Blood 02/16/2025 11:5 8 AM CDT 02/16/2025 12:24 PM CDT Heather Rene NP LAB BLOOD ORDE RABLES Final Result Performing Organization Address [facility] Co de Phone Number [facility] [place] [address] * eGFR (01/15/2025 11:18 PM PAPER SEALER) eGFR 66 >=60 mL/min/1. 73 m2 Comment: [...] reviewed 2021. Blood 01/15/2025 11:1 8 PM PAPER SEALER 01/15/2025 11:40 PM PAPER SEALER us Adalberto Ngo MD LAB BLOOD ORDERABLES Final Re sult Performing Organization Address [facility] Co de Phone Number [facility] [place] [address] * (ABNORMAL) Basic metabolic panel (01/15/2025 11:18 PM PAPER SEALER) Sodium 138 135 - 145 mmol/L Potassium, pl 3.3 3.3 - 4.9 mmol/L [facility] Chloride 105 97 - 110 mmol/L [facility] Comment:Repeated and Verifie d CO2 24 22 - 32 mmol/L [facility] Anion gap 9 2 - 15 mmol/L [facility] Comment:Repeated and Verifie d BUN 20 6 - 25 mg/dL [facility] Creatinine 0.97 0.60 - 1.10 mg/dL [facility] Glucose 109 70 - 199 mg/dL [facility] Comment: Interpretive Data Fasting glucose >/= 126 [...] 2022. Calcium 7.6(L) 8.5 - 10.3 mg/dL [facility] Blood 01/15/2025 11:1 8 PM PAPER SEALER 01/15/2025 11:40 PM PAPER SEALER us Adalberto Ngo MD LAB BLOOD ORDERABLES Final Re sult [facility] [place] [address] * Sodium, urine, random (01/15/2025 9:10 PM PAPER SEALER) Pathologist [facility] Sodium, ur <20 mmol/L Comment: Interpretive Data No reference range established. Current interpretive data was last revised 2019. Urine 01/15/2025 9:10 PM PAPER SEALER 01/15/2025 9:22 PM PAPER SEALER us Adalberto Ngo MD LAB URINE ORDERABLES Final Re sult [facility] [place] [address] * Osmolality, blood (01/15/2025 9:09 PM PAPER SEALER) Osmo 280 275 - 300 mOsm/kg Blood 01/15/2025 9:09 PM PAPER SEALER 01/15/2025 9:23 PM PAPER SEALER us Chris Khan MD LAB BLOOD ORDERABLES Final Resul t Performing Organization Address [facility] Co de Phone Number [facility] [place] [address] * (ABNORMAL) Urinalysis reflex to microscopic and culture Urine (01/15/2025 6:55 PM PAPER SEALER) Color, ur Straw Yellow Clarity, ur Clear Clear [facility] Specific gravity, ur 1.014 1.003 - 1.030 [facility] pH, urine 6.0 [facility] Comment: Interpretive Data U rine pH is affected by diet, medications, systemic acid-base disturbances, and renal tubular function. pH may affect urinary stone formation. For example, urine pH below 6.0 may help reduce the tendency for calcium phosphate stones and pH greater than 6.0 may reduce the tendency for uric acid stone formation. Source: [facility] [employer] Current Interpretive Data was last revised on 2017 Protein, ur ql 1+(A) Negative [facility] Glucose, ur ql Negative Negative [facility] Ketones, ur Negative Negative [facility] Bilirubin, ur Negative Negative [facility] Blood, ur Negative Negative [facility] Urobilinogen, ur <2.0 <2.0 mg/dL [facility] Nitrite, ur Negative Negative [facility] Leukocyte esterase, ur Negative Negative [facility] UA reflex comment Reflex to microscopic UA will be performed. [facility] Urine 01/15/2025 6:55 PM PAPER SEALER 01/15/2025 7:01 PM PAPER SEALER Adalberto Ngo MD LAB MICROBIOLOGY - GENERAL OR DERABLES Final Result Performing Organization Address [facility] Co de Phone Number [facility] [place] [address] * Urinalysis, microscopic only (01/15/2025 6:55 PM PAPER SEALER) WBC, ur 0-5 0 - 5 /HPF RBC, ur 0-2 0 - 2 /HPF [facility] Epithelial cells, squamous, ur 1-5 0 - 5 /HPF [facility] Culture Reflex Comment Reflex conditions for urine culture (WBC >10) not met. [facility] Urine 01/15/2025 6:55 PM PAPER SEALER 01/15/2025 7:01 PM PAPER SEALER Adalberto Ngo MD LAB URINE ORDERABLES Final Re sult Performing Organization Address [facility] Co de Phone Number [facility] [place] [address] * (ABNORMAL) eGFR (01/15/2025 6:28 PM PAPER SEALER) eGFR 51(L) >=60 mL/min/1. 73 m2 Comment: [...] last reviewed 2021. Blood 01/15/2025 6:28 PM PAPER SEALER 01/15/2025 6:47 PM PAPER SEALER Adalberto Ngo MD LAB BLOOD ORDERABLES Final Re sult Performing Organization Address [facility] Co de Phone Number [facility] [place] [address] * (ABNORMAL) CBC without differential (01/15/2025 6:28 PM PAPER SEALER) WBC 10.4(H) 3.8 - 9.9 K/cumm Hgb 9.3(L) 11.9 - 15.5 g/dL [facility] Hct 27.7(L) 35.6 - 45.5 % [facility] Plt 165 150 - 400 K/cumm [facility] MPV 9.4 9.1 - 12.3 fL [facility] RBC 2.75(L) 3.90 - 5.20 M/cumm [facility] MCV 100.7(H) 81.3 - 96.4 fL [facility] MCH 33.8(H) 27.1 - 33.3 pg [facility] MCHC 33.6 32.3 - 35.7 g/dL [facility] RDW CV 13.7 11.1 - 14.9 % [facility] RDW SD 50.2(H) 35.7 - 48.1 fL [facility] NRBC abs 0.00 0.00 - 0.01 K/cumm [facility] Blood 01/15/2025 6:28 PM PAPER SEALER 01/15/2025 6:47 PM PAPER SEALER Adalberto Ngo MD LAB BLOOD ORDERABLES Final Re sult Performing Organization Address [facility]/ZIP Co de Phone Number [facility] [place] [address] * Phosphorus (01/15/2025 6:28 PM PAPER SEALER) [facility] Phosphorus, pl 2.7 2.3 - 4.5 mg/dL Blood 01/15/2025 6:28 PM PAPER SEALER 01/15/2025 6:47 PM PAPER SEALER Adalberto Ngo MD LAB BLOOD ORDERABLES Final Re sult Performing Organization Address [facility]/ZIP Co de Phone Number [facility] [place] [address] * Magnesium (01/15/2025 6:28 PM PAPER SEALER) [facility] Magnesium 1.7 1.4 - 2.5 mg/dL Blood 01/15/2025 6:28 PM PAPER SEALER 01/15/2025 6:47 PM PAPER SEALER Adalberto Ngo MD LAB BLOOD ORDERABLES Final Re sult Performing Organization Address [facility] de Phone Number [facility] [place] [place] [address] * (ABNORMAL) Basic metabolic panel (01/15/2025 6:28 PM PAPER SEALER) [facility] Sodium 130(L) 135 - 145 mmol/L Potassium, pl 4.0 3.3 - 4.9 mmol/L [facility] Chloride 94(L) 97 - 110 mmol/L [facility] CO2 25 22 - 32 mmol/L [facility] Anion gap 11 2 - 15 mmol/L [facility] BUN 23 6 - 25 mg/dL [facility] Creatinine 1.19(H) 0.60 - 1.10 mg/dL [facility] Glucose 140 70 - 199 mg/dL [facility] Comment: Interpretive Data Fasting glucose >/= 126 [...] 2022. Calcium 8.6 8.5 - 10.3 mg/dL [facility] Blood 01/15/2025 6:28 PM PAPER SEALER 01/15/2025 6:47 PM PAPER SEALER us Adalberto Ngo MD LAB BLOOD ORDERABLES Final Re sult [facility] [place] [address] * XR Chest Pa Lateral 2 Views (01/15/2025 4:29 PM PAPER SEALER) Anatomical Region Laterality Modality Body, Chest N/A Computed Radiogr aphy 01/15/2025 10:0 8 PM PAPER SEALER Impressions 01/15/2025 10:08 PM PAPER SEALER There has been removal of a right-sided chest tube. 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 There is persistent elevation of the right hemidiaphragm. There is a new small right pleural effusion with increased right basilar atelectasis. No pneumothorax is identified. The cardiomediastinal silhouette is unchanged. Electronically signed by: Luis F Knight M.D. Narrative 01/15/2025 10:08 PM PAPER SEALER EXAMINATION: XR CHEST PA LATERAL 2 VIEWS [...] Respiratory pathogen panel Nasopharyngeal (01/15/2025 1:18 PM PAPER SEALER) Influenza A RNA Not Detected Not Detected Influenza B RNA Not Detected Not Detected [facility] RSV RNA Not Detected Not Detected [facility] COVID-19 RNA Not Detected Not Detected [facility] Coronavirus 229E RNA Not Detected Not Detected [facility] Coronavirus HKU1 RNA Not Detected Not Detected [facility] Coronavirus NL63 RNA Not Detected Not Detected [facility] Coronavirus OC43 RNA Not Detected Not Detected [facility] Adenovirus DNA Not Detected Not Detected [facility] Metapneumovirus RNA Not Detected Not Detected [facility] Rhinovirus/Enterov irus RNA Not Detected Not Detected [facility] Parainfluenza 1 RNA Not Detected Not Detected [facility] Parainfluenza 2 RNA Not Detected Not Detected [facility] Parainfluenza 3 RNA Not Detected Not Detected [facility] Parainfluenza 4 RNA Not Detected Not Detected [facility] B. pertussis DNA Not Detected Not Detected [facility] B. parapertussis DNA Not Detected Not Detected [facility] C. pneumoniae DNA Not Detected Not Detected [facility] M. pneumoniae DNA Not Detected Not Detected [facility] Nasopharyngeal 01/15/2025 1: 18 PM PAPER SEALER 01/15/2025 1:47 PM PAPER SEALER Narrative [facility] - 01/15/2025 2:53 PM PAPER SEALER Is the Patient experiencing symptoms consistent with COVID?->No Surveillance testing for transplant patient?->No Interpretive Data The [employer] FilmArray Respiratory Panel (RP2.1) assay is a [...] assay has FDA clearance for testing of [employer] swabs. The performance of additional specimen types has been assessed by the performing laboratory. The performance characteristics of this assay have been determined by [facility] Molecular Infectious Disease Laboratory. Current interpretive data was last revised on 22. us Adalberto Ngo MD LAB MICROBIOLOGY - GENERAL OR DERABLES Final Result [facility] Department [place] [address] * XR Chest 1 View (01/15/2025 5:07 AM PAPER SEALER) Anatomical Region Laterality Modality Body, Chest N/A Digital Radiogra phy 01/15/2025 7:40 AM PAPER SEALER Impressions 01/15/2025 7:50 AM PAPER SEALER The current study is compared with the [...] Geetha Ross M.D. Narrative 01/15/2025 7:50 AM PAPER SEALER EXAMINATION: 1 view chest radiograph Procedure Note [...] signed by: Geetha Ross M.D. Jeimy Jones [employer] IMG XR PROCEDURES Final Result * (ABNORMAL) eGFR (01/14/2025 8:34 PM PAPER SEALER) [facility] eGFR 42(L) >=60 mL/min/1. 73 m2 Comment: [...] last reviewed 2021. Blood 01/14/2025 8:34 PM PAPER SEALER 01/14/2025 8:40 PM PAPER SEALER Jeimy Jones BEN [employer] ARTIST LAB BLOOD ORDERABLES nal Result [facility] Department [place] [address] * (ABNORMAL) CBC without differential (01/14/2025 8:34 PM PAPER SEALER) [facility] WBC 9.7 3.8 - 9.9 K/cumm Hgb 9.8(L) 11.9 - 15.5 g/dL [facility] Hct 29.9(L) 35.6 - 45.5 % [facility] Plt 144(L) 150 - 400 K/cumm [facility] MPV 9.4 9.1 - 12.3 fL [facility] RBC 2.95(L) 3.90 - 5.20 M/cumm [facility] MCV 101.4(H) 81.3 - 96.4 fL [facility] MCH 33.2 27.1 - 33.3 pg [facility] MCHC 32.8 32.3 - 35.7 g/dL [facility] RDW CV 14.1 11.1 - 14.9 % [facility] RDW SD 51.8(H) 35.7 - 48.1 fL [facility] NRBC abs 0.00 0.00 - 0.01 K/cumm [facility] Blood 01/14/2025 8:34 PM PAPER SEALER 01/14/2025 8:40 PM PAPER SEALER us Jeimy Jones [employer]EN [employer] ARTIST LAB BLOOD ORDERABLES [facility] Result [facility] Department [place] [address] * (ABNORMAL) Basic metabolic panel (01/14/2025 8:34 PM PAPER SEALER) Sodium 133(L) 135 - 145 mmol/L Potassium, pl 4.2 3.3 - 4.9 mmol/L [facility] Chloride 97 97 - 110 mmol/L [facility] CO2 25 22 - 32 mmol/L [facility] Anion gap 11 2 - 15 mmol/L [facility] BUN 21 6 - 25 mg/dL [facility] Creatinine 1.40(H) 0.60 - 1.10 mg/dL [facility] Glucose 141 70 - 199 mg/dL [facility] Comment: Interpretive Data Fasting glucose >/= 126 [...] 2022. Calcium 9.0 8.5 - 10.3 mg/dL [facility] Blood 01/14/2025 8:34 PM PAPER SEALER 01/14/2025 8:40 PM PAPER SEALER Jeimy Jones NP LAB BLOOD ORDERABLES Fi nal Result MICHELLE [facility] [place] [address] * ECG 12 lead (01/14/2025 11:55 AM PAPER SEALER) Ventricular Rate EKG/Min 85 BPM [facility] Atrial Rate 85 BPM [facility] VT-Interval (MSEC) 178 ms [facility] QRS-Interval (MSEC) 78 ms [facility] QT-Interval (MSEC) 382 ms [facility] QTc 454 ms [facility] P Alba 52 degrees [facility] R Alba 41 degrees [facility] T Alba 35 degrees [facility] Diagnosis Normal sinus rhythm Low voltage QRS Nonspecific ST abnormality Abnormal ECG No previous ECGs available Confirmed by LORENZO REYES M.D ([id number]) on 01/17/2025 7:21:58 PM [facility] 01/14/2025 11:5 5 AM PAPER SEALER 01/17/2025 7:21 PM CDT us Jeimy Jones NP ECG ORDERABLES Final R esult Performing Organization Address [facility] Co de Phone Number [facility] * eGFR (01/13/2025 8:46 PM PAPER SEALER) eGFR 79 >=60 mL/min/1. 73 m2 Comment: [...] last reviewed 2021. Blood 01/13/2025 8:46 PM PAPER SEALER 01/13/2025 8:58 PM PAPER SEALER us Adalberto Ngo MD LAB BLOOD ORDERABLES Final Re sult [facility] [place] [address] * (ABNORMAL) CBC without differential (01/13/2025 8:46 PM PAPER SEALER) WBC 8.6 3.8 - 9.9 K/cumm Hgb 10.6(L) 11.9 - 15.5 g/dL [facility] Hct 32.5(L) 35.6 - 45.5 % [facility] Plt 144(L) 150 - 400 K/cumm [facility] MPV 9.4 9.1 - 12.3 fL [facility] RBC 3.23(L) 3.90 - 5.20 M/cumm [facility] MCV 100.6(H) 81.3 - 96.4 fL [facility] MCH 32.8 27.1 - 33.3 pg [facility] MCHC 32.6 32.3 - 35.7 g/dL [facility] RDW CV 14.2 11.1 - 14.9 % [facility] RDW SD 51.8(H) 35.7 - 48.1 fL [facility] NRBC abs 0.00 0.00 - 0.01 K/cumm [facility] Blood 01/13/2025 8:46 PM PAPER SEALER 01/13/2025 8:58 PM PAPER SEALER us Adalberto Ngo MD LAB BLOOD ORDERABLES Final Re sult Performing Organization Address [facility]/ZIP Co de Phone Number [facility] [place] [address] * Basic metabolic panel (01/13/2025 8:46 PM PAPER SEALER) [facility] Sodium 138 135 - 145 mmol/L Potassium, pl 4.3 3.3 - 4.9 mmol/L [facility] Chloride 99 97 - 110 mmol/L [facility] CO2 25 22 - 32 mmol/L [facility] Anion gap 14 2 - 15 mmol/L [facility] BUN 17 6 - 25 mg/dL [facility] Creatinine 0.83 0.60 - 1.10 mg/dL [facility] Glucose 163 70 - 199 mg/dL [facility] Comment: Interpretive Data Fasting glucose >/= 126 [...] 2022. Calcium 9.0 8.5 - 10.3 mg/dL [facility] Blood 01/13/2025 8:46 PM PAPER SEALER 01/13/2025 8:58 PM PAPER SEALER us Adalberto Ngo MD LAB BLOOD ORDERABLES Final Re sult Performing Organization Address [facility] Co de Phone Number [facility] [place] [address] * XR Chest 1 View - in ICU (01/13/2025 6:35 PM PAPER SEALER) Anatomical Region Laterality Modality Body, Chest N/A Digital Radiogra phy 01/14/2025 9:57 AM PAPER SEALER Impressions 01/14/2025 2:16 PM PAPER SEALER Findings of right lower lobectomy. Right chest tube is in place with possible minuscule right apical pneumothorax. No right effusion.Linear scarring in the left lower lobe. No left effusion or pneumothorax. Unchanged cardiomediastinal silhouette. Dictated by: Rita Ellison MD The radiology attending physician has personally reviewed this study, and had reviewed and/or edited this written report and agrees with it. Electronically signed by: Suap Vu M.D. Narrative 01/14/2025 2:16 PM PAPER SEALER EXAMINATION: XR CHEST 1 VIEW HISTORY: postop [...] it. Electronically signed by: Supa Vu M.D. Adalberto Ngo MD IMG XR PROCEDURES Final Resul t * Cytogenetics (01/13/2025 5:02 PM PAPER SEALER) Miscellaneous 01/13/2025 5:0 2 PM PAPER SEALER 01/20/2025 2:09 PM CDT Narrative 01/24/2025 4:35 PM CDT [facility] results best viewed via link to PDF [facility] Department of Pathol [address] [place] [address] Patient Information Name: AP LAND Gender: F : 1960 (Age: 64) Tissue: FFPE FISH Visit Information Hospital #: [id number] Facility: [facility] Service: [facility] IP Location: [place] [address] Patient Type: [facility] Inpatient Specimen Information: Culture #: [id number] Date Collected: 01/13/2025 Date Accessioned: 01/21/2025 Date [...] Fluorescence In-situ hybridization (FISH) Results: Specimen # [id number] POSITIVE - FISH result for IGH gene rearrangement nuc bindu (3'IGHx2~3,5'IGHx2~3)(3'IGH con 5'IGH)x1[35/200]/(3'IGHx1,5'IGHx1~2)(3'IGH con 5'IGH)x0[3/200] Chromosome analysis and Fluorescence In Situ Hybridization (FISH) analysis are performed using the [employer] Imaging System. Comments IGH -BA FISH FISH was performed utilizing Vysis IGH (14q32) Dual Color, Break Apart Rearrangement probe set ([employer], [place], [place]). 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 The above test was developed and its performance characteristics determined by [facility]. It has not [...] ult * Surgical pathology (01/13/2025 2:59 PM PAPER SEALER) Tissue specimen (specimen) (Lymph Node, Single excision) 01/13/2025 2:59 PM PAPER SEALER Tissue specimen (specimen) (Lymph node, dissection/region al resection) 01/13/2025 3:22 PM PAPER SEALER Tissue specimen (specimen) (Lymph node, dissection/region al resection) 01/13/2025 3:26 PM PAPER SEALER Tissue specimen (specimen) (Lymph Node, Single excision) 01/13/2025 3:27 PM PAPER SEALER Tissue specimen (specimen) (Lymph Node, Single excision) 01/13/2025 3:30 PM PAPER SEALER Tissue specimen (specimen) (Lymph Node, Single excision) 01/13/2025 3:43 PM PAPER SEALER Tissue specimen (specimen) (Lymph Node, Single excision) 01/13/2025 3:58 PM PAPER SEALER Tissue specimen (specimen) (Lymph Node, Single excision) 01/13/2025 4:41 PM PAPER SEALER Tissue specimen (specimen) (Lung, total / lobe / segmental, tumor) 01/13/2025 5:02 PM PAPER SEALER Narrative PATHOLOGY [facility] - 01/24/2025 5:24 PM CDT EPIC results best viewed via link to PDF [facility]enee Castillo [facility] [place] [address] Note to Patients: This report may contain [...] Gender: F : 1960 (Age: 64) Address: [address] [place] [id number] Hospital #: [id number] Taken:01/13/2025 Received:01/14/2025 Reported: 01/24/2025 Patient Type: [facility] Inpatient Service: Cardiothoracic Location: [facility] [address]74 Physician(s): Adalberto Ngo M.D. MD Adalberto Turcios M.D. Diagnosis: A. [...] node) I11 Uninvolved lung parenchyma Jar 2. abraham/01/14/2025 15:25 Gross Resident:Rita Mcbride D.O. By this [...] Surgical Pathology and Flow Cytometry Departments at [facility] as part of an ongoing quality assurance qa lab analyst program and in compliance with federally mandated [...] Surgical Pathology and Flow Cytometry Departments of [facility]. It has not been cleared or approved by the U. S. Food and Drug Administration. IMAGES AND SCANNED DOCUMENTS, IF INCLUDED, ONLY VIEWABLE IN PDF VERSION OF REPORT us Adalberto Ngo MD LAB PATHOLOGY ORDERABLES Salma roy Result PATHOLOGY [facility] 3rd Floor [place], [place] [phone] * Peripheral IV Catheter (01/13/2025 2:28 PM PAPER SEALER) Monie Main MD - 01/13/2025 2:28 PM PAPER SEALER Monie Segura MD 01/13/2025 2:39 PM Peripheral [...] Final Result * Airway (01/13/2025 2:25 PM PAPER SEALER) Monie Main MD - 01/13/2025 2:25 PM PAPER SEALER Monie Segura MD 01/13/2025 2:37 PM Airway [...] Result * Check Sample (01/13/2025 1:37 PM PAPER SEALER) ABO Rh A Negative [facility] HCLL OTHER 01/13/2025 1:37 PM PAPER SEALER 01/13/2025 1:47 PM PAPER SEALER us Adalberto Ngo MD LAB BLOOD ORDERABLES Final Re sult [facility] [place] [address] [facility] * CT chest without contrast (12/30/2024 9:01 AM PAPER SEALER) Anatomical Region Laterality Modality Body N/A Computed Tomogra phy 12/30/2024 9:29 AM PAPER SEALER Impressions 12/30/2024 9:47 AM PAPER SEALER 1. Unchanged spiculated microlobulated 1.1 cm right [...] Wood Whatley M.D. Narrative 12/30/2024 9:47 AM PAPER SEALER EXAMINATION: Computed tomography of the chest without [...] by: Wood Whatley M.D. us Lukas Francis [employer] IMG CT PROCEDURES Final Res ult * TYPE AND SCREEN 14 DAY (12/30/2024 8:47 AM PAPER SEALER) ABO Rh A Negative Zohra, indirect Negative [facility] Blood 12/30/2024 8:47 AM PAPER SEALER 12/30/2024 11:57 AM PAPER SEALER Narrative [facility] - 12/30/2024 12:49 PM PAPER SEALER Has the patient had Daratumumab or Isatuximab in the past 6 months?->Unknown Is this test being ordered in advance for a procedure?->Yes Expected date of procedure:->01/04/25 Has the patient been transfused in the past 3 months?->No Has the patient been in the past 3 months?->No us Cathy Jerez [employer] LAB BLOOD BANK TEST ORDER AMANDA Final Result [facility] [place] [address] * eGFR (12/30/2024 8:47 AM PAPER SEALER) eGFR 79 >=60 mL/min/1. 73 m2 Comment: [...] last reviewed 2021. Blood 12/30/2024 8:47 AM PAPER SEALER 12/30/2024 12:11 PM PAPER SEALER Cathy Jerez [employer] LAB BLOOD ORDERABLES Salma l Result Performing Organization Address [facility] Co de Phone Number [facility] [place] [address] * (ABNORMAL) CBC without differential (12/30/2024 8:47 AM PAPER SEALER) Pathologist [facility] WBC 6.1 3.8 - 9.9 K/cumm Hgb 11.4(L) 11.9 - 15.5 g/dL [facility] Hct 35.1(L) 35.6 - 45.5 % [facility] Plt 158 150 - 400 K/cumm [facility] MPV 9.6 9.1 - 12.3 fL [facility] RBC 3.45(L) 3.90 - 5.20 M/cumm [facility] MCV 101.7(H) 81.3 - 96.4 fL [facility] MCH 33.0 27.1 - 33.3 pg [facility] MCHC 32.5 32.3 - 35.7 g/dL [facility] RDW CV 14.4 11.1 - 14.9 % [facility] RDW SD 53.6(H) 35.7 - 48.1 fL [facility] NRBC abs 0.00 0.00 - 0.01 K/cumm [facility] Blood 12/30/2024 8:47 AM PAPER SEALER 12/30/2024 11:54 AM PAPER SEALER Cathy Jerez [employer] LAB BLOOD ORDERABLES Salma roy Result Performing Organization Address [facility] Co de Phone Number [facility] [place] [address] * Basic metabolic panel (12/30/2024 8:47 AM PAPER SEALER) Sodium 141 135 - 145 mmol/L Potassium, pl 4.2 3.3 - 4.9 mmol/L [facility] Chloride 102 97 - 110 mmol/L [facility] CO2 27 22 - 32 mmol/L [facility] Anion gap 12 2 - 15 mmol/L [facility] BUN 19 6 - 25 mg/dL [facility] Creatinine 0.83 0.60 - 1.10 mg/dL [facility] Glucose 104 70 - 199 mg/dL [facility] Comment: Interpretive Data Fasting glucose >/= 126 [...] 2022. Calcium 10.0 8.5 - 10.3 mg/dL [facility] Blood 12/30/2024 8:47 AM PAPER SEALER 12/30/2024 11:55 AM PAPER SEALER Cathy Jerez [employer] LAB BLOOD ORDERABLES Salma roy Result [facility] [place] [address] from Last 3 Months Insurance [employer] [facility] ACCESS BLUE ACCESS OOS BLUE ACCESS OOS Advance Directives For more information, please contact: [phone] Documents on File Type Date Recorded Patient Automatic Pad Making Machine Operator Expl anation ADVANCE DIRECTIVE 01/13/2025 1:36 PM Power of Seat Covers Trimmer-Medical * Full Code (Latest Code Status on File) Date Activated Date Inactivated Comments 01/13/2025 8:21 PM 01/17/2025 5:31 PM Healthcare Agents on File Name Relationship Healthcare Agent Relationshi p Communication Chanel Land Daughter Health Care Agent Care Teams Lead Business Systems Analyst Relationship Specialty Start Date End Date Chino Mora MD PCP - General Family Practice 01/02/21 Kameron Jeff MD [address] [place] [address] Medical Oncologist/Lead Handler Medical Oncology 01/02/21 Kameron Jeff MD [address] DIV IM MEDICAL ONCOLOGY, [address] [place] [address] Medical Oncologist/Lead Handler Medical Oncology 04/28/24 Constantin Kumar MD [address] [place] [address] Medical Oncologist/Lead Handler Medical Oncology 02/01/25
--- OUTSIDE RECORDS SUMMARY | 2025-02-25 12:21 | XMS_ITS | Encounter Summary ---
Author Organization [facility] Address [address] [place] [address] Phone Care Team Providers Care Digital Computer Operator Name Role Phone Chino Mora MD Primary Care Provider Kameron Jeff MD Unavailable [phone] Kameron Jeff MD Unavailable [phone] Constantin Kumar MD Unavailable [phone] Encounter Details Date Type Department Care Team (Late st Contact Info) Description 02/24/2025 Telephone [facility] Oncology [facility] Floor [address] [place] [address] Radha White RN Social History [...] on file Legal Sex 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 Patient repeated her labs on Friday at [facility]. Results are below. She is feeling [...] possible. We will repeat a cmp at [facility] on Friday. I LVM for thepatient and asked that she return my call to confirm that she understood the information. documented in this encounter Plan of Treatment Not on file documented as of this encounter Visit Diagnoses Not on filedocumented in this encounter Care Teams Digital Computer Operator Relationship Specialty Start Date End Date Chino Mora MD PCP - General Family Practice 01/02/21 Kameron Jeff MD [address] [place] [address] Medical Oncologist/Gut Puller Medical Oncology 01/02/21 Kameron Jeff MD [address] [facility] DIV MEDICAL ONCOLOGY, [address] [place] [address] Medical Oncologist/Gut Puller Medical Oncology 04/28/24 Constantin Kumar MD [address] [facility] [address] [place] [address] Medical Oncologist/Gut Puller Medical Oncology 02/01/25 documented as of this encounter
--- OUTSIDE RECORDS SUMMARY | 2025-02-25 12:21 | XMS_ITS | Referral Summary ---
Author Organization [facility] Address [address] [place] [address] Care Team Providers Care Fiber Worker Name Role Phone Chino Mora MD Primary Care Provider Kameron Jeff MD Unavailable [phone] Kameron Jeff MD Unavailable Constantin Kumar MD Unavailable Encounters Date Type Department Care Team Description 02/25/2025 Telephone [facility] Oncology [address] [place] [phone] Maggie Peralta RN 02/24/2025 Orders Only [facility] Oncology [address] [place] [phone] Constantin Kumar MD SIADH (syndrome of inappropriate ADH production) (Primary Dx) 02/24/2025 Telephone [facility] Oncology [address] [place] [phone] Radha White, MAIKOL 02/23/2025 Documentation [facility] Oncology [address] [place] [phone] Alla Schreiber RMA 02/23/2025 Documentation [facility] Oncology [address] [place] [phone] Alla Schreiber RMA 02/16/2025 12:30 PM CDT Lab [facility] [place] - Lab Collection [address] [place] [address] Floor 6 [place] [address] Extranodal marginal zone B-cell lymphoma 02/16/2025 12:00 PM CDT Lab [facility] Oncology Lab [address] [place] [address] 6 [place] [address] 02/16/2025 1:00 PM CDT Office Visit [facility] Oncology [address] [place] [address] 6 [place] [address] Constantin Kumar MD Extranodal marginal zone B-cell lymphoma (Primary Dx); Lymphoma involving lung (HCC); Anemia, unspecified type 02/01/2025 11:00 AM CDT Office Visit [facility] Surgery [address] [place] [address] 5 [place] [address] Adalberto Ngo MD Lymphoma involving lung (HCC) (Primary Dx) 01/13/2025 9:56 AM MULCHER OPERATOR - 01/17/2025 1:31 PM CDT Hospital Encounter [address] [phone] Adalberto Ngo MD Lung nodule Discharge Disposition: Discharge to home or self care 01/14/2025 Orders Only [facility] Surgery [address] [place] [phone] Adalberto Ngo MD Lung nodule (Primary Dx) 01/13/2025 1:05 PM MULCHER OPERATOR - 01/13/2025 6:15 PM MULCHER OPERATOR Surgery [facility] Operating Room [address] [place] [address] Adalberto Ngo MD XI ROBOTIC LOBECTOMY RIGHT LOWER LOBE 01/13/2025 1:53 PM MULCHER OPERATOR Anesthesia Event [facility] Operating Room [address] [place] [address] Halima Olson MD Montgomery, Andrea J., NP 01/12/2025 Telephone [facility] Surgery [address] [facility] 5 [place] [phone] Lukas Francis NP 12/30/2024 Orders Only [facility] Surgery [address] [facility] 5 [place] [phone] Lukas Francis, REMI Gingivitis (Primary Dx) 12/30/2024 8:30 AM MULCHER OPERATOR Lab [facility] [address] [facility] [address] [place] [address] Preoperative testing 12/30/2024 8:01 AM MULCHER OPERATOR - 12/30/2024 11:59 PM MULCHER OPERATOR Hospital Encounter [facility] Radiology at [facility] [address] [place] [address] Lung nodule Discharge Disposition: Discharge to home or self care 12/30/2024 8:00 AM MULCHER OPERATOR Pre-Admission Testing [facility] Pre Anesthesia Testing [address] [place] [address] Preoperative testing (Primary Dx) 12/10/2024 Telephone [facility] Oncology [address] [place] [address] Leatha Ferro RN 12/06/2024 Orders Only [facility] Surgery [facility] [facility] 5 [place] [address] Lukas Francis NP Lung nodule (Primary Dx) 12/06/2024 9:30 AM MULCHER OPERATOR Office Visit [facility] Surgery [address] [place] [address] Adalberto Ngo MD Malignant neoplasm of middle [...] hypertension Administer 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 eyes tomato paste maker before breakfast 0 Active hydroCHLOROthiaz kaden (HYDRODIURIL) [...] (02/09/2019 12:19 PM CDT): DR Rivero in [facility] evaluating Vitreous syneresis of both eyes [...] on file Legal Sex Female 11:57 PM MULCHER OPERATOR Gender Identity Not on file Sexual Orientation [...] Height 152.4 cm (5') 01/13/2025 8:25 PM MULCHER OPERATOR Body Mass Index 24.57 01/13/2025 8:25 PM MULCHER OPERATOR Plan of Treatment Not on file Procedures [...] AM CDT EGFR Timed 01/15/2025 11:18 PM MULCHER OPERATOR BASIC METABOLIC PANEL Timed 01/15/2025 11:18 PM MULCHER OPERATOR SODIUM, URINE, RANDOM Routine 01/15/2025 9:10 PM MULCHER OPERATOR OSMOLALITY, BLOOD Timed 01/15/2025 9:0 9 PM MULCHER OPERATOR PEP THERAPY Routine 01/15/2025 8:00 PM MULCHER OPERATOR URINALYSIS, MICROSCOPIC ONLY Routine 01/15/2025 6:55 PM MULCHER OPERATOR URINALYSIS AND REFLEX TO MICROSCOPIC AND CULTURE Routine 01/15/2025 6:55 PM MULCHER OPERATOR EGFR Timed 01/15/2025 6:28 PM MULCHER OPERATOR PHOSPHORUS Timed 01/15/2025 6:28 PM MULCHER OPERATOR MAGNESIUM Timed 01/15/2025 6:28 PM MULCHER OPERATOR BASIC METABOLIC PANEL Timed 01/15/2025 6:28 PM MULCHER OPERATOR CBC WITHOUT DIFFERENTIAL Timed 01/15/2025 6:28 PM MULCHER OPERATOR XR CHEST PA LATERAL 2 VIEWS Timed 01/15/2025 4:29 PM MULCHER OPERATOR PEP THERAPY Routine 01/15/2025 3:39 PM MULCHER OPERATOR PEP THERAPY Routine 01/15/2025 3:39 PM MULCHER OPERATOR PEP THERAPY Routine 01/15/2025 3:39 PM MULCHER OPERATOR RESPIRATORY PATHOGEN PANEL Routine 01/15/2025 1:18 PM MULCHER OPERATOR CHEST PHYSIO THERAPY Routine 01/15/2025 11:01 AM MULCHER OPERATOR XR CHEST 1 VIEW IP Routine 01/15/2025 5:07 AM MULCHER OPERATOR EGFR Routine 01/14/2025 8:34 PM MULCHER OPERATOR CBC WITHOUT DIFFERENTIAL Routine 01/14/2025 8:34 PM MULCHER OPERATOR BASIC METABOLIC PANEL Routine 01/14/2025 8:34 PM MULCHER OPERATOR ECG 12-LEAD Routine 01/14/2025 11:55 AM MULCHER OPERATOR EGFR Timed 01/13/2025 8:46 PM MULCHER OPERATOR BASIC METABOLIC PANEL Timed 01/13/2025 8:46 PM MULCHER OPERATOR CBC WITHOUT DIFFERENTIAL Timed 01/13/2025 8:46 PM MULCHER OPERATOR XR CHEST 1 VIEW ED Urgent/IP Urgent 01/13/2025 6:35 PM MULCHER OPERATOR CYTOGENETICS Routine 01/13/2025 5:02 PM MULCHER OPERATOR SURGICAL PATHOLOGY Routine 01/13/2025 2: 59 PM MULCHER OPERATOR Lung nodule PERIPHERAL LINE Routine 01/13/2025 2:28 PM MULCHER OPERATOR ANESTHESIA INTUBATION Routine 01/13/2025 2:25 PM MULCHER OPERATOR XI ROBOTIC LOBECTOMY 01/13/2025 1:55 PM MULCHER OPERATOR Lung nodule B CHECK SAMPLE STAT 01/13/2025 1:[address] CHEST WO CONTRAST Schedule PURA, Read PURA (Appt Today, Awaiting Results) 12/30/2024 9:01 AM MULCHER OPERATOR Lung nodule EGFR Routine 12/30/2024 8:47 AM MULCHER OPERATOR Preoperative testing BASIC METABOLIC PANEL Routine 12/30/2024 8:47 AM MULCHER OPERATOR Preoperative testing CBC WITHOUT DIFFERENTIAL Routine 12/30/2024 8:47 AM MULCHER OPERATOR Preoperative testing TYPE AND SCREEN 14 DAY Routine 12/30/2024 8:47 AM MULCHER OPERATOR Preoperative testing from Last 3 Months Results * Immunotyping, serum with interpretation (02/16/2025 11:58 AM CDT) Immunosubtraction Please see comment Comment: NO PARAPROTEIN DETECTED Reviewed and signed by Matthew Coffman MD, PhD 02/18/2025 Blood 02/16/2025 11:5 8 AM CDT 02/16/2025 4:31 PM CDT [facility]ative [facility] - 02/19/2025 8:55 AM CDT Reflex Immunotyping, Ser Heather Rene SIGNAL MAINTENANCE TECHNICIAN LAB BLOOD ARI ANDERS Final Result [facility] Department [place] [address] * (ABNORMAL) eGFR (02/16/2025 11:58 AM CDT) [...] CDT 02/16/2025 12:24 PM CDT Heather Rene SIGNAL MAINTENANCE TECHNICIAN LAB BLOOD LORNEAlicia CHAGO Final Result MICHELLE GURROLA [facility] [place] [address] * (ABNORMAL) Differential, auto (02/16/2025 11:58 AM CDT) Neutrophil abs 7.85(H) 1.50 - 6.50 K/cumm Comment:Testing performed by : [facility], [address] [place] [phone] Lymphocyte abs 2.28 0.80 - 3.30 K/cumm MICHELLE GURROLA Comment:Testing performed by : [facility], [address] [place] [phone] Monocyte abs 0.74 0.20 - 0.80 K/cumm MICHELLE GURROLA Comment:Testing performed by : [facility], [address] [place] [phone] Eosinophil abs 0.01 0.00 - 0.50 K/cumm MICHELLE GURROLA Comment:Testing performed by : [facility], [address] [place] [phone] Basophil abs 0.06 0.00 - 0.10 K/cumm MICHELLE GURROLA Comment:Testing performed by : [facility], [address] [place] [phone] Neutrophil pct 71.8 % MICHELLE GURROLA Comment: Interpretive Data Percent cell count reference ranges are not reported, since discordance with absolute values may lead to misinterpretation of CBC data. Current Interpretive Data was last revised on 2018. Testing performed by: [facility], [address] [place] [phone] Lymphocyte pct 20.8 % CERILANNA BJ Comment: Interpretive Data Percent cell count reference ranges are not reported, since discordance with absolute values may lead to misinterpretation of CBC data. Current Interpretive Data was last revised on 2018. Testing performed by: [facility], [address] [place] [phone] Monocyte pct 6.7 % [facility] Comment: Interpretive Data Percent cell count reference ranges are not reported, since discordance with absolute values may lead to misinterpretation of CBC data. Current Interpretive Data was last revised on 2018. Testing performed by: [facility], [address] [place] [address] Eosinophil pct 0.1 % [facility] Comment: Interpretive Data Percent cell count reference ranges are not reported, since discordance with absolute values may lead to misinterpretation of CBC data. Current Interpretive Data was last revised on 2018. Testing performed by: [facility], [address] [place] [phone] Basophil pct 0.5 % [facility] Comment: Interpretive Data Percent cell count reference ranges are not reported, since discordance with absolute values may lead to misinterpretation of CBC data. Current Interpretive Data was last revised on 2018. Testing performed by: [facility], [address] [place] [phone] Blood 02/16/2025 11:5 8 AM CDT 02/16/2025 12:15 PM CDT Heather Rene SIGNAL MAINTENANCE TECHNICIAN LAB BLOOD ORDE CHAGO Final Result [facility] [address] [facility] Department [place] [address] * HIV 1/2 Antibody plus p24 Antigen Blood (02/16/2025 11:58 AM CDT) Pathologist [facility] HIV 1/2 ab + p24 ag Nonreactive [...] GENERAL ORDERABLES Final Result MICHELLE GURROLA [address] [facility] [place] [address] * (ABNORMAL) CBC with auto differential (02/16/2025 11:58 AM CDT) Pathologist [facility] WBC 10.93(H) 3.80 - 9.90 K/cumm Comment:Testing performed by : [facility], [address] [place] [address] Hgb 11.6(L) 11.9 - 15.5 g/dL [facility] Comment:Testing performed by : [facility], [address] [place] [address] Hct 34.7(L) 35.6 - 45.5 % MICHELLE BJ Comment:Testing performed by : [facility], [address] [place] [address] Plt 208 150 - 400 K/cumm [facility] Comment:Testing performed by : [facility], [address] [place] [address] MPV 7.1 6.8 - 10.4 fL [facility] Comment:Testing performed by : [facility], [address] [place] [address] RBC 3.71(L) 3.90 - 5.20 M/cumm MICHELLE GURROLA Comment:Testing performed by : [facility], [address] [place], [place] [phone] MCV 93.5 81.3 - 96.4 fL MICHELLE GURROLA Comment:Testing performed by : [facility], [address] [place], [place] [phone] MCH 31.4 27.1 - 33.3 pg MICHELLE GURROLA Comment:Testing performed by : [facility], [address] [place], [place] [phone] MCHC 33.5 32.3 - 35.7 g/dL MICHELLE GURROLA Comment:Testing performed by : [facility], [address] [place], [place] [phone] RDW CV 16.5(H) 11.1 - 14.9 % MICHELLE GURROLA Comment:Testing performed by : [facility], [address] [place], [place] [phone] NRBC abs 0.00 0.00 - 0.01 K/cumm MICHELLE GURROLA Comment:Testing performed by : [facility], [address] [place], [place] [phone] Blood 02/16/2025 11:5 8 AM CDT 02/16/2025 12:15 PM CDT Heather Lidia Rene SIGNAL MAINTENANCE TECHNICIAN LAB BLOOD ARI ANDERS Final Result Performing Organization Address City/State/[facility] Co de Phone Number MIC[facility]LE [facility] [place] [address] * Hepatitis C antibody Blood (02/16/2025 11:58 AM CDT) Hep C Ab Nonreactive Nonreactive Comment:Antibodies to HCV no t detected. Does NOT exclude the possibility of recent exposure to HCV. Current interpretive data was last revised on 22 Blood 02/16/2025 11:5 8 AM CDT 02/16/2025 1:02 PM CDT us Heather Rene NP LAB MICROBIOLO GY - GENERAL ORDERABLES Final Result MICHELLE [facility] [place] [place] [address] * Hepatitis B core antibody, total Blood (02/16/2025 11:58 AM CDT) Hep B core IgG/IgM Nonreactive Nonreactive Blood 02/16/2025 11:5 8 AM CDT 02/16/2025 1:02 PM CDT Heather Lidia Rene NP LAB MICROBIOLO GY - GENERAL ORDERABLES Final Result Performing Organization Address [facility] [place] [address] * Hepatitis B surface antibody (immune status) Blood (02/16/2025 11:58 AM CDT) HBsAb (immune status) Nonreactive Comment:This result is consi stent with a lack of immunity to Hepatitis B Virus when used in the setting of routine screening. Current interpretative data was last revised on 22 Blood 02/16/2025 11:5 8 AM CDT 02/16/2025 1:02 PM CDT Heather Lidia Rene NP LAB MICROBIOLO GY - GENERAL ORDERABLES Final Result Performing Organization Address City/[facility] Co de Phone [facility] [place] [place] [address] * Hepatitis B Surface Antigen Blood (02/16/2025 11:58 AM CDT) HepBsAg Nonreactive Nonreactive Blood 02/16/2025 11:5 8 AM CDT 02/16/2025 1:02 PM CDT Heather Rene SIGNAL MAINTENANCE TECHNICIAN LAB MICROBIOLO GY - GENERAL ORDERABLES Final Result Performing Organization Address City/[facility]/ZIP Co de Phone Number MICHELLE [facility] Department [place] [address] * (ABNORMAL) Protein electrophoresis with reflex, serum with interpretation (02/16/2025 11:58 AM CDT) Pathologist [facility] Protein, sr 8.5(H) 6.2 - 8.2 g/dL Albumin 4.4 3.2 - 5.0 g/dL [facility] Alpha-1 globulin 0.5(H) 0.2 - 0.4 g/dL [facility] Alpha-2 globulin 0.9 0.5 - 1.0 g/dL [facility] Beta-1 globulin 0.6 0.3 - 0.6 g/dL [facility] Beta-2 globulin 0.6 0.2 - 0.6 g/dL [facility] Gamma globulin 1.4 0.5 - 1.7 g/dL [facility] SPEP interp Please see comment [facility] Comment: Possible abnormal restricted peak in gamma region See immunotyping for further information Reviewed and signed by Matthew Coffman MD, PhD 02/18/2025 Immunotyping See Immunotyping Results [facility] Blood 02/16/2025 11:5 8 AM CDT 02/16/2025 1:41 PM CDT Heather Rene SIGNAL MAINTENANCE TECHNICIAN LAB BLOOD ORDE RABLES Final Result [facility] [place] [address] * Lactate dehydrogenase (LD) (02/16/2025 11:58 AM CDT) Pathologist [facility] Lactate dehydrogenase (LDH) 180 100 - 250 Units/L Blood 02/16/2025 11:5 8 AM CDT 02/16/2025 12:24 PM CDT [facility] ORDE CHAGO Final Result Performing Organization Address [facility] Co de Phone Number [facility] [place] [address] * (ABNORMAL) Beta 2 microglobulin, serum (02/16/2025 11:58 AM CDT) [facility] Beta 2 Microglobulin, Serum 3.20(H) 1.00 - 2.50 mg/L Comment: Interpretive Data The Wang Beta-2 microglobulin assay procedure was used. Results from different manufacturers or methods may not be comparable. Serial testing should be performed using the same method. Blood 02/16/2025 11:5 8 AM CDT 02/16/2025 12:50 PM CDT [facility] LAB BLOOD ORDE CHAGO Final Result Performing Organization Address [facility] de Phone Number [facility] [place] [address] * (ABNORMAL) Comprehensive metabolic panel (02/16/2025 11:58 AM CDT) [facility] Sodium 131(L) 135 - 145 mmol/L Potassium, pl 4.9 3.3 - 4.9 mmol/L [facility] Chloride 89(L) 97 - 110 mmol/L [facility] CO2 25 22 - 32 mmol/L [facility] Anion gap 17(H) 2 - 15 mmol/L [facility] BUN 18 6 - 25 mg/dL [facility] Creatinine 1.17(H) 0.60 - 1.10 mg/dL [facility] Glucose 123 70 - 199 mg/dL [facility] Comment: Interpretive Data Fasting glucose >/= 126 [...] Calcium 10.1 8.5 - 10.3 mg/dL [facility] Bilirubin, total 0.8 0.1 - 1.2 mg/dL [facility] Protein, pl 8.9(H) 6.5 - 8.5 g/dL [facility] Albumin 4.7 3.5 - 5.0 g/dL [facility] Alk phos 93 40 - 130 Units/L [facility] ALT 23 7 - 45 Units/L [facility] AST 21 10 - 45 Units/L [facility] Blood 02/16/2025 11:5 8 AM CDT 02/16/2025 12:24 PM CDT Heather Rene SIGNAL MAINTENANCE TECHNICIAN LAB BLOOD ORDE CHAGO Final Result [facility] [place] [address] * eGFR (01/15/2025 11:18 PM MULCHER OPERATOR) eGFR 66 >=60 mL/min/1. 73 m2 Comment: [...] reviewed 2021. Blood 01/15/2025 11:1 8 PM MULCHER OPERATOR 01/15/2025 11:40 PM MULCHER OPERATOR Adalberto Ngo MD LAB BLOOD ORDERABLES Final Re sult [facility] [place] [address] * (ABNORMAL) Basic metabolic panel (01/15/2025 11:18 PM MULCHER OPERATOR) Pathologist [facility] Sodium 138 135 - 145 mmol/L Potassium, pl 3.3 3.3 - 4.9 mmol/L [facility] Chloride 105 97 - 110 mmol/L [facility] Comment:Repeated and Verifie d CO2 24 22 - 32 mmol/L [facility] Anion gap 9 2 - 15 mmol/L [facility] Comment:Repeated and Verifie d BUN 20 6 - 25 mg/dL [facility] Creatinine 0.97 0.60 - 1.10 mg/dL [facility] Glucose 109 70 - 199 mg/dL [facility] Comment: Interpretive Data Fasting glucose >/= 126 [...] 2022. Calcium 7.6(L) 8.5 - 10.3 mg/dL [facility] Blood 01/15/2025 11:1 8 PM MULCHER OPERATOR 01/15/2025 11:40 PM MULCHER OPERATOR Adalberto Ngo MD LAB BLOOD ORDERABLES Final Re sult Performing Organization Address [facility] Co de Phone Number [facility] [place] [address] * Sodium, urine, random (01/15/2025 9:10 PM MULCHER OPERATOR) Sodium, ur <20 mmol/L Comment: Interpretive Data No reference range established. Current interpretive data was last revised 2019. Urine 01/15/2025 9:10 PM MULCHER OPERATOR 01/15/2025 9:22 PM MULCHER OPERATOR us Adalberto Ngo MD LAB URINE ORDERABLES Final Re sult Performing Organization Address [facility] Co de Phone Number [facility] [place] [address] * Osmolality, blood (01/15/2025 9:09 PM MULCHER OPERATOR) Pathologist [facility] Osmo 280 275 - 300 mOsm/kg Blood 01/15/2025 9:09 PM MULCHER OPERATOR 01/15/2025 9:23 PM MULCHER OPERATOR us Chris Khan MD LAB BLOOD ORDERABLES Final Resul t Performing Organization Address [facility] de Phone Number [facility] [place] [address] * (ABNORMAL) Urinalysis reflex to microscopic and culture Urine (01/15/2025 6:55 PM MULCHER OPERATOR) Color, ur Straw Yellow Clarity, ur Clear Clear [facility] Specific gravity, ur 1.014 1.003 - 1.030 [facility] pH, urine 6.0 [facility] Comment: Interpretive Data U rine pH is affected by diet, medications, systemic acid-base disturbances, and renal tubular function. pH may affect urinary stone formation. For example, urine pH below 6.0 may help reduce the tendency for calcium phosphate stones and pH greater than 6.0 may reduce the tendency for uric acid stone formation. Source: [facility] Current Interpretive Data was last revised on 2017 Protein, ur ql 1+(A) Negative [facility] Glucose, ur ql Negative Negative [facility] Ketones, ur Negative Negative [facility] Bilirubin, ur Negative Negative [facility] Blood, ur Negative Negative [facility] Urobilinogen, ur <2.0 <2.0 mg/dL [facility] Nitrite, ur Negative Negative [facility] Leukocyte esterase, ur Negative Negative [facility] UA reflex comment Reflex to microscopic UA will be performed. [facility] Urine 01/15/2025 6:55 PM MULCHER OPERATOR 01/15/2025 7:01 PM MULCHER OPERATOR Adalberto Ngo MD LAB MICROBIOLOGY - GENERAL OR DERABLES Final Result Performing Organization Address [facility] Co de Phone Number [facility] [place] [address] * Urinalysis, microscopic only (01/15/2025 6:55 PM MULCHER OPERATOR) WBC, ur 0-5 0 - 5 /HPF RBC, ur 0-2 0 - 2 /HPF [facility] Epithelial cells, squamous, ur 1-5 0 - 5 /HPF [facility] Culture Reflex Comment Reflex conditions for urine culture (WBC >10) not met. [facility] Urine 01/15/2025 6:55 PM MULCHER OPERATOR 01/15/2025 7:01 PM MULCHER OPERATOR Adalberto Ngo MD LAB URINE ORDERABLES Final Re sult Performing Organization Address [facility]/ZIP Co de Phone Number [facility] [place] [address] * (ABNORMAL) eGFR (01/15/2025 6:28 PM MULCHER OPERATOR) eGFR 51(L) >=60 mL/min/1. 73 m2 Comment: [...] last reviewed 2021. Blood 01/15/2025 6:28 PM MULCHER OPERATOR 01/15/2025 6:47 PM MULCHER OPERATOR us Adalberto Ngo MD LAB BLOOD ORDERABLES Final Re sult [facility] Department of Laboratories [place] [address] * (ABNORMAL) CBC without differential (01/15/2025 6:28 PM MULCHER OPERATOR) WBC 10.4(H) 3.8 - 9.9 K/cumm Hgb 9.3(L) 11.9 - 15.5 g/dL [facility] Hct 27.7(L) 35.6 - 45.5 % [facility] Plt 165 150 - 400 K/cumm [facility] MPV 9.4 9.1 - 12.3 fL [facility] RBC 2.75(L) 3.90 - 5.20 M/cumm [facility] MCV 100.7(H) 81.3 - 96.4 fL [facility] MCH 33.8(H) 27.1 - 33.3 pg [facility] MCHC 33.6 32.3 - 35.7 g/dL [facility] RDW CV 13.7 11.1 - 14.9 % [facility] RDW SD 50.2(H) 35.7 - 48.1 fL [facility] NRBC abs 0.00 0.00 - 0.01 K/cumm [facility] Blood 01/15/2025 6:28 PM MULCHER OPERATOR 01/15/2025 6:47 PM MULCHER OPERATOR Adalberto Ngo MD LAB BLOOD ORDERABLES Final Re sult Performing Organization Address [facility] Co de Phone Number [facility] [employer] [place] [address] * Phosphorus (01/15/2025 6:28 PM MULCHER OPERATOR) Pathologist [facility] Phosphorus, pl 2.7 2.3 - 4.5 mg/dL Blood 01/15/2025 6:28 PM MULCHER OPERATOR 01/15/2025 6:47 PM MULCHER OPERATOR Adalberto Ngo MD LAB BLOOD ORDERABLES Final Re sult Performing Organization Address [facility] de Phone Number [facility] [place] [employer] [place] [address] * Magnesium (01/15/2025 6:28 PM MULCHER OPERATOR) [facility] Magnesium 1.7 1.4 - 2.5 mg/dL Blood 01/15/2025 6:28 PM MULCHER OPERATOR 01/15/2025 6:47 PM MULCHER OPERATOR Adalberto Ngo MD LAB BLOOD ORDERABLES Final Re sult Performing Organization Address [facility] [place] [address] * (ABNORMAL) Basic metabolic panel (01/15/2025 6:28 PM MULCHER OPERATOR) Pathologist [facility] Sodium 130(L) 135 - 145 mmol/L Potassium, pl 4.0 3.3 - 4.9 mmol/L [facility] Chloride 94(L) 97 - 110 mmol/L [facility] CO2 25 22 - 32 mmol/L [facility] Anion gap 11 2 - 15 mmol/L [facility] BUN 23 6 - 25 mg/dL [facility] Creatinine 1.19(H) 0.60 - 1.10 mg/dL [facility] Glucose 140 70 - 199 mg/dL [facility] Comment: Interpretive Data Fasting glucose >/= 126 [...] 2022. Calcium 8.6 8.5 - 10.3 mg/dL [facility] Blood 01/15/2025 6:28 PM MULCHER OPERATOR 01/15/2025 6:47 PM MULCHER OPERATOR us Adalberto Ngo MD LAB BLOOD ORDERABLES Final Re sult [facility] Department [place] [address] * XR Chest Pa Lateral 2 Views (01/15/2025 4:29 PM MULCHER OPERATOR) Anatomical Region Laterality Modality Body, Chest N/A Computed Radiogr aphy 01/15/2025 10:0 8 PM MULCHER OPERATOR Impressions 01/15/2025 10:08 PM MULCHER OPERATOR There has been removal of a right-sided chest tube. 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 There is persistent elevation of the right hemidiaphragm. There is a new small right pleural effusion with increased right basilar atelectasis. No pneumothorax is identified. The cardiomediastinal silhouette is unchanged. Electronically signed by: Luis F Knight M.D. Narrative 01/15/2025 10:08 PM MULCHER OPERATOR EXAMINATION: XR CHEST PA LATERAL 2 VIEWS [...] Respiratory pathogen panel Nasopharyngeal (01/15/2025 1:18 PM MULCHER OPERATOR) Pathologist [facility] Influenza A RNA Not Detected Not Detected Influenza B RNA Not Detected Not Detected [facility] RSV RNA Not Detected Not Detected [facility] COVID-19 RNA Not Detected Not Detected [facility] Coronavirus 229E RNA Not Detected Not Detected [facility] Coronavirus HKU1 RNA Not Detected Not Detected [facility] Coronavirus NL63 RNA Not Detected Not Detected [facility] Coronavirus OC43 RNA Not Detected Not Detected [facility] Adenovirus DNA Not Detected Not Detected [facility] Metapneumovirus RNA Not Detected Not Detected [facility] Rhinovirus/Enterov irus RNA Not Detected Not Detected [facility] Parainfluenza 1 RNA Not Detected Not Detected [facility] Parainfluenza 2 RNA Not Detected Not Detected [facility] Parainfluenza 3 RNA Not Detected Not Detected [facility] Parainfluenza 4 RNA Not Detected Not Detected [facility] B. pertussis DNA Not Detected Not Detected [facility] B. parapertussis DNA Not Detected Not Detected [facility] C. pneumoniae DNA Not Detected Not Detected [facility] M. pneumoniae DNA Not Detected Not Detected [facility] Nasopharyngeal 01/15/2025 1: 18 PM MULCHER OPERATOR 01/15/2025 1:47 PM MULCHER OPERATOR Ephraim MARTINEZ [facility] - 01/15/2025 2:53 PM MULCHER OPERATOR Is the Patient experiencing symptoms consistent with COVID?->No Surveillance testing for transplant patient?->No Interpretive Data The [employer] FilmArray Respiratory Panel (RP2.1) assay is a [...] assay has FDA clearance for testing of SIGNAL MAINTENANCE TECHNICIAN swabs. The performance of additional specimen types has been assessed by the performing laboratory. The performance characteristics of this assay have been determined by [facility]. Current interpretive data was last revised on 22. us Adalberto Ngo MD LAB MICROBIOLOGY - GENERAL OR DERABLES Final Result [facility] Department [place] [address] * XR Chest 1 View (01/15/2025 5:07 AM MULCHER OPERATOR) Anatomical Region Laterality Modality Body, Chest N/A Digital Radiogra phy 01/15/2025 7:40 AM MULCHER OPERATOR Impressions 01/15/2025 7:50 AM MULCHER OPERATOR The current study is compared with the [...] Geetha Ross M.D. Narrative 01/15/2025 7:50 AM MULCHER OPERATOR EXAMINATION: 1 view chest radiograph Procedure Note [...] it. Electronically signed by: Geetha Ross M.D. us Jeimy Jones NP IMG XR PROCEDURES Final Result * (ABNORMAL) eGFR (01/14/2025 8:34 PM MULCHER OPERATOR) eGFR 42(L) >=60 mL/min/1. 73 m2 Comment: [...] last reviewed 2021. Blood 01/14/2025 8:34 PM MULCHER OPERATOR 01/14/2025 8:40 PM MULCHER OPERATOR Jeimy Jones NP LAB BLOOD ORDERABLES Fi nal Result [facility] Department [place] [address] * (ABNORMAL) CBC without differential (01/14/2025 8:34 PM MULCHER OPERATOR) [facility] WBC 9.7 3.8 - 9.9 K/cumm Hgb 9.8(L) 11.9 - 15.5 g/dL [facility] Hct 29.9(L) 35.6 - 45.5 % [facility] Plt 144(L) 150 - 400 K/cumm [facility] MPV 9.4 9.1 - 12.3 fL [facility] RBC 2.95(L) 3.90 - 5.20 M/cumm [facility] MCV 101.4(H) 81.3 - 96.4 fL [facility] MCH 33.2 27.1 - 33.3 pg [facility] MCHC 32.8 32.3 - 35.7 g/dL [facility] RDW CV 14.1 11.1 - 14.9 % [facility] RDW SD 51.8(H) 35.7 - 48.1 fL [facility] NRBC abs 0.00 0.00 - 0.01 K/cumm [facility] Blood 01/14/2025 8:34 PM MULCHER OPERATOR 01/14/2025 8:40 PM MULCHER OPERATOR Jeimy Jones SIGNAL MAINTENANCE TECHNICIAN LAB BLOOD ORDERABLES nal Result [facility] Department [place] [address] * (ABNORMAL) Basic metabolic panel (01/14/2025 8:34 PM MULCHER OPERATOR) [facility] Sodium 133(L) 135 - 145 mmol/L Potassium, pl 4.2 3.3 - 4.9 mmol/L [facility] Chloride 97 97 - 110 mmol/L [facility] CO2 25 22 - 32 mmol/L [facility] Anion gap 11 2 - 15 mmol/L [facility] BUN 21 6 - 25 mg/dL [facility] Creatinine 1.40(H) 0.60 - 1.10 mg/dL [facility] Glucose 141 70 - 199 mg/dL [facility] Comment: Interpretive Data Fasting glucose >/= 126 [...] 2022. Calcium 9.0 8.5 - 10.3 mg/dL [facility] Blood 01/14/2025 8:34 PM MULCHER OPERATOR 01/14/2025 8:40 PM MULCHER OPERATOR Jeimy Jones NP LAB BLOOD ORDERABLES Fi nal Result Performing Organization Address City/[facility]/ZIP Co de Phone Number [facility] Department [place] [address] * ECG 12 lead (01/14/2025 11:55 AM MULCHER OPERATOR) Ventricular Rate EKG/Min 85 BPM [facility] Atrial Rate 85 BPM [facility] SD-Interval (MSEC) 178 ms [facility] QRS-Interval (MSEC) 78 ms [facility] QT-Interval (MSEC) 382 ms [facility] QTc 454 ms [facility] P [place] 52 degrees [facility] R [place] 41 degrees [facility] T [place] 35 degrees [facility] Diagnosis Normal sinus rhythm Low voltage QRS Nonspecific ST abnormality Abnormal ECG No previous ECGs available Confirmed by LORENZO REYES M.D ([id number]) on 01/17/2025 7:21:58 PM [facility] 01/14/2025 11:5 5 AM MULCHER OPERATOR 01/17/2025 7:21 PM CDT Jeimy Jones NP ECG ORDERABLES Final R esult Performing Organization Address City/[facility]/ZIP Co de Phone Number [facility] * eGFR (01/13/2025 8:46 PM MULCHER OPERATOR) [facility] eGFR 79 >=60 mL/min/1. 73 m2 Comment: [...] last reviewed 2021. Blood 01/13/2025 8:46 PM MULCHER OPERATOR 01/13/2025 8:58 PM MULCHER OPERATOR us Adalberto Ngo MD LAB BLOOD ORDERABLES Final Re sult [facility] [place] [address] * (ABNORMAL) CBC without differential (01/13/2025 8:46 PM MULCHER OPERATOR) [facility] WBC 8.6 3.8 - 9.9 K/cumm Hgb 10.6(L) 11.9 - 15.5 g/dL [facility] Hct 32.5(L) 35.6 - 45.5 % [facility] Plt 144(L) 150 - 400 K/cumm [facility] MPV 9.4 9.1 - 12.3 fL [facility] RBC 3.23(L) 3.90 - 5.20 M/cumm [facility] MCV 100.6(H) 81.3 - 96.4 fL [facility] MCH 32.8 27.1 - 33.3 pg [facility] MCHC 32.6 32.3 - 35.7 g/dL [facility] RDW CV 14.2 11.1 - 14.9 % [facility] RDW SD 51.8(H) 35.7 - 48.1 fL [facility] NRBC abs 0.00 0.00 - 0.01 K/cumm [facility] Blood 01/13/2025 8:46 PM MULCHER OPERATOR 01/13/2025 8:58 PM MULCHER OPERATOR us Adalberto Ngo MD LAB BLOOD ORDERABLES Final Re sult [facility] [place] [address] * Basic metabolic panel (01/13/2025 8:46 PM MULCHER OPERATOR) Sodium 138 135 - 145 mmol/L Potassium, pl 4.3 3.3 - 4.9 mmol/L [facility] Chloride 99 97 - 110 mmol/L [facility] CO2 25 22 - 32 mmol/L [facility] Anion gap 14 2 - 15 mmol/L [facility] BUN 17 6 - 25 mg/dL [facility] Creatinine 0.83 0.60 - 1.10 mg/dL [facility] Glucose 163 70 - 199 mg/dL [facility] Comment: Interpretive Data Fasting glucose >/= 126 [...] 2022. Calcium 9.0 8.5 - 10.3 mg/dL [facility] Blood 01/13/2025 8:46 PM MULCHER OPERATOR 01/13/2025 8:58 PM MULCHER OPERATOR Adalberto Ngo MD LAB BLOOD ORDERABLES Final Re sult [facility] [place] [address] * XR Chest 1 View - in ICU (01/13/2025 6:35 PM MULCHER OPERATOR) Anatomical Region Laterality Modality Body, Chest N/A Digital Radiogra phy 01/14/2025 9:57 AM MULCHER OPERATOR Impressions 01/14/2025 2:16 PM MULCHER OPERATOR Findings of right lower lobectomy. Right chest [...] Supa Vu M.D. Narrative 01/14/2025 2:16 PM MULCHER OPERATOR EXAMINATION: XR CHEST 1 VIEW HISTORY: postop [...] Resul t * Cytogenetics (01/13/2025 5:02 PM MULCHER OPERATOR) Miscellaneous 01/13/2025 5:0 2 PM MULCHER OPERATOR 01/20/2025 2:09 PM CDT Narrative 01/24/2025 4:35 PM CDT EPIC results best viewed via link to PDF [facility] Department of Pathol [address] [place] [address] Patient Information Name: AP LAND Gender: F : 1960 (Age: 64) Tissue: FFPE FISH Visit Information Hospital #: [id number] Facility: [facility] Service: [facility] IP Location: [place] [address] Patient Type: [facility] Inpatient Specimen Information: Culture #: [id number] Date Collected: 01/13/2025 Date Accessioned: 01/21/2025 Date [...] Fluorescence In-situ hybridization (FISH) Results: Specimen # [id number] POSITIVE - FISH result for IGH gene rearrangement nuc bindu (3'IGHx2~3,5'IGHx2~3)(3'IGH con 5'IGH)x1[35/200]/(3'IGHx1,5'IGHx1~2)(3'IGH con 5'IGH)x0[3/200] Chromosome analysis and Fluorescence In Situ Hybridization (FISH) analysis are performed using the [employer] Cytovision Imaging System. Comments IGH -BA FISH FISH was performed utilizing Vysis IGH (14q32) Dual Color, Break Apart Rearrangement probe set ([employer], [place], [place]). 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 The above test was developed and its performance characteristics determined by [facility]. It [...] ult * Surgical pathology (01/13/2025 2:59 PM MULCHER OPERATOR) Tissue specimen (specimen) (Lymph Node, Single excision) 01/13/2025 2:59 PM MULCHER OPERATOR Tissue specimen (specimen) (Lymph node, dissection/region al resection) 01/13/2025 3:22 PM MULCHER OPERATOR Tissue specimen (specimen) (Lymph node, dissection/region al resection) 01/13/2025 3:26 PM MULCHER OPERATOR Tissue specimen (specimen) (Lymph Node, Single excision) 01/13/2025 3:27 PM MULCHER OPERATOR Tissue specimen (specimen) (Lymph Node, Single excision) 01/13/2025 3:30 PM MULCHER OPERATOR Tissue specimen (specimen) (Lymph Node, Single excision) 01/13/2025 3:43 PM MULCHER OPERATOR Tissue specimen (specimen) (Lymph Node, Single excision) 01/13/2025 3:58 PM MULCHER OPERATOR Tissue specimen (specimen) (Lymph Node, Single excision) 01/13/2025 4:41 PM MULCHER OPERATOR Tissue specimen (specimen) (Lung, total / lobe / segmental, tumor) 01/13/2025 5:02 PM MULCHER OPERATOR Narrative PATHOLOGY [facility] - 01/24/2025 5:24 PM CDT EPIC results best viewed via link to PDF [facility] Castillo Laboratory of Surgical Pathology [place] [address] Note to Patients: This report may contain [...] Gender: F : 1960 (Age: 64) Address: [address] [place] [id number] Hospital #: [id number] Taken:01/13/2025 Received:01/14/2025 Reported: 01/24/2025 Patient Type: [facility] Inpatient Service: Cardiothoracic Location: [place] [address] Physician(s): Rafael Ortega MD [employer], [...] Surgical Pathology and Flow Cytometry Departments at [facility] as part of an ongoing quality assurance lab technician program and in compliance with federally mandated [...] Surgical Pathology and Flow Cytometry Departments of [facility]. It has not been cleared or approved by the U. S. Food and Drug Administration. IMAGES AND SCANNED DOCUMENTS, IF INCLUDED, ONLY VIEWABLE IN PDF VERSION OF REPORT us Adalberto Ngo MD LAB PATHOLOGY ORDERABLES Salma l Result PATHOLOGY [facility] 3rd Floor [place], [place] [phone] * Peripheral IV Catheter (01/13/2025 2:28 PM MULCHER OPERATOR) Monie Main MD - 01/13/2025 2:28 PM MULCHER OPERATOR Monie Segura MD 01/13/2025 2:39 PM Peripheral [...] Final Result * Airway (01/13/2025 2:25 PM MULCHER OPERATOR) Monie Main MD - 01/13/2025 2:25 PM MULCHER OPERATOR Monie Segura MD 01/13/2025 2:37 PM Airway [...] Result * Check Sample (01/13/2025 1:37 PM MULCHER OPERATOR) ABO Rh A Negative [facility] OTHER 01/13/2025 1:37 PM MULCHER OPERATOR 01/13/2025 1:47 PM MULCHER OPERATOR us Adalberto Ngo MD LAB BLOOD ORDERABLES Final Re sult [facility] [place] [address] [facility] * CT chest without contrast (12/30/2024 9:01 AM MULCHER OPERATOR) Anatomical Region Laterality Modality Body N/A Computed Tomogra phy 12/30/2024 9:29 AM MULCHER OPERATOR Impressions 12/30/2024 9:47 AM MULCHER OPERATOR 1. Unchanged spiculated microlobulated 1.1 cm right [...] Wood Whatley M.D. Narrative 12/30/2024 9:47 AM MULCHER OPERATOR EXAMINATION: Computed tomography of the chest without [...] it. Electronically signed by: Wood Whatley M.D. Lukas Francis SIGNAL MAINTENANCE TECHNICIAN IMG CT PROCEDURES Final Res ult * TYPE AND SCREEN 14 DAY (12/30/2024 8:47 AM MULCHER OPERATOR) Pathologist [facility] ABO Rh A Negative Zohra, indirect Negative [facility] Blood 12/30/2024 8:47 AM MULCHER OPERATOR 12/30/2024 11:57 AM MULCHER OPERATOR Narrative [facility] - 12/30/2024 12:49 PM MULCHER OPERATOR Has the patient had Daratumumab or Isatuximab in the past 6 months?->Unknown Is this test being ordered in advance for a procedure?->Yes Expected date of procedure:->01/04/25 Has the patient been transfused in the past 3 months?->No Has the patient been in the past 3 months?->No Cathy Jerez NP LAB BLOOD BANK TEST ORDER AMANDA Final Result [facility] Department of Laboratories [place], [place] [id number] * eGFR (12/30/2024 8:47 AM MULCHER OPERATOR) Pathologist [facility] eGFR 79 >=60 mL/min/1. 73 m2 Comment: [...] last reviewed 2021. Blood 12/30/2024 8:47 AM MULCHER OPERATOR 12/30/2024 12:11 PM MULCHER OPERATOR us Cathy Jerez NP LAB BLOOD ORDERABLES Salma roy Result Performing Organization Address City/State/[facility] Co de Phone Number [facility] [place] [address] * (ABNORMAL) CBC without differential (12/30/2024 8:47 AM MULCHER OPERATOR) WBC 6.1 3.8 - 9.9 K/cumm Hgb 11.4(L) 11.9 - 15.5 g/dL [facility] Hct 35.1(L) 35.6 - 45.5 % [facility] Plt 158 150 - 400 K/cumm [facility] MPV 9.6 9.1 - 12.3 fL [facility] RBC 3.45(L) 3.90 - 5.20 M/cumm [facility] MCV 101.7(H) 81.3 - 96.4 fL [facility] MCH 33.0 27.1 - 33.3 pg [facility] MCHC 32.5 32.3 - 35.7 g/dL [facility] RDW CV 14.4 11.1 - 14.9 % [facility] RDW SD 53.6(H) 35.7 - 48.1 fL [facility] NRBC abs 0.00 0.00 - 0.01 K/cumm [facility] Blood 12/30/2024 8:47 AM MULCHER OPERATOR 12/30/2024 11:54 AM MULCHER OPERATOR Cathy Jerez SIGNAL MAINTENANCE TECHNICIAN LAB BLOOD ORDERABLES Salma l Result Performing Organization Address [facility] Co de Phone Number [facility] [place] [address] * Basic metabolic panel (12/30/2024 8:47 AM MULCHER OPERATOR) [facility] Sodium 141 135 - 145 mmol/L Potassium, pl 4.2 3.3 - 4.9 mmol/L [facility] Chloride 102 97 - 110 mmol/L [facility] CO2 27 22 - 32 mmol/L [facility] Anion gap 12 2 - 15 mmol/L [facility] BUN 19 6 - 25 mg/dL [facility] Creatinine 0.83 0.60 - 1.10 mg/dL [facility] Glucose 104 70 - 199 mg/dL [facility] Comment: Interpretive Data Fasting glucose >/= 126 [...] 2022. Calcium 10.0 8.5 - 10.3 mg/dL [facility] Blood 12/30/2024 8:47 AM MULCHER OPERATOR 12/30/2024 11:55 AM MULCHER OPERATOR Cathy Jerez SIGNAL MAINTENANCE TECHNICIAN LAB BLOOD ORDERABLES Salma l Result Performing Organization Address [facility] Co de Phone Number [facility] Department of [employer] [place] [address] from Last 3 Months Insurance BLUE ACCESS OOS [facility] ANTH ACCESS BLUE ACCESS OOS [employer] OOS Advance Directives For more information, please contact: [phone] Documents on File Type Date Recorded 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 ADVANCE DIRECTIVE 01/13/2025 1:36 PM Power of Gravity Meter Operator-Medical * Full Code (Latest Code Status on File) Date Activated Date Inactivated Comments 01/13/2025 8:21 PM 01/17/2025 5:31 PM Healthcare Agents on File Name Relationship Healthcare Agent Relationshi p Communication Chanel Land Daughter Health Care Agent Care Teams Fiber Worker Relationship Specialty Start Date End Date Chino Mora MD PCP - General Family Practice 01/02/21 Kameron Jeff MD [address] [place] [address] Medical Oncologist/Hand Picker Medical Oncology 01/02/21 Kameron Jeff MD [address] [facility] [address] DIV IM MEDICAL ONCOLOGY, [address] [place] [address] Medical Oncologist/Hand Picker Medical Oncology 04/28/24 Constantin Kumar MD [address] [facility] [address] [place] [address] Medical Oncologist/Hand Picker Medical Oncology 02/01/25
[2025-02-25 12:31] LABS: Alanine Aminotransferase 242 U/L (6-35); Albumin Level 5.2 g/dL (3.5-5.1); Alkaline Phosphatase 82 U/L (38-126); Anion Gap 25 mmol/L (4-12); Aspartate Amino Transferase 268 U/L (14-36); Bilirubin,Total 0.9 mg/dL (0.2-1.3); Blood Urea Nitrogen 23 mg/dL (7-17); Calcium 10.1 mg/dL (8.4-10.2); Carbon Dioxide 23 mmol/L (22-30); Chloride 77 mmol/L (98-107); Estimated CRCL calculation 22 ml/min; Estimated Glomerular Filt Rate 30; Glucose 87 mg/dL (65-110); Magnesium 1.6 mg/dL (1.6-2.3); Potassium 4.6 mmol/L (3.4-5.0); Sodium 125 mmol/L (137-145)
--- NOTE | 2025-02-25 12:52 | ED_ITS ---
HPI - General Adult General Chief complaint: Recheck/Abnormal Lab/Rx Stated complaint: abn labs Time Seen by Provider: 02/25/25 11:59 History of Present Illness HPI narrative: 64-year-old female presented to the emergency department for evaluation for hyponatremia worsening generalized weakness. Patient does have a history of right middle lobe lung cancer and lobectomy in 2014. 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 patient is not currently getting any chemotherapy for this. Patient follows up at [facility]. Family states that since having the biopsy on January 13 patient has had decreased p.o. intake, increased confusion. Patient did have outpatient labs on Friday was found to have a sodium of 125. Patient states that she has had persistent decreased p.o. intake since then. Family is concerned that the patient is not eating and drinking well and is not taking care of herself all enough at home. Patient does live at home alone. Patient is in the emergency department with her daughter. Related Data Home Medications ?Medication ?Instructions ?Recorded ?Confirmed ?Last Taken ?Type bimatoprost 0.01 % eye drops 1 drop ophthalmic (eye) DAILY 01/11/20 02/25/25 02/24/25 History (Lumigan) brimonidine 0.2 %-timolol 0.5 % 1 drop ophthalmic (eye) Q12H 01/11/20 02/25/25 02/24/25 History eye drops (Combigan) ascorbic acid (vitamin C) 1,000 mg 1 g PO DAILY 01/28/22 02/25/25 02/24/25 History tablet tabmopw-kglcliquc-uael tablet 1 tablet PO .QD 01/28/22 02/25/25 02/24/25 History dorzolamide 2 % eye drops 1 drp EACH EYE TID 07/22/22 02/25/25 02/24/25 History magnesium oxide 400 mg (241.3 mg 500 mg PO QAM 05/19/23 02/25/25 02/24/25 History magnesium) tablet cholecalciferol (vitamin D3) 25 2,000 unit PO DAILY 03/01/24 02/25/25 02/24/25 History mcg (1,000 unit) capsule Allergies Allergy/AdvReac Type Severity Reaction Status Date / Time Penicillins Allergy Unknown Hives Verified 02/25/25 11:14 Review of Systems 2 Review of Systems: All systems reviewed & are unremarkable except as noted in HPI and below PMFSH Past Medical History Medical History B-cell lymphoma (~01/2025) Depression Closed right humeral fracture (~05/2023) healed with conservative management CKD (chronic kidney disease) stage 3, GFR 30-59 ml/min Macular degeneration of both eyes Vision loss, bilateral Hx of cancer of lung (~2014) Follows with Dr Adamtern - oncology at [facility]. No chemo/radiation. Anxiety Closed nondisplaced fracture of fifth left metatarsal bone (~01/2020) managed conservatively Hypertension Surgical History Surgical History History of lobectomy of lung (~01/2025) Trimalleolar fracture of right ankle (~01/2020) ORIF Dr Yoder History of lobectomy of lung (~09/26/15) Right middle lobe removed History of hysterectomy (~2013) [place] History of sinus surgery (~2002) History of section (~1984) Family History Family History Grandparent Asthma Family history of malignant neoplasm of brain Father Family history of Alzheimer's disease Family history of coronary artery disease Social History Social History Social History: Patient is , has 2 adult children. She lives alone with her dog, she has a home in [place]. 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 30 pack-year smoker, she quit in 2012. Smoking packs per day: 1 Smoking cigarettes per day: 20.0 Years smoked: 30 Smoking pack-years: 30.00 Smoking status: Former smoker Tobacco type: cigarettes and e-cigarettes/vaping Smoking end date: 08/10/14 Alcohol intake: current Drinks per week: 14 Alcohol use details: Moderate Substance use: never Substance use type: does not use Do You Feel Safe in your Home?: Yes Lack of Transportation: YES Lack of Food: Never True Current Housing: I Have Housing Concerned About Future Housing: No Difficulty Paying Gas/Electric Bills: No Difficulty Paying for Meds: No Currently Unemployed: No Education: High School Diploma/GED Difficulty w/ Childcare or Family Care: No Living arrangements: alone Occupation/Education: occupation Additional occupation/education comments: [employer] Gender identity (if verbalized by the patient): Female Spiritual care concerns: No Agree to blood products: Yes Exam 2 Narrative: APPEARANCE: Slow to answer questions but does answer questions appropriately. HEAD: normocephalic, atraumatic. EYES: PERRLA/EOMI, conjunctivae clear. NOSE: Normal no drainage EARS:TMS clear with good light reflex. THROAT: Pharynx clear, no exudate. NECK: Supple. No adenopathy, no masses. RESPIRATORY: Airway patent, respirations nonlabored. Clear to auscultation bilaterally, no rales, rhonchi, wheezing. CARDIOVASCULAR: Regular rate and rhythm without murmurs rubs or gallops. ABDOMINAL: Soft, nontender, nondistended, normal bowel sounds MUSCULOSKELETAL: Moves all extremities. Strength/ROM intact, No edema, No calf tenderness. NEURO: Alert. Cranial nerves II through XII intact. Good gait. Good coordination SKIN: Bruising to right flank secondary to recent lung biopsy PSYCHIATRIC: Flat affect Course Vital Signs Vital signs: Vital Signs Temperature 97.8 F 02/25/25 11:10 Pulse Rate 104 H 02/25/25 11:10 Respiratory Rate 16 02/25/25 11:10 Blood Pressure 124/72 02/25/25 11:10 Pulse Oximetry 100 02/25/25 11:10 Oxygen Delivery Room Air 02/25/25 11:10 Temperature 97.9 F 02/25/25 16:57 Pulse Rate 85 02/25/25 16:57 Respiratory Rate 18 02/25/25 16:57 Blood Pressure 123/64 02/25/25 16:57 Pulse Oximetry 99 02/25/25 16:57 Oxygen Delivery Room Air 02/25/25 11:10 Medical Decision Making [facility] Narrative Medical decision making narrative: 64-year-old female present to the emergency department for evaluation for nausea vomiting for the past 10 days. Patient does have a sodium of 125 and a worsening acute kidney injury with a creatinine of 1.7 for. Patient does have mildly elevated AST ALT but normal T bili and alk-phos. UA was negative for infection patient was negative for influenza RSV and for COVID. CT brain was ordered to evaluate for metastatic disease and this was negative for acute intracranial abnormality. CT chest abdomen pelvis shows no acute abnormalities. Patient was treated with a L of lactated Ringer's and case was discussed with hospitalist patient will be admitted for IKA and hyponatremia. Differential Diagnosis Differential Diagnosis: KIA, dehydration, pneumonia, metastatic disease, urinary tract infection Vital Signs Vital Signs: Vital Signs Temperature 97.8 F 02/25/25 11:10 Pulse Rate 104 H 02/25/25 11:10 Respiratory Rate 16 02/25/25 11:10 Blood Pressure 124/72 02/25/25 11:10 Pulse Oximetry 100 02/25/25 11:10 Oxygen Delivery Room Air 02/25/25 11:10 Temperature 97.9 F 02/25/25 16:57 Pulse Rate 85 02/25/25 16:57 Respiratory Rate 18 02/25/25 16:57 Blood Pressure 123/64 02/25/25 16:57 Pulse Oximetry 99 02/25/25 16:57 Oxygen Delivery Room Air 02/25/25 11:10 Lab Data Lab results reviewed: Yes I reviewed the patient's lab results. 02/25/25 12:10 02/25/25 12:10 Labs: Lab Results 02/25/25 02/25/25 02/25/25 Range/Units 12:10 13:07 13:55 WBC 7.6 (4.5-10.0) K/mm3 RBC 3.76 L (4.2-5.4) M/mm3 Hgb 11.6 L (12.0-15.0) g/dL Hct 35.3 L (37.0-47.0) % MCV 93.9 (80-100) fl MCH 30.9 (26-34) pg MCHC 32.9 (32-36) g/dl RDW 15.0 H (11.5-14.5) % Plt Count 158 (150-375) k/mm3 MPV 9.2 (7.4-10.4) fl Immature Gran % (Auto) 0.3 (0-0.5) % Neut % (Auto) 68.0 (45.5-73.1) % Lymph % (Auto) 23.1 (18.3-44.2) % Moffat % (Auto) 7.5 (2.6-8.5) % Eos % (Auto) 0.3 (0-4.4) % Baso % (Auto) 0.8 (0.2-1.2) % Lymph # (Auto) 1.76 (0.9-3.2) K/mm3 Moffat # (Auto) 0.6 (0.1-0.6) K/mm3 Eos # (Auto) 0.0 (0-0.3) K/mm3 Baso # (Auto) 0.1 (0.0-0.1) K/mm3 Abs Immat Gran (auto) 0.02 (0.00-0.031) K/mm3 Absolute Neuts (auto) 5.2 (1.3-6.7) K/mm3 Absolute Nucleated RBC 0.000 (0.0-0.012) K/mm3 Nucleated RBC % 0.0 (0.0-0.2) % Sodium 125 L (137-145) mmol/L Potassium 4.6 (3.4-5.0) mmol/L Chloride 77 L (98-107) mmol/L Carbon Dioxide 23 (22-30) mmol/L Anion Gap 25 H (4-12) mmol/L BUN 23 H (7-17) mg/dL Creatinine 1.74 H (0.7-1.0) mg/dL Estim Creat Clear Calc 22 ml/min Estimated GFR 30 L (59 - ) Glucose 87 (65-110) mg/dL Calcium 10.1 (8.4-10.2) mg/dL Magnesium 1.6 (1.6-2.3) mg/dL Total Bilirubin 0.9 (0.2-1.3) mg/dL AST 268 H (14-36) U/L ALT 242 H (6-35) U/L Alkaline Phosphatase 82 (38-126) U/L Total Protein 9.0 H (6.3-8.2) g/dL Albumin 5.2 H (3.5-5.1) g/dL Urine Color Yellow (Yellow) Urine Appearance Clear (Clear) Urine pH 6.0 (5.0-9.0) Ur Specific [place] 1.009 (1.001-1.035) Urine Protein Trace (Negative) mg/dL Urine Glucose (UA) Negative (Negative) mg/dL Urine Ketones 1+ H (Negative) mg/dL Ur Blood (Man) Negative (Negative) Urine Nitrate Negative (Negative) Urine Bilirubin Negative (Negative) Urine Urobilinogen 0.2 (<2.0) mg/dL Add Ur Microanalysis Reviewed Leukocyte Esterase Rfl Negative (Negative) TATIANA/UL Urine RBC 0-2 (0-2) /hpf Urine WBC 0-5 (0-3) /hpf Ur Squamous Epith Cells Few (Few) /hpf Urine Bacteria None seen /hpf Urine Casts 11-20 Hyaline Casts Present (None) /lpf Influenza A (RT-PCR) Negative (Negative) Influenza B (RT-PCR) Negative (Negative) RSV (RT-PCR) Negative (Negative) SARS-CoV-2 RNA (RT-PCR) Negative (Negative) Imaging Data Radiologist's impression: Impressions Head CT 02/25/25 14:53 Impression: No significant abnormality seen. Chest/Abdomen/Pelvis CT 02/25/25 15:03 IMPRESSION: 1. Prior right middle lobectomy with interval right lower lobectomy and new small right pleural effusion. No other acute cardiopulmonary disease. 2. Diffuse hepatic steatosis. 3. Chronic left UPJ obstruction with unchanged mild left renal atrophy and moderate hydronephrosis. 4. Mild diverticulosis. Discharge Plan Discharge Clinical Impression: Acute hyponatremia, Acute kidney failure, Nausea & vomiting Patient Disposition: Still a Patient Condition: Stable
[2025-02-25] MEDS: LACTATED RINGERS 1,000 ML 999 ML IV CONT (13:01)
[2025-02-25 13:18] LABS: Basophils Absolute Auto 0.1 K/mm3 (0.0-0.1); Basophils Percent Auto 0.8 % (0.2-1.2); Eosinophils Percent Auto 0.3 % (0-4.4); Hematocrit 35.3 % (37.0-47.0); Hemoglobin 11.6 g/dL (12.0-15.0); Immature Granulocyte Absolute 0.02 K/mm3 (0.00-0.031); Immature Granulocyte Percent A 0.3 % (0-0.5); Lymphocytes Absolute Auto 1.76 K/mm3 (0.9-3.2); Lymphocytes Percent Auto 23.1 % (18.3-44.2); Mean Corpuscular HGB Conc 32.9 g/dl (32-36); Mean Corpuscular Hemoglobin 30.9 pg (26-34); Mean Corpuscular Volume 93.9 fl (80-100); Mean Platelet Volume 9.2 fl (7.4-10.4); Monocytes Absolute Auto 0.6 K/mm3 (0.1-0.6); Monocytes Percent Auto 7.5 % (2.6-8.5); Neutrophils Absolute Auto 5.2 K/mm3 (1.3-6.7); Platelet Count Result 158 k/mm3 (150-375); Red Blood Count 3.76 M/mm3 (4.2-5.4); White Blood Count 7.6 K/mm3 (4.5-10.0)
[2025-02-25 13:50] LABS: Influenza A QL RT-PCR Negative (Negative); Influenza B QL RT-PCR Negative (Negative); RSV RNA, RT-PCR Negative (Negative); SARS-CoV-2 RNA PCR Negative (Negative)
--- NOTE | 2025-02-25 14:25 | P.HP_ITS ---
H&P: HPI History of Present Illness Date/Time: 02/25/25 14:25 Chief Complaint: Nausea vomiting Narrative: 64-year-old female past medical said history of CKD stage 3, lung cancer in 2015, anxiety and depression with new diagnosis of B-cell lymphoma presents the hospital due to nausea vomiting and failure to thrive. Patient denies change in medications, fevers chills, contacts with sick persons, shortness of breath. Patient is not on chemotherapy. Denies flank pain or burning with urination. In the ED she was found have hyponatremia at 1:25 a.m., chloride of 77, anion gap 25, BUN of 23, creatinine of 1.74 with baseline being 1.1, AST of 2 is 68, ALT of 242, UA positive for ketones negative for infectious workup, influenza A/B, RSV, COVID negative. Head CT shows no acute process. CT chest abdomen pelvis shows prior right middle lobe lobectomy with new small pleural effusion, diffuse hepatic steatosis, chronic left UPJ obstruction unchanged, mild diverticulosis. Review of Systems Review of Systems: 12 systems were reviewed and are negativ e except for as per HPI. [facility] Past Medical History Medical History B-cell lymphoma (~01/2025) Depression Closed right humeral fracture (~05/2023) healed with conservative management CKD (chronic kidney disease) stage 3, GFR 30-59 ml/min Macular degeneration of both eyes Vision loss, bilateral Hx of cancer of lung (~2014) Follows with Dr Adamtern - oncology at [facility]. No chemo/radiation. Anxiety Closed nondisplaced fracture of fifth left metatarsal bone (~01/2020) managed conservatively Hypertension Surgical History Surgical History History of lobectomy of lung (~01/2025) Trimalleolar fracture of right ankle (~01/2020) ORIF Dr Yoder History of lobectomy of lung (~09/26/15) Right middle lobe removed History of hysterectomy (~2013) [place] History of sinus surgery (~2002) History of section (~1984) Family History Family History Grandparent Asthma Family history of malignant neoplasm of brain Father Family history of Alzheimer's disease Family history of coronary artery disease Social History Social History Social History: Patient is , has 2 adult children. She lives alone with her dog, she has a home in [place]. 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 30 pack-year smoker, she quit in 2012. Smoking packs per day: 1 Smoking cigarettes per day: 20.0 Years smoked: 30 Smoking pack-years: 30.00 Smoking status: Former smoker Tobacco type: cigarettes and e-cigarettes/vaping Smoking end date: 08/10/14 Alcohol intake: current Drinks per week: 14 Alcohol use details: Moderate Substance use: never Substance use type: does not use Do You Feel Safe in your Home?: Yes Lack of Transportation: YES Lack of Food: Never True Current Housing: I Have Housing Concerned About Future Housing: No Difficulty Paying Gas/Electric Bills: No Difficulty Paying for Meds: No Currently Unemployed: No Education: High School Diploma/GED Difficulty w/ Childcare or Family Care: No Living arrangements: alone Occupation/Education: occupation Additional occupation/education comments: [employer] Gender identity (if verbalized by the patient): Female Spiritual care concerns: No Agree to blood products: Yes Meds Home Medications and Allergies Home Medications ?Medication ?Instructions ?Recorded ?Confirmed ?Type bimatoprost 0.01 % eye drops 1 drop ophthalmic (eye) DAILY 01/11/20 02/25/25 History (Lumigan) brimonidine 0.2 %-timolol 0.5 % 1 drop ophthalmic (eye) Q12H 01/11/20 02/25/25 History eye drops (Combigan) ascorbic acid (vitamin C) 1,000 mg 1 g PO DAILY 01/28/22 02/25/25 History tablet knmkkcr-azglujsgi-ipbs tablet 1 tablet PO .QD 01/28/22 02/25/25 History dorzolamide 2 % eye drops 1 drp EACH EYE TID 07/22/22 02/25/25 History magnesium oxide 400 mg (241.3 mg 500 mg PO QAM 05/19/23 02/25/25 History magnesium) tablet cholecalciferol (vitamin D3) 25 2,000 unit PO DAILY 03/01/24 02/25/25 History mcg (1,000 unit) capsule losartan 100 mg tablet 100 mg PO DAILY #90 tabs 03/01/24 02/25/25 Rx sertraline 100 mg tablet 100 mg PO DAILY #90 tabs 02/02/25 02/25/25 Rx metoprolol succinate 25 mg 25 mg PO DAILY #90 tabs 02/24/25 02/25/25 Rx tablet,extended release 24 hr Allergies Allergy/AdvReac Type Severity Reaction Status Date / Time Penicillins Allergy Unknown Hives Verified 02/25/25 11:14 Vital Signs Vital Signs - 24 hr 02/25/25 11:10 02/25/25 12:12 02/25/25 13:06 Temperature 97.8 F 98.2 F 98.2 F Pulse Rate 104 H 97 92 Respiratory Rate 16 18 18 Blood Pressure 124/72 122/67 121/65 Pulse Oximetry 100 100 100 Oxygen Delivery Room Air Exam Narrative: General: well appearing, appears stated age. HEENT: normocephalic, atraumatic. Mucous membranes moist. EOMI, PERRLA, bilateral sclera anicteric, no conjunctival injection. Neck supple without JVD, lymphadenopathy, or bruit. Respiratory: clear to ascultation bilaterally. No rales/rhonic/wheezes. Cardiovascular: Regular rate and rhythm, normal S1-S2 upon ascultation. No murmurs, rubs, or clicks. PMI is nondisplaced, capillary refill less than 3 second. Abdomen: Soft, round, no pulsatile masses, nondistended and nontender. No rebound, no guarding. No CVA tenderness, no hepatosplenomegaly. Bowel sounds present to all four quadrants. No high pitch or tinkling sounds, resonant to percussion. Extremities: No cyanosis, clubbing, or edema present. Pulses are palpable 2/2. Active ROM to all four extremities. Neuro: Alert and orientated x 4. PERRLA. Cranial nerves 2-12 intact without focal deficit. Skin: Warm, dry, and intact, without rash, erythema, or lesion. Psych: pleasant, cooperative, normal speech, normal affect, no hallucinations, no dysarthia H&P: Results Labs Labs: Short CBC 02/25/25 Range/Units 12:10 WBC 7.6 (4.5-10.0) K/mm3 Hgb 11.6 L (12.0-15.0) g/dL Hct 35.3 L (37.0-47.0) % Plt Count 158 (150-375) k/mm3 BMP 02/25/25 12:10 Sodium 125 L Potassium 4.6 Chloride 77 L Carbon Dioxide 23 BUN 23 H Creatinine 1.74 H Glucose 87 Calcium 10.1 Liver Function 02/25/25 Range/Units 12:10 Total Bilirubin 0.9 (0.2-1.3) mg/dL AST 268 H (14-36) U/L ALT 242 H (6-35) U/L Alkaline Phosphatase 82 (38-126) U/L Albumin 5.2 H (3.5-5.1) g/dL Assessment and Plan Assessment and plan (1) Acute kidney failure: Code(s): N17.9 - Acute kidney failure, unspecified Status: Acute Assessment and Plan: Likely Secondary to severe dehydration Fluid bolus given in ED IVF Avoid nephrotoxic medications (2) Acute hyponatremia: Code(s): E87.1 - Hypo-osmolality and hyponatremia Status: Acute Assessment and Plan: LR given in ED NS IVF Repeat sodium worsening likely due to LR bolus given in ED will continue gentle hydration with normal saline CMP in a.m. (3) Nausea & vomiting: Code(s): R11.2 - Nausea with vomiting, unspecified Status: Acute Assessment and Plan: No known cause IV fluids Zofran (4) B-cell lymphoma: Onset Date: ~01/2025 Qualifiers: B-cell lymphoma type: unspecified B-cell Lymphoma site: intrathoracic nodes Qualified Code(s): C85.12 - Unspecified B-cell lymphoma, intrathoracic lymph nodes Code(s): C85.10 - Unspecified B-cell lymphoma, unspecified site Status: Acute Assessment and Plan: Diagnosis in January 09, 2025 Not currently on treatment (5) Depression: Qualifiers: Active/Remission status: currently active Depression Type: major depressive disorder Major depression episode severity: moderate Major depression recurrence: recurrent Qualified Code(s): F33.1 - Major depressive disorder, recurrent, moderate Code(s): F32.9 - Major depressive disorder, single episode, unspecified Status: Acute Assessment and Plan: Continue Zoloft (6) Hypertension: Qualifiers: Hypertension type: primary hypertension Qualified Code(s): I10 - Essential (primary) hypertension Code(s): I10 - Essential (primary) hypertension Status: Acute Assessment and Plan: Holding antihypertensives due to dehydration (7) Fatty liver: Code(s): K76.0 - Fatty (change of) liver, not elsewhere classified Status: Acute Assessment and Plan: Elevated LFTs from baseline Repeat CMP in the morning (8) Hx of cancer of lung: Onset Date: ~2014 Code(s): Z85.118 - Personal history of other malignant neoplasm of bronchus and lung Status: Acute Assessment and Plan: Status post resection in 2019 Quality VTE Prophylaxis VTE prophylaxis: mechanical ordered and pharmacologic ordered Hospitalist MIPS Advance Care Plan I have confirmed that the patient's Advanced Care Plan is present, code status is documented, or surrogate decision maker is listed in patient medical record.: Yes Medication Reconciliation I have utilized all available resources to obtain, update and review the patients current medications (includes all prescriptions, OTC, herbals, cannabis, and nutritional supplements).: Yes
[2025-02-25 14:28] LABS: Add Urine Microscopic? YES; Appearance Urine Clear (Clear); Bacteria Urine None Seen /hpf; Bilirubin Urine Negative (Negative); Blood Urine Negative (Negative); Color Urine Yellow (Yellow); Glucose Urine UA Negative (Negative); Hyaline Casts Urine Present /lpf; Ketones Urine 1+ mg/dL (Negative); Leukocyte Esterase Ur Negative LEU/UL (Negative); Need Manual Microscopic Reviewed; Nitrate Urine Negative (Negative); Protein Urine Trace mg/dL (Negative); RBC Urine 0-2 /hpf (0-2); Specific Grav Ur 1.009 (1.001-1.035); Squamous Epithelial Cell Urine Few /hpf (Few); Urobilinogen Urine 0.2 mg/dL (<2.0); WBC Urine 0-5 /hpf (0-3)
--- NOTE | 2025-02-25 15:35 | PC.NURSE ---
Dr. Scott informed pt & daughter would like to speak with him.
--- NOTE | 2025-02-25 16:07 | PC.NURSE ---
Attempted to call report, per heating unit installer there is not a nurse assigned to pt. It will be a minute Informed if no return call in 15 minutes pt will be sent and the nurse can call with questions.
[2025-02-25] MEDS: SODIUM CHLORIDE 0.9% IV 1,000 ML 100 ML IV CONT (16:51)
--- NOTE | 2025-02-25 17:00 | ADMGEN ---
This patient, Wendy Land, was admitted to [facility] Room 329-01. Patient/family oriented to hospital policies and general routines including ID bracelet, bed and alarms, visiting hours, pain management, procedures, bathroom and other care routines, personal items, smoking policy, room service/diet, and visiting hours. Information on how to activate the Rapid Response Team has been discussed. Patient/Family are encouraged to report perceived risks to care and to ask questions if they do not understand what they are told or what they should do.
[2025-02-25] MEDS: SERTRALINE HCL 50 MG TABLET 100 MG PO (19:51)
[2025-02-25] MEDS: METOPROLOL SUCCINATE EXT REL 25 MG TABCR PO (19:51)
[2025-02-25 20:12] LABS: Sodium 124 mmol/L (137-145)
[2025-02-25] MEDS: BRIMONIDINE TIMOLOL 1 EACH EACH EYE (22:11)
[2025-02-26] VITALS (10 sets, daily range): BP systolic 109–117; BP diastolic 60–63; PULSE 67–90; RESP 16–18; TEMP 36.3–37.1; O2SAT 97–100
[2025-02-26] MEDS: SODIUM CHLORIDE 0.9% IV 1,000 ML 100 ML IV CONT (04:07)
[2025-02-26 06:22] LABS: Basophils Percent Auto 0.9 % (0.2-1.2); Eosinophils Absolute Auto 0.1 K/mm3 (0-0.3); Eosinophils Percent Auto 2.3 % (0-4.4); Hematocrit 31.3 % (37.0-47.0); Hemoglobin 9.9 g/dL (12.0-15.0); Immature Granulocyte Absolute 0.01 K/mm3 (0.00-0.031); Immature Granulocyte Percent A 0.3 % (0-0.5); Lymphocytes Absolute Auto 1.48 K/mm3 (0.9-3.2); Lymphocytes Percent Auto 42.7 % (18.3-44.2); Mean Corpuscular HGB Conc 31.6 g/dl (32-36); Mean Corpuscular Hemoglobin 30.7 pg (26-34); Mean Corpuscular Volume 96.9 fl (80-100); Mean Platelet Volume 9.2 fl (7.4-10.4); Monocytes Absolute Auto 0.4 K/mm3 (0.1-0.6); Monocytes Percent Auto 10.4 % (2.6-8.5); Neutrophils Absolute Auto 1.5 K/mm3 (1.3-6.7); Neutrophils Percent Auto 43.4 % (45.5-73.1); Platelet Count Result 102 k/mm3 (150-375); Red Blood Count 3.23 M/mm3 (4.2-5.4); White Blood Count 3.5 K/mm3 (4.5-10.0)
[2025-02-26 06:35] LABS: Alanine Aminotransferase 166 U/L (6-35); Alkaline Phosphatase 64 U/L (38-126); Anion Gap 13 mmol/L (4-12); Aspartate Amino Transferase 138 U/L (14-36); Bilirubin,Total 0.8 mg/dL (0.2-1.3); Blood Urea Nitrogen 20 mg/dL (7-17); Calcium 9.1 mg/dL (8.4-10.2); Carbon Dioxide 26 mmol/L (22-30); Chloride 90 mmol/L (98-107); Estimated CRCL calculation 34 ml/min; Estimated Glomerular Filt Rate 52; Glucose 94 mg/dL (65-110); Potassium 3.8 mmol/L (3.4-5.0); Sodium 129 mmol/L (137-145)
[2025-02-26] MEDS: METOPROLOL SUCCINATE EXT REL 25 MG TABCR PO (09:12)
[2025-02-26] MEDS: SERTRALINE HCL 50 MG TABLET 100 MG PO (09:12)
[2025-02-26] MEDS: BRIMONIDINE TIMOLOL 1 EACH EACH EYE ×2 (09:13→20:06)
[2025-02-26] MEDS: BIMATOPROST 0.01% 1 EACH EACH EYE (09:13)
[2025-02-26] MEDS: ENOXAPARIN 40 MG/0.4 ML SYRINGE SUB-Q (09:14)
[2025-02-26] MEDS: DORZOLAMIDE HCL 2% 1 EACH EACH EYE ×3 (09:14→17:00)
--- NOTE | 2025-02-26 13:50 | P.PNIM_ITS ---
Progress Note: A&P Assessment and Plan (1) Acute kidney failure: Code(s): N17.9 - Acute kidney failure, unspecified Status: Acute Assessment and Plan: Likely Secondary to severe dehydration resolving Cr 1.07 from 1.74 Continue IVF Avoid nephrotoxic medications (2) Acute hyponatremia: Code(s): E87.1 - Hypo-osmolality and hyponatremia Status: Acute Assessment and Plan: from dehydratioin resolving Na 129 from 125 continue IVF and encourage oral intake (3) Nausea & vomiting: Code(s): R11.2 - Nausea with vomiting, unspecified Status: Acute Assessment and Plan: No known cause IV fluids Zofran (4) B-cell lymphoma: Onset Date: ~01/2025 Qualifiers: B-cell lymphoma type: unspecified B-cell Lymphoma site: intrathoracic nodes Qualified Code(s): C85.12 - Unspecified B-cell lymphoma, intrathoracic lymph nodes Code(s): C85.10 - Unspecified B-cell lymphoma, unspecified site Status: Acute Assessment and Plan: Diagnosis in January 09, 2025 s/p lobectomy Follows with oncology at bedside (5) Depression: Qualifiers: Depression Type: major depressive disorder Major depression recurrence: recurrent Active/Remission status: currently active Major depression episode severity: moderate Qualified Code(s): F33.1 - Major depressive disorder, recurrent, moderate Code(s): F32.9 - Major depressive disorder, single episode, unspecified Status: Acute Assessment and Plan: Continue Zoloft (6) Hypertension: Qualifiers: Hypertension type: primary hypertension Qualified Code(s): I10 - Essential (primary) hypertension Code(s): I10 - Essential (primary) hypertension Status: Acute Assessment and Plan: Holding antihypertensives due to dehydration (7) Fatty liver: Code(s): K76.0 - Fatty (change of) liver, not elsewhere classified Status: Acute Assessment and Plan: resolving monitor (8) Hx of cancer of lung: Onset Date: ~2014 Code(s): Z85.118 - Personal history of other malignant neoplasm of bronchus and lung Status: Acute Assessment and Plan: Status post resection in 2019 Plan FTT/protein energy malnutriton Daughter at bedside noted patient is not eating very started on Dronabinol monitor DVT prophylaxis on Sq Lovenox Subjective Date/time seen: 02/26/25 13:50 Interval history: Comfortable at bedside Noted vomiting has resolved but oral intake still poor Review of Systems Review of Systems: 12 systems were reviewed and are negativ e except for as per HPI. Exam Narrative: General: well appearing, appears stated age. HEENT: normocephalic, atraumatic. Mucous membranes moist. EOMI, PERRLA, bilateral sclera anicteric, no conjunctival injection. Neck supple without JVD, lymphadenopathy, or bruit. Respiratory: clear to ascultation bilaterally. No rales/rhonic/wheezes. Cardiovascular: Regular rate and rhythm, normal S1-S2 upon ascultation. No murmurs, rubs, or clicks. PMI is nondisplaced, capillary refill less than 3 second. Abdomen: Soft, round, no pulsatile masses, nondistended and nontender. No rebound, no guarding. No CVA tenderness, no hepatosplenomegaly. Bowel sounds present to all four quadrants. No high pitch or tinkling sounds, resonant to percussion. Extremities: No cyanosis, clubbing, or edema present. Pulses are palpable 2/2. Active ROM to all four extremities. Neuro: Alert and orientated x 4. PERRLA. Cranial nerves 2-12 intact without focal deficit. Skin: Warm, dry, and intact, without rash, erythema, or lesion. Psych: pleasant, cooperative, normal speech, normal affect, no hallucinations, no dysarthia Objective Data Vital Signs Vital Signs: Vital Signs - 24 hr 02/25/25 14:24 02/25/25 14:32 02/25/25 15:01 Temperature 98.2 F Pulse Rate 92 96 93 Respiratory Rate 18 Blood Pressure 135/78 126/65 120/81 Pulse Oximetry 100 100 100 Oxygen Delivery 02/25/25 16:12 02/25/25 16:14 02/25/25 16:57 Temperature 97.9 F 97.9 F 97.9 F Pulse Rate 90 99 85 Respiratory Rate 18 18 18 Blood Pressure 137/75 137/75 123/64 Pulse Oximetry 99 98 99 Oxygen Delivery 02/25/25 20:00 02/25/25 20:00 02/25/25 22:34 Temperature 98.2 F Pulse Rate 85 75 Respiratory Rate 16 Blood Pressure 110/64 Pulse Oximetry 98 Oxygen Delivery Room Air 02/26/25 00:00 02/26/25 04:00 02/26/25 05:35 Temperature 98.1 F Pulse Rate 69 67 71 Respiratory Rate 16 Blood Pressure 117/60 Pulse Oximetry 100 Oxygen Delivery 02/26/25 08:00 02/26/25 11:34 02/26/25 12:29 Temperature Pulse Rate 78 Respiratory Rate Blood Pressure Pulse Oximetry Oxygen Delivery Room Air Room Air 02/26/25 13:43 Temperature 97.3 F L Pulse Rate 82 Respiratory Rate 18 Blood Pressure 109/63 Pulse Oximetry 99 Oxygen Delivery Intake/Output Intake/Output: Intake & Output 02/23/25 02/24/25 02/25/25 02/26/25 23:59 23:59 23:59 23:59 Intake Total 1240 1360 Balance 1240 1360 Meds/Results Medications: Active Medications Generic Name Dose Route Start Last Admin Trade Name Freq PRN Reason Stop Dose Admin Acetaminophen 650 mg 02/25/25 15:41 Acetaminophen 325 Mg Tablet PO Q4H PRN Mild Pain (1-3) or Fever Enoxaparin Sodium 40 mg 02/26/25 09:00 02/26/25 09:14 Enoxaparin 40 Mg/0.4 Ml Syringe SUB-Q 40 mg DAILY LILA Administration Sodium Chloride 1,000 mls @ 100 mls/hr 02/25/25 15:45 02/26/25 04:07 Normal Saline Iv IV CONT 100 mls/hr .Q10H LILA Administration Losartan Potassium 100 mg 02/26/25 09:00 Losartan Potassium 100 Mg Tablet PO DAILY LILA Metoprolol Succinate 25 mg 02/25/25 18:15 02/26/25 09:12 Metoprolol Succinate Ext Rel 25 Mg Tabcr PO 25 mg DAILY LILA Administration Dorzolamide Hcl 2% 1 each 02/26/25 09:00 02/26/25 09:14 Ophth Drops (Home EACH EYE 03/28/25 08:59 1 each Med) TID LILA Administration Bimatoprost [Lumigan 1 drop 02/26/25 09:00 02/26/25 09:13 ] 0.01 % Drops (Home EACH EYE 03/28/25 08:59 1 drop Med) DAILY LILA Administration Brimonidine-Timolol 1 drop 02/25/25 21:00 02/26/25 09:13 [Combigan] 0.2-0.5 % EACH EYE 03/27/25 20:59 1 drop Drops (Home Med) Q12H LILA Administration Ondansetron HCl 4 mg 02/25/25 15:52 Ondansetron Inj 4 Mg/2 Ml Vial IV PUSH Q6H PRN Nausea And Vomiting Sertraline HCl 100 mg 02/25/25 18:15 02/26/25 09:12 Sertraline Hcl 50 Mg Tablet PO 100 mg DAILY LILA Administration Radiology Results: ITS Impressions Head CT 02/25/25 14:53 Impression: No significant abnormality seen. Chest/Abdomen/Pelvis CT 02/25/25 15:03 IMPRESSION: 1. Prior right middle lobectomy with interval right lower lobectomy and new small right pleural effusion. No other acute cardiopulmonary disease. 2. Diffuse hepatic steatosis. 3. Chronic left UPJ obstruction with unchanged mild left renal atrophy and moderate hydronephrosis. 4. Mild diverticulosis. Labs Labs: Laboratory Results - last 24 hr 02/25/25 02/25/25 02/25/25 13:07 13:55 19:58 WBC RBC Hgb Hct MCV MCH MCHC RDW Plt Count MPV Immature Gran % (Auto) Neut % (Auto) Lymph % (Auto) [place] % (Auto) Eos % (Auto) Baso % (Auto) Lymph # (Auto) [place] # (Auto) Eos # (Auto) Baso # (Auto) Abs Immat Gran (auto) Absolute Neuts (auto) Absolute Nucleated RBC Nucleated RBC % Sodium 124 L Potassium Chloride Carbon Dioxide Anion Gap BUN Creatinine Estim Creat Clear Calc Estimated GFR Glucose Calcium Total Bilirubin AST ALT Alkaline Phosphatase Total Protein Albumin Urine Color Yellow Urine Appearance Clear Urine pH 6.0 Ur Specific [place] 1.009 Urine Protein Trace Urine Glucose (UA) Negative Urine Ketones 1+ H Ur Blood (Man) Negative Urine Nitrate Negative Urine Bilirubin Negative Urine Urobilinogen 0.2 Add Ur Microanalysis Reviewed Leukocyte Esterase Rfl Negative Urine RBC 0-2 Urine WBC 0-5 Ur Squamous Epith Cells Few Urine Bacteria None seen Urine Casts 11-20 Hyaline Casts Present Influenza A (RT-PCR) Negative Influenza B (RT-PCR) Negative RSV (RT-PCR) Negative SARS-CoV-2 RNA (RT-PCR) Negative 02/26/25 05:50 WBC 3.5 L RBC 3.23 L Hgb 9.9 L Hct 31.3 L MCV 96.9 MCH 30.7 MCHC 31.6 L RDW 15.0 H Plt Count 102 L MPV 9.2 Immature Gran % (Auto) 0.3 Neut % (Auto) 43.4 L Lymph % (Auto) 42.7 [place] % (Auto) 10.4 H Eos % (Auto) 2.3 Baso % (Auto) 0.9 Lymph # (Auto) 1.48 [place] # (Auto) 0.4 Eos # (Auto) 0.1 Baso # (Auto) 0.0 Abs Immat Gran (auto) 0.01 Absolute Neuts (auto) 1.5 Absolute Nucleated RBC 0.000 Nucleated RBC % 0.0 Sodium 129 L Potassium 3.8 Chloride 90 L Carbon Dioxide 26 Anion Gap 13 H BUN 20 H Creatinine 1.07 H Estim Creat Clear Calc 34 Estimated GFR 52 L Glucose 94 Calcium 9.1 Total Bilirubin 0.8 AST 138 H ALT 166 H Alkaline Phosphatase 64 Total Protein 7.0 Albumin 4.0 Urine Color Urine Appearance Urine pH Ur Specific [place] Urine Protein Urine Glucose (UA) Urine Ketones Ur Blood (Man) Urine Nitrate Urine Bilirubin Urine Urobilinogen Add Ur Microanalysis Leukocyte Esterase Rfl Urine RBC Urine WBC Ur Squamous Epith Cells Urine Bacteria Urine Casts Hyaline Casts Influenza A (RT-PCR) Influenza B (RT-PCR) RSV (RT-PCR) SARS-CoV-2 RNA (RT-PCR) Quality VTE Prophylaxis VTE prophylaxis: mechanical ordered and pharmacologic ordered
[2025-02-26] MEDS: droNABinol (*CRX) 2.5 MG CAPSULE 5 MG PO ×2 (14:24→16:54)
[2025-02-27 00:02] VITALS: PULSE 69
[2025-02-27 04:02] VITALS: PULSE 72
[2025-02-27 05:33] VITALS: BP 117/57; PULSE 76; RESP 16; TEMP 37.1; O2SAT 100
[2025-02-27 06:08] LABS: Basophils Percent Auto 0.6 % (0.2-1.2); Eosinophils Absolute Auto 0.1 K/mm3 (0-0.3); Hematocrit 32.5 % (37.0-47.0); Hemoglobin 10.2 g/dL (12.0-15.0); Immature Granulocyte Absolute 0.01 K/mm3 (0.00-0.031); Immature Granulocyte Percent A 0.3 % (0-0.5); Immature Platelet Fraction Pct 1.8 % (0.9-11.2); Lymphocytes Absolute Auto 1.45 K/mm3 (0.9-3.2); Lymphocytes Percent Auto 43.7 % (18.3-44.2); Mean Corpuscular HGB Conc 31.4 g/dl (32-36); Mean Corpuscular Hemoglobin 30.3 pg (26-34); Mean Corpuscular Volume 96.4 fl (80-100); Mean Platelet Volume 9.2 fl (7.4-10.4); Monocytes Absolute Auto 0.4 K/mm3 (0.1-0.6); Monocytes Percent Auto 10.8 % (2.6-8.5); Neutrophils Absolute Auto 1.4 K/mm3 (1.3-6.7); Neutrophils Percent Auto 41.6 % (45.5-73.1); Platelet Count Result 111 k/mm3 (150-375); Red Blood Count 3.37 M/mm3 (4.2-5.4); Red Cell Distribution Width 14.9 % (11.5-14.5); White Blood Count 3.3 K/mm3 (4.5-10.0)
[2025-02-27 06:22] LABS: Alanine Aminotransferase 121 U/L (6-35); Albumin Level 3.7 g/dL (3.5-5.1); Alkaline Phosphatase 58 U/L (38-126); Anion Gap 9 mmol/L (4-12); Aspartate Amino Transferase 80 U/L (14-36); Bilirubin,Total 0.4 mg/dL (0.2-1.3); Blood Urea Nitrogen 18 mg/dL (7-17); Calcium 9.6 mg/dL (8.4-10.2); Carbon Dioxide 30 mmol/L (22-30); Chloride 93 mmol/L (98-107); Estimated CRCL calculation 39 ml/min; Estimated Glomerular Filt Rate 60; Glucose 101 mg/dL (65-110); Magnesium 1.3 mg/dL (1.6-2.3); Potassium 3.8 mmol/L (3.4-5.0); Sodium 132 mmol/L (137-145)
[2025-02-27 08:00] VITALS: PULSE 70
[2025-02-27 08:04] VITALS: PULSE 69
[2025-02-27] MEDS: droNABinol (*CRX) 2.5 MG CAPSULE 5 MG PO (08:04)
[2025-02-27] MEDS: METOPROLOL SUCCINATE EXT REL 25 MG TABCR PO (08:04)
[2025-02-27] MEDS: SERTRALINE HCL 50 MG TABLET 100 MG PO (08:04)
[2025-02-27] MEDS: ENOXAPARIN 40 MG/0.4 ML SYRINGE SUB-Q (08:05)
[2025-02-27] MEDS: DORZOLAMIDE HCL 2% 1 EACH EACH EYE (08:12)
[2025-02-27] MEDS: BRIMONIDINE TIMOLOL 1 EACH EACH EYE (08:12)
[2025-02-27] MEDS: BIMATOPROST 0.01% 1 EACH EACH EYE (08:12)
[2025-02-27] MEDS: MAGNESIUM SULFATE 3GM/D5W100ML 3 GM/100 ML BAG IVPB (09:39)
--- NOTE | 2025-02-27 11:10 | P.DS_ITS ---
DS: Admitting Diagnosis Discharge Date 02/27/25 Admitting Diagnosis Vomiting DS: Discharge Diagnosis Discharge Diagnosis (1) Hyponatremia: Code(s): E87.1 - Hypo-osmolality and hyponatremia Status: Acute (2) Nausea & vomiting: Code(s): R11.2 - Nausea with vomiting, unspecified Status: Acute (3) DENISE (acute kidney injury): Code(s): N17.9 - Acute kidney failure, unspecified Status: Acute DS: Summary Hospital Course Hospital Course: 64-year-old female past medical said history of CKD stage 3, lung cancer in 2015, anxiety and depression with new diagnosis of B-cell lymphoma presents the hospital due to nausea vomiting and failure to thrive. Patient denies change in medications, fevers chills, contacts with sick persons, shortness of breath. Patient is not on chemotherapy. Denies flank pain or burning with urination. In the ED she was found have hyponatremia at 1:25 a.m., chloride of 77, anion gap 25, BUN of 23, creatinine of 1.74 with baseline being 1.1, AST of 2 is 68, ALT of 242, UA positive for ketones negative for infectious workup, influenza A/B, RSV, COVID negative. Head CT shows no acute process. CT chest abdomen pelvis shows prior right middle lobe lobectomy with new small pleural effusion, diffuse hepatic steatosis, chronic left UPJ obstruction unchanged, mild diverticulosis. Patient was started on IVF and PRN Zofran , Vomiting resolved, and Denise resolved. Cr went from 1.74 to 0.94. Oral intake has markedly increased. Hyponatremia resolved and Hypomagnesemia replaced. patient on PO mag replacement at home. Elevated liver enzymes also likely from dehydration and has improved from AST/ALT 268/242 to 80/121. Patient will continue to follow up with PCP. continue home meds. F/u with PCP in 3-5 days Time Spent with Patient Time attestation: Total time spent providing and/or coordinating discharge services: DS: Data Data Completed and Pending Labs on day of discharge: Labs from last 24 hours 02/27/25 05:36 WBC 3.3 L RBC 3.37 L Hgb 10.2 L Hct 32.5 L MCV 96.4 MCH 30.3 MCHC 31.4 L RDW 14.9 H Plt Count 111 L MPV 9.2 Immature Gran % (Auto) 0.3 Neut % (Auto) 41.6 L Lymph % (Auto) 43.7 [place] % (Auto) 10.8 H Eos % (Auto) 3.0 Baso % (Auto) 0.6 Lymph # (Auto) 1.45 [place] # (Auto) 0.4 Eos # (Auto) 0.1 Baso # (Auto) 0.0 Abs Immat Gran (auto) 0.01 Absolute Neuts (auto) 1.4 Absolute Nucleated RBC 0.000 Nucleated RBC % 0.0 % Immature Plt Fraction 1.8 Sodium 132 L Potassium 3.8 Chloride 93 L Carbon Dioxide 30 Anion Gap 9 BUN 18 H Creatinine 0.94 Estim Creat Clear Calc 39 Estimated GFR 60 Glucose 101 Calcium 9.6 Magnesium 1.3 L Total Bilirubin 0.4 AST 80 H ALT 121 H Alkaline Phosphatase 58 Total Protein 7.0 Albumin 3.7 Discharge Plan Discharge Attending physician on discharge: Dianna Brush Discharging Clinician: Dianna Brush Anticipated Discharge Date/Time: 02/27/25 11:07 Patient Disposition: Home Activity: as tolerated Diet: as tolerated and regular Patient Instructions: Antibiotic Form Patient Language: Wallisian Stand Alone Forms: General Discharge Information Follow-up/Referrals: Jasmin Mora MD [Primary Care Provider] - (F/u with PCP in 3-5 days) Discharge Medications: New ondansetron 4 mg tablet,disintegrating 4 mg PO Q8H PRN (Reason: nausea and vomiting) 5 Days Qty: 10 0RF Continued magnesium oxide 400 mg (241.3 mg magnesium) tablet 500 mg PO QAM losartan 100 mg tablet 100 mg PO DAILY Qty: 90 3RF Lum[place] 0.01 % drops 1 drop EACH EYE DAILY Combigan 0.2-0.5 % drops 1 drop EACH EYE Q12H [id number] Tablet 1 tablet PO .QD ascorbic acid (vitamin C) 1,000 mg tablet 1 g PO DAILY cholecalciferol (vitamin D3) 25 mcg (1,000 unit) capsule 2,000 unit PO DAILY dorzolamide 2 % drops 1 drp EACH EYE TID sertraline 100 mg tablet 100 mg PO DAILY Qty: 90 1RF metoprolol succinate 25 mg tablet extended release 24 hr 25 mg PO DAILY Qty: 90 1RF Date of admission: 02/25/25 16:29 Primary Care Provider: Jasmin Mora Admitting Provider: Dianna Brush Attending physician on admission: Dianna Brush Condition: Stable
[2025-02-27 12:00] VITALS: PULSE 80
== END 2025-02-27 13:05 | disposition home or self-care (01) | DRG 683 ==
LOC: ANHED 15:28 → ANH3MEDSUR 16:07
PROVIDERS: Nurse Practitioner Gerontology; Admitting Provider Internal Medicine; Emergency Provider Emergency Medicine; PCP Family Medicine; Visit Provider Internal Medicine
DX: N17.9 Acute kidney failure, unspecified (principal); C85.12 Unspecified B-cell lymphoma, intrathoracic lymph nodes; E87.1 Hypo-osmolality and hyponatremia; E46 Unspecified protein-calorie malnutrition; E86.0 Dehydration; I12.9 Hypertensive chronic kidney disease with stage 1 through stage 4 chronic kidney disease, or unspecified chronic kidney disease; N18.30 Chronic kidney disease, stage 3 unspecified; K76.0 Fatty (change of) liver, not elsewhere classified; K57.30 Diverticulosis of large intestine without perforation or abscess without bleeding; H35.30 Unspecified macular degeneration; F41.9 Anxiety disorder, unspecified; F32.A Depression, unspecified; Z20.822 Contact with and (suspected) exposure to COVID-19; Z85.118 Personal history of other malignant neoplasm of bronchus and lung; Z87.891 Personal history of nicotine dependence; Z68.24 Body mass index [BMI] 24.0-24.9, adult
CPT/HCPCS: 36415; 70450; 71250; 74176; 80053; 81001; 83735; 84295; 85025; 85055; 87637; 96361; 96374; 97161; 97165; 99285; A9270; G0378; J1650; J3475; J7030; J7120

== ENCOUNTER 2025-03-07 08:31 | Outpatient (CLI) | payer BC, SELFPAY ==
--- OUTSIDE RECORDS SUMMARY | 2025-03-07 08:45 | XMS_ITS ---
Author Organization [facility] Address [address] [place] [address] Care Team Providers Care Preschool Disability Teacher Name Role Phone Chino Mora MD Primary Care Provider Kameron Jeff MD Unavailable [phone] Kameron Jeff MD Unavailable [phone] Constantin Kumar MD Unavailable [phone] Active Problems Patient Care Coordination No te [...] (02/09/2019 12:19 PM CDT): DR Rivero in [facility] evaluating Vitreous syneresis of both eyes [...]
--- OUTSIDE RECORDS SUMMARY | 2025-03-07 08:46 | XMS_ITS | Clinical Summary ---
Author Organization [facility] Address [address] [place] [address] Care Team Providers Care Textile Chemist Name Role Phone Chino Mora MD Primary Care Provider Kameron Jeff MD Unavailable Kameron Jeff MD Unavailable [phone] Constantin Kumar MD Unavailable [phone] Allergies Active Allergy Reactions Criticality Noted Date Comments Penicillins Hives Medium 07/01/2015 Medications losartan (COZAAR) 100 mg tabletIndication s:hypertension Take 1 tablet (100 mg total) by mouth every morning 0 9 Active bimatoprost (LUMIGAN) 0.03 % ophthalmic dropsIndications :ocular hypertension Administer 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 eyes every morning Active Combigan 0.2-0.5 % ophthalmic solutionIndicati ons:ocular hypertension Administer 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 eyes 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 before 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 0 Active hydroCHLOROthiaz kaden (HYDRODIURIL) [...] (02/09/2019 12:19 PM CDT): DR Rivero in [facility] evaluating Vitreous syneresis of both eyes 02/09/2019 [...] Encounters Date Type Department Care Team Description 03/01/2025 Telephone [facility] Oncology [address] [place] [phone] Radha White, MAIKOL 03/01/2025 Documentation [facility] Oncology [address] [place] [phone] Alla Schreiber, RMA 02/28/2025 Documentation [facility] Oncology [address] [place] [phone] Alla Schreiber, RMA 02/28/2025 Telephone [facility] Oncology [address] [place] [phone] Radha White, MAIKOL 02/25/2025 Telephone [facility] Oncology [address] [place] [phone] Maggie Peralta RN 02/24/2025 Orders Only [facility] Oncology [address] [place] [phone] Constantin Kumar MD SIA (syndrome of inappropriate ADH production) (Primary Dx) 02/24/2025 Telephone [facility] Oncology [address] [place] [phone] Radha White, MAIKOL 02/23/2025 Documentation [facility] Oncology [address] [place] [phone] Alla Schreiber, RMA 02/23/2025 Documentation [facility] Oncology [address] [place] [phone] Alla Schreiber, RMA 02/16/2025 1:00 PM CDT Office Visit [facility] Oncology [address] [place] [phone] Constantin Kumar MD Extranodal marginal zone B-cell lymphoma (Primary Dx); Lymphoma involving lung (HCC); Anemia, unspecified type 02/16/2025 12:30 PM CDT Lab [facility] - Lab Collection [address] [place] [address], [place] [address] Extranodal marginal zone B-cell lymphoma 02/16/2025 12:00 PM CDT Lab [facility] Oncology Lab [address] [place] [address] Floor 6 [place] [address] 02/01/2025 11:00 AM CDT Office Visit [facility] Surgery [address] [place] [address] Floor 5 [place] [address] Adalberto Ngo MD Lymphoma involving lung (HCC) (Primary Dx) 01/14/2025 Orders Only [facility] Surgery [address] [place] [address] Floor 5 [place] [address] Adalberto Ngo MD Lung nodule (Primary Dx) 01/13/2025 1:53 PM PROGRAM DIRECTOR CABLE TELEVISION Anesthesia Event [facility] Operating Room [address] [place] [address] Halima Olson MD Montgomery, Andrea J., NP 01/13/2025 1:05 PM PROGRAM DIRECTOR CABLE TELEVISION - 01/13/2025 6:15 PM PROGRAM DIRECTOR CABLE TELEVISION Surgery [facility] Operating Room [address] [place] [address] Adalberto Ngo MD XI ROBOTIC LOBECTOMY RIGHT LOWER LOBE 01/13/2025 9:56 AM PROGRAM DIRECTOR CABLE TELEVISION - 01/17/2025 1:31 PM CDT Hospital Encounter [address] [phone] Adalberto Ngo MD Lung nodule Discharge Disposition: Discharge to home or self care 01/12/2025 Telephone [facility] Surgery [address] [place] [address] Floor 5 [place] [address] Lukas Francis, REMI 12/30/2024 8:30 AM PROGRAM DIRECTOR CABLE TELEVISION Lab [facility] [address] [facility] [address] [place] [address] Preoperative testing 12/30/2024 8:01 AM PROGRAM DIRECTOR CABLE TELEVISION - 12/30/2024 11:59 PM PROGRAM DIRECTOR CABLE TELEVISION Hospital Encounter [facility] Radiology at [facility] [address] [place] [address] Lung nodule Discharge Disposition: Discharge to home or self care 12/30/2024 8:00 AM PROGRAM DIRECTOR CABLE TELEVISION Pre-Admission Testing [facility] CAM Pre Anesthesia Testing [address] [place] [address] Preoperative testing (Primary Dx) 12/30/2024 Orders Only [facility] Surgery [address] [facility] Floor 5 [place] [phone] Lukas Francis, REMI Gingivitis (Primary Dx) 12/10/2024 Telephone [facility] Oncology [address] [place] [address] Leatha Ferro RN from Last 3 Months Immunizations Immunization Administration [...] on file Legal Sex Female 11:57 PM PROGRAM DIRECTOR CABLE TELEVISION Gender Identity Not on file Sexual Orientation [...] Height 152.4 cm (5') 01/13/2025 8:25 PM PROGRAM DIRECTOR CABLE TELEVISION Body Mass Index 24.57 01/13/2025 8:25 PM PROGRAM DIRECTOR CABLE TELEVISION Plan of Treatment Health Maintenance Due Date [...] AM CDT EGFR Timed 01/15/2025 11:18 PM PROGRAM DIRECTOR CABLE TELEVISION BASIC METABOLIC PANEL Timed 01/15/2025 11:18 PM PROGRAM DIRECTOR CABLE TELEVISION SODIUM, URINE, RANDOM Routine 01/15/2025 9:10 PM PROGRAM DIRECTOR CABLE TELEVISION OSMOLALITY, BLOOD Timed 01/15/2025 9:0 9 PM PROGRAM DIRECTOR CABLE TELEVISION PEP THERAPY Routine 01/15/2025 8:00 PM PROGRAM DIRECTOR CABLE TELEVISION URINALYSIS, MICROSCOPIC ONLY Routine 01/15/2025 6:55 PM PROGRAM DIRECTOR CABLE TELEVISION URINALYSIS AND REFLEX TO MICROSCOPIC AND CULTURE Routine 01/15/2025 6:55 PM PROGRAM DIRECTOR CABLE TELEVISION EGFR Timed 01/15/2025 6:28 PM PROGRAM DIRECTOR CABLE TELEVISION PHOSPHORUS Timed 01/15/2025 6:28 PM PROGRAM DIRECTOR CABLE TELEVISION MAGNESIUM Timed 01/15/2025 6:28 PM PROGRAM DIRECTOR CABLE TELEVISION BASIC METABOLIC PANEL Timed 01/15/2025 6:28 PM PROGRAM DIRECTOR CABLE TELEVISION CBC WITHOUT DIFFERENTIAL Timed 01/15/2025 6:28 PM PROGRAM DIRECTOR CABLE TELEVISION XR CHEST PA LATERAL 2 VIEWS Timed 01/15/2025 4:29 PM PROGRAM DIRECTOR CABLE TELEVISION PEP THERAPY Routine 01/15/2025 3:39 PM PROGRAM DIRECTOR CABLE TELEVISION PEP THERAPY Routine 01/15/2025 3:39 PM PROGRAM DIRECTOR CABLE TELEVISION PEP THERAPY Routine 01/15/2025 3:39 PM PROGRAM DIRECTOR CABLE TELEVISION RESPIRATORY PATHOGEN PANEL Routine 01/15/2025 1:18 PM PROGRAM DIRECTOR CABLE TELEVISION CHEST PHYSIO THERAPY Routine 01/15/2025 11:01 AM PROGRAM DIRECTOR CABLE TELEVISION XR CHEST 1 VIEW IP Routine 01/15/2025 5:07 AM PROGRAM DIRECTOR CABLE TELEVISION EGFR Routine 01/14/2025 8:34 PM PROGRAM DIRECTOR CABLE TELEVISION CBC WITHOUT DIFFERENTIAL Routine 01/14/2025 8:34 PM PROGRAM DIRECTOR CABLE TELEVISION BASIC METABOLIC PANEL Routine 01/14/2025 8:34 PM PROGRAM DIRECTOR CABLE TELEVISION ECG 12-LEAD Routine 01/14/2025 11:55 AM PROGRAM DIRECTOR CABLE TELEVISION EGFR Timed 01/13/2025 8:46 PM PROGRAM DIRECTOR CABLE TELEVISION BASIC METABOLIC PANEL Timed 01/13/2025 8:46 PM PROGRAM DIRECTOR CABLE TELEVISION CBC WITHOUT DIFFERENTIAL Timed 01/13/2025 8:46 PM PROGRAM DIRECTOR CABLE TELEVISION XR CHEST 1 VIEW ED Urgent/IP Urgent 01/13/2025 6:35 PM PROGRAM DIRECTOR CABLE TELEVISION CYTOGENETICS Routine 01/13/2025 5:02 PM PROGRAM DIRECTOR CABLE TELEVISION SURGICAL PATHOLOGY Routine 01/13/2025 2: 59 PM PROGRAM DIRECTOR CABLE TELEVISION Lung nodule PERIPHERAL LINE Routine 01/13/2025 2:28 PM PROGRAM DIRECTOR CABLE TELEVISION ANESTHESIA INTUBATION Routine 01/13/2025 2:25 PM PROGRAM DIRECTOR CABLE TELEVISION XI ROBOTIC LOBECTOMY 01/13/2025 1:55 PM PROGRAM DIRECTOR CABLE TELEVISION Lung nodule B CHECK SAMPLE STAT 01/13/2025 1:37 PM PROGRAM DIRECTOR CABLE TELEVISION CT CHEST WO CONTRAST Schedule PURA, Read PURA (Appt Today, Awaiting Results) 12/30/2024 9:01 AM PROGRAM DIRECTOR CABLE TELEVISION Lung nodule EGFR Routine 12/30/2024 8:47 AM PROGRAM DIRECTOR CABLE TELEVISION Preoperative testing BASIC METABOLIC PANEL Routine 12/30/2024 8:47 AM PROGRAM DIRECTOR CABLE TELEVISION Preoperative testing CBC WITHOUT DIFFERENTIAL Routine 12/30/2024 8:47 AM PROGRAM DIRECTOR CABLE TELEVISION Preoperative testing TYPE AND SCREEN 14 DAY Routine 12/30/2024 8:47 AM PROGRAM DIRECTOR CABLE TELEVISION Preoperative testing from Last 3 Months Results * Immunotyping, serum with interpretation (02/16/2025 11:58 AM CDT) Immunosubtraction Please see comment Comment: NO PARAPROTEIN DETECTED Reviewed and signed by Matthew Coffman MD, PhD 02/18/2025 Blood 02/16/2025 11:5 8 AM CDT 02/16/2025 4:31 PM CDT Narrative [facility] - 02/19/2025 8:55 AM CDT Reflex Immunotyping, Ser Heather Rene [facility] [place] [facility] BLOOD ARI ANDERS Final Result [facility] Department [place] [address] * (ABNORMAL) eGFR (02/16/2025 11:58 AM CDT) Pathologist [facility] eGFR 52(L) >=60 mL/min/1. 73 m2 Comment: [...] CDT 02/16/2025 12:24 PM CDT Heather Rene [facility]PUTY [place] [facility] BLOOD ARI ANDERS Final Result MICHELLE GURROLA [facility] Department [place] [address] * (ABNORMAL) Differential, auto (02/16/2025 11:58 AM CDT) Neutrophil abs 7.85(H) 1.50 - 6.50 K/cumm Comment:Testing performed by : [facility], [address] [place] [address] Lymphocyte abs 2.28 0.80 - 3.30 K/cumm MICHELLE GURROLA Comment:Testing performed by : [facility], [address] [place] [phone] Monocyte abs 0.74 0.20 - 0.80 K/cumm MICHELLE GURROLA Comment:Testing performed by : [facility], [address] [place], [place] [phone] Eosinophil abs 0.01 0.00 - 0.50 K/cumm MICHELLE GURROLA Comment:Testing performed by : [facility], [address] [place] [phone] Basophil abs 0.06 0.00 - 0.10 K/cumm CERLIANNA GURROLA Comment:Testing performed by : [facility], [address] [place] [phone] Neutrophil pct 71.8 % CERNER GALILEO Comment: Interpretive Data Percent cell count reference ranges are not reported, since discordance with absolute values may lead to misinterpretation of CBC data. Current Interpretive Data was last revised on 2018. Testing performed by: [facility], [address] [place] [phone] Lymphocyte pct 20.8 % CERNER BJ Comment: Interpretive Data Percent cell count reference ranges are not reported, since discordance with absolute values may lead to misinterpretation of CBC data. Current Interpretive Data was last revised on 2018. Testing performed by: [facility], [address] [place] [phone] Monocyte pct 6.7 % MICHELLE GURROLA Comment: Interpretive Data Percent cell count reference ranges are not reported, since discordance with absolute values may lead to misinterpretation of CBC data. Current Interpretive Data was last revised on 2018. Testing performed by: [facility], [address] [place] [phone] Eosinophil pct 0.1 % MICHELLE GURROLA Comment: Interpretive Data Percent cell count reference ranges are not reported, since discordance with absolute values may lead to misinterpretation of CBC data. Current Interpretive Data was last revised on 2018. Testing performed by: [facility], [address] [place] [phone] Basophil pct 0.5 % MICHELLE GURROLA Comment: Interpretive Data Percent cell count reference ranges are not reported, since discordance with absolute values may lead to misinterpretation of CBC data. Current Interpretive Data was last revised on 2018. Testing performed by: [facility], [address] [place] [phone] Blood 02/16/2025 11:5 8 AM CDT 02/16/2025 12:15 PM CDT Heather Rene [facility]PUTY [place] [facility] BLOOD ARI ANDERS Final Result [facility] Department [place] [address] * HIV 1/2 Antibody plus p24 Antigen Blood (02/16/2025 11:58 AM CDT) HIV 1/2 ab + p24 ag Nonreactive Nonreactive Comment:Nonreactive for HIV- 1 antigen and HIV-1/HIV-2 antibodies. No laboratory evidence of HIV infection. If acute HIV infection is suspected, consider testing for HIV-1 RNA. Current interpretive data was last revised on 22. Blood 02/16/2025 11:5 8 AM CDT 02/16/2025 1:02 PM CDT Heathermaritza Murillo Anju [facility]PUTY [place] [facility] MICROBIOLO GY - GENERAL ORDERABLES Final Result [facility] GURROL[facility] Department [place] [address] * (ABNORMAL) CBC with auto differential (02/16/2025 11:58 AM CDT) WBC 10.93(H) 3.80 - 9.90 K/cumm Comment:Testing performed by : [facility], [address] [place] [address] Hgb 11.6(L) 11.9 - 15.5 g/dL MICHELLE GURROLA Comment:Testing performed by : [facility], [address] [place] [address] Hct 34.7(L) 35.6 - 45.5 % MICHELLE GURROLA Comment:Testing performed by : [facility], [address] [place] [address] Plt 208 150 - 400 K/cumm MICHELLE GURROLA Comment:Testing performed by : [facility], [address] [place] [address] MPV 7.1 6.8 - 10.4 fL MICHELLE GURROLA Comment:Testing performed by : [facility], [address] [place] [address] RBC 3.71(L) 3.90 - 5.20 M/cumm MICHELLE GURROLA Comment:Testing performed by : [facility], [address] [place] [address] MCV 93.5 81.3 - 96.4 fL MICHELLE GURROLA Comment:Testing performed by : [facility], [address] [place] [address] MCH 31.4 27.1 - 33.3 pg CERLIANNA GURROLA Comment:Testing performed by : [facility], [address] [place] [address] MCHC 33.5 32.3 - 35.7 g/dL [facility] Comment:Testing performed by : [facility], [address] [place] [phone] RDW CV 16.5(H) 11.1 - 14.9 % [facility] Comment:Testing performed by : [facility], [address] [place] [phone] NRBC abs 0.00 0.00 - 0.01 K/cumm [facility] Comment:Testing performed by : [facility], [address] [place] [phone] Blood 02/16/2025 11:5 8 AM CDT 02/16/2025 12:15 PM CDT Heather Lidia Rene [facility]PUTY [place] [facility] BLOOD ORDE RABLES Final Result Performing Organization Address City/[facility]/ZIP Co de Phone Number [facility] Department [place] [address] * Hepatitis C antibody Blood (02/16/2025 11:58 AM CDT) Pathologist [facility] Hep C Ab Nonreactive Nonreactive Comment:Antibodies to HCV no t detected. Does NOT exclude the possibility of recent exposure to HCV. Current interpretive data was last revised on 22 Blood 02/16/2025 11:5 8 AM CDT 02/16/2025 1:02 PM CDT [facility]ene [facility] [place] [facility] MICROBIOLO GY - GENERAL ORDERABLES Final Result [facility] [place] [place] [address] * Hepatitis B core antibody, total Blood (02/16/2025 11:58 AM CDT) Hep B core IgG/IgM Nonreactive Nonreactive Blood 02/16/2025 11:5 8 AM CDT 02/16/2025 1:02 PM CDT Heather Rene NP LAB MICROBIOLO GY - GENERAL ORDERABLES Final Result Performing Organization Address City/[facility]/RUST Co de Phone Number [facility]HEL[facility] Department [place] [address] * Hepatitis B surface antibody (immune status) Blood (02/16/2025 11:58 AM CDT) Pathologist [facility] HBsAb (immune status) Nonreactive Comment:This result is consi stent with a lack of immunity to Hepatitis B Virus when used in the setting of routine screening. Current interpretative data was last revised on 22 Blood 02/16/2025 11:5 8 AM CDT 02/16/2025 1:02 PM CDT Heather Rene NP LAB MICROBIOLO GY - GENERAL ORDERABLES Final Result Performing Organization Address [facility]UST Co de Phone Number [facility] Department [place] [address] * Hepatitis B Surface Antigen Blood (02/16/2025 11:58 AM CDT) Pathologist [facility] HepBsAg Nonreactive Nonreactive Blood 02/16/2025 11:5 8 AM CDT 02/16/2025 1:02 PM CDT Heather Rene NP LAB MICROBIOLO GY - GENERAL ORDERABLES Final Result Performing Organization Address City/[facility]/ZIP Co de Phone Number [facility] Department [place] [address] * (ABNORMAL) Protein electrophoresis with reflex, serum with interpretation (02/16/2025 11:58 AM CDT) Pathologist [facility] Protein, sr 8.5(H) 6.2 - 8.2 g/dL [...] 8 AM CDT 02/16/2025 1:41 PM CDT [facility] Final Result [facility] Department [place] [address] * Lactate dehydrogenase (LD) (02/16/2025 11:58 AM CDT) [facility] Lactate dehydrogenase (LDH) 180 100 - 250 Units/L Blood 02/16/2025 11:5 8 AM CDT 02/16/2025 12:24 PM CDT [facility]OD [facility]DE [facility] Final Result [facility] [place] [address] * (ABNORMAL) Beta 2 microglobulin, serum (02/16/2025 11:58 AM CDT) [facility] Beta 2 Microglobulin, Serum 3.20(H) 1.00 - 2.50 mg/L Comment: Interpretive Data The Wang Beta-2 microglobulin assay procedure was used. Results from different manufacturers or methods may not be comparable. Serial testing should be performed using the same method. Blood 02/16/2025 11:5 8 AM CDT 02/16/2025 12:50 PM CDT Heather Rene NP LAB BLOOD LORNEAlicia ANDERS Final Result [facility] Department [place] [address] * (ABNORMAL) Comprehensive metabolic panel (02/16/2025 11:58 AM CDT) Sodium 131(L) 135 - 145 mmol/L Potassium, pl 4.9 3.3 - 4.9 mmol/L [facility] Chloride 89(L) 97 - 110 mmol/L [facility] CO2 25 22 - 32 mmol/L [facility] Anion gap 17(H) 2 - 15 mmol/L [facility] BUN 18 6 - 25 mg/dL [facility] Creatinine 1.17(H) 0.60 - 1.10 mg/dL [facility] Glucose 123 70 - 199 mg/dL [facility] [...] 2022. Calcium 10.1 8.5 - 10.3 mg/dL [facility] Bilirubin, total 0.8 0.1 - 1.2 mg/dL [facility] Protein, pl 8.9(H) 6.5 - 8.5 g/dL [facility] Albumin 4.7 3.5 - 5.0 g/dL [facility] Alk phos 93 40 - 130 Units/L [facility] ALT 23 7 - 45 Units/L [facility] AST 21 10 - 45 Units/L [facility] Blood 02/16/2025 11:5 8 AM CDT 02/16/2025 12:24 PM CDT Heather Rene NP LAB BLOOD ORDE RABLES Final Result Performing Organization Address [facility]/ZIP Co de Phone Number [facility] [place] [address] * eGFR (01/15/2025 11:18 PM PROGRAM DIRECTOR CABLE TELEVISION) eGFR 66 >=60 mL/min/1. 73 m2 Comment: [...] reviewed 2021. Blood 01/15/2025 11:1 8 PM PROGRAM DIRECTOR CABLE TELEVISION 01/15/2025 11:40 PM PROGRAM DIRECTOR CABLE TELEVISION us Adalberto Ngo MD LAB BLOOD ORDERABLES Final Re sult Performing Organization Address City/[facility]/ZIP Co de Phone Number [facility] Department [place] [address] * (ABNORMAL) Basic metabolic panel (01/15/2025 11:18 PM PROGRAM DIRECTOR CABLE TELEVISION) Sodium 138 135 - 145 mmol/L Potassium, [...] [facility] Blood 01/15/2025 11:1 8 PM PROGRAM DIRECTOR CABLE TELEVISION 01/15/2025 11:40 PM PROGRAM DIRECTOR CABLE TELEVISION us Adalberto Ngo MD LAB BLOOD ORDERABLES Final Re sult [facility] One [facility] [place] [address] * Sodium, urine, random (01/15/2025 9:10 PM PROGRAM DIRECTOR CABLE TELEVISION) Sodium, ur <20 mmol/L Comment: Interpretive Data No reference range established. Current interpretive data was last revised 2019. Urine 01/15/2025 9:10 PM PROGRAM DIRECTOR CABLE TELEVISION 01/15/2025 9:22 PM PROGRAM DIRECTOR CABLE TELEVISION us Adalberto Ngo MD LAB URINE ORDERABLES Final Re sult Performing Organization Address City/[facility]/ZIP Co de Phone Number [facility] [place] [address] * Osmolality, blood (01/15/2025 9:09 PM PROGRAM DIRECTOR CABLE TELEVISION) Osmo 280 275 - 300 mOsm/kg Blood 01/15/2025 9:09 PM PROGRAM DIRECTOR CABLE TELEVISION 01/15/2025 9:23 PM PROGRAM DIRECTOR CABLE TELEVISION us Chris Khan MD LAB BLOOD ORDERABLES Final Resul t Performing Organization Address [facility] de Phone Number [facility] [place] [place] [address] * (ABNORMAL) Urinalysis reflex to microscopic and culture Urine (01/15/2025 6:55 PM PROGRAM DIRECTOR CABLE TELEVISION) Color, ur Straw Yellow Clarity, ur Clear [...] tendency for uric acid stone formation. Source: [facility] Current Interpretive Data was last revised on 2017 Protein, ur ql 1+(A) Negative [facility] Glucose, ur ql Negative Negative [facility] Ketones, ur Negative Negative [facility] Bilirubin, ur Negative Negative [facility] Blood, ur Negative Negative [facility] Urobilinogen, ur <2.0 <2.0 mg/dL [facility] Nitrite, ur Negative Negative [facility] Leukocyte esterase, ur Negative Negative [facility] UA reflex comment Reflex to microscopic UA will be performed. [facility] Urine 01/15/2025 6:55 PM PROGRAM DIRECTOR CABLE TELEVISION 01/15/2025 7:01 PM PROGRAM DIRECTOR CABLE TELEVISION Adalberto Ngo MD LAB MICROBIOLOGY - GENERAL OR DERABLES Final Result Performing Organization Address [facility] Co de Phone Number [facility] [place] [address] * Urinalysis, microscopic only (01/15/2025 6:55 PM PROGRAM DIRECTOR CABLE TELEVISION) WBC, ur 0-5 0 - 5 /HPF RBC, ur 0-2 0 - 2 /HPF [facility] Epithelial cells, squamous, ur 1-5 0 - 5 /HPF [facility] Culture Reflex Comment Reflex conditions for urine culture (WBC >10) not met. [facility] Urine 01/15/2025 6:55 PM PROGRAM DIRECTOR CABLE TELEVISION 01/15/2025 7:01 PM PROGRAM DIRECTOR CABLE TELEVISION Adalberto Ngo MD LAB URINE ORDERABLES Final Re sult Performing Organization Address City/[facility] Co de Phone Number [facility] [place] [address] * (ABNORMAL) eGFR (01/15/2025 6:28 PM PROGRAM DIRECTOR CABLE TELEVISION) eGFR 51(L) >=60 mL/min/1. 73 m2 Comment: [...] last reviewed 2021. Blood 01/15/2025 6:28 PM PROGRAM DIRECTOR CABLE TELEVISION 01/15/2025 6:47 PM PROGRAM DIRECTOR CABLE TELEVISION Adalberto Ngo MD LAB BLOOD ORDERABLES Final Re sult Performing Organization Address City/[facility]/ZIP Co de Phone Number [facility] Department [place] [address] * (ABNORMAL) CBC without differential (01/15/2025 6:28 PM PROGRAM DIRECTOR CABLE TELEVISION) WBC 10.4(H) 3.8 - 9.9 K/cumm Hgb [facility] Blood 01/15/2025 6:28 PM PROGRAM DIRECTOR CABLE TELEVISION 01/15/2025 6:47 PM PROGRAM DIRECTOR CABLE TELEVISION us Adalberto Ngo MD LAB BLOOD ORDERABLES Final Re sult Performing Organization Address City/[facility]/ZIP Co de Phone Number [facility] Department [place] [address] * Phosphorus (01/15/2025 6:28 PM PROGRAM DIRECTOR CABLE TELEVISION) [facility] Phosphorus, pl 2.7 2.3 - 4.5 mg/dL Blood 01/15/2025 6:28 PM PROGRAM DIRECTOR CABLE TELEVISION 01/15/2025 6:47 PM PROGRAM DIRECTOR CABLE TELEVISION Adalberto Ngo MD LAB BLOOD ORDERABLES Final Re sult Performing Organization Address [facility]/[place] [address] * Magnesium (01/15/2025 6:28 PM PROGRAM DIRECTOR CABLE TELEVISION) [facility] Magnesium 1.7 1.4 - 2.5 mg/dL Blood 01/15/2025 6:28 PM PROGRAM DIRECTOR CABLE TELEVISION 01/15/2025 6:47 PM PROGRAM DIRECTOR CABLE TELEVISION Adalberto Ngo MD LAB BLOOD ORDERABLES Final Re sult Performing Organization Address City/[facility]/[place] [address] * (ABNORMAL) Basic metabolic panel (01/15/2025 6:28 PM PROGRAM DIRECTOR CABLE TELEVISION) [facility] Sodium 130(L) 135 - 145 mmol/L Potassium, [...] mg/dL MICHELLE GURROLA Blood 01/15/2025 6:28 PM PROGRAM DIRECTOR CABLE TELEVISION 01/15/2025 6:47 PM PROGRAM DIRECTOR CABLE TELEVISION us Adalberto Ngo MD LAB BLOOD ORDERABLES Final Re sult MICHELLE GURROLA [facility] Department [place] [address] * XR Chest Pa Lateral 2 Views (01/15/2025 4:29 PM PROGRAM DIRECTOR CABLE TELEVISION) Anatomical Region Laterality Modality Body, Chest N/A Computed Radiogr aphy 01/15/2025 10:0 8 PM PROGRAM DIRECTOR CABLE TELEVISION Impressions 01/15/2025 10:08 PM PROGRAM DIRECTOR CABLE TELEVISION There has been removal of a right-sided chest tube. 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 There is persistent elevation of the right hemidiaphragm. There is a new small right pleural effusion with increased right basilar atelectasis. No pneumothorax is identified. The cardiomediastinal silhouette is unchanged. Electronically signed by: Luis F Knight M.D. Narrative 01/15/2025 10:08 PM PROGRAM DIRECTOR CABLE TELEVISION EXAMINATION: XR CHEST PA LATERAL 2 VIEWS [...] Respiratory pathogen panel Nasopharyngeal (01/15/2025 1:18 PM PROGRAM DIRECTOR CABLE TELEVISION) Pathologist [facility] Influenza A RNA Not Detected Not Detected [...] CAMPUS Adenovirus DNA Not Detected Not Detected [facility] Metapneumovirus RNA Not Detected Not Detected [facility] Nasopharyngeal 01/15/2025 1: 18 PM PROGRAM DIRECTOR CABLE TELEVISION 01/15/2025 1:47 PM PROGRAM DIRECTOR CABLE TELEVISION Narrative [facility] - 01/15/2025 2:53 PM PROGRAM DIRECTOR CABLE TELEVISION Is the Patient experiencing symptoms consistent with COVID?->No Surveillance testing for transplant patient?->No Interpretive Data The RF Arrays FilmArray Respiratory Panel (RP2.1) assay is a [...] assay has FDA clearance for testing of [place] swabs. The performance of additional specimen types has been assessed by the performing laboratory. The performance characteristics of this assay have been determined by [facility] Infectious Disease [facility]. Current interpretive data was last revised on 22. us Adalberto Ngo MD LAB MICROBIOLOGY - GENERAL OR DERABLES Final Result MICHELLE [facility] Department [place] [address] * XR Chest 1 View (01/15/2025 5:07 AM PROGRAM DIRECTOR CABLE TELEVISION) Anatomical Region Laterality Modality Body, Chest N/A Digital Radiogra phy 01/15/2025 7:40 AM PROGRAM DIRECTOR CABLE TELEVISION Impressions 01/15/2025 7:50 AM PROGRAM DIRECTOR CABLE TELEVISION The current study is compared with the [...] Geetha Ross M.D. Narrative 01/15/2025 7:50 AM PROGRAM DIRECTOR CABLE TELEVISION EXAMINATION: 1 view chest radiograph Procedure Note [...] Result * (ABNORMAL) eGFR (01/14/2025 8:34 PM PROGRAM DIRECTOR CABLE TELEVISION) [facility] eGFR 42(L) >=60 mL/min/1. 73 m2 Comment: [...] last reviewed 2021. Blood 01/14/2025 8:34 PM PROGRAM DIRECTOR CABLE TELEVISION 01/14/2025 8:40 PM PROGRAM DIRECTOR CABLE TELEVISION Jeimy Jones NP LAB BLOOD ORDERABLES Fi nal Result [facility] Department of Laboratories [place], [place] [id number] * (ABNORMAL) CBC without differential (01/14/2025 8:34 PM PROGRAM DIRECTOR CABLE TELEVISION) [facility] WBC 9.7 3.8 - 9.9 K/cumm Hgb [...] [facility] Blood 01/14/2025 8:34 PM PROGRAM DIRECTOR CABLE TELEVISION 01/14/2025 8:40 PM PROGRAM DIRECTOR CABLE TELEVISION us Jeimy Jones NP LAB BLOOD ORDERABLES Fi nal Result [facility] Department [place] [address] * (ABNORMAL) Basic metabolic panel (01/14/2025 8:34 PM PROGRAM DIRECTOR CABLE TELEVISION) Sodium 133(L) 135 - 145 mmol/L Potassium, [...] [facility] Blood 01/14/2025 8:34 PM PROGRAM DIRECTOR CABLE TELEVISION 01/14/2025 8:40 PM PROGRAM DIRECTOR CABLE TELEVISION Jeimy Jones NP LAB BLOOD ORDERABLES Fi nal Result Performing Organization Address [facility] Co de Phone Number [facility] Department [place] [address] * ECG 12 lead (01/14/2025 11:55 AM PROGRAM DIRECTOR CABLE TELEVISION) Ventricular Rate EKG/Min 85 BPM [facility] Atrial Rate 85 BPM [facility] DE-Interval (MSEC) 178 ms [facility] QRS-Interval (MSEC) 78 ms [facility] QT-Interval (MSEC) 382 ms [facility] QTc 454 ms [facility] P [place] 52 degrees [facility] R Adams 41 degrees [facility] T Adams 35 degrees [facility] Diagnosis Normal sinus rhythm Low voltage QRS Nonspecific ST abnormality Abnormal ECG No previous ECGs available Confirmed by LORENZO REYES M.D ([id number]) on 01/17/2025 7:21:58 PM [facility] 01/14/2025 11:5 5 AM PROGRAM DIRECTOR CABLE TELEVISION 01/17/2025 7:21 PM CDT Jeimy Jones [place] ECG ORDERABLES Final R esult Performing Organization Address [facility] Co de Phone Number [facility] * eGFR (01/13/2025 8:46 PM PROGRAM DIRECTOR CABLE TELEVISION) eGFR 79 >=60 mL/min/1. 73 m2 Comment: [...] last reviewed 2021. Blood 01/13/2025 8:46 PM PROGRAM DIRECTOR CABLE TELEVISION 01/13/2025 8:58 PM PROGRAM DIRECTOR CABLE TELEVISION us Adalberto Ngo MD LAB BLOOD ORDERABLES Final Re sult [facility] Department [place] [address] * (ABNORMAL) CBC without differential (01/13/2025 8:46 PM PROGRAM DIRECTOR CABLE TELEVISION) WBC 8.6 3.8 - 9.9 K/cumm Hgb [...] [facility] Blood 01/13/2025 8:46 PM PROGRAM DIRECTOR CABLE TELEVISION 01/13/2025 8:58 PM PROGRAM DIRECTOR CABLE TELEVISION Adalberto Ngo MD LAB BLOOD ORDERABLES Final Re sult Performing Organization Address City/[facility]/ZIP Co de Phone Number [facility] Department [place] [address] * Basic metabolic panel (01/13/2025 8:46 PM PROGRAM DIRECTOR CABLE TELEVISION) Pathologist [facility] Sodium 138 135 - 145 mmol/L Potassium, [...] [facility] Blood 01/13/2025 8:46 PM PROGRAM DIRECTOR CABLE TELEVISION 01/13/2025 8:58 PM PROGRAM DIRECTOR CABLE TELEVISION Adalberto Ngo MD LAB BLOOD ORDERABLES Final Re sult MICHELLE [facility] Department [place] [address] * XR Chest 1 View - in ICU (01/13/2025 6:35 PM PROGRAM DIRECTOR CABLE TELEVISION) Anatomical Region Laterality Modality Body, Chest N/A Digital Radiogra phy 01/14/2025 9:57 AM PROGRAM DIRECTOR CABLE TELEVISION Impressions 01/14/2025 2:16 PM PROGRAM DIRECTOR CABLE TELEVISION Findings of right lower lobectomy. Right chest [...] Supa Vu M.D. Narrative 01/14/2025 2:16 PM PROGRAM DIRECTOR CABLE TELEVISION EXAMINATION: XR CHEST 1 VIEW HISTORY: postop [...] Resul t * Cytogenetics (01/13/2025 5:02 PM PROGRAM DIRECTOR CABLE TELEVISION) Miscellaneous 01/13/2025 5:0 2 PM PROGRAM DIRECTOR CABLE TELEVISION 01/20/2025 2:09 PM CDT Narrative 01/24/2025 4:35 PM CDT EPIC results best viewed via link to PDF [facility] Department of Pathol [address] [place] [address] Patient Information Name: AP LAND Gender: F : 1960 (Age: 64) Tissue: FFPE FISH Visit Information Hospital #: [id number] Facility: [facility] Service: [facility] Location: [place] [address] Patient Type: [facility] Inpatient Specimen Information: Culture #: [id number] Date Collected: 01/13/2025 Date Accessioned: 01/21/2025 Date [...] Fluorescence In-situ hybridization (FISH) Results: Specimen # [id number] POSITIVE - FISH result for IGH gene rearrangement nuc bindu (3'IGHx2~3,5'IGHx2~3)(3'IGH con 5'IGH)x1[35/200]/(3'IGHx1,5'IGHx1~2)(3'IGH con 5'IGH)x0[3/200] Chromosome analysis and Fluorescence In Situ Hybridization (FISH) analysis are performed using the [employer] Cytovision Imaging System. Comments IGH -BA FISH FISH was performed utilizing Vysis IGH (14q32) Dual Color, Break Apart Rearrangement probe set ([employer], [place], [place]). 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 The above test was developed and its performance characteristics determined by [facility] [employer] [facility]. It has not been [...] ult * Surgical pathology (01/13/2025 2:59 PM PROGRAM DIRECTOR CABLE TELEVISION) Tissue specimen (specimen) (Lymph Node, Single excision) 01/13/2025 2:59 PM PROGRAM DIRECTOR CABLE TELEVISION Tissue specimen (specimen) (Lymph node, dissection/region al resection) 01/13/2025 3:22 PM PROGRAM DIRECTOR CABLE TELEVISION Tissue specimen (specimen) (Lymph node, dissection/region al resection) 01/13/2025 3:26 PM PROGRAM DIRECTOR CABLE TELEVISION Tissue specimen (specimen) (Lymph Node, Single excision) 01/13/2025 3:27 PM PROGRAM DIRECTOR CABLE TELEVISION Tissue specimen (specimen) (Lymph Node, Single excision) 01/13/2025 3:30 PM PROGRAM DIRECTOR CABLE TELEVISION Tissue specimen (specimen) (Lymph Node, Single excision) 01/13/2025 3:43 PM PROGRAM DIRECTOR CABLE TELEVISION Tissue specimen (specimen) (Lymph Node, Single excision) 01/13/2025 3:58 PM PROGRAM DIRECTOR CABLE TELEVISION Tissue specimen (specimen) (Lymph Node, Single excision) 01/13/2025 4:41 PM PROGRAM DIRECTOR CABLE TELEVISION Tissue specimen (specimen) (Lung, total / lobe / segmental, tumor) 01/13/2025 5:02 PM PROGRAM DIRECTOR CABLE TELEVISION Narrative PATHOLOGY [facility] - 01/24/2025 5:24 PM CDT EPIC results best viewed via link to PDF [facility]enee Castillo Laboratory [place] [address] Note to Patients: This report may contain [...] Gender: F : 1960 (Age: 64) Address: [address] [place] [id number] [facility] #: [id number] Taken:01/13/2025 Received:01/14/2025 Reported: 01/24/2025 Patient Type: [facility] Inpatient Service: Cardiothoracic Location: [facility] [address] Physician(s): Rafael Ortega MD [employer], [...] is positive for IGH gene rearrangement. Liana Sandi, M.D., PhD History: The patient is a [...] Surgical Pathology and Flow Cytometry Departments at [facility] as part of an ongoing supplier quality specialist program and in compliance with federally mandated [...] Surgical Pathology and Flow Cytometry Departments of [facility]. It has not been cleared or approved by the U. S. Food and Drug Administration. IMAGES AND SCANNED DOCUMENTS, IF INCLUDED, ONLY VIEWABLE IN PDF VERSION OF REPORT us Adalberto Ngo MD LAB PATHOLOGY ORDERABLES Salma roy Result PATHOLOGY [facility] 3rd Floor [place], [place] [phone] * Peripheral IV Catheter (01/13/2025 2:28 PM PROGRAM DIRECTOR CABLE TELEVISION) Monie Main MD - 01/13/2025 2:28 PM PROGRAM DIRECTOR CABLE TELEVISION Monie Segura MD 01/13/2025 2:39 PM Peripheral [...] procedure well with no complications us Monie Naegl MD ANESTHESIA ORDERABLES Final Result * Airway (01/13/2025 2:25 PM PROGRAM DIRECTOR CABLE TELEVISION) Monie Main MD - 01/13/2025 2:25 PM PROGRAM DIRECTOR CABLE TELEVISION Monie Segura MD 01/13/2025 2:37 PM Airway [...] Result * Check Sample (01/13/2025 1:37 PM PROGRAM DIRECTOR CABLE TELEVISION) Pathologist [facility] Rh A Negative [facility] HCLL OTHER 01/13/2025 1:37 PM PROGRAM DIRECTOR CABLE TELEVISION 01/13/2025 1:47 PM PROGRAM DIRECTOR CABLE TELEVISION us Adalberto Ngo MD LAB BLOOD ORDERABLES Final Re sult MICHELLE [facility] Department [place] [address] [facility] * CT chest without contrast (12/30/2024 9:01 AM PROGRAM DIRECTOR CABLE TELEVISION) Anatomical Region Laterality Modality Body N/A Computed Tomogra phy 12/30/2024 9:29 AM PROGRAM DIRECTOR CABLE TELEVISION Impressions 12/30/2024 9:47 AM PROGRAM DIRECTOR CABLE TELEVISION 1. Unchanged spiculated microlobulated 1.1 cm right [...] Wood Whatley M.D. Narrative 12/30/2024 9:47 AM PROGRAM DIRECTOR CABLE TELEVISION EXAMINATION: Computed tomography of the chest without [...] by: Wood Whatley M.D. us Lukas Francis [employer] [place] IMG CT PROCEDURES Final Res ult * TYPE AND SCREEN 14 DAY (12/30/2024 8:47 AM PROGRAM DIRECTOR CABLE TELEVISION) ABO Rh A Negative Zohra, indirect Negative [facility] Blood 12/30/2024 8:47 AM PROGRAM DIRECTOR CABLE TELEVISION 12/30/2024 11:57 AM PROGRAM DIRECTOR CABLE TELEVISION Narrative [facility] - 12/30/2024 12:49 PM PROGRAM DIRECTOR CABLE TELEVISION Has the patient had Daratumumab or Isatuximab in the past 6 months?->Unknown Is this test being ordered in advance for a procedure?->Yes Expected date of procedure:->01/04/25 Has the patient been transfused in the past 3 months?->No Has the patient been in the past 3 months?->No us Cathy Jerez NP LAB BLOOD BANK TEST ORDER AMANDA Final Result [facility] Department [place] [address] * eGFR (12/30/2024 8:47 AM PROGRAM DIRECTOR CABLE TELEVISION) eGFR 79 >=60 mL/min/1. 73 m2 Comment: [...] last reviewed 2021. Blood 12/30/2024 8:47 AM PROGRAM DIRECTOR CABLE TELEVISION 12/30/2024 12:11 PM PROGRAM DIRECTOR CABLE TELEVISION Cathy Jerez [place] LAB BLOOD ORDERABLES Salma l Result Performing Organization Address [facility] Co de Phone Number [facility] Department [place] [address] * (ABNORMAL) CBC without differential (12/30/2024 8:47 AM PROGRAM DIRECTOR CABLE TELEVISION) Pathologist [facility] WBC 6.1 3.8 - 9.9 K/cumm Hgb [facility] Blood 12/30/2024 8:47 AM PROGRAM DIRECTOR CABLE TELEVISION 12/30/2024 11:54 AM PROGRAM DIRECTOR CABLE TELEVISION Cathy Jerez [place] LAB BLOOD ORDERABLES Salma l Result Performing Organization Address [facility]/ZIP Co de Phone Number [facility] Department [place] [address] * Basic metabolic panel (12/30/2024 8:47 AM PROGRAM DIRECTOR CABLE TELEVISION) Sodium 141 135 - 145 mmol/L Potassium, [...] 2022. Calcium 10.0 8.5 - 10.3 mg/dL [facility] Blood 12/30/2024 8:47 AM PROGRAM DIRECTOR CABLE TELEVISION 12/30/2024 11:55 AM PROGRAM DIRECTOR CABLE TELEVISION Cathy Jerez NP LAB BLOOD ORDERABLES Salma roy Result [facility] Department [place] [address] from Last 3 Months Insurance [employer] Advance Directives For more information, please contact: [phone] Documents on File Type Date Recorded Patient International Marketing Coordinator Expl anation ADVANCE DIRECTIVE 01/13/2025 1:36 PM Power of Bulk Clerk-Medical * Full Code (Latest Code Status on File) Date Activated Date Inactivated Comments 01/13/2025 8:21 PM 01/17/2025 5:31 PM Healthcare Agents on File Name Relationship Healthcare Agent Relationshi p Communication [place] Daughter Health Care Agent Care Teams Textile Chemist Relationship Specialty Start Date End Date Chino Mora MD PCP - General Family Practice 01/02/21 Kameron Jeff MD [address] [place] [address] Medical Oncologist/Solutions Analyst Medical Oncology 01/02/21 Kameron Jeff MD [address] [facility] [address] IM MEDICAL ONCOLOGY, [address] [place] [address] Medical Oncologist/Solutions Analyst Medical Oncology 04/28/24 Constantin Kumar MD [address] [facility] [address] [place] [address] Medical Oncologist/Solutions Analyst Medical Oncology 02/01/25
--- OUTSIDE RECORDS SUMMARY | 2025-03-07 08:46 | XMS_ITS | Encounter Summary ---
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 Gender Identity Not on file Sexual Orientation [...] on filedocumented in this encounter Care Teams Water Maintenance Supervisor Relationship Specialty Start Date End Date Chino Mora MD PCP - General Family Practice 01/02/21 Kameron Jeff MD [address] [place] [address] Medical Oncologist/Drawing Hand Medical Oncology 01/02/21 Kameron Jeff MD [address] DIV MEDICAL ONCOLOGY, [address] [place] [address] Medical Oncologist/Drawing Hand Medical Oncology 04/28/24 Constantin Kumar MD [address] [place] [address] Medical Oncologist/Drawing Hand Medical Oncology 02/01/25 documented as of this encounter
--- OUTSIDE RECORDS SUMMARY | 2025-03-07 08:46 | XMS_ITS | Referral Summary ---
Author Organization [facility] Address [address] [place] [address] Care Team Providers Care Specialty Trimmer Name Role Phone Chino Mora MD Primary Care Provider Kameron Jeff MD Unavailable Kameron Jeff MD Unavailable Constantin Kumar MD Unavailable [phone] Encounters Date Type Department Care Team Description 03/01/2025 Telephone [facility] [address] [place] [phone] Radha White RN 03/01/2025 Documentation [facility] [address] [place] [phone] Alla Schreiber, A 02/28/2025 Documentation [facility] [address] [place] [address] 6 [place] [address] Alla Schreiber, RMA 02/28/2025 Telephone [facility] [address] [place] [address] 6 [place] [address] Radha White RN 02/25/2025 Telephone [facility] [address] [place] [address] 6 [place] [phone] Maggie Peralta RN 02/24/2025 Orders Only [facility] [address] [place] [address] 6 [place] [address] Constantin Kumar MD SIADH (syndrome of inappropriate ADH production) (Primary Dx) 02/24/2025 Telephone [facility] [address] [place] [address] 6 [place] [address] Radha White, MAIKOL 02/23/2025 Documentation [facility] [address] [place] [address] 6 [place] [address] Alla Schreiber, [facility] 02/23/2025 Documentation [facility] [address] [place] [address] 6 [place] [address] Alla Schreiber, A 02/16/2025 12:30 PM CDT Lab [facility] - Lab Collection [address] [place] [address] Floor 6 [place] [address] Extranodal marginal zone B-cell lymphoma 02/16/2025 12:00 PM CDT Lab [facility] Lab [address] [place] [address] 6 [place] [address] 02/16/2025 1:00 PM CDT Office Visit [facility] [address] [place] [address] 6 [place] [address] Constantin Kumar MD Extranodal marginal zone B-cell lymphoma (Primary Dx); Lymphoma involving lung (HCC); Anemia, unspecified type 02/01/2025 11:00 AM CDT Office Visit [facility] Surgery [address] [place] [address] Floor 5 [place] [address] Adalberto Ngo MD Lymphoma involving lung (HCC) (Primary Dx) 01/13/2025 9:56 AM WAITER/WAITRESS TOURIST CLASS - 01/17/2025 1:31 PM CDT Hospital Encounter [facility] [address] [place] [address] Adalberto Ngo MD Lung nodule Discharge Disposition: Discharge to home or self care 01/14/2025 Orders Only [facility] Floor 5 [place] [address] Adalberto Ngo MD Lung nodule (Primary Dx) 01/13/2025 1:05 PM WAITER/WAITRESS TOURIST CLASS - 01/13/2025 6:15 PM WAITER/WAITRESS TOURIST CLASS Surgery [facility] Operating Room [address] [place] [address] Adalberto Ngo MD XI ROBOTIC LOBECTOMY RIGHT LOWER LOBE 01/13/2025 1:53 PM WAITER/WAITRESS TOURIST CLASS Anesthesia Event [facility] Operating Room [address] [place] [address] Halima Olson MD [place], Andrea J., NP 01/12/2025 Telephone [facility] Surgery [address] [place] [address] Floor 5 [place] [phone] Lukas Francis NP 12/30/2024 Orders Only [facility] Surgery [address] [place] [address] 5 [place] [address] Lukas Francis NP Gingivitis (Primary Dx) 12/30/2024 8:30 AM WAITER/WAITRESS TOURIST CLASS Lab [facility] [address] [place] [address] [address] [place] [address] Preoperative testing 12/30/2024 8:01 AM WAITER/WAITRESS TOURIST CLASS - 12/30/2024 11:59 PM WAITER/WAITRESS TOURIST CLASS Hospital Encounter [facility] Radiology at [facility] for [facility] [address] [place] [address] Lung nodule Discharge Disposition: Discharge to home or self care 12/30/2024 8:00 AM WAITER/WAITRESS TOURIST CLASS Pre-Admission Testing [facility] Pre Anesthesia Testing [address] [place] [address] Preoperative testing (Primary Dx) 12/10/2024 Telephone [facility] [address] [place] [address] Leatha Ferro RN from Last 3 Months Allergies Active Allergy [...] hypertension Administer 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 eyes first helper before breakfast 0 Active hydroCHLOROthiaz kaden (HYDRODIURIL) [...] (02/09/2019 12:19 PM CDT): DR Rivero in [facility] evaluating Vitreous syneresis of both eyes 02/09/2019 [...] on file Legal Sex Female 11:57 PM WAITER/WAITRESS TOURIST CLASS Gender Identity Not on file Sexual Orientation [...] Height 152.4 cm (5') 01/13/2025 8:25 PM WAITER/WAITRESS TOURIST CLASS Body Mass Index 24.57 01/13/2025 8:25 PM WAITER/WAITRESS TOURIST CLASS Plan of Treatment Not on file Procedures [...] AM CDT EGFR Timed 01/15/2025 11:18 PM WAITER/WAITRESS TOURIST CLASS BASIC METABOLIC PANEL Timed 01/15/2025 11:18 PM WAITER/WAITRESS TOURIST CLASS SODIUM, URINE, RANDOM Routine 01/15/2025 9:10 PM WAITER/WAITRESS TOURIST CLASS OSMOLALITY, BLOOD Timed 01/15/2025 9:0 9 PM WAITER/WAITRESS TOURIST CLASS PEP THERAPY Routine 01/15/2025 8:00 PM WAITER/WAITRESS TOURIST CLASS URINALYSIS, MICROSCOPIC ONLY Routine 01/15/2025 6:55 PM WAITER/WAITRESS TOURIST CLASS URINALYSIS AND REFLEX TO MICROSCOPIC AND CULTURE Routine 01/15/2025 6:55 PM WAITER/WAITRESS TOURIST CLASS EGFR Timed 01/15/2025 6:28 PM WAITER/WAITRESS TOURIST CLASS PHOSPHORUS Timed 01/15/2025 6:28 PM WAITER/WAITRESS TOURIST CLASS MAGNESIUM Timed 01/15/2025 6:28 PM WAITER/WAITRESS TOURIST CLASS BASIC METABOLIC PANEL Timed 01/15/2025 6:28 PM WAITER/WAITRESS TOURIST CLASS CBC WITHOUT DIFFERENTIAL Timed 01/15/2025 6:28 PM WAITER/WAITRESS TOURIST CLASS XR CHEST PA LATERAL 2 VIEWS Timed 01/15/2025 4:29 PM WAITER/WAITRESS TOURIST CLASS PEP THERAPY Routine 01/15/2025 3:39 PM WAITER/WAITRESS TOURIST CLASS PEP THERAPY Routine 01/15/2025 3:39 PM WAITER/WAITRESS TOURIST CLASS PEP THERAPY Routine 01/15/2025 3:39 PM WAITER/WAITRESS TOURIST CLASS RESPIRATORY PATHOGEN PANEL Routine 01/15/2025 1:18 PM WAITER/WAITRESS TOURIST CLASS CHEST PHYSIO THERAPY Routine 01/15/2025 11:01 AM WAITER/WAITRESS TOURIST CLASS XR CHEST 1 VIEW IP Routine 01/15/2025 5:07 AM WAITER/WAITRESS TOURIST CLASS EGFR Routine 01/14/2025 8:34 PM WAITER/WAITRESS TOURIST CLASS CBC WITHOUT DIFFERENTIAL Routine 01/14/2025 8:34 PM WAITER/WAITRESS TOURIST CLASS BASIC METABOLIC PANEL Routine 01/14/2025 8:34 PM WAITER/WAITRESS TOURIST CLASS ECG 12-LEAD Routine 01/14/2025 11:55 AM WAITER/WAITRESS TOURIST CLASS EGFR Timed 01/13/2025 8:46 PM WAITER/WAITRESS TOURIST CLASS BASIC METABOLIC PANEL Timed 01/13/2025 8:46 PM WAITER/WAITRESS TOURIST CLASS CBC WITHOUT DIFFERENTIAL Timed 01/13/2025 8:46 PM WAITER/WAITRESS TOURIST CLASS XR CHEST 1 VIEW ED Urgent/IP Urgent 01/13/2025 6:35 PM WAITER/WAITRESS TOURIST CLASS CYTOGENETICS Routine 01/13/2025 5:02 PM WAITER/WAITRESS TOURIST CLASS SURGICAL PATHOLOGY Routine 01/13/2025 2: 59 PM WAITER/WAITRESS TOURIST CLASS Lung nodule PERIPHERAL LINE Routine 01/13/2025 2:28 PM WAITER/WAITRESS TOURIST CLASS ANESTHESIA INTUBATION Routine 01/13/2025 2:25 PM WAITER/WAITRESS TOURIST CLASS XI ROBOTIC LOBECTOMY 01/13/2025 1:55 PM WAITER/WAITRESS TOURIST CLASS Lung nodule B CHECK SAMPLE STAT 01/13/2025 1:37 PM WAITER/WAITRESS TOURIST CLASS CT CHEST WO CONTRAST Schedule PURA, Read PURA (Appt Today, Awaiting Results) 12/30/2024 9:01 AM WAITER/WAITRESS TOURIST CLASS Lung nodule EGFR Routine 12/30/2024 8:47 AM WAITER/WAITRESS TOURIST CLASS Preoperative testing BASIC METABOLIC PANEL Routine 12/30/2024 8:47 AM WAITER/WAITRESS TOURIST CLASS Preoperative testing CBC WITHOUT DIFFERENTIAL Routine 12/30/2024 8:47 AM WAITER/WAITRESS TOURIST CLASS Preoperative testing TYPE AND SCREEN 14 DAY Routine 12/30/2024 8:47 AM WAITER/WAITRESS TOURIST CLASS Preoperative testing from Last 3 Months Results * Immunotyping, serum with interpretation (02/16/2025 11:58 AM CDT) Immunosubtraction Please see comment Comment: NO PARAPROTEIN DETECTED Reviewed and signed by Matthew Coffman MD, PhD 02/18/2025 Blood 02/16/2025 11:5 8 AM CDT 02/16/2025 4:31 PM CDT Narrative [facility] - 02/19/2025 8:55 AM CDT Reflex Immunotyping, Ser Heather Rene TATTOOER LAB BLOOD ARI ANDERS Final Result [facility] One [facility] Department of Laboratories [place], [place] [id number] * (ABNORMAL) eGFR (02/16/2025 11:58 AM CDT) [...] NP LAB BLOOD ARI ANDERS Final Result [facility] One [facility] [place] [address] * (ABNORMAL) Differential, auto (02/16/2025 11:58 AM CDT) Neutrophil abs 7.85(H) 1.50 - 6.50 K/cumm Comment:Testing performed by : [facility], [address] [place] [address] Lymphocyte abs 2.28 0.80 - 3.30 K/cumm [facility] Comment:Testing performed by : [facility], [address] [place] [address] Monocyte abs 0.74 0.20 - 0.80 K/cumm [facility] Comment:Testing performed by : [facility], [address] [place] [address] Eosinophil abs 0.01 0.00 - 0.50 K/cumm [facility] Comment:Testing performed by : [facility], [address] [place] [address] Basophil abs 0.06 0.00 - 0.10 K/cumm [facility] Comment:Testing performed by : [facility], [address] [place] [phone] Neutrophil pct 71.8 % [facility] Comment: Interpretive Data Percent cell count reference ranges are not reported, since discordance with absolute values may lead to misinterpretation of CBC data. Current Interpretive Data was last revised on 2018. Testing performed by: [facility], [address] [place] [phone] Lymphocyte pct 20.8 % [facility] Comment: Interpretive Data Percent cell count reference ranges are not reported, since discordance with absolute values may lead to misinterpretation of CBC data. Current Interpretive Data was last revised on 2018. Testing performed by: [facility], [address] [place] [phone] Monocyte pct 6.7 % [facility] Comment: Interpretive Data Percent cell count reference ranges are not reported, since discordance with absolute values may lead to misinterpretation of CBC data. Current Interpretive Data was last revised on 2018. Testing performed by: [facility], [address] [place] [phone] Eosinophil pct 0.1 % [facility] Comment: Interpretive Data Percent cell count reference ranges are not reported, since discordance with absolute values may lead to misinterpretation of CBC data. Current Interpretive Data was last revised on 2018. Testing performed by: [facility], [address] [place] [phone] Basophil pct 0.5 % [facility] Comment: Interpretive Data Percent cell count reference ranges are not reported, since discordance with absolute values may lead to misinterpretation of CBC data. Current Interpretive Data was last revised on 2018. Testing performed by: [facility], [address] [place] [phone] Blood 02/16/2025 11:5 8 AM CDT 02/16/2025 12:15 PM CDT us Heather Rene TATTOOER LAB BLOOD ORDAlicia ANDERS Final Result [facility] Department of Laboratories [place] [id number] * HIV 1/2 Antibody plus p24 Antigen Blood (02/16/2025 11:58 AM CDT) [facility] HIV 1/2 ab + p24 ag [...] GY - GENERAL ORDERABLES Final Result [facility] One [facility] [place] [address] * (ABNORMAL) CBC with auto differential (02/16/2025 11:58 AM CDT) [facility] WBC 10.93(H) 3.80 - 9.90 K/cumm Comment:Testing performed by : [facility], [address] [place] [address] Hgb 11.6(L) 11.9 - 15.5 g/dL [facility] Comment:Testing performed by : [facility], [address] [place] [address] Hct 34.7(L) 35.6 - 45.5 % [facility] Comment:Testing performed by : [facility], [address] [place] [address] Plt 208 150 - 400 K/cumm [facility] Comment:Testing performed by : [facility], [address] [place] [address] MPV 7.1 6.8 - 10.4 fL [facility] Comment:Testing performed by : [facility], [address] [place] [address] RBC 3.71(L) 3.90 - 5.20 M/cumm [facility] Comment:Testing performed by : [facility], [address] [place] [address] MCV 93.5 81.3 - 96.4 fL [facility] Comment:Testing performed by : [facility], [address] [place] [address] MCH 31.4 27.1 - 33.3 pg [facility] Comment:Testing performed by : [facility], [address] [place] [address] MCHC 33.5 32.3 - 35.7 g/dL [facility] Comment:Testing performed by : [facility], [address] [place] [address] RDW CV 16.5(H) 11.1 - 14.9 % [facility] Comment:Testing performed by : [facility], [address] [place] [address] NRBC abs 0.00 0.00 - 0.01 K/cumm [facility] Comment:Testing performed by : [facility], [address] [place] [address] Blood 02/16/2025 11:5 8 AM CDT 02/16/2025 12:15 PM CDT Heather Rene TATTOOER LAB BLOOD ARI ANDERS Final Result [facility] One [facility] [place] [address] * Hepatitis C antibody Blood (02/16/2025 11:58 AM CDT) Hep C Ab Nonreactive Nonreactive Comment:Antibodies to HCV no t detected. Does NOT exclude the possibility of recent exposure to HCV. Current interpretive data was last revised on 22 Blood 02/16/2025 11:5 8 AM CDT 02/16/2025 1:02 PM CDT Heather Rene TATTOOER LAB MICROBIOLO GY - GENERAL ORDERABLES Final Result [facility] [place] [address] * Hepatitis B core antibody, total Blood (02/16/2025 11:58 AM CDT) Hep B core IgG/IgM Nonreactive Nonreactive Blood 02/16/2025 11:5 8 AM CDT 02/16/2025 1:02 PM CDT Heather Lidia Rene TATTOOER LAB MICROBIOLO GY - GENERAL ORDERABLES Final Result Performing Organization Address [facility] de Phone Number [facility] [place] [address] * Hepatitis B surface antibody (immune status) Blood (02/16/2025 11:58 AM CDT) HBsAb (immune status) Nonreactive Comment:This result is consi stent with a lack of immunity to Hepatitis B Virus when used in the setting of routine screening. Current interpretative data was last revised on 22 Blood 02/16/2025 11:5 8 AM CDT 02/16/2025 1:02 PM CDT Heather Lidia Rene TATTOOER LAB MICROBIOLO GY - GENERAL ORDERABLES Final Result Performing Organization Address [facility] [place] [address] * Hepatitis B Surface Antigen Blood (02/16/2025 11:58 AM CDT) HepBsAg Nonreactive Nonreactive Blood 02/16/2025 11:5 8 AM CDT 02/16/2025 1:02 PM CDT Heather Rene TATTOOER LAB MICROBIOLO GY - GENERAL ORDERABLES Final Result Performing Organization Address City/[facility]/ZIP Co de Phone Number [facility] [place] [address] * (ABNORMAL) Protein electrophoresis with reflex, serum with interpretation (02/16/2025 11:58 AM CDT) Pathologist [facility] Protein, sr 8.5(H) 6.2 - 8.2 g/dL Albumin 4.4 3.2 - 5.0 g/dL [facility] Alpha-1 globulin 0.5(H) 0.2 - 0.4 g/dL [facility] Alpha-2 globulin 0.9 0.5 - 1.0 g/dL [facility] Beta-1 globulin 0.6 0.3 - 0.6 g/dL [facility] Beta-2 globulin 0.6 0.2 - 0.6 g/dL [facility] Gamma globulin 1.4 0.5 - 1.7 g/dL [facility] SPEP interp Please see comment [facility] Comment: Possible abnormal restricted peak in gamma region See immunotyping for further information Reviewed and signed by Matthew Coffman MD, PhD 02/18/2025 Immunotyping See Immunotyping Results [facility] Blood 02/16/2025 11:5 8 AM CDT 02/16/2025 1:41 PM CDT Heather Rene TATTOOER LAB BLOOD ORDE RABLES Final Result [facility] [place] [address] * Lactate dehydrogenase (LD) (02/16/2025 11:58 AM CDT) Pathologist [facility] Lactate dehydrogenase (LDH) 180 100 - 250 Units/L Blood 02/16/2025 11:5 8 AM CDT 02/16/2025 12:24 PM CDT Heather Murillo Ridgesixtoprabhu LAB BLOOD ORDE CHAGO Final Result Performing Organization Address [facility] Co de Phone Number MICHEL[facility] [place] [address] * (ABNORMAL) Beta 2 microglobulin, serum (02/16/2025 11:58 AM CDT) Pathologist [facility] Beta 2 Microglobulin, Serum 3.20(H) 1.00 - 2.50 mg/L Comment: Interpretive Data The Wang Beta-2 microglobulin assay procedure was used. Results from different manufacturers or methods may not be comparable. Serial testing should be performed using the same method. Blood 02/16/2025 11:5 8 AM CDT 02/16/2025 12:[address] [facility]rew[facility] LAB BLOOD ORDE CHAGO Final Result Performing Organization Address [facility] de Phone Number [facility] [place] [address] * (ABNORMAL) Comprehensive metabolic panel (02/16/2025 11:58 AM CDT) Pathologist [facility] Sodium 131(L) 135 - 145 mmol/L Potassium, pl 4.9 3.3 - 4.9 mmol/L [facility] Chloride 89(L) 97 - 110 mmol/L [facility] CO2 25 22 - 32 mmol/L [facility] Anion gap 17(H) 2 - 15 mmol/L [facility] BUN 18 6 - 25 mg/dL [facility] Creatinine 1.17(H) 0.60 - 1.10 mg/dL [facility] Glucose 123 70 - 199 mg/dL [facility] Comment: Interpretive Data Fasting glucose [...] Calcium 10.1 8.5 - 10.3 mg/dL [facility] Bilirubin, total 0.8 0.1 - 1.2 mg/dL [facility] Protein, pl 8.9(H) 6.5 - 8.5 g/dL [facility] Albumin 4.7 3.5 - 5.0 g/dL [facility] Alk phos 93 40 - 130 Units/L [facility] ALT 23 7 - 45 Units/L [facility] AST 21 10 - 45 Units/L [facility] Blood 02/16/2025 11:5 8 AM CDT 02/16/2025 12:24 PM CDT Heather Rene TATTOOER LAB BLOOD ORDAlicia ANDERS Final Result [facility] One [facility] [place] [address] * eGFR (01/15/2025 11:18 PM WAITER/WAITRESS TOURIST CLASS) eGFR 66 >=60 mL/min/1. 73 m2 Comment: [...] reviewed 2021. Blood 01/15/2025 11:1 8 PM WAITER/WAITRESS TOURIST CLASS 01/15/2025 11:40 PM WAITER/WAITRESS TOURIST CLASS Adalberto Ngo MD LAB BLOOD ORDERABLES Final Re sult [facility] One [facility] [place] [address] * (ABNORMAL) Basic metabolic panel (01/15/2025 11:18 PM WAITER/WAITRESS TOURIST CLASS) Sodium 138 135 - 145 mmol/L Potassium, pl 3.3 3.3 - 4.9 mmol/L [facility] Chloride 105 97 - 110 mmol/L [facility] Comment:Repeated and Verifie d CO2 24 22 - 32 mmol/L [facility] Anion gap 9 2 - 15 mmol/L [facility] Comment:Repeated and Verifie d BUN 20 6 - 25 mg/dL [facility] Creatinine 0.97 0.60 - 1.10 mg/dL [facility] Glucose 109 70 - 199 mg/dL [facility] Comment: Interpretive Data Fasting glucose [...] 7.6(L) 8.5 - 10.3 mg/dL [facility] Blood 01/15/2025 11:1 8 PM WAITER/WAITRESS TOURIST CLASS 01/15/2025 11:40 PM WAITER/WAITRESS TOURIST CLASS us Adalberto Ngo MD LAB BLOOD ORDERABLES Final Re sult Performing Organization Address [facility] Co de Phone Number [facility] [place] [address] * Sodium, urine, random (01/15/2025 9:10 PM WAITER/WAITRESS TOURIST CLASS) Sodium, ur <20 mmol/L Comment: Interpretive Data No reference range established. Current interpretive data was last revised 2019. Urine 01/15/2025 9:10 PM WAITER/WAITRESS TOURIST CLASS 01/15/2025 9:22 PM WAITER/WAITRESS TOURIST CLASS us Adalberto Ngo MD LAB URINE ORDERABLES Final Re sult Performing Organization Address [facility] [place] [address] * Osmolality, blood (01/15/2025 9:09 PM WAITER/WAITRESS TOURIST CLASS) Osmo 280 275 - 300 mOsm/kg Blood 01/15/2025 9:09 PM WAITER/WAITRESS TOURIST CLASS 01/15/2025 9:23 PM WAITER/WAITRESS TOURIST CLASS us Chris Khan MD LAB BLOOD ORDERABLES Final Resul t Performing Organization Address [facility] Co de Phone Number [facility] [place] [address] * (ABNORMAL) Urinalysis reflex to microscopic and culture Urine (01/15/2025 6:55 PM WAITER/WAITRESS TOURIST CLASS) Color, ur Straw Yellow Clarity, ur Clear Clear [facility] Specific gravity, ur 1.014 1.003 - 1.030 [facility] pH, urine 6.0 [facility] Comment: Interpretive Data U rine pH is affected by diet, medications, systemic acid-base disturbances, and renal tubular function. pH may affect urinary stone formation. For example, urine pH below 6.0 may help reduce the tendency for calcium phosphate stones and pH greater than 6.0 may reduce the tendency for uric acid stone formation. Source: [facility] Current Interpretive Data was last revised on 2017 Protein, ur ql 1+(A) Negative [facility] Glucose, ur ql Negative Negative [facility] Ketones, ur Negative Negative [facility] Bilirubin, ur Negative Negative [facility] Blood, ur Negative Negative [facility] Urobilinogen, ur <2.0 <2.0 mg/dL [facility] Nitrite, ur Negative Negative [facility] Leukocyte esterase, ur Negative Negative [facility] UA reflex comment Reflex to microscopic UA will be performed. [facility] Urine 01/15/2025 6:55 PM WAITER/WAITRESS TOURIST CLASS 01/15/2025 7:01 PM WAITER/WAITRESS TOURIST CLASS Adalberto Ngo MD LAB MICROBIOLOGY - GENERAL OR DERABLES Final Result Performing Organization Address [facility] Co de Phone Number [facility] [place] [address] * Urinalysis, microscopic only (01/15/2025 6:55 PM WAITER/WAITRESS TOURIST CLASS) WBC, ur 0-5 0 - 5 /HPF RBC, ur 0-2 0 - 2 /HPF [facility] Epithelial cells, squamous, ur 1-5 0 - 5 /HPF [facility] [facility] Culture Reflex Comment Reflex conditions for urine culture (WBC >10) not met. [facility] Urine 01/15/2025 6:55 PM WAITER/WAITRESS TOURIST CLASS 01/15/2025 7:01 PM WAITER/WAITRESS TOURIST CLASS Adalberto Ngo MD LAB URINE ORDERABLES Final Re sult Performing Organization Address [facility]/ZIP Co de Phone Number [facility] [place] [address] * (ABNORMAL) eGFR (01/15/2025 6:28 PM WAITER/WAITRESS TOURIST CLASS) eGFR 51(L) >=60 mL/min/1. 73 m2 Comment: [...] last reviewed 2021. Blood 01/15/2025 6:28 PM WAITER/WAITRESS TOURIST CLASS 01/15/2025 6:47 PM WAITER/WAITRESS TOURIST CLASS us Adalberto Ngo MD LAB BLOOD ORDERABLES Final Re sult [facility] One [facility] [place] [address] * (ABNORMAL) CBC without differential (01/15/2025 6:28 PM WAITER/WAITRESS TOURIST CLASS) WBC 10.4(H) 3.8 - 9.9 K/cumm Hgb 9.3(L) 11.9 - 15.5 g/dL [facility] Hct 27.7(L) 35.6 - 45.5 % [facility] Plt 165 150 - 400 K/cumm [facility] MPV 9.4 9.1 - 12.3 fL [facility] RBC 2.75(L) 3.90 - 5.20 M/cumm [facility] MCV 100.7(H) 81.3 - 96.4 fL [facility] MCH 33.8(H) 27.1 - 33.3 pg [facility] MCHC 33.6 32.3 - 35.7 g/dL [facility] RDW CV 13.7 11.1 - 14.9 % [facility] RDW SD 50.2(H) 35.7 - 48.1 fL [facility] NRBC abs 0.00 0.00 - 0.01 K/cumm [facility] Blood 01/15/2025 6:28 PM WAITER/WAITRESS TOURIST CLASS 01/15/2025 6:47 PM WAITER/WAITRESS TOURIST CLASS Adalberto Ngo MD LAB BLOOD ORDERABLES Final Re sult Performing Organization Address City/[facility] Co de Phone Number [facility] [place] [address] * Phosphorus (01/15/2025 6:28 PM WAITER/WAITRESS TOURIST CLASS) Pathologist [facility] Phosphorus, pl 2.7 2.3 - 4.5 mg/dL Blood 01/15/2025 6:28 PM WAITER/WAITRESS TOURIST CLASS 01/15/2025 6:47 PM WAITER/WAITRESS TOURIST CLASS Adalberto Ngo MD LAB BLOOD ORDERABLES Final Re sult Performing Organization Address [facility] de Phone Number [facility] [place] [address] * Magnesium (01/15/2025 6:28 PM WAITER/WAITRESS TOURIST CLASS) Pathologist [facility] Magnesium 1.7 1.4 - 2.5 mg/dL Blood 01/15/2025 6:28 PM WAITER/WAITRESS TOURIST CLASS 01/15/2025 6:47 PM WAITER/WAITRESS TOURIST CLASS Adalberto Ngo MD LAB BLOOD ORDERABLES Final Re sult Performing Organization Address [facility] de Phone Number [facility] [place] [address] * (ABNORMAL) Basic metabolic panel (01/15/2025 6:28 PM WAITER/WAITRESS TOURIST CLASS) Sodium 130(L) 135 - 145 mmol/L Potassium, pl 4.0 3.3 - 4.9 mmol/L [facility] Chloride 94(L) 97 - 110 mmol/L [facility] CO2 25 22 - 32 mmol/L [facility] Anion gap 11 2 - 15 mmol/L [facility] BUN 23 6 - 25 mg/dL [facility] Creatinine 1.19(H) 0.60 - 1.10 mg/dL [facility] Glucose 140 70 - 199 mg/dL [facility] Comment: Interpretive Data Fasting glucose [...] 2022. Calcium 8.6 8.5 - 10.3 mg/dL [facility] Blood 01/15/2025 6:28 PM WAITER/WAITRESS TOURIST CLASS 01/15/2025 6:47 PM WAITER/WAITRESS TOURIST CLASS us Adalberto Ngo MD LAB BLOOD ORDERABLES Final Re sult [facility] One [facility] [place] [address] * XR Chest Pa Lateral 2 Views (01/15/2025 4:29 PM WAITER/WAITRESS TOURIST CLASS) Anatomical Region Laterality Modality Body, Chest N/A Computed Radiogr aphy 01/15/2025 10:0 8 PM WAITER/WAITRESS TOURIST CLASS Impressions 01/15/2025 10:08 PM WAITER/WAITRESS TOURIST CLASS There has been removal of a right-sided chest tube. 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 There is persistent elevation of the right hemidiaphragm. There is a new small right pleural effusion with increased right basilar atelectasis. No pneumothorax is identified. The cardiomediastinal silhouette is unchanged. Electronically signed by: Luis F Kinght M.D. Narrative 01/15/2025 10:08 PM WAITER/WAITRESS TOURIST CLASS EXAMINATION: XR CHEST PA LATERAL 2 VIEWS [...] Respiratory pathogen panel Nasopharyngeal (01/15/2025 1:18 PM WAITER/WAITRESS TOURIST CLASS) Influenza A RNA Not Detected Not Detected Influenza B RNA Not Detected Not Detected [facility] RSV RNA Not Detected Not Detected [facility] COVID-19 RNA Not Detected Not Detected [facility] Coronavirus 229E RNA Not Detected Not Detected [facility] Coronavirus HKU1 RNA Not Detected Not Detected [facility] Coronavirus NL63 RNA Not Detected Not Detected [facility] Coronavirus OC43 RNA Not Detected Not Detected [facility] Adenovirus DNA Not Detected Not Detected [facility] Metapneumovirus RNA Not Detected Not Detected [facility] Rhinovirus/Enterov irus RNA Not Detected Not Detected [facility] Parainfluenza 1 RNA Not Detected Not Detected [facility] Parainfluenza 2 RNA Not Detected Not Detected [facility] Parainfluenza 3 RNA Not Detected Not Detected [facility] Parainfluenza 4 RNA Not Detected Not Detected [facility] B. pertussis DNA Not Detected Not Detected [facility] B. parapertussis DNA Not Detected Not Detected [facility] C. pneumoniae DNA Not Detected Not Detected [facility] M. pneumoniae DNA Not Detected Not Detected [facility] Nasopharyngeal 01/15/2025 1: 18 PM WAITER/WAITRESS TOURIST CLASS 01/15/2025 1:47 PM WAITER/WAITRESS TOURIST CLASS Ephraim MARTINEZ BJ - 01/15/2025 2:53 PM WAITER/WAITRESS TOURIST CLASS Is the Patient experiencing symptoms consistent with COVID?->No Surveillance testing for transplant patient?->No Interpretive Data The [place] FilmArray Respiratory Panel (RP2.1) assay is a [...] assay has FDA clearance for testing of TATTOOER swabs. The performance of additional specimen types has been assessed by the performing laboratory. The performance characteristics of this assay have been determined by [facility]. Current interpretive data was last revised on 22. us Adalberto Ngo MD LAB MICROBIOLOGY - GENERAL OR DERABLES Final Result [facility] One [facility] [place] [address] * XR Chest 1 View (01/15/2025 5:07 AM WAITER/WAITRESS TOURIST CLASS) Anatomical Region Laterality Modality Body, Chest N/A Digital Radiogra phy 01/15/2025 7:40 AM WAITER/WAITRESS TOURIST CLASS Impressions 01/15/2025 7:50 AM WAITER/WAITRESS TOURIST CLASS The current study is compared with the [...] Geetha Ross M.D. Narrative 01/15/2025 7:50 AM WAITER/WAITRESS TOURIST CLASS EXAMINATION: 1 view chest radiograph Procedure Note [...] Result * (ABNORMAL) eGFR (01/14/2025 8:34 PM WAITER/WAITRESS TOURIST CLASS) eGFR 42(L) >=60 mL/min/1. 73 m2 Comment: [...] last reviewed 2021. Blood 01/14/2025 8:34 PM WAITER/WAITRESS TOURIST CLASS 01/14/2025 8:40 PM WAITER/WAITRESS TOURIST CLASS us Jeimy Jones NP LAB BLOOD ORDERABLES Fi nal Result [facility] One [facility] [place] [address] * (ABNORMAL) CBC without differential (01/14/2025 8:34 PM WAITER/WAITRESS TOURIST CLASS) [facility] WBC 9.7 3.8 - 9.9 K/cumm Hgb 9.8(L) 11.9 - 15.5 g/dL [facility] Hct 29.9(L) 35.6 - 45.5 % [facility] Plt 144(L) 150 - 400 K/cumm [facility] MPV 9.4 9.1 - 12.3 fL [facility] RBC 2.95(L) 3.90 - 5.20 M/cumm [facility] MCV 101.4(H) 81.3 - 96.4 fL [facility] MCH 33.2 27.1 - 33.3 pg [facility] MCHC 32.8 32.3 - 35.7 g/dL [facility] RDW CV 14.1 11.1 - 14.9 % [facility] RDW SD 51.8(H) 35.7 - 48.1 fL [facility] NRBC abs 0.00 0.00 - 0.01 K/cumm [facility] Blood 01/14/2025 8:34 PM WAITER/WAITRESS TOURIST CLASS 01/14/2025 8:40 PM WAITER/WAITRESS TOURIST CLASS Jeimy Jones TATTOOER LAB BLOOD ORDERABLES nal Result [facility] One [facility] [place] [address] * (ABNORMAL) Basic metabolic panel (01/14/2025 8:34 PM WAITER/WAITRESS TOURIST CLASS) [facility] Sodium 133(L) 135 - 145 mmol/L Potassium, pl 4.2 3.3 - 4.9 mmol/L [facility] Chloride 97 97 - 110 mmol/L [facility] CO2 25 22 - 32 mmol/L [facility] Anion gap 11 2 - 15 mmol/L [facility] BUN 21 6 - 25 mg/dL [facility] Creatinine 1.40(H) 0.60 - 1.10 mg/dL [facility] Glucose 141 70 - 199 mg/dL [facility] Comment: Interpretive Data Fasting glucose [...] 9.0 8.5 - 10.3 mg/dL [facility] Blood 01/14/2025 8:34 PM WAITER/WAITRESS TOURIST CLASS 01/14/2025 8:40 PM WAITER/WAITRESS TOURIST CLASS us Jeimy Jones NP LAB BLOOD ORDERABLES Fi nal Result Performing Organization Address [facility] Co de Phone Number [facility] One [facility] [place] [address] * ECG 12 lead (01/14/2025 11:55 AM WAITER/WAITRESS TOURIST CLASS) Ventricular Rate EKG/Min 85 BPM [facility] Atrial Rate 85 BPM [facility] ME-Interval (MSEC) 178 ms [facility] QRS-Interval (MSEC) 78 ms [facility] QT-Interval (MSEC) 382 ms [facility] QTc 454 ms [facility] P [place] 52 degrees [facility] R [place] 41 degrees [facility] T [place] 35 degrees [facility] Diagnosis Normal sinus rhythm Low voltage QRS Nonspecific ST abnormality Abnormal ECG No previous ECGs available Confirmed by LORENZO REYES M.D ([id number]) on 01/17/2025 7:21:58 PM [facility] 01/14/2025 11:5 5 AM WAITER/WAITRESS TOURIST CLASS 01/17/2025 7:21 PM CDT Jeimy Jones NP ECG ORDERABLES Final R esult Performing Organization Address [facility]/State/ZIP Co de Phone Number [facility] * eGFR (01/13/2025 8:46 PM WAITER/WAITRESS TOURIST CLASS) eGFR 79 >=60 mL/min/1. 73 m2 Comment: [...] last reviewed 2021. Blood 01/13/2025 8:46 PM WAITER/WAITRESS TOURIST CLASS 01/13/2025 8:58 PM WAITER/WAITRESS TOURIST CLASS us Adalberto Ngo MD LAB BLOOD ORDERABLES Final Re sult [facility] One [facility] [place] [address] * (ABNORMAL) CBC without differential (01/13/2025 8:46 PM WAITER/WAITRESS TOURIST CLASS) Pathologist [facility] WBC 8.6 3.8 - 9.9 K/cumm Hgb 10.6(L) 11.9 - 15.5 g/dL [facility] Hct 32.5(L) 35.6 - 45.5 % [facility] Plt 144(L) 150 - 400 K/cumm [facility] MPV 9.4 9.1 - 12.3 fL [facility] RBC 3.23(L) 3.90 - 5.20 M/cumm [facility] MCV 100.6(H) 81.3 - 96.4 fL [facility] MCH 32.8 27.1 - 33.3 pg [facility] MCHC 32.6 32.3 - 35.7 g/dL [facility] RDW CV 14.2 11.1 - 14.9 % [facility] RDW SD 51.8(H) 35.7 - 48.1 fL [facility] NRBC abs 0.00 0.00 - 0.01 K/cumm [facility] Blood 01/13/2025 8:46 PM WAITER/WAITRESS TOURIST CLASS 01/13/2025 8:58 PM WAITER/WAITRESS TOURIST CLASS us Adalberto Ngo MD LAB BLOOD ORDERABLES Final Re sult [facility] One [facility] [place] [address] * Basic metabolic panel (01/13/2025 8:46 PM WAITER/WAITRESS TOURIST CLASS) Sodium 138 135 - 145 mmol/L Potassium, pl 4.3 3.3 - 4.9 mmol/L [facility] Chloride 99 97 - 110 mmol/L [facility] CO2 25 22 - 32 mmol/L [facility] Anion gap 14 2 - 15 mmol/L [facility] BUN 17 6 - 25 mg/dL [facility] Creatinine 0.83 0.60 - 1.10 mg/dL [facility] Glucose 163 70 - 199 mg/dL [facility] Comment: Interpretive Data Fasting glucose [...] 9.0 8.5 - 10.3 mg/dL [facility] Blood 01/13/2025 8:46 PM WAITER/WAITRESS TOURIST CLASS 01/13/2025 8:58 PM WAITER/WAITRESS TOURIST CLASS Adalberto Ngo MD LAB BLOOD ORDERABLES Final Re sult [facility] [place] [address] * XR Chest 1 View - in ICU (01/13/2025 6:35 PM WAITER/WAITRESS TOURIST CLASS) Anatomical Region Laterality Modality Body, Chest N/A Digital Radiogra phy 01/14/2025 9:57 AM WAITER/WAITRESS TOURIST CLASS Impressions 01/14/2025 2:16 PM WAITER/WAITRESS TOURIST CLASS Findings of right lower lobectomy. Right chest [...] Supa Vu M.D. Narrative 01/14/2025 2:16 PM WAITER/WAITRESS TOURIST CLASS EXAMINATION: XR CHEST 1 VIEW HISTORY: postop [...] Resul t * Cytogenetics (01/13/2025 5:02 PM WAITER/WAITRESS TOURIST CLASS) Miscellaneous 01/13/2025 5:0 2 PM WAITER/WAITRESS TOURIST CLASS 01/20/2025 2:09 PM CDT Narrative 01/24/2025 4:35 PM CDT EPIC results best viewed via link to PDF [facility] Department of Pathol [facility] [place] [address] Patient Information Name: AP LAND Gender: F : 1960 (Age: 64) Tissue: FFPE FISH Visit Information Hospital #: [id number] Facility: [facility] Service: [facility] Location: [place] [address] Patient Type: [facility] Inpatient Specimen Information: Culture #: [id number] Date Collected: 01/13/2025 Date Accessioned: 01/21/2025 Date [...] Fluorescence In-situ hybridization (FISH) Results: Specimen # [id number] I5 POSITIVE - FISH result for IGH gene rearrangement nuc bindu (3'IGHx2~3,5'IGHx2~3)(3'IGH con 5'IGH)x1[35/200]/(3'IGHx1,5'IGHx1~2)(3'IGH con 5'IGH)x0[3/200] Chromosome analysis and Fluorescence In Situ Hybridization (FISH) analysis are performed using the [employer]is[employer] Imaging System. Comments IGH -BA FISH FISH was performed utilizing Vysis IGH (14q32) Dual Color, Break Apart Rearrangement probe set ([employer], [place], [place]). 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 The above test was developed and its performance characteristics determined by [facility] [employer] [facility]. It has not [...] ult * Surgical pathology (01/13/2025 2:59 PM WAITER/WAITRESS TOURIST CLASS) Tissue specimen (specimen) (Lymph Node, Single excision) 01/13/2025 2:59 PM WAITER/WAITRESS TOURIST CLASS Tissue specimen (specimen) (Lymph node, dissection/region al resection) 01/13/2025 3:22 PM WAITER/WAITRESS TOURIST CLASS Tissue specimen (specimen) (Lymph node, dissection/region al resection) 01/13/2025 3:26 PM WAITER/WAITRESS TOURIST CLASS Tissue specimen (specimen) (Lymph Node, Single excision) 01/13/2025 3:27 PM WAITER/WAITRESS TOURIST CLASS Tissue specimen (specimen) (Lymph Node, Single excision) 01/13/2025 3:30 PM WAITER/WAITRESS TOURIST CLASS Tissue specimen (specimen) (Lymph Node, Single excision) 01/13/2025 3:43 PM WAITER/WAITRESS TOURIST CLASS Tissue specimen (specimen) (Lymph Node, Single excision) 01/13/2025 3:58 PM WAITER/WAITRESS TOURIST CLASS Tissue specimen (specimen) (Lymph Node, Single excision) 01/13/2025 4:41 PM WAITER/WAITRESS TOURIST CLASS Tissue specimen (specimen) (Lung, total / lobe / segmental, tumor) 01/13/2025 5:02 PM WAITER/WAITRESS TOURIST CLASS Narrative PATHOLOGY [facility] - 01/24/2025 5:24 PM CDT EPIC results best viewed via link to PDF [facility] Renee Castillo Laboratory of Surgical Pathology [facility] [place] [address] Note to Patients: This report may contain [...] Gender: F : 1960 (Age: 64) Address: [address] [place] [id number] Hospital #: [id number] Taken:01/13/2025 Received:01/14/2025 Reported: 01/24/2025 Patient Type: [facility] Inpatient Service: Cardiothoracic Location: [place] [address] Physician(s): Rafael Ortega MD [employer], [...] Surgical Pathology and Flow Cytometry Departments at [facility] as part of an ongoing quality auditor program and in compliance with federally mandated [...] Surgical Pathology and Flow Cytometry Departments of [facility]. It has not been cleared or approved by the U. S. Food and Drug Administration. IMAGES AND SCANNED DOCUMENTS, IF INCLUDED, ONLY VIEWABLE IN PDF VERSION OF REPORT Adalberto Ngo MD LAB PATHOLOGY ORDERABLES Salma l Result PATHOLOGY [facility] 3rd Floor [place], [place] [phone] * Peripheral IV Catheter (01/13/2025 2:28 PM WAITER/WAITRESS TOURIST CLASS) Monie Main MD - 01/13/2025 2:28 PM WAITER/WAITRESS TOURIST CLASS Monie Segura MD 01/13/2025 2:39 PM Peripheral [...] Final Result * Airway (01/13/2025 2:25 PM WAITER/WAITRESS TOURIST CLASS) Monie Main MD - 01/13/2025 2:25 PM WAITER/WAITRESS TOURIST CLASS Monie Segura MD 01/13/2025 2:37 PM Airway [...] Result * Check Sample (01/13/2025 1:37 PM WAITER/WAITRESS TOURIST CLASS) ABO Rh A Negative [facility] OTHER 01/13/2025 1:37 PM WAITER/WAITRESS TOURIST CLASS 01/13/2025 1:47 PM WAITER/WAITRESS TOURIST CLASS us Adalberto Ngo MD LAB BLOOD ORDERABLES Final Re sult [facility] One [facility] [place] [address] [facility] * CT chest without contrast (12/30/2024 9:01 AM WAITER/WAITRESS TOURIST CLASS) Anatomical Region Laterality Modality Body N/A Computed Tomogra phy 12/30/2024 9:29 AM WAITER/WAITRESS TOURIST CLASS Impressions 12/30/2024 9:47 AM WAITER/WAITRESS TOURIST CLASS 1. Unchanged spiculated microlobulated 1.1 cm right [...] Wood Whatley M.D. Narrative 12/30/2024 9:47 AM WAITER/WAITRESS TOURIST CLASS EXAMINATION: Computed tomography of the chest without [...] signed by: Wood Whatley M.D. Lukas Francis TATTOOER IMG CT PROCEDURES Final Res ult * TYPE AND SCREEN 14 DAY (12/30/2024 8:47 AM WAITER/WAITRESS TOURIST CLASS) Pathologist [facility] ABO Rh A Negative Zohra, indirect Negative [facility] Blood 12/30/2024 8:47 AM WAITER/WAITRESS TOURIST CLASS 12/30/2024 11:57 AM WAITER/WAITRESS TOURIST CLASS Narrative [facility] - 12/30/2024 12:49 PM WAITER/WAITRESS TOURIST CLASS Has the patient had Daratumumab or Isatuximab in the past 6 months?->Unknown Is this test being ordered in advance for a procedure?->Yes Expected date of procedure:->01/04/25 Has the patient been transfused in the past 3 months?->No Has the patient been in the past 3 months?->No Cathy Jerez TATTOOER LAB BLOOD BANK TEST ORDER AMANDA Final Result [facility] One [facility] [place] [address] * eGFR (12/30/2024 8:47 AM WAITER/WAITRESS TOURIST CLASS) eGFR 79 >=60 mL/min/1. 73 m2 Comment: [...] last reviewed 2021. Blood 12/30/2024 8:47 AM WAITER/WAITRESS TOURIST CLASS 12/30/2024 12:11 PM WAITER/WAITRESS TOURIST CLASS us Cathy Jerez TATTOOER LAB BLOOD ORDERABLES Salma roy Result [facility] One [facility] [place] [address] * (ABNORMAL) CBC without differential (12/30/2024 8:47 AM WAITER/WAITRESS TOURIST CLASS) WBC 6.1 3.8 - 9.9 K/cumm Hgb 11.4(L) 11.9 - 15.5 g/dL [facility] Hct 35.1(L) 35.6 - 45.5 % [facility] Plt 158 150 - 400 K/cumm [facility] MPV 9.6 9.1 - 12.3 fL [facility] RBC 3.45(L) 3.90 - 5.20 M/cumm [facility] MCV 101.7(H) 81.3 - 96.4 fL [facility] MCH 33.0 27.1 - 33.3 pg [facility] MCHC 32.5 32.3 - 35.7 g/dL [facility] RDW CV 14.4 11.1 - 14.9 % [facility] RDW SD 53.6(H) 35.7 - 48.1 fL [facility] NRBC abs 0.00 0.00 - 0.01 K/cumm [facility] Blood 12/30/2024 8:47 AM WAITER/WAITRESS TOURIST CLASS 12/30/2024 11:54 AM WAITER/WAITRESS TOURIST CLASS Cathy Jerez TATTOOER LAB BLOOD ORDERABLES Salma l Result Performing Organization Address City/[facility]/ZIP Co de Phone Number [facility] [place] [address] * Basic metabolic panel (12/30/2024 8:47 AM WAITER/WAITRESS TOURIST CLASS) [facility] Sodium 141 135 - 145 mmol/L Potassium, pl 4.2 3.3 - 4.9 mmol/L [facility] Chloride 102 97 - 110 mmol/L [facility] CO2 27 22 - 32 mmol/L [facility] Anion gap 12 2 - 15 mmol/L [facility] BUN 19 6 - 25 mg/dL [facility] Creatinine 0.83 0.60 - 1.10 mg/dL [facility] Glucose 104 70 - 199 mg/dL [facility] Comment: Interpretive Data Fasting glucose [...] 10.0 8.5 - 10.3 mg/dL [facility] Blood 12/30/2024 8:47 AM WAITER/WAITRESS TOURIST CLASS 12/30/2024 11:55 AM WAITER/WAITRESS TOURIST CLASS Cathy Jerez TATTOOER LAB BLOOD ORDERABLES Salma l Result Performing Organization Address City/[facility]/ZIP Co de Phone Number [facility] [place] [address] from Last 3 Months Insurance [employer] Advance Directives For more information, please contact: [phone] Documents on File Type Date Recorded Patient Customer Support Analyst Expl anation ADVANCE DIRECTIVE 01/13/2025 1:36 PM Power of [employer] * Full Code (Latest Code Status on File) Date Activated Date Inactivated Comments 01/13/2025 8:21 PM 01/17/2025 5:31 PM Healthcare Agents on File Name Relationship Healthcare Agent Relationshi p Communication Chanel Land Daughter Health Care Agent Care Teams Specialty Trimmer Relationship Specialty Start Date End Date Chino Mora MD PCP - General Family Practice 01/02/21 Kameron Jeff MD [address] [place] [address] Medical Oncologist/Melter Supervisor [employer] Medical Oncology 01/02/21 Kameron Jeff MD [address] DIV IM MEDICAL ONCOLOGY, [address] [place] [address] Medical Oncologist/Melter Supervisor [employer] Medical On[facility] 04/28/24 Constantin Kumar MD [address] [place] [address] Medical Oncologist/Melter Supervisor [employer] Medical Oncology 02/01/25
--- OUTSIDE RECORDS SUMMARY | 2025-03-07 08:46 | XMS_ITS | Encounter Summary ---
Author Organization [facility] Address [address] [place] [address] Phone Care Team Providers Care Land Conservation Specialist Name Role Phone Chino Mora MD Primary Care Provider Kameron Jeff MD Unavailable Kameron Jeff MD Unavailable Constantin Kumar MD Unavailable [phone] Encounter Details Date Type Department Care Team (Late st Contact Info) Description 04/27/2024 Telephone [facility] Oncology [facility] Advanced Medicine 7th [place] [address] Bettye Su Social History Tobacco Use Types Packs/Day Years Used Date Smoking Tobacco: Former Smokeless Tobacco: Never Alcohol Use Standard Drinks/Week Comments Yes 0 (1 standard drink = 0.6 oz pur e alcohol) Comments Unknown Sex and Gender Information Value Date Recorded Sex Assigned at Not on file Legal Sex Female 11:57 PM POLITICAL GEOGRAPHER Gender Identity Not on file Sexual Orientation Not on file documented as of this encounter Plan of Treatment Not on file documented as of this encounter Visit Diagnoses Not on filedocumented in this encounter Care Teams Land Conservation Specialist Relationship Specialty Start Date End Date Chino Mora MD PCP - General Family Practice 01/02/21 Kameron Jeff MD [address] [place] [address] Medical Oncologist/Hand Miter Operator Medical Oncology 01/02/21 Kameron Jeff MD [address] [facility] DIV IM MEDICAL ONCOLOGY, [address], [address], [address] [place] [address] Medical Oncologist/Hand Miter Operator Medical Oncology 04/28/24 Constantin Kmuar MD [address] [facility] [address] [place] [address] Medical Oncologist/Hand Miter Operator Medical Oncology 02/01/25 documented as of this encounter
[2025-03-07 11:46] LABS: Alanine Aminotransferase 44 U/L (6-35); Albumin Level 4.3 g/dL (3.5-5.1); Alkaline Phosphatase 65 U/L (38-126); Anion Gap 8 mmol/L (4-12); Aspartate Amino Transferase 36 U/L (14-36); Bilirubin,Total 0.4 mg/dL (0.2-1.3); Blood Urea Nitrogen 11 mg/dL (7-17); Calcium 9.1 mg/dL (8.4-10.2); Carbon Dioxide 27 mmol/L (22-30); Chloride 101 mmol/L (98-107); Estimated Glomerular Filt Rate > 60; Glucose 95 mg/dL (65-110); Potassium 4.4 mmol/L (3.4-5.0); Sodium 136 mmol/L (137-145)
== END 2025-03-07 08:32 | disposition home or self-care (01) ==
LOC: ANHGOSHLAB 08:32
PROVIDERS: PCP Family Medicine; Visit Provider Family Medicine
DX: E87.1 Hypo-osmolality and hyponatremia (principal); R79.89 Other specified abnormal findings of blood chemistry
CPT/HCPCS: 36415; 80053

== ENCOUNTER 2025-04-07 17:18 | Emergency (ER) | payer BC, SELFPAY ==
--- NOTE | ~2025-04-07 | CT_ITS ---
CT facial & cervical spine wo Ordering provider: Johana Guevara History: . fall, bruising to the face . Comparison: None. Technique: Thin slice axial CT of the facial bones was performed without contrast. Coronal and sagit elenita reformatted images were also obtained. . Automated exposure control and iterative reconstruction technique were employed. The dose-length product was 191.19 mGy-cm. FINDINGS: PARANASAL SINUSES: Bilateral maxillary sinus disease. Left ethmoid sinus disease. Obliteration of the left osteal meatal complex. BONES: No facial fracture including no nasal bone fracture. ORBITS AND SUPERFICIAL SOFT TISSUES: The optic globes and orbits are normal. Fat stranding in the sub cutaneous tissues in the right cheek area which is most likely post traumatic. The superficial soft t issues are normal. VISUALIZED MASTOIDS: Well aerated. LIMITED VISUALIZED BRAIN PARENCHYMA: Normal. IMPRESSION: No facial fracture. Bilateral maxillary and left ethmoid sinus disease. CT facial & cervical spine wo Ordering provider: Johana Guevara History: . fall, bruising to the face . Comparison: None. Technique: CT of the cervical spine was performed without contrast. Sagittal and coronal reformatted images were also obtained and reviewed. Automated exposure control and iterative reconstruction lauryn hnique were employed. The dose-length product was 191.19 mGy-cm. FINDINGS: VERTEBRAE: Absent anterior portion of the C1 arch. No subluxation or acute fracture. The occipital co ndyles are intact. DISC SPACES: Normal. PARASPINOUS SOFT TISSUES: Normal. IMPRESSION: No acute osseous abnormality cervical spine. Absent anterior portion of the left C1 arch. Reviewed, dictated and finalized at location A. IMPRESSION: No facial fracture. Bilateral maxillary and left ethmoid sinus disease. CT facial & cervical spine wo Ordering provider: Johana Guevara History: . fall, bruising to the face . Comparison: None. Technique: CT of the cervical spine was performed without contrast. Sagittal a nd coronal reformatted images were also obtained and reviewed. Automated expos ure control and iterative reconstruction technique were employed. The dose-keena th product was 191.19 mGy-cm. FINDINGS: VERTEBRAE: Absent anterior portion of the C1 arch. No subluxation or acute frac ture. The occipital condyles are intact. DISC SPACES: Normal. PARASPINOUS SOFT TISSUES: Normal.
--- NOTE | ~2025-04-07 | CT_ITS ---
CT brain wo con Ordering provider: Johana Guevara PA-C History: 64 years Female with . fall, hit head . Comparison: February 25, 2025 Technique: CT of the head without contrast. Radiation reduction technique utilized.The dose-length pr oduct was 605.33 mGy-cm. FINDINGS: BRAIN PARENCHYMA AND CSF SPACES: Mild leukoaraiosis and diffuse cortical atrophy. Mild atheromatous d isease. No midline shift, mass effect or hemorrhage. The brain parenchyma and CSF spaces are otherwi se normal. VISUALIZED PARANASAL SINUSES: Left maxillary sinusitis. Left ethmoid sinus disease. Otherwise, Well a erated. MASTOIDS: Well aerated. BONES: The bones appear intact. SOFT TISSUES: Visualized nasopharynx is normal. Superficial soft tissues are normal. IMPRESSION: No acute intracranial findings. Reviewed, dictated and finalized at location A.
--- NOTE | ~2025-04-07 | XR_ITS ---
XR hand LT min 3V Ordering provider: Johana Guevara History: . injury, PT FELL YESTERDAY, SEVER SWELLING TO ENTIRE HAND . Comparison: None. FINDINGS: BONES: Fracture in the proximal metaphysis of the proximal phalanges of the third and fourth fingers. Posterior angulation is seen in the fourth finger fracture. JOINT SPACES: Well maintained. SOFT TISSUES: Unremarkable. IMPRESSION: Fracture of the proximal metaphysis of the proximal phalanx of the third and fourth fingers. Reviewed, dictated and finalized at location A. IMPRESSION: Fracture of the proximal metaphysis of the proximal phalanx of the third and fo urth fingers.
[2025-04-07 17:28] VITALS: BP 129/78; PULSE 90; RESP 20; TEMP 36.4; O2SAT 99
--- NOTE | 2025-04-07 18:17 | ED.UPPEXIN ---
HPI - Extremity Injury (Upper) General Chief Complaint: Extremity Injury, Upper Stated Complaint: L hand injury yesterday Time Seen by Provider: 04/07/25 18:17 Focused HPI: This is a 64 year old female that presents to the ER after a fall yesterday afternoon. Reports she gets dizzy spells and this caused her to fall. Reports injury to the left hand. She also hit her head. She did not lose consciousness. She is not on anticoagulation. She has not taken anything for pain. GENERAL: Well-appearing, well-nourished, and in no acute distress. HEAD: Normocephalic. Contusion over the right cheek. CHEST: Clear to auscultation. ?No respiratory distress. HEART: Regular rate and rhythm.? NEURO: ?Alert and oriented x3. Patient screened in triage and initial orders placed.? ?Additional care and disposition to be based upon?diagnostic testing and treatment. Related Data Home Medications ?Medication ?Instructions ?Recorded ?Confirmed ?Last Taken ?Type bimatoprost 0.01 % eye drops 1 drop ophthalmic (eye) DAILY 01/11/20 03/02/25 02/24/25 History (Lumigan) brimonidine 0.2 %-timolol 0.5 % 1 drop ophthalmic (eye) Q12H 01/11/20 03/02/25 02/24/25 History eye drops (Combigan) ascorbic acid (vitamin C) 1,000 mg 1 g PO DAILY 01/28/22 03/02/25 02/24/25 History tablet dorzolamide 2 % eye drops 1 drp EACH EYE TID 07/22/22 03/02/25 02/24/25 History magnesium oxide 400 mg (241.3 mg 500 mg PO QAM 05/19/23 03/02/25 02/24/25 History magnesium) tablet cholecalciferol (vitamin D3) 25 2,000 unit PO DAILY 03/01/24 03/02/25 02/24/25 History mcg (1,000 unit) capsule Allergies Allergy/AdvReac Type Severity Reaction Status Date / Time Penicillins Allergy Unknown Hives Verified 03/02/25 13:25 Review of Systems Review of Systems: All systems reviewed & are unremarkable except as noted in HPI and below PMFSH Past Medical History Medical History Fatty liver B-cell lymphoma (~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 No chemo/radiation. Anxiety Closed nondisplaced fracture of fifth left metatarsal bone (~01/2020) managed conservatively Hypertension Surgical History Surgical History History of lobectomy of lung (~01/2025) Trimalleolar fracture of right ankle (~01/2020) ORIF Dr Yoder History of lobectomy of lung (~09/26/15) Right middle lobe removed History of hysterectomy (~2013) Jennifer History of sinus surgery (~2002) History of section (~1984) Family History Family History Grandparent Asthma Family history of malignant neoplasm of brain Father Family history of Alzheimer's disease Family history of coronary artery disease Social History Social History Social History: Patient is , has 2 adult children. She lives alone with her dog, she has a home in [place]. 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 30 pack-year smoker, she quit in 2012. Smoking packs per day: 1 Smoking cigarettes per day: 20.0 Years smoked: 30 Smoking pack-years: 30.00 Smoking status: Former smoker Tobacco type: cigarettes and e-cigarettes/vaping Smoking end date: 08/10/14 Alcohol intake: current Drinks per week: 14 Alcohol use details: Moderate Substance use: never Substance use type: does not use Do You Feel Safe in your Home?: Yes Lack of Transportation: YES Lack of Food: Never True Current Housing: I Have Housing Concerned About Future Housing: No Difficulty Paying Gas/Electric Bills: No Difficulty Paying for Meds: No Currently Unemployed: No Education: High School Diploma/GED Difficulty w/ Childcare or Family Care: No Living arrangements: alone Occupation/Education: occupation Additional occupation/education comments: [employer] Gender identity (if verbalized by the patient): Female Spiritual care concerns: No Agree to blood products: Yes Course Vital Signs Vital signs: Vital Signs Temperature 97.6 F 04/07/25 17:28 Pulse Rate 90 04/07/25 17:28 Respiratory Rate 20 04/07/25 17:28 Blood Pressure 129/78 04/07/25 17:28 Pulse Oximetry 99 04/07/25 17:28 Temperature 97.6 F 04/07/25 17:28 Pulse Rate 90 04/07/25 17:28 Respiratory Rate 20 04/07/25 17:28 Blood Pressure 129/78 04/07/25 17:28 Pulse Oximetry 99 04/07/25 17:28 MDM - Extremity Injury (Upper) MDM Narrative Medical decision making narrative: Patient left after medical screening exam and initial workup and before any further evaluation or management Imaging Data Radiologist's impression: ITS Impressions Head CT 04/07/25 17:50 IMPRESSION: No acute intracranial findings. Hand X-Ray 04/07/25 18:04 IMPRESSION: Fracture of the proximal metaphysis of the proximal phalanx of the third and fourth fingers. Head/Cervical Spine/Facial Bones CT 04/07/25 18:35 IMPRESSION: No facial fracture. Bilateral maxillary and left ethmoid sinus disease. CT facial & cervical spine wo Ordering provider: Johana Guevara History: . fall, bruising to the face . Comparison: None. Technique: CT of the cervical spine was performed without contrast. Sagittal and coronal reformatted images were also obtained and reviewed. Automated exposure control and iterative reconstruction technique were employed. The dose-length product was 191.19 mGy-cm. FINDINGS: VERTEBRAE: Absent anterior portion of the C1 arch. No subluxation or acute fracture. The occipital condyles are intact. DISC SPACES: Normal. PARASPINOUS SOFT TISSUES: Normal. IMPRESSION: No acute osseous abnormality cervical spine. Absent anterior portion of the left C1 arch. Discharge Plan Discharge Clinical Impression: Fall Qualifiers: Encounter type: initial encounter Qualified Code(s): W19.XXXA - Unspecified fall, initial encounter Head injury Qualifiers: Encounter type: initial encounter Qualified Code(s): S09.90XA - Unspecified injury of head, initial encounter Finger fracture, left Qualifiers: Encounter type: initial encounter Finger: ring finger Fracture type: closed Phalanx: proximal Fracture alignment: displaced Qualified Code(s): S62.615A - Displaced fracture of proximal phalanx of left ring finger, initial encounter for closed fracture Patient Disposition: Elopement After Seen by Prov Patient Language: Kinyarwanda Prescriptions: No Action magnesium oxide 400 mg (241.3 mg magnesium) tablet 500 mg PO QAM losartan 100 mg tablet 100 mg PO DAILY Qty: 90 3RF buspirone 5 mg tablet 5 mg PO TID Qty: 270 0RF Lumigan 0.01 % drops 1 drop EACH EYE DAILY Combigan 0.2-0.5 % drops 1 drop EACH EYE Q12H ascorbic acid (vitamin C) 1,000 mg tablet 1 g PO DAILY cholecalciferol (vitamin D3) 25 mcg (1,000 unit) capsule 2,000 unit PO DAILY dorzolamide 2 % drops 1 drp EACH EYE TID sertraline 100 mg tablet 100 mg PO DAILY Qty: 90 1RF metoprolol succinate 25 mg tablet extended release 24 hr 25 mg PO DAILY Qty: 90 1RF Follow-up/Referrals: Jasmin Mora MD [Primary Care Provider] -
--- NOTE | 2025-04-07 18:48 | PC.NURSE ---
Pt seen exiting ER with steady gait.
== END 2025-04-07 18:48 | disposition left against medical advice (07) ==
LOC: ANHED 19:53
PROVIDERS: Emergency Provider Physician Assistant; PCP Family Medicine
DX: S62.615A Displaced fracture of proximal phalanx of left ring finger, initial encounter for closed fracture (principal); S62.613A Displaced fracture of proximal phalanx of left middle finger, initial encounter for closed fracture; S09.90XA Unspecified injury of head, initial encounter; I12.9 Hypertensive chronic kidney disease with stage 1 through stage 4 chronic kidney disease, or unspecified chronic kidney disease; N18.30 Chronic kidney disease, stage 3 unspecified; C85.10 Unspecified B-cell lymphoma, unspecified site; H35.30 Unspecified macular degeneration; F41.9 Anxiety disorder, unspecified; F32.A Depression, unspecified; Z87.891 Personal history of nicotine dependence; Z90.2 Acquired absence of lung [part of]; Z90.710 Acquired absence of both cervix and uterus; J32.0 Chronic maxillary sinusitis; J32.2 Chronic ethmoidal sinusitis; W18.39XA Other fall on same level, initial encounter
CPT/HCPCS: 70450; 70486; 72125; 73130; 99284